=== PATIENT | female | born 1950 | race Caucasian/White ===

== ENCOUNTER 2019-05-11 15:10 | Emergency (ER) | payer MEDICARE, MEDICAID ==
[~2019-05-11] VITALS: Ht 160 cm; Wt 65.9 kg
[~2019-05-11 15:10] MED LIST: ARIP15TA4 PO; DEXL60CA PO; ENAL10TA PO; FLUO20CA42 PO; FURO40TA4 PO; MELO15TA39 PO; METF-397 PO; POTA10TA10 PO; TIOT18CA2 IH
--- NOTE | 2019-05-11 16:14 | ED Upper Extremity ---
General Chief Complaint: Upper Extremity Stated Complaint: FELL ON LEFT WRIST Nursing Triage Note: FELL IN GARAGE HURTING LEFT WRIST TODAY AT NOON. Nursing Sepsis Screen: No Definite Risk Source: patient Exam Limitations: no limitations (PORSHA ALFARO) History of Present Illness Date Seen by Provider: May 11, 2019 Time Seen by Provider: 16:00 Initial Comments Patient presents to the ED today with complaints of left wrist pain after she fell while feeding her cat at 1200 today. There is a potential bony abnormality along the left scaphoid bone. Patient has limited ROM of the left wrist. Patient rates the pain a 3 out of 10 and denies any associated symptoms. Location Injury Occurred: At home Onset: this afternoon Pain/Injury Location: left wrist Method of Injury: fell Modifying Factors: Improves With Rest (PORSHA ALFARO) Allergies and Home Medications Allergies Coded Allergies: No Known Drug Allergies (Unverified , 04/18/16) Home Medications Aripiprazole 15 Mg Tablet, 15 MG PO DAILY, (Reported) Dexlansoprazole 60 Mg Royal., 60 MG PO DAILY, (Reported) Enalapril Maleate 10 Mg Tablet, 10 MG PO DAILY, (Reported) Fluoxetine HCl 20 Mg Capsule, 20 MG PO DAILY, (Reported) Furosemide 40 Mg Tablet, 40 MG PO DAILY, (Reported) Meloxicam 15 Mg Tablet, 15 MG PO DAILY, (Reported) Metformin HCl 500 Mg Tablet, 500 MG PO BID, (Reported) Potassium Chloride 10 Meq Tablet.er, 10 MEQ PO DAILY, (Reported) Tiotropium [place] 1 Inh Aerp, 2 INH IH DAILY, (Reported) Patient Home Medication List Home Medication List Reviewed: Yes (SANTOS FRAZIER APRN) Review of Systems Constitutional: no symptoms reported EENTM: no symptoms reported Respiratory: no symptoms reported Cardiovascular: no symptoms reported Gastrointestinal: no symptoms reported Genitourinary: no symptoms reported : No Musculoskeletal: see HPI Skin: no symptoms reported Psychiatric/Neurological: No Symptoms Reported (PORSHA ALFARO) Past Faiusra-Rfrxyd-Dvkzqc Hx Patient Social History Alcohol Use: Occasionally Uses Recreational Drug Use: No Smoking Status: Never a Smoker Type Used: Cigarettes Former Smoker, Quit: Jul 21, 2005 Recent Foreign Travel: No Contact w/Someone Who Travel: No Recent Infectious Disease Expo: No Recent Hopitalizations: No (ALFARO,PORSHA PA STUDENT) Seasonal Allergies Seasonal Allergies: No (PORSHA ALFARO STUDENT) Past Medical History Surgeries: Yes Respiratory: Yes (USES INHALER, SOB) Currently Using CPAP: No Currently Using BIPAP: No Cardiac: No Neurological: No Reproductive Disorders: No Female Reproductive Disorders: Denies Sexually Transmitted Disease: No HIV/AIDS: No Gastrointestinal: No Musculoskeletal: Yes (ARTHRITIS IN BACK ) Endocrine: No Cancer: No Psychosocial: No Integumentary: No Blood Disorders: No Adverse Reaction/Blood Tranf: No (PORSHA ALFARO STUDENT) Physical Exam Vital Signs Vital Signs - First Documented 05/11/19 15:35 Temp 36.5 Pulse 82 Resp 16 B/P (MAP) 150/111 (124) Pulse Ox 96 O2 Delivery Room Air (SANTOS FRAZIER APRN) Vital Signs Capillary Refill : Less Than 3 Seconds (PORSHA ALFARO STUDENT) Height, Weight, BMI Height: 0'0.00" Weight: 0lbs. 0.0oz. 0.846123bd; 25.00 BMI Method: General Appearance: no apparent distress Cardiovascular: normal peripheral pulses, regular rate, rhythm, no edema, no gallop, no JVD, no murmur Respiratory: chest non-tender, lungs clear, normal breath sounds, no respiratory distress, no accessory muscle use Gastrointestinal: normal bowel sounds, non tender, soft, no organomegaly, no pulsatile mass Wrist: Yes asymmetry, Yes bone tenderness, Yes limited ROM, Yes pain, Yes soft tissue tenderness, Yes swelling Hand: normal inspection, non-tender, no evidence of injury, normal ROM Neurologic/Psychiatric: alert, normal mood/affect, oriented x 3 Skin: normal color, warm/dry Lymphatic: no adenopathy (PORSHA ALFARO STUDENT) Progress/Results/Core Measures Results/Orders Lab Results Laboratory Tests Test 05/11/19 17:05 Range/Units (SANTSO FRAZIER APRN) My Orders Orders - SANTOS FRAZIER APRN Wrist, Left, 3 Views Or More (05/11/19 16:08) Body Fluid Culture (05/11/19 16:56) Crystals,Body Fluid (05/11/19 16:56) Lidocaine 1% Inj 20 Ml (Xylocaine 1% Inj (05/11/19 17:00) (SANTOS FRAZIER APRN) Medications Given in ED Current Medications Medications Dose Ordered Sig/Josue Route Start Time Stop Time Status Last Admin Dose Admin Lidocaine HCl 2.1 ml ONCE ONCE INJ 05/11/19 17:00 05/11/19 17:01 DC 05/11/19 17:08 2.1 ML (SANTOS FRAZIER APRN) Vital Signs/I&O 05/11/19 15:35 Temp 36.5 Pulse 82 Resp 16 B/P (MAP) 150/111 (124) Pulse Ox 96 O2 Delivery Room Air (SANTOS FRAZIER APRN) Blood Pressure Mean: 124 Departure Communication (Admissions) I've seen the patient and agree with plan of care. There is some swelling with fluctuance to the dorsal radial side of the wrist. She has pain with range of motion to the wrist. There is no redness. The swelling was sudden in onset after a fall today. The x-ray is unremarkable. We decided to aspirate this fluid collection, area was anesthetized with 0.5 mL of 1% lidocaine without epinephrine. An 18-gauge 1/2 inch needle was then inserted only about 1 cm into this area of fluctuance/fluid collection. 2.5 cc of bloody material was aspirated. This was sent to lab for culture (SANTOS FRAZIER APRN) Impression Primary Impression: Hemarthrosis, left wrist Disposition: 01 HOME, SELF-CARE Condition: Stable Departure-Patient Inst. Decision time for Depature: 17:14 (SANTOS FRAZIER APRN) Referrals: [facility] (PCP/Family) Primary Care Physician LINUS RODRIGUEZ MD, ROBERT F DO ZAFUTA, MICHAEL P MD Patient Instructions: Hemarthrosis (DC) Add. Discharge Instructions: 1. Wear the splint at all times except when showering until told otherwise. Call your primary care provider tomorrow to make an appointment for an MRI of the wrist if she feels this is necessary. Pain medication as directed in the mean time. Alternatively, you may call the orthopedic surgeons listed and see them directly. All discharge instructions reviewed with patient and/or family. Voiced understanding. Scripts Hydrocodone/Acetaminophen ([place] 5-325 Tablet) 1 Each Tablet 1 TAB PO Q6H for Pain MDD 10 TABS for 7 Days, #10 TAB Prov: SANTOS FRAZIER APRN 05/11/19 PORSHA ALFARO STUDENT May 11, 2019 16:14 SANTOS FRAZIER APRN May 11, 2019 17:16
--- NOTE | 2019-05-11 16:57 | Diagnostic Imaging Report ---
INDICATION: Fall with left wrist pain. TIME OF EXAM: 4:48 p.m. Three views of the left wrist were obtained. FINDINGS: Generalized demineralization of the hand and wrist is noted. The distal radius and ulna appear to be intact. Carpal bones are intact. There are degenerative changes at the first CMC joint. Visualized metacarpals appear to be intact. No fractures are seen. IMPRESSION: Demineralization and degenerative change. No acute bony abnormality is detected. Dictated by: Dictated on workstation # [id number]
[2019-05-11] MEDS ORDERED: LIDOCAINE 1% INJ 20 ML 20 ML VIAL INJ ONE (17:00)
[2019-05-11] MEDS ORDERED: HYDR-4226 PO (17:16)
[2019-05-11 17:35] VITALS: BP 150/111
== END 2019-05-11 17:35 | disposition home or self-care (01) ==
LOC: EDUNIT# 15:10 → EDBD 15:13 → ER 15:13
DX: S63.502A Unspecified sprain of left wrist, initial encounter (principal); Z79.4 Long term (current) use of insulin; Z87.891 Personal history of nicotine dependence; W19.XXXA Unspecified fall, initial encounter; Y92.009 Unspecified place in unspecified non-institutional (private) residence as the place of occurrence of the external cause
CPT/HCPCS: 10060; 73110; 87070; 87205; 89060

== ENCOUNTER 2019-10-29 22:12 | Inpatient (IN) | payer MEDICARE, MEDICAID ==
[~2019-10-29] VITALS: Ht 167 cm; Wt 68.3 kg
[~2019-10-29 22:12] MED LIST changes: +HYDR-4226 PO
--- OUTSIDE RECORDS SUMMARY | 2019-10-29 22:23 | XMS REPORT ---
Author Author Delphine Mays Doctor Organization [facility] Address Unknown Phone Unavailable Care Team Providers Care Gas Flow Regulator Name Role Phone Migration, Doctor Unavailable Unavailable PROBLEMS Type Condition ICD9-CM Code FGD21-LS Code Onset Dates Condition S tatus SNOMED Code Problem Degenerative disc disease, cervical M50.30 Active 84181015 Problem Lumbar degenerative disc disease M51.36 Active 49285142 Problem Gastric reflux K21.9 Active 58063 7003 Problem Migraine without aura and without status migrain osus, not intractable G43.009 Active 661639062 Problem COPD mixed type J44.9 Active 1364 5005 Problem Thyroid nodule E04.1 Active 76772 5005 Problem Mixed incontinence N39.46 Active 4 86394207 Problem Essential (primary) hypertension I10 Active 60051182 Problem Left lower quadrant abdominal pain R10.32 Active 525626198 Problem Chronic kidney disease, stage 3 N18.3 Active 273064750 Problem COPD exacerbation J44.1 Active 19 6804843 Problem Urge incontinence N39.41 Active 87 032445 Problem Complete tear of right rotator cuff M75.121 Active 716417676 Problem Incomplete tear of right rotator cuff, unspecifi ed whether traumatic M75.111 Active 629279908 Problem Other schizoaffective disorders F25.8 Active 69001286 Problem Hypertensive heart disease with heart failure I11. 0 Active 41314178 Problem Rotator cuff tear M75.100 Active 41 48109 Problem Type 2 diabetes mellitus wit h diabetic polyneuropathy, without long-term current use of insulin E11.42 Active 10159 006 Problem Gastro-esophageal reflux disease without esophagitis K21.9 Active 638545962 Problem GERD with esophagitis K21.0 Active 374071712 Problem Major depression F32.9 Active 370 977725 Problem Moderate episode of recurrent major depressive disorder F33.1 Active 656487235 Problem Atherosclerosis of [place] co ronary artery with angina pectoris, unspecified whether [place] or transplanted heart I25.119 Active [id number] ALLERGIES No Information ENCOUNTERS Encounter Location Date Diagnosis [facility] [address] [facility] [id number] [place] [address] Oct, [facility] [place] [address] [facility] [id number] [place] [address] Sep, [facility] [place] [address] [facility] [id number] [place] [address] Sep, [facility] [place] [id number] [address] Sep, [facility] [place] [id number] [address] Sep, Major depression F32.9 [facility] [address] [place] [id number] [address] Sep, Encounter for Medicare annual wellness e xam Z00.00 ; COPD mixed type J44.9 ; Essential (primary) hypertension I10 ; Type 2 diabetes mellitus with diabetic polyneuropathy, without long-term current use of insulin E11.42 ; Atherosclerosis of [place] coronary artery with angina pectoris, unspecified whether [place] or transplanted heart I25.119 ; Hypertensive heart disease with heart failure I11.0 ; Other schizoaffective disorders F25.8 ; Moderate episode of recurrent major depressive disorder F33.1 ; Chronic kidney disease, stage 3 N18.3 ; Degenerative disc disease, cervical M50.30 ; Gastro-esophageal reflux disease without esophagitis K21.9 and Complete tear of right rotator cuff M75.121 [facility] [address] [place] [id number] [address] Sep, [facility] [address] [place] [id number] [address] Sep, [facility] [place] [address] [id number] [address] Sep, [facility] [address] [place] [id number] [address] Sep, [facility] [address] [place] [id number] [address] Sep, [facility] [address] [place] [address] [facility] [id number] [place] [address] 23 Sep, 2019 [facility] [address] [place] [address] [facility] [id number] [place] [address] 20 Sep, 2019 [facility] [address] [facility] [id number] [address] [place] [address] 19 Sep, 2019 [facility] [address] [place] [address] [facility] [id number] [place] [address] 19 Sep, 2019 [facility] [address] [place] [address] [facility] [id number] [place] [address] 18 Sep, 2019 [facility] [address] [facility] [id number] [facility] [place] [address] 17 Sep, 2019 [facility] [address] [place] [id number] [address] 17 Sep, 2019 [facility] [address] [place] [id number] [address] 16 Sep, 2019 [facility] [address] [place] [id number] [address] 16 Sep, 2019 [facility] [address] [place] [id number] [address] 13 Sep, 2019 Varicose veins of both lower extremities , unspecified whether complicated I83.93 [facility] [address] [place] [id number] [address] 10 Sep, 2019 Major depression F32.9 [facility] [address] [place] [id number] [address] 06 Sep, 2019 GERD with esophagitis K21.0 ; Other schi zoaffective disorders F25.8 ; Type 2 diabetes mellitus with diabetic polyneuropathy, without long-term current use of insulin E11.42 ; COPD mixed type J44.9 and Post-menopausal Z78.0 [facility] [address] [place] [id number] [address] 04 Sep, 2019 Other schizoaffective disorders F25.8 an d Type 2 diabetes mellitus with diabetic polyneuropathy, without long-term current use of insulin E11.42 [facility] [place] [address] [facility] [id number] [address] [address] Sep, [facility] [address] [place] [address] [facility] [id number] [place] [address] Sep, [facility] [address] [place] [address] [address] 28 Aug, 2019 Type 2 diabetes mellitus with diabetic p olyneuropathy, without long-term current use of insulin E11.42 ; Moderate episode of recurrent major depressive disorder F33.1 and Other schizoaffective disorders F25.8 [facility] [address] [place] [address] [address] 27 Aug, 2019 [facility] [address] [place] [address]005[address] [address] 26 Aug, 2019 [facility] [address] [place] [address]005[address] [address] 24 Aug, 2019 [facility] [address] [place] [address]005[address] [address] 21 Aug, 2019 Incomplete tear of right rotator cuff, u nspecified whether traumatic M75.111 [facility] [address] [place] [id number] [address] 20 Aug, 2019 [facility] [address] [place] [id number] [address] 19 Aug, 2019 [facility] [address] [place] [id number] [address] 18 Aug, 2019 Other schizoaffective disorders F25.8 [facility] [address] [place] [id number] [address] 13 Aug, 2019 [facility] [address] [place] [id number] [address] 12 Aug, 2019 [facility] [place] [address] [facility] [id number] [place] [address] 11 Aug, 2019 [facility] [place] [address] [facility] [address] [id number] [place] [address] 10 Aug, 2019 [facility] [place] [address] [facility] [address] [id number] [place] [address] 07 Aug, 2019 [facility] [place] [address] [facility] [address] [id number] [place] [address] 05 Aug, 2019 [facility] [place] [address] [facility] [address] [id number] [place] [address] 04 Aug, 2019 [facility] [place] [id number] [address] Aug, [facility] [address] [place] [id number] [address] Aug, [facility] [address] [place] [id number] [address] Jul, Incomplete tear of right rotator cuff, u nspecified whether traumatic M75.111 [facility] [address] [place] [address] [facility] [id number] [place] [address] Jul, [facility] [address] [place] [address] [facility] [id number] [place] [address] 30 Jul, 2019 Rotator cuff tear M75.100 ; Type 2 diabe rhina mellitus with diabetic polyneuropathy, without long-term current use of insulin E11.42 ; High risk medication use Z79.899 and Urge incontinence N39.41 [facility] [address] [place] [address] [facility] [id number] [place] [address] Jul, Dysuria R30.0 [facility] [address] [place] [address] [facility] [id number] [place] [address] Jul, [facility] [address] [place] [id number] [address] Jul, [facility] [address] [place] [address] [facility] [id number] [place] [address] Jul, [facility] [address] [place] [address] [facility] [address] [id number] [place] [address] Jul, [facility] [address] [place] [address] [facility] [address] [id number] [place] [address] Jul, Lumbago M54.5 [facility] [address] [place] [address] [facility] [address] [id number] [place] [address] Jul, [facility] [address] [place] [address] [facility] [address] [id number] [place] [address] Jul, [facility] [address] [place] [address] [facility] [id number] [place] [address] Jul, [facility] [address] [place] [address] [facility] [address] [id number] [place] [address] Jul, [facility] [address] [place] [address] [facility] [id number] [place] [address] Jul, [facility] [address] [place] [address] [facility] [id number] [place] [address] Jul, Incomplete tear of right rotator cuff, u nspecified whether traumatic M75.111 ; Essential (primary) hypertension I10 and Thyroid nodule E04.1 [facility] [address] [facility] [id number] [place] [address] Jul, [facility] [address] [place] [address] [facility] [id number] [place] [address] Jun, [facility] [address] [place] [address] [facility] [id number] [place] [address] Jun, COPD exacerbation J44.1 [facility] [address] [place] [address] [facility] [id number] [place] [address] Jun, [facility] [address] [place] [address] [facility] [id number] [place] [address] Jun, [facility] [address] [place] [address] [facility] [id number] [place] [address] Jun, Nausea R11.0 ; Incomplete tear of right rotator cuff, unspecified whether traumatic M75.111 and Essential (primary) hypertension I10 [facility] [address] [place] [address] [facility] [address] [id number] [place] [address] Jun, [facility] [address] [place] [address] [facility] [address] [id number] [place] [address] 18 Jun, 2019 [facility] [address] [place] [id number] [address] 16 Jun, 2019 [facility] [address] [place] [address] [facility] [address] [id number] [place] [address] 11 Jun, 2019 Rotator cuff tear M75.100 [facility] [address] [place] [id number] [address] 09 Jun, 2019 [facility] [address] [place] [address] [address] 05 Jun, 2019 Essential (primary) hypertension I10 ; T ype 2 diabetes mellitus with diabetic polyneuropathy, without long-term current use of insulin E11.42 ; Rotator cuff tear M75.100 and Chronic kidney disease, stage 3 N18.3 [facility] [address] [place] [id number] [address] 03 Jun, 2019 [facility] [address] [place] [id number] [address] Jun, [facility] [address] [place] [id number] [address] Jun, [facility] [address] [place] [id number] [address] May, [facility] [address] [place] [id number] [address] May, [facility] [address] [place] [id number] [address] May, [facility] [address] [place] [id number] [address] May, Rotator cuff tear M75.100 [facility] [address] [place] [address] [id number] [address] May, [facility] [address] [place] [address] [place], [id number] [address] May, Rotator cuff tear M75.100 ; Major depres sive disorder with current active episode, unspecified depression episode severity, unspecified whether recurrent F32.9 ; Type 2 diabetes mellitus with diabetic polyneuropathy, without long-term current use of insulin E11.42 and Essential (primary) hypertension I10 [facility] [address] [place] [address] [place] [address] [address] May, [facility] [address] [place] [address] [id number] [address] May, [facility] [address] [place] [address] [place] [address] [address] Apr, [facility] [address] [place] [address] [place] [address] [address] Apr, [facility] [address] [place] [address] [place] [address] [address] Apr, Rotator cuff tear M75.100 ; Essential (p rimary) hypertension I10 and COPD mixed type J44.9 [facility] [address] [place] [address] [id number] [address] Apr, Rotator cuff tear M75.100 [facility] [address] [place] [address] [id number] [address] Apr, [facility] [address] [place] [address] [id number] [address] Apr, Preprocedural examination Z01.818 [facility] [address] [place] [address] [id number] [address] 09 Apr, 2019 [facility] [address] [place] [address] [id number] [address] 09 Apr, 2019 [facility] [address] [place] [address] [id number] [address] 08 Apr, 2019 Traumatic complete tear of right rotator cuff, initial encounter S46.011A ; Essential (primary) hypertension I10 ; Encounter for immunization Z23 ; Leg cramps R25.2 ; COPD mixed type J44.9 and Fatigue R53.83 [facility] [address] [place] [address] [place] [address] ST [id number] [place] [address] 24 Mar, 2019 [facility] [address] [place] [address] [place] [address] ST [id number] [place] [address] 18 Mar, 2019 [facility] [address] [place] [address] [place] [id number] [address] 16 Mar, 2019 [facility] [address] [place] [address] [place] [address] [address] 13 Mar, 2019 [facility] [address] [place] [address] [place] [address] [address] 12 Mar, 2019 Traumatic complete tear of right rotator cuff, initial encounter S46.011A ; Left lower quadrant abdominal pain R10.32 ; Essential (primary) hypertension I10 ; COPD mixed type J44.9 and 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 [facility] [address] [place] [address] [place] [address] [address] 10 Mar, 2019 [facility] [address] [place] [address] [place] [id number] [address] 09 Mar, 2019 Gastroenteritis and colitis, viral A08.4 [facility] [address] [place] [address] [place], [id number] [address] 04 Mar, 2019 [facility] [address] [place] [address] [id number] [address] Feb, Traumatic complete tear of right rotator cuff, initial encounter S46.011A ; Chronic obstructive pulmonary disease, unspecified COPD type J44.9 and Mixed incontinence N39.46 [facility] [address] [place] [address] [place] [address] [address] Feb, [facility] [address] [place] [id number] [address] Feb, [facility] [address] [place] [address] [place] [id number] [address] Feb, Injury of right shoulder, initial encoun ter S49.91XA [facility] [address] [place] [id number] [address] Feb, [facility] [address] [place] [address] [id number] [address] Feb, [facility] [address] [place] [address] [id number] [address] Jan, [facility] [address] [place] [address] [address] Jan, [facility] [address] [place] [address] [place] [address] [address] Jan, Essential (primary) hypertension I10 ; T ype 2 diabetes mellitus with diabetic polyneuropathy, without long-term current use of insulin E11.42 ; COPD mixed type J44.9 ; Thyroid nodule E04.1 and Degenerative disc disease, cervical M50.30 [facility] [address] [place] [id number] [address] Jan, [facility] [address] [place] [id number] [address] Jan, [facility] [address] [place] [id number] [address] Dec, [facility] [address] [place] [address] [place] [id number] [address] Dec, Gastroenteritis and colitis, viral A08.4 [facility] [address] [place] [id number] [address] Dec, Chronic obstructive pulmonary disease, u nspecified COPD type J44.9 [facility] [address] [place] [address] [place] [address]100[facility] [place] [address] Dec, Gastric reflux K21.9 [facility] [address] [place] [address] [place] [address]100[facility] [place] [address] 18 Dec, 2018 [facility] [address] [place] [address] [place] [address] [address] 14 Dec, 2018 Essential (primary) hypertension I10 [facility] [address] [place] [address] [place] [address] [address] Dec, [facility] [address] [place] [address] [place] [address]100[facility] [place] [address] Dec, Chronic obstructive pulmonary disease, u nspecified COPD type J44.9 ; Type 2 diabetes mellitus with diabetic polyneuropathy, without long-term current use of insulin E11.42 ; Essential (primary) hypertension I10 ; Gastro-esophageal reflux disease without esophagitis K21.9 and Varicella vaccination Z23 [facility] [address] [place] [address] [place] [address] [address] Dec, Dyspnea on exertion R06.09 and Infiltrat e noted on imaging study R93.89 [facility] [address] [place] [address] [place] [address] [address] November, Thyroid pain E07.89 [facility] [address] [place] [place] [address] [address] November, Thyroid pain E07.89 [facility] [address] [place] [place], [place] [address] [address] November, Other schizoaffective disorders F25.8 [facility] [address] [place] [place], [place] [address] [address] Oct, Type 2 diabetes mellitus with diabetic p olyneuropathy, without long-term current use of insulin E11.42 ; Gastric reflux K21.9 and Diabetic retinopathy of right eye associated with type 2 diabetes mellitus, macular edema presence unspecified, unspecified retinopathy severity E11.319 [facility] [address] [place] [id number] [place] [address] Sep, [facility] [address] [place] [address] [place] [address] [address] Sep, Type 2 diabetes mellitus with diabetic p olyneuropathy, without long-term current use of insulin E11.42 and Gastric reflux K21.9 [facility] [address] [place] [address] [place] [id number] [address] Sep, [facility] [address] [place] [address] [place] [address] [address] Sep, Acute vaginitis N76.0 and Other schizoaf fective disorders F25.8 [facility] [place] [address] [facility] [id number] [address] [place] [address] 08 Sep, 2018 [facility] [address] [place] [address] [place], [place] [id number] [address] Sep, [facility] [address] [place] [address] [place] [address] [address] Aug, [facility] [address] [place] [address] [place] [address] [address] Jul, [facility] [address] [place] [address] [address] Jul, [facility] [address] [place] [address] [place] [address] [address] Jul, Dental examination Z01.20 and Caries K02 .9 [facility] [address] [place] [address] [place] [id number] [address] Jul, Type 2 diabetes mellitus without complic ations E11.9 [facility] [address] [place] [address] [place] [id number] [address] Jul, [facility] [address] [place] [address] [place] [place] [id number] [address] Jul, Migraine without aura and without status migrainosus, not intractable G43.009 [facility] [address] [place] [address] [facility] [id number] [place] [address] Jul, [facility] [address] [place] [address] [place] [place] [id number] [address] Jul, [facility] [address] [place] [address] [place] [address] [id number] [place] [address] Jul, [facility] [address] [place] [address] [place], [place] [id number] [address] Jul, Shortness of breath R06.02 [facility] [address] [place] [address] [place] [address] [id number] [place] [address] 07 Jul, 2018 Dental examination Z01.20 [facility] [address] [place] [address] [place] [id number] [address] 05 Jul, 2018 Acute intractable headache, unspecified headache type R51 and BMI 40.0-44.9, adult Z68.41 [facility] [address] [place] [address] [facility] [id number] [place] [address] Jul, [facility] [address] [place] [address] [place], [place] [id number] [address] Jul, [facility] [address] [place] [address] [place], [place] [id number] [address] Jul, [facility] [address] [place] [address] [place] [address] [id number] [place] [address] 31 Jun, 2018 [facility] [address] [place] [address] [place] [id number] [place] [address] Jun, [facility] [address] [place] [address] [place] [address] [id number] [place] [address] Jun, [facility] [address] [place] [address] [place] [address] [id number] [place] [address] 18 Jun, 2018 Impetigo L01.00 and Sore in nose J34.89 [facility] [address] [place] [address] [facility] [id number] [place] [address] Jun, Degenerative disc disease, cervical M50. 30 [facility] [address] [place] [address] [facility] [address] [id number] [place] [address] Jun, Sore in nose J34.89 [facility] [address] [place] [address] [facility] [address] [id number] [place] [address] Jun, Sore in nose J34.89 ; Excoriation of abd omen, initial encounter S30.811A ; Encounter for immunization Z23 and BMI 40.0-44.9, adult Z68.41 [facility] [address] [place] [address] [place] [address] [place] [id number] [place] [address] May, [facility] [address] [place] [address] [facility] [address] [id number] [place] [address] May, [facility] [address] [place] [address] [place] [address] ST [id number] [place] [address] May, Type 2 diabetes mellitus without complic ations E11.9 [facility] [address] [place] [address] [place] [address] [place] [id number] [place] [address] May, [facility] [address] [place] [address] [place] [address] [place] [id number] [place] [address] May, Degenerative disc disease, cervical M50. 30 [facility] [address] [place] [address] [place] [address] [place] [id number] [place] [address] May, Cervicalgia M54.2 [facility] [address] [place] [address] [place] [address] [place] [id number] [place] [address] May, [facility] [address] [place] [address] [place] [address] [place] [id number] [place] [address] May, [facility] [address] [place] [address] [facility] [address] [id number] [place] [address] May, [facility] [address] [place] [address] [place] [address] [place] [id number] [place] [address] May, Gastroenteritis and colitis, viral A08.4 [facility] [address] [place] [address] [facility] [address] [id number] [place] [address] Apr, Type 2 diabetes mellitus without complic ations E11.9 ; Degenerative disc disease, cervical M50.30 ; Essential (primary) hypertension I10 ; Gastro- esophageal reflux disease without esophagitis K21.9 and BMI 40.0-44.9, adult Z68.41 [facility] [address] [place] [address] [place] [id number] [address] 26 Mar, 2018 Degenerative disc disease, cervical M50. 30 ; Type 2 diabetes mellitus without complications E11.9 ; Encounter for immunization Z23 ; half-way current use of insulin Z79.4 and BMI 40.0-44.9, adult Z68.41 [facility] [address] [place] [address] [place] [id number] [address] 20 Mar, 2018 Degenerative cervical disc M50.30 [facility] [address] [place] [address] [place] [id number] [address] 19 Mar, 2018 [facility] [address] [place] [address] [place] [id number] [address] 18 Mar, 2018 Generalized pruritus L29.9 ; Lumbar dege nerative disc disease M51.36 and BMI 40.0-44.9, adult Z68.41 [facility] [address] [place] [address] [place] [id number] [address] 06 Mar, 2018 [facility] [address] [place] [address] [place], [place] [id number] [address] 04 Mar, 2018 Cervicalgia M54.2 and Essential (primary ) hypertension I10 [facility] [address] [place] [address] [place], [place] [id number] [address] Feb, Type 2 diabetes mellitus without complic ations E11.9 [facility] [address] [place] [address] [place], [place] [id number] [address] 30 Jan, 2018 Gastroenteritis and colitis, viral A08.4 and BMI 40.0-44.9, adult Z68.41 [facility] [address] [place] [address] [place], [place] [id number] [address] 16 Jan, 2018 Type 2 diabetes mellitus without complic ations E11.9 ; Essential (primary) hypertension I10 ; Screening for breast cancer Z12.31 ; Degenerative lumbar disc M51.36 ; BMI 40.0-44.9, adult Z68.41 and Morbid obesity E66.[address] [address] 26 Dec, 18 BMI 40.0-44.9, adult Z68.41 and Other schizoaffective disorders F25.[address] [address] Dec, 18 Other schizoaffective disorders F25.8 ; Lumbar degenerative disc disease M51.36 and BMI 40.0-44.9, adult Z68.[address] [address] November, 18 Shortness of breath R06.[address] [address] November, [address] [address] November, [address] [address] November, [address] [address] November, [address] [address] November, 18 Vaginal bleeding N93.[address] [address] November, 18 BMI 40.0-44.9, adult Z68.41 and Vaginal bleeding N93.[address] [address] Oct, 18 Dysfunction of both eustachian tubes H69.[address] [address] Oct, 18 BMI 40.0-44.9, adult Z68.41 ; Essential (primary) hypertension I10 and Impetigo L01.00 [facility] [address] [place] [address] Sep, [address] [address] Sep, 18 Type 2 diabetes mellitus with diabetic polyneuropathy, without long-term current use of insulin E11.42 ; BMI 40.0-44.9, adult Z68.41 ; Other schizoaffective disorders F25.8 ; Gastro-esophageal reflux disease without esophagitis K21.9 ; Essential (primary) hypertension I10 and Impetigo L01.00 [facility] [address] [place] [address] Sep, 18 Type 2 diabetes mellitus with diabetic polyneuropathy, without long-term current use of insulin E11.[address] [address] Aug, [address] [address] Aug, [address] [address] Jul, 18 Type 2 diabetes mellitus with diabetic polyneuropathy, without long-term current use of insulin E11.42 ; Other schizoaffective disorders F25.8 ; Gastro-esophageal reflux disease without esophagitis K21.9 ; Essential (primary) hypertension I10 and Impetigo L01.[address] [address] Jun, 17 Shortness of breath R06.02 ; Type 2 diabetes mellitus without complications E11.9 ; BMI 40.0- 44.9, adult Z68.41 and Pre-ulcerative corn or callous L84 [address] [address] Jun, [address] [address] May, 17 Medicare welcome exam Z00.00 ; BMI 40.0-44.9, adult Z68.41 ; Medicare annual wellness visit, initial Z00.00 ; Medicare annual wellness visit, subsequent Z00.00 and Encounter for immunization Z23 [facility] [place] [address] [place] [address] May, 17 Foot callus L84 and Type 2 diabetes mellitus without complications E11.9 [facility] [place] [address] [place] [address] 30 Apr, 17 [facility] [place] [address] [place] [address] Apr, 17 Encounter for immunization Z23 [facility] [place] [address] [place] [address] Mar, 17 Type 2 diabetes mellitus without complications E11.9 and Polyneuropathy associated with underlying disease G63 [facility] [place] [address] [place] [address] Feb, 17 Edema R60.9 ; Type 2 diabetes mellitus without complications E11.9 and Anemia, unspecified type D64.9 [facility] [place] [address] [place] [address] Feb, 17 Hip pain, left M25.552 [facility] [place] [address] [place] [address] Feb, 17 [facility] [place] [address] [place] [address] Jan, 17 [facility] [place] [address] [place] [address] Jan, 17 [facility] [place] [address] [place] [address] 15 Dec, 17 [facility] [place] [address] [place] [address] 14 Dec, 17 [facility] [place] [address] [place] [address] 13 Dec, 17 [facility] [place] [address] [place] [address] 12 Dec, 17 [facility] [place] [address] [place] [address] 08 Dec, 17 [facility] [place] [address] [place] [address] Dec, 17 Type 2 diabetes mellitus without complications E11.9 and Essential (primary) hypertension I10 [facility] [address] [place] [address] November, 17 [facility] [address] [address] November, 17 Frequency of micturition R35.0 ; Dysuria R30.0 and Type 2 diabetes mellitus without complications E11.9 [facility] [address] [place] [address] Oct, 17 [facility] [address] [place] [address] Oct, 17 [facility] [address] [address] Oct, 17 [facility] [address] [address] Oct, 17 [facility] [address] [address] Sep, 17 Cellulitis of head except face L03.811 [facility] [address] [address] Aug, 17 [facility] [address] [address] Aug, [address] [address] Aug, 17 Flu-like symptoms R68.89 and Influenza B J10.[address] [address] Jul, 17 Type 2 diabetes mellitus without complications E11.9 [facility] [address] [place] [address] Jul, 17 [facility] [address] [address] Jul, 17 Type 2 diabetes mellitus without complications E11.9 ; Anemia, unspecified type D64.9 ; Essential (primary) hypertension I10 and Fatigue R53.83 [facility] [address] [address] Jul, 17 Type 2 diabetes mellitus without complications E11.9 and Foot callus L84 [address] [address] Jun, [address] [address] Jun, [address] [address] May, [address] [address] May, 16 Shortness of breath R06.[address] [address] May, 16 Shortness of breath R06.[address] [address] Apr, 16 Shortness of breath R06.[address] [address] Feb, 16 Screening for cervical cancer Z12.4 ; Edema R60.9 ; Screening for breast cancer Z12.39 and Screening for colon cancer Z12.[address] [address] Feb, 16 Blood in stool K92.[address] [address] 11 Feb, 16 Anemia, unspecified type D64.[address] [address] Feb, 16 Edema R60.9 ; Shortness of breath R06.02 ; Anemia, unspecified type D64.9 and Gastroesophageal reflux disease without esophagitis K21.[address] [address] Feb, 16 Shortness of breath R06.02 and Edema R60.[address] [address] Feb, [address] [address] Feb, 16 Shortness of breath R06.02 and Edema R60.9 [facility] [address] [place] [address] Feb, 16 [facility] [address] [facility] [id number] [address] [place] [address] Jan, Shortness of breath R06.02 [facility] [address] [place] [address] Jan, 16 Shortness of breath R06.02 ; Edema R60.9 and Gastroesophageal reflux disease without esophagitis K21.9 [facility] [address] [place] [address] Jan, 16 Shortness of breath R06.[address] [address] 27 Dec, [address] [address] 27 Dec, 16 Dental examination Z01.20 [facility] [address] [place] [address] 10 Dec, [address] [address] 10 Dec, [address] [address] 09 Dec, 16 Edema R60.9 ; Type 2 diabetes mellitus without complications E11.9 and Fatigue R53.[address] [address] November, 16 Edema R60.9 and Abdominal muscle strain, initial encounter S39.011A [facility] [address] [place] [address] Oct, 16 [facility] [address] [place] [address] 18 Aug, 16 Hip pain, right M25.551 and Edema R60.9 [facility] [address] [place] [address] Aug, [address] [facility] [place] [address] 04 Aug, 16 Edema R60.9 and Impetigo L01.[address] [address] Jul, 16 Type 2 diabetes mellitus without complications E11.9 and Edema R60.[address] [address] Jul, [address] [address] Jul, 16 Contusion of thigh, right S70.11XA [address] [address] Jul, 16 Hip pain, right M25.[address] [address] Jul, [address] [address] Jun, 15 Left hip pain M25.[address] [address] Jun, 15 Acute maxillary sinusitis, recurrence not specified J01.00 and Vomiting, nausea presence unspecified, unspecified intactability, vomiting of unspecified type R11.[address] [address] Jun, 15 Acute maxillary sinusitis, recurrence not specified J01.[address] [address] Apr, 15 Acquired spondylolisthesis of lumbosacral region M43.17 ; Encounter for immunization Z23 and Cholelithiasis K80.[address] [address] Mar, [address] [address] Mar, 15 Lumbar radiculopathy 724.[address] [address] Mar, 15 [facility] [place] [address] [place] [address] Feb, 15 Esophageal reflux 530.81 [facility] [address] [address] Feb, 15 Esophageal reflux 530.81 ; Essential hypertension, benign 401.1 and Diabetes mellitus without mention of complication, type II or unspecified type, not stated as uncontrolled 250.00 [facility] [address] [address] Feb, 15 [facility] [address] [place] [address] Feb, 15 Myalgia and myositis 729.1 [facility] [address] [place] [address] Jan, 15 Upper respiratory infection 465.9 ; Other symptoms involving skin and integumentary tissues 782.9 and Factitial dermatitis 698.4 [facility] [address] [address] Jan, 15 Factitial dermatitis 698.4 [facility] [address] [place] [address] Jan, 15 zrubénCHEK [address] [address] Jan, 15 Esophageal reflux 530.81 [facility] [address] [address] Dec, 15 [facility] [address] [address] Dec, 15 Esophageal reflux 530.81 [facility] [address] [place] [address] November, 15 [facility] [address] [address] November, 15 Dyspepsia 536.8 and Epigastric pain 789.06 [facility] [address] [place] [address] November, 15 [facility] [address] [address] November, 15 [facility] [place] [address] [place] [address] November, 15 Impetigo 684 [facility] [place] [address] [place] [address] Oct, 15 Other symptoms involving skin and integumentary tissues 782.9 and Seborrheic keratosis 702.19 [facility] [address] [facility] [id number] [address] [place] [address] 14 Oct, 2014 [facility] [address] [place] [id number] [address] [place] [address] Oct, [facility] [place] [address] [place] [address] Sep, 15 [facility] [address] [place] [id number] [address] [place] [address] Sep, [facility] [place] [address] [place] [address] Sep, 15 [facility] [address] [place] [id number] [address] [place] [address] Sep, [facility] [place] [address] [place] [address] Sep, 15 [facility] [address] [place] [id number] [address] [place] [address] Sep, [facility] [place] [address] [place] [address] Sep, 15 [facility] [address] [facility] [id number] [address] [place] [address] Sep, [facility] [place] [address] [place] [address] Aug, 15 [facility] [address] [facility] [id number] [address] [place] [address] Aug, [facility] [place] [address] [place] [address] Jul, 15 [facility] [address] [facility] [id number] [address] [place] [address] Jul, [facility] [place] [address] [place] [address] Jun, 14 [facility] [address] [facility] [id number] [address] [place] [address] Jun, [facility] [place] [address] [place] [address] May, 14 [facility] [address] [facility] [id number] [address] [place] [address] May, [facility] [place] [address] [place] [address] Apr, 14 [facility] [address] [facility] [id number] [address] [place] [address] Apr, [facility] [place] [address] [place] [address] Apr, 14 [facility] [address] [facility] [id number] [address] [place] [address] Apr, [facility] [address] [facility] [id number] [address] [place] [address] Mar, [facility] [place] [address] [place] [address] Mar, 14 [facility] [address] [facility] [id number] [address] [place] [address] Mar, [facility] [address] [facility] [id number] [address] [place] [address] Mar, [facility] [place] [address] [place] [address] Mar, 14 [facility] [place] [address] [place] [address] Dec, 14 [facility] [address] [facility] [id number] [address] [place] [address] Dec, [facility] [place] [address] [place] [address] Sep, 14 [facility] [id number] [place] [address] Sep, [facility] [address] [place] [address] Aug, 14 [facility] [address] [place] [id number] [address] [place] [address] Aug, [facility] [address] [place] [id number] [address] [place] [address] Jul, [facility] [address] [place] [address] Jul, 14 [facility] [address] [address] Jul, [facility] [address] [place] [address] Jul, 14 [place] [address] [place] [id number] [address] [place] [address] Jul, [facility] [place] [address] [place] [address] May, 13 [facility] [address] [place] [id number] [address] [place] [address] May, [facility] [address] [place] [address] May, 13 [facility] [address] [place] [id number] [address] [place] [address] May, [facility] [place] [address] [place] [address] May, 13 [facility] [address] [place] [id number] [address] [place] [address] May, IMMUNIZATIONS No Known Immunizations SOCIAL HISTORY Never Assessed REASON FOR VISIT PLAN OF CARE VITAL SIGNS Weight 211.01 lbs 2013-08-02 Temperature 98.1 degrees Fahrenheit 2013-08-02 Heart Rate 60 bpm 2013-08-02 Respiratory Rate 18 2013-08-02 Blood pressure systolic 118 mmHg 2013-08-02 Blood pressure diastolic 80 mmHg 2013-08-02 MEDICATIONS Unknown Medications RESULTS No Results PROCEDURES No Known procedures INSTRUCTIONS MEDICATIONS ADMINISTERED No Known Medications MEDICAL (GENERAL) HISTORY Type Description Date Medical History Other symptoms involving skin and integu mentary tissues Medical History Impetigo Medical History Schizoaffective disorder, unspecified Medical History Essential hypertension, benign Medical History Diabetes mellitus without me ntion of complication, type II or unspecified type, not stated as uncontrolled Medical History Urinary frequency Medical History Encounter for long-term (current) use of other medications Medical History Esophageal reflux Medical History DIABETES TYPE II Medical History HIGH BLOOD PRESSURE- pt states sometimes it goes low Medical History BACK TROUBLE Surgical History cholecystectomy Surgical History heart cath 12/2018 Hospitalization History Surgery(s) only Hospitalization History possible pneumonia or fluid on around heart-sent to [facility]/thinking COPD 12/2018
--- OUTSIDE RECORDS SUMMARY | 2019-10-29 22:23 | XMS REPORT ---
Author Author [employer]. Organization [employer]. Address [address] [place] [address] Care Team Providers Care Reflow Operator Name Role Phone WANKER, MICHAEL Unavailable Unavailable PARKINSON, SHAYY Unavailable Unavailable NO, LOCAL PHYSICIAN Unavailable Unavailable GREENE, TREVER Unavailable Unavailable CURL, DONAVON Unavailable Unavailable PARKINSON, SHAYY Unavailable PARKINSON, SHAYY Unavailable PARKINSON, SHAYY Unavailable PARKINSON, SHAYY Unavailable PARKINSON, SHAYY Unavailable WANKER, MICHAEL Unavailable PARKINSON, SHAYY Unavailable PARKINSON, SHAYY Unavailable PARKINSON, SHAYY Unavailable PARKINSON, SHAYY Unavailable PARKINSON, SHAYY Unavailable PARKINSON, SHAYY Unavailable PARKINSON, SHAYY Unavailable PARKINSON, SHAYY Unavailable PARKINSON, SHAYY Unavailable PARKINSON, SHAYY Unavailable WANKER, MICHAEL Unavailable WANKER, MICHAEL Unavailable PARKINSON, SHAYY Unavailable WANKER, MICHAEL Unavailable WANKER, MICHAEL Unavailable WANKER, MICHAEL Unavailable WANKER, MICHAEL Unavailable WANKER, MICHAEL Unavailable WANKER, MICHAEL Unavailable WANKER, MICHAEL Unavailable WANKER, MICHAEL Unavailable WANKER, MICHAEL Unavailable WANKER, MICHAEL Unavailable WANKER, MICHAEL Unavailable WANKER, MICHAEL Unavailable GREENE, TREVER Unavailable WANKER, MICHAEL Unavailable WANKER, MICHAEL Unavailable WANKER, MICHAEL Unavailable WANKER, MICHAEL Unavailable WANKER, MICHAEL Unavailable GREENE, TREVER Unavailable WANKER, MICHAEL Unavailable WANKER, MICHAEL Unavailable WANKER, MICHAEL Unavailable WANKER, MICHAEL Unavailable WANKER, MICHAEL Unavailable WANKER, MICHAEL Unavailable WANKER, MICHAEL Unavailable WANKER, MICHAEL Unavailable WANKER, MICHAEL Unavailable WANKER, MICHAEL Unavailable MALLY, CHARLOTTE Unavailable WANKER, MICHAEL Unavailable MALLY, CHARLOTTE Unavailable WANKER, MICHAEL Unavailable MALLY, CHARLOTTE Unavailable Migration, Doctor Unavailable Unavailable Migration, Doctor Unavailable Unavailable Migration, Doctor Unavailable Unavailable ZENISEK, PAULA Unavailable Unavailable ZENISEK, PAULA Unavailable Unavailable WANKER, MICHAEL Unavailable Unavailable ZENISEK, PAULA Unavailable Unavailable DR ROB VELAZQUEZ Unavailable Unavailable MILLIONMARVIN Unavailable Unavailable JEREMIE DIANE Unavailable Unavailable LJ MANDUJANO Unavailable Unavailable ASMKIMBERLY SIMMONS Unavailable Unavailable KAY ZACH Unavailable Migration, Doctor Unavailable Unavailable Migration, Doctor Unavailable Unavailable Migration, Doctor Unavailable Unavailable Migration, Doctor Unavailable Unavailable WANKER, MICHAEL Unavailable WANKER, MICHAEL Unavailable Migration, Doctor Unavailable Unavailable VILLANUEVA, ZACH Unavailable WANKER, MICHAEL J Unavailable Unavailable Migration, Doctor Unavailable Unavailable VILLANUEVA, ZACH Unavailable GREENE, TREVER Unavailable ORIANA MENDOZA DO Unavailable Unavailable Oriana Plascencia Unavailable Unavailable Wanker, Michael J Unavailable Unavailable [facility] Unavailable Ema domi IBRAHIM MD, OLIVIA Dominguez Unavailable Unavailable Michael Jones Unavailable Unavailable Michael Jones Unavailable Unavailable Migration, Doctor Unavailable Unavailable ZACH VILLANUEVA Unavailable ZACH VILLANUEVA Unavailable Unavailable Unavailable VILLANUEVAZACH Almanzar Unavailable Migration, Doctor Unavailable Unavailable Allergies Normalized Allergy Reported Date of Reaction(s) Care Provider Facility Allergy Type classification allergen Allergy Onset DA (1 source.) Unclassified No Known no information PAULA AMIN [facility] ([address]) DA (1 source.) Unclassified No Known Drug 04-18-2016 - no inform darekion BRIE SAEED Via Allergies [facility] (09276) Drug (5 Unclassified No Known no information Michael Jones [place] sources.) Medication [facility] (76381) Medications Current Medications Medication Ingredient Drug Dose Dates Status Sig Sig Care Class(es) (Normalized) (Original) Provid er diazePAM 5 diazePAM Benzodiazep 5 mg 11-27-19 Active no Va lium 5 mg no mg oral Translation ine 18 information Orally Once name tablet (5 s: [ Valium 30 minutes (no sources.) 5 mg, before phone) Valium 5 procedure 1 mg] tablet as needed November, 1 dose Active fluconazole Fluconazole Azole 150 mg 10-06-19 Active no Dif lucan 150 no 150 mg oral Translation Antifungal 19 information MG Oral ly name tablet (1 s: [ once and (no source.) Diflucan repeat in 72 phone) 150 MG] hours 1 tablet Sep, Active medroxyPROG medroxyPROG Progestin 5 mg 11-27-19 Active no Provera 5 mg no ESTERone ESTERone 18 - information Orally Once name acetate 5 Translation 12-04-19 a day 1 (no mg oral s: [ 18 tablet with phone) tablet (1 Provera 5 food 24h 09 source.) mg] Nov, 2017 November, 07 days Active miconazole Miconazole Azole 20 10-06-19 Active no Micon azole 7 no nitrate 20 Translation Antifungal mg/mL 19 information 2 % V aginal name mg/ml s: [ Once a day 1 (no vaginal Miconazole applicatorfu phone) cream (2 7 2 %] l at bedtime sources.) 24h Sep, 7 day(s) Active no Proventil no 2 04-25-20 Active take 2 Proventil no information HFA 108 (90 information puff(s 16 puff(s) by HFA 108 (90 name (1 source.) Base) ) inhalation Base) (no MCG/ACT every four MCG/ACT phone) hours as Inhalation needed every 4 hrs 2 puffs as needed 4h Apr, Active no Spiriva no 2 Active take 2 Spiriva no information Respimat information puff(s puff(s) by Respimat n jules (1 source.) 1.25 ) inhalation 1.25 MCG/ACT (no MCG/ACT once daily Inhalation phone) Once a day 2 puffs 24h Active Completed/Discontinued Medications Medication Ingredient Drug Dose Dates Status Sig Sig Care Class(es) (Normalized) (Original) Provid er no Albuterol / Anticholine 12-25-19 no no no no information Ipratropium rgic, 19 - informat information inform ation name (2 beta2-Adren 12-27-19 ion (no sources.) ergic 19 phone) Agonist 12-24-2018 no no no no name information inform informat (no ation ion phone) no ALUM-MAG no 12-25-19 no no no no information HYDROXIDE-S information 19 informat information information name (4 IMETH ion (no sources.) phone) 12-24-2018 no no no no name - information inform informat (no 12-24-2018 ation ion phone) 12-24-2018 no no no no name - information inform informat (no 12-26-2018 ation ion phone) 12-24-2018 no no no no name information inform informat (no ation ion phone) no B COMPLEX no 12-25-19 no no no no information VITAMINS information 19 - informat information inf ormation name (2 12-27-19 ion (no sources.) 19 phone) 12-24-2018 no no no no name information inform informat (no ation ion phone) no Bisacodyl Stimulant 12-25-19 no no no no information Translation Laxative - informat information inf ormation name (4 s: [ 12-27-19 ion (no sources.) BISACODYL, 19 phone) BISACODYL] 12-24-2018 no no no no name information inform informat (no ation ion phone) no cetirizine Histamine-1 12-25-19 no no no no information Translation Receptor 19 - informat information inf ormation name (12 s: [ Zyrtec Antagonist 12-27-19 ion (no sources.) Allergy 10 19 phone) mg, Zyrtec Allergy 10 mg, CETIRIZINE, cetirizine hydrochlori de 10 MG Oral Tablet [Zyrtec], Zyrtec Allergy 10 mg] 12-24-2018 no no no no name information inform informat (no ation ion phone) 10 mg 11-12-2017 Active no Zyrtec no name - inform Allergy (no 04-11-2018 ation 10 mg phone) Orally Once a day 1 tablet 24h Oct, Mar, 30 day(s) Active 10 mg 11-12-2017 Active no Zyrtec no name - inform Allergy (no 04-11-2018 ation 10 mg phone) Orally Once a day 1 tablet 24h Oct, Mar, 30 day(s) Active 10 mg Active no Zyrtec no name inform Allergy (no ation 10 mg phone) Orally Once a day 1 tablet 24h 90 Active no DEXILANT 60 no 60 mg 02-18-20 Complete no DEXILA NT 60 no information MG ORAL information 15 - d information MG ORA L name (1 source.) CAPSULE 11-25-19 CAPSULE (no DELAYED 18 DELAYED phone) RELEASE RELEASE 1 po Translation q a.m., at s: [ least 30min DEXILANT 60 prior to MG ORAL first meal CAPSULE DELAYED RELEASE] DEXILANT 60 MG ORAL CAPSULE DELAYED RELEASE DEXLANSOPRAZ OLE Inactive no DOCUSATE no 12-25-19 no no no no information SODIUM information - informat information infor mation name (2 12-27-19 ion (no sources.) 19 phone) 12-24-2018 no no no no name information inform informat (no ation ion phone) no EQL ALL DAY no 10 mg 11-25-19 no take 1 EQL ALL DAY Shahla E information ALLERGY 10 information 18 informat tablet by ALL ERGY 10 Manjeet (1 source.) MG ORAL ion mouth once MG ORAL MD (no TABLET daily TABLET 1 phone) tablet daily CETIRIZINE HCL [id number] Active Shahla Burroughs MD Active no Famotidine Histamine-2 12-25-19 no no no no information Receptor 19 - informat information information name (2 Antagonist 12-27-19 ion (no sources.) 19 phone) 12-24-2018 no no no no name information inform informat (no ation ion phone) no HYDROcodone no 12-25-19 no no no no information -ACET information 19 - informat information infor mation name (2 10-325MG 12-27-19 ion (no sources.) 19 phone) 12-24-2018 no no no no name information inform informat (no ation ion phone) no INSULIN no 12-27-19 no no no no information NOVOLOG information - informat information info rmation name (3 12-27-19 ion (no sources.) 19 phone) 12-26-2018 no no no no name information inform informat (no ation ion phone) 12-25-2018 no no no no name - information inform informat (no 12-25-2018 ation ion phone) no Magnesium no 12-25-19 no no no no information Hydroxide information 19 informat information in formation name (4 ion (no sources.) phone) 12-24-2018 no no no no name - information inform informat (no 12-24-2018 ation ion phone) 12-24-2018 no no no no name - information inform informat (no 12-26-2018 ation ion phone) 12-24-2018 no no no no name information inform informat (no ation ion phone) no Morphine Opioid 12-25-19 no no no no information Agonist 19 - informat information information name (2 12-26-19 ion (no sources.) 19 phone) 12-24-2018 no no no no name information inform informat (no ation ion phone) no Nitroglycer Nitrate 12-25-19 no no no no information in Vasodilator 19 - informat information infor mation name (2 12-27-19 ion (no sources.) 19 phone) 12-24-2018 no no no no name information inform informat (no ation ion phone) no ondansetron Serotonin-3 12-25-19 no no no no information Translation Receptor 19 - informat information inf ormation name (12 s: [ Zofran Antagonist 12-27-19 ion (no sources.) 4 MG, 19 phone) Zofran 4 MG, ONDANSETRON HCL, ONDANSETRON HCL] 12-24-2018 no no no no name information inform informat (no ation ion phone) 12-24-2018 no no no no name - information inform informat (no 12-26-2018 ation ion phone) 12-24-2018 no no no no name information inform informat (no ation ion phone) 4 mg 02-16-2018 Active take 1 Zofran 4 no name tablet MG (no by Orally phone) mouth every 8 every hrs prn eight nausea 1 hours tablet as as needed needed for Jan, Active 4 mg 02-16-2018 Active no Zofran 4 no name inform MG (no ation Orally phone) every 8 hrs prn nausea 1 tablet as needed Jan, Active no predniSONE no 12-26-19 no no no no information information 19 - informat information informat ion name (2 12-27-19 ion (no sources.) 19 phone) 12-25-2018 no no no no name - information inform informat (no 12-29-2018 ation ion phone) no pregabalin no 12-25-19 no no no no information Translation information informat informati on information name (7 s: [ Lyrica 12-27-19 ion (no sources.) 75 MG, 19 phone) PREGABALIN, Lyrica 75MG] 12-24-2018 no no no no name information inform informat (no ation ion phone) 75 mg Active take 1 Lyrica no name capsul 75MG (no e by Orally phone) mouth twice a twice day 1 daily capsule 12h 28 Active no Simvastatin HMG-CoA 12-25-19 no no no no information Reductase 19 - informat information informatio n name (2 Inhibitor 12-27-19 ion (no sources.) 19 phone) 12-24-2018 no no no no name information inform informat (no ation ion phone) no tiZANidine Central 12-25-19 no no no no information Translation alpha-2 19 - informat information info rmation name (11 s: [ Adrenergic 06-08-20 ion (no sources.) Tizanidine Agonist 19 phone) HCl 2 MG, Tizanidine HCl 2 MG, tiZANidine] 12-24-2018 no no no no name information inform informat (no ation ion phone) 2 mg 02-02-2018 Active take 1 Tizanidi no name tablet ne HCl 2 (no by MG phone) mouth Orally three Three times times a daily day 1 as tablet needed as needed 8h Jan, Active 2 mg 02-02-2018 Active no Tizanidi no name inform ne HCl 2 (no ation MG phone) Orally Three times a day 1 tablet as needed 8h Jan, Active no zolpidem gamma-Amino 12-25-19 no no no no information butyric 19 - informat information information name (2 Acid-ergic 12-27-19 ion (no sources.) Agonist 19 phone) 12-24-2018 no no no no name information inform informat (no ation ion phone) Problems Active Problems Problem Normalized Date of Normalized Normalized Provider Fac ility Classification Problem(s) Problem Problem Problem Sta tus Onset/Resoluti Duration on Congestive Acute 02-03-2019 - Chronic Active PAULA Pederson [place] [facility] heart failure; diastolic Hospital nonhypertensiv (congestive) (86839) e (1 source.) heart failure Other Body mass 02-03-2019 - Chronic Active PAULA WATT [place] [facility] nutritional; index (BMI) Hospital endocrine; and 36.0-36.9, (72757) metabolic adult disorders (1 source.) Unclassified Body Mass 11-27-2017 - no information Active no n jules [facility] (1 source.) Index [facility] 40.0-44.9 (67915) (Work Adult Phone: ) 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 Oriana Tompkins ho failure; supplemental [facility] insufficiency; oxygen Regional arrest (adult) [facility] Center (1 source.) (78124) Abdominal Diaphragmatic Episodic Active BRIE SAEED Via hernia (1 hernia without DO Tanisha source.) obstruction or Hospital - gangrene [place] ([address]) Residual Edema, Episodic Active MICHAEL JONES Communit y codes; unspecified [id number] [place] [address] Center unclassified Translations: [facility] [place] (20 sources.) [ - Edema [place] (75828) R60.9] Residual Family history 02-03-2019 - Episodic Active PAULA CRUMP [place] [facility] codes; of ischemic Hospital unclassified heart disease (54822) (1 source.) and other diseases of the circulatory system Other Hip pain Episodic Active MICHAEL Ashleyit y non-traumatic Translations: [address] [facility] joint [ Hip pain, of [place] disorders (20 left, Hip [place] (90924) sources.) pain, left] Deficiency and Iron Episodic Active ORIANA MENDOZA [facility] Via other anemia deficiency DO [facility] (1 source.) anemia, Hospital - unspecified [place] ([address]359) Unclassified Long-term no information Active MICHAEL JONES Replaced By [facility] (17 sources.) [place] [address] [facility] r insulin of [facility] Translations: [place] (47531) [ intermediate designer current use of insulin, snf current use of insulin] Other Obesity, 02-03-2019 - Chronic Active PAULA WATT [place] [facility] nutritional; unspecified Hospital endocrine; and (32941) metabolic disorders (1 source.) Nonspecific Other chest 02-03-2019 - Episodic Active PAULA CRUMP [place] [facility] chest pain (1 pain Hospital source.) (59047) Other Other fecal Episodic Active ORIANA MENDOZA VC V ia gastrointestin abnormalities DO [facility] al [facility] Hospital - (1 source.) [place] ([address]142) Other skin Other Episodic Active MICHAEL Ashleyi ty disorders (20 seborrheic [address]367 [facility] Center sources.) keratosis of [facility] Translations: [place] (58449) [ - Seborrheic keratosis 702.19, - Seborrheic keratosis 702.19] Other Pain in right Episodic Active MICHAEL JONES Com munity non-traumatic hip [address] [facility] Center joint Translations: [facility] [place] disorders (20 [ - Hip pain, [place] (57241) sources.) right M25.551, - Hip pain, right M25.551] Screening and Personal 02-03-2019 - Episodic Active PAULA ROBERTS [place] [facility] history of history of Hospital mental health nicotine (74966) and substance dependence abuse codes (1 source.) Other female Polyp of Episodic Active no name [place] genital corpus uteri [facility] disorders (2 Regional sources.) Medical Center (24859) Menopausal Postmenopausal 11-24-2017 - Chronic Active no name [facility]катерина [facility] disorders (3 bleeding [facility] sources.) Translations: (74475) (Work [ Phone: Postmenopausal bleeding, ) Postmenopausal bleeding] Osteoarthritis Primary 08-30-2019 - Chronic Active Orianaraji Shine on [place] (2 sources.) osteoarthritis [facility] (90518) Joint Traumatic Chronic Active Orianaraji Plascencia [place] disorders and arthropathy, [facility] dislocations; [facility] trauma-related Medical Center (1 source.) (80986) Asthma (1 Unspecified 02-03-2019 - Chronic Active PAULA MULLEN [place] [facility] source.) asthma, Hospital uncomplicated (26358) External cause Unspecified Episodic Active Orianaraji Plascencia Kyle ricardo codes: Fall (1 fall, initial [facility] source.) encounter [facility] (02293) Other female Vaginal Episodic Active MICHAEL JONES Commu nity genital bleeding 59896 Health Center disorders (20 Translations: of [facility] sources.) [ Vaginal [place] (78071) bleeding, Vaginal bleeding] Past or Other Problems Problem Normalized Date of Normalized Normalized Provider Fac ility Classification Problem(s) Problem Problem Problem Sta tus Onset/Resoluti Duration on Other Effusion, Episodic Completed Michael Jones [place] non-traumatic right [facility] joint Regional disorders (1 Medical Center source.) (81442) Other intermediate designer 02-03-2019 - no information no information JOHN VIK WATT [place] [facility] aftercare (1 (current) use Hospital source.) of oral (20106) hypoglycemic drugs Procedures Procedure Normalized Procedure Procedure Result Performer Facility Date 06-30-2018 Admin pneumococcal no information no name (no phone ) [facility] (58552) Fluoroscopy of no information no name (no phone) [facility] Multiple Coronary (27918) Arteries using Low Osmolar Contrast 10-06-2018 [facility] visit, estab pt no information no name (no sharif ne) [facility] (12083) 07-07-2018 [facility] visit, estab pt no information no name (no sharif ne) [facility] (10549) 06-30-2018 [facility] visit, estab pt no information no name (no sharif ne) [facility] (20792) 05-11-2018 [facility] visit, estab pt no information no name (no sharif ne) [facility] (73538) 04-07-2018 [facility] visit, estab pt no information no name (no sharif ne) [facility] (53994) 03-24-2018 [facility] visit, estab pt no information no name (no sharif ne) [facility] (30398) 02-16-2018 [facility] visit, estab pt no information no name (no sharif ne) [facility] (40069) 02-02-2018 [facility] visit, estab pt no information no name (no sharif ne) [facility] (38156) 01-13-2018 [facility] visit, estab pt no information no name (no sharif ne) [facility] (47759) 01-06-2018 [facility] visit, estab pt no information no name (no sharif ne) [facility] (72138) 11-12-2017 [facility] visit, estab pt no information no name (no sharif ne) [facility] (46381) 10-06-2018 Hemoglobin no information no name (no phone) Comm [facility] glycosylated a1c [facility] (56471) 05-11-2018 Hemoglobin no information no name (no phone) Comm [facility] glycosylated a1c [facility] (18346) 02-02-2018 Hemoglobin no information no name (no phone) [facility] glycosylated a1c [facility] (48393) Hysteroscopy bx no information no name (no phone) [place] [facility] orial endometrium&/polypc [facility] w/wo d&c Center (24369) 06-30-2018 IMMUNOTHERAPY, SINGLE no information no name (no ph one) [facility] INJECTION [facility] (45547) 10-06-2018 LAB NOT BILLED BY no information no name (no phone) [facility] ([id number]) 07-07-2018 LAB NOT BILLED BY no information no name (no phone) [facility] (28886) 05-11-2018 LAB NOT BILLED BY no information no name (no phone) [facility] (35760) Measurement of Cardiac no information no name (no phone) [facility] Sampling and Pressure, (86700) Left Heart, Percutaneous Approach 06-30-2018 Prof svcs allg immntx no information no name (no ph one) [facility] x w/prv allgic xtrcs 1 [facility] (92336) 02-02-2018 Urine albumin no information no name (no phone) [facility] semiquantitative [facility] ([id number]) Immunizations Normalized Immunization Date Notes Care Provider Facili ty Immunization influenza, 04-15-2018 no information no name [facility] ealth injectable, [facility] quadrivalent, - [facility] preservative free (65572) influenza, 04-28-2017 no information no name Not Availab le injectable, (07748) quadrivalent, preservative free influenza, seasonal, 04-27-2019 no information no name [facility] injectable [facility] (43738) pneumococcal 06-30-2018 - no information no name [facility] conjugate vaccine, 06-30-2018 [facility] 13 valent - [facility] (63243) zoster vaccine 04-14-2019 no information no name [facility] Health recombinant [facility] (12296) zoster vaccine 12-31-2018 no information no name Count includes the [facility] Health recombinant [facility] (71328) no information 06-30-2018 no information [place]TE BAL [address] C [facility] (44021) Results Test Name Value Interpretation Reference Range Date Time Fa cility (Normalized) (Normalized) (Medline Reference) xray : spine, cervical on null NEGATED: no information (no code) [facility] Highlighted row Center of Laboratory [facility] studies (set) (61918) microalbumin, urine (in house) on null Albumin mass 10 g/dL (no code) 3.4 - 5.4 g/dL [facility] conc [facility] (82719) MICROALBUMIN, Normal (no code) [facility] URINE (IN HOUSE) [facility] (07002) MICROALBUMIN, [id number] (no code) [facility] URINE (IN HOUSE) [facility] (26642) MICROALBUMIN, 12/2018 (no code) Replaced By [facility] URINE (IN HOUSE) [facility] (62049) MICROALBUMIN, clear (no code) [facility] h URINE (IN HOUSE) [facility] (33180) MICROALBUMIN, dark yellow (no code) Replaced By [facility] URINE (IN HOUSE) [facility] (45649) MICROALBUMIN, 200 (no code) Replaced By [facility] URINE (IN HOUSE) [facility] (65644) MICROALBUMIN, <30 (no code) Replaced By [facility] URINE (IN HOUSE) [facility] (54962) a1c (in house) on null Hemoglobin 7.6 % (no code) 0 - 5.7 % [facility]ly [facility] A1c/Hemoglobin.t [facility] fraction (Bld) (18885) A1C (IN HOUSE) 10/2019 (no code) [facility] (09478) A1C (IN HOUSE) 0864 (no code) [facility] (22009) No panel information on null Status (75624-4) (no code) [facility] (35914) Status: N Status ~(57346-7) (no code) [facility] (07076) Status: N no information (ENCNTRINFOAV) : (no code) no informatio n No~([facility]_REVIEWED ) : [phone]~( REGENCTRALRT) : Yes~(REGENCTRCOM M) : 12/16 @ 408 pt not available at this time~(ACCRELATED ) : No~(CONVERS) : [facility] [place] Patient~([employer] PLETE) : [phone]~( PREVPATTYPE) : Ambulatory Surgery~(CONVERS ATION) : [facility] PreReg~(FTRELTNC VG) : Freetext~(REALRE LTNCVG) : Real~(RELATINSTR ) : Please search using the first and last name in the person search box. If you select add person the first and last name will populate the name hernandes above.~(NOEMAIL) : No Email~(IQHREGIST RA) : No, Not Interested~(MAMI EBTBAL) : $0.00~(SELFPAYBA DEQUAN) : $0.00~([facility]) : Yes no information (93034-6) Sex (no code) [facility] assigned at [facility] : Hardy () Female~(ENCNTRIN FOAV) : No~(MSP_REVIEWED ) : [phone]~( ACCRELATEDVI) : No~(CONVERS) : [facility] [place] Patient~([employer] PLETE) : [phone]~( PREVPATTYPE) : Preadmit~(CONVER SATION) : [facility] PreReg~(FTRELTNC VG) : Freetext~(REALRE LTNCVG) : Real~(RELATINSTR ) : Please search using the first and last name in the person search box. If you select add person the first and last name will populate the name hernandes above.~(NOEMAIL) : No Email~(OmPromptIST RA) : No, Not Interested~(MAMI EBTBAL) : $0.00~(SELFPAYBA DEQUAN) : $0.00~([facility]) : Yes no information (91578-5) Sex (no code) [facility] assigned at [facility] : Hardy () Female~(CONVERSA TION) : [facility] PreReg~(FTRELTNC VG) : Freetext~(REALRE LTNCVG) : Real~(RELATINSTR ) : Please search using the first and last name in the person search box. If you select add person the first and last name will populate the name hernandes above.~(NOEMAIL) : No Email~(SelectronHRGloPos TechnologyIST RA) : No, Not Interested~(CITY _CHECK) : Yes~(PREFERPHONE ) : Mobile Phone Number~(SELFPAYB JOSE) : $0.00~(BADDEBTBA L) : $0.00 no information (64295-8) Sex (no code) [facility] assigned at [facility]: Hardy (43404) Female~(ENCNTRIN FOAV) : No~(MSP_REVIEWED ) : [phone]~( ACCRELATEDVI) : No~(CONVERS) : [facility] [place] Patient~([employer] PLETE) : [phone]~( PREVPATTYPE) : Preadmit~(CONVER SATION) : [facility] PreReg~(FTRELTNC VG) : Freetext~(REALRE LTNCVG) : Real~(RELATINSTR ) : Please search using the first and last name in the person search box. If you select add person the first and last name will populate the name hernandes above.~(NOEMAIL) : No Email~(IQHREGIST RA) : No, Not Interested~(MAMI EBTBAL) : $0.00~(SELFPAYBA DEQUAN) : $0.00~(CITY_CHE K) : Yes~(PREFERPHONE ) : Mobile Phone Number No panel information on 2019-09-17 Exp date 05/2021 (no code) [facility] (56867) Lot 6.2~6.2~0603 (no code) [facility] (87713) No panel information on 2019-08-17 Bacteria SEE NOTE (no code) [facility] identified Cx [facility] (U) [facility] (90080) BLO no information (no code) [facility] (50669) KET 09/2020~clear~ye (no code) [facility]~no~neg~neg~ [facility] neg [facility] (95136) ISABELA neg~neg (no code) [facility] (17225) Lot # [id number] (no code) [facility] (56493) pH (Bld) 5.0 [pH] (no code) 7.38 - 7.42 [pH] Communit y [facility] (08638) Protein (U) no information (no code) 0 - 20 mg/dL [facility] [Mass/Vol] [facility] (68052) SG 1.015 (no code) [facility] (36515) URO 0.2 (no code) [facility] (51605) No panel information on 2019-05-27 Exp date 03/2021 (no code) [facility] (90013) Lot 6.2~6.7~0251 (no code) [facility] (15696) No panel information on 2019-04-27 Calcium 9.6 mg/dL (N) 8.5 - 10.2 mg/dL [facility] [Mass/Vol] [facility] (32687) Chloride 103 mmol/L (N) 95 - 106 mmol/L [facility] [Moles/Vol] [facility] (70607) CO2 [Moles/Vol] 26 mmol/L (N) 23 - 29 mmol/L [facility] (74254) Creatinine 0.99 mg/dL (N) [facility] [Mass/Vol] [facility] (90441) GFR/1.73 sq M 68 (N) 90 - 120 [facility] predicted among mL/min/{1.73_m2} mL/min/{1.73_m2} [facility] blacks MDRD [facility] (S/P/Bld) [Vol (18527) rate/Area] GFR/1.73 sq 59 (L) 90 - 120 [facility].predicted MDRD mL/min/{1.73_m2} mL/min/{1.73_m2} [facility] (S/P/Bld) [Vol [facility] rate/Area] (59474) Glucose 82 mg/dL (N) 60 - 125 mg/dL [facility] [Mass/Vol] [facility] (86446) Magnesium 1.7 mg/dL (N) 1.7 - 2.2 mg/dL [facility] [Mass/Vol] [facility] (28552) Potassium 4.8 mmol/L (N) 3.7 - 5.2 mmol/L [facility] [Moles/Vol] [facility] (32450) Sodium 139 mmol/L (N) 135 - 145 mmol/L [facility] [Moles/Vol] [facility] (68767) TSH Qn 2.54 m[IU]/L (N) 0.4 - 4 m[IU]/L Commun[facility] [place] (13207) Urea nitrogen 31 mg/dL (H) 7 - 20 mg/dL Replaced By [facility] [Mass/Vol] [facility] (47772) Urea 31 mg/mg (H) 6 - 22 mg/mg [facility] nitrogen/Creatin [facility] [Mass ratio] [facility] (73424) No panel information on 2019 Amphetamines Ql no information (N) [facility] (U) [facility] (61631) Barbiturates Ql no information (N) [facility] (U) [facility] (56765) Benzodiazepines no information (N) [facility] Ql (U) [facility] (76004) Benzoylecgonine no information (N) [facility] Ql (U) [facility] (26157) Codeine (U) no information (N) [facility] [Mass/Vol] [facility] (50260) COMMENT no information (no code) [facility] (52777) Creatinine (U) 127.3 mg/dL (N) [facility] [Mass/Vol] [facility] (52963) Drug screen INCONSISTENT (A) [facility] comment (U) [facility] [Interp] [facility] (62565) Drug screen CONSISTENT (N) [facility] comment (U) [facility] [Inter] [facility] (53607) Drug screen See Note (A) [facility] comment (U) [facility] [Interp] [facility] (22043) Hydrocodone (U) 1395 (H) [facility] [Mass/Vol] [facility] (52197) Hydromorphone no information (N) [facility] (U) [Mass/Vol] [facility] (67730) Methadone Ql (U) no information (N) [facility]59328[facility] Morphine (U) no information (N) [facility] [Mass/Vol] [facility] (51927) Norhydrocodone 807 (H) [facility] Confirm (U) [facility] [Mass/Vol] [facility] (87100) Opiates Ql (U) no information (A) [facility] (59200) Oxidants Ql (U) no information (N) [facility] (76679) Oxycodone Ql (U) no information (N) [facility] (92955) pH (U) 5.2 [pH] (N) 4.6 - 8 [pH] [facility] (93139) Phencyclidine Ql no information (N) [facility] lt (U) [facility] (24494) Tetrahydrocannab no information (N) [facility] inol Ql (U) [facility] (36327) No panel information on 2019-01-01 Calcium 9.7 mg/dL (N) 8.5 - 10.2 mg/dL [facility] [Mass/Vol] [facility] (38497) Chloride 101 mmol/L (N) 95 - 106 mmol/L [facility] [Moles/Vol] [facility] (74311) CO2 [Moles/Vol] 26 mmol/L (N) 23 - 29 mmol/L [facility] (83522) Creatinine 0.93 mg/dL (N) [facility] [Mass/Vol] [facility] (31448) GFR/1.73 sq M 74 (N) 90 - 120 [facility] predicted among mL/min/{1.73_m2} mL/min/{1.73_m2} [place] o f [facility] blacks MDRD [facility] (S/P/Bld) [Vol (94841) rate/Area] GFR/1.73 sq 64 (N) 90 - 120 [facility]predicted MDRD mL/min/{1.73_m2} mL/min/{1.73_m2} [facility] (S/P/Bld) [Vol [facility] rate/Area] (07442) Glucose 163 mg/dL (H) 60 - 125 mg/dL [facility] [Mass/Vol] [facility] (61160) Potassium 5.4 mmol/L (H) 3.7 - 5.2 mmol/L [facility] [Moles/Vol] [facility] (08653) Sodium 134 mmol/L (L) 135 - 145 mmol/L [facility] [Moles/Vol] [facility] (05435) Urea nitrogen 30 mg/dL (H) 7 - 20 mg/dL [facility] [Mass/Vol] [facility] (12130) Urea 32 mg/mg (H) 6 - 22 mg/mg Community alth nitrogen/Creatin [facility] [Mass ratio] [facility] (47666) No panel information on 2018-12-26 Calcium 8.7 mg/dL (no code) 8.5 - 10.2 mg/dL 12-26-2018 [facility] [Mass/Vol] 03: [facility] (36057) Chloride 100 mmol/L (no code) 95 - 106 mmol/L 12-26-2018 [facility] [Moles/Vol] 03: [facility] (18607) CO2 [Moles/Vol] 27 mmol/L (no code) 23 - 29 mmol/L 12-26-2018 [facility] 03: [facility] (37045) Creatinine 1.29 mg/dL (H) 12-26-2018 [facility] [Mass/Vol] 03: [facility] (41241) GFR/1.73 sq M 0 (L) 90 - 120 12-26-2018 [facility] eart predicted among mL/min/{1.73_m2} mL/min/{1.73_m2} 03: [facility] (18701) non-blacks MDRD (S/P/Bld) [Vol rate/Area] Glucose 154 mg/dL (H) 60 - 125 mg/dL 12-26-2018 [facility] [Mass/Vol] 03: [facility] (83881) Hematocrit (Bld) 38.0 % (no code) 36.1 - 50.3 % 12-26-2018 [facility] [Volume 03: [facility] () fraction] Hemoglobin (Bld) 11.5 g/dL (L) 12.1 - 17.2 g/dL 12-26-2018 [facility] [Mass/Vol] 03: Hospital (13374) MCH (RBC) 27 pg (no code) 27 - 31 pg 12-26-2018 [facility] [Entitic mass] 03: [facility] (72387) MCHC (RBC) 30.3 (L) 12-26-2018 [facility] [Mass/Vol] 03: Hospital (96926) MCV (RBC) 89.8 fL (no code) 80 - 100 fL 12-26-2018 [place] [facility] [Entitic vol] 03: Hospital (39298) Platelets (Bld) 374 (no code) 12-26-2018 [place] [facility] [#/Vol] 03: Hospital (71947) Potassium 4.5 mmol/L (no code) 3.7 - 5.2 mmol/L 12-26-2018 [facility] [Moles/Vol] 03: [facility] (82235) RBC (Bld) 4.23 (no code) 12-26-2018 [facility] [#/Vol] 03: Hospital (17056) Sodium 137 mmol/L (no code) 135 - 145 mmol/L 12-26-2018 [facility] [Moles/Vol] 03: [facility] (09878) Urea nitrogen 32 mg/dL (H) 7 - 20 mg/dL 12-26-2018 [facility] [Mass/Vol] 03: Hospital (75305) WBC (Bld) 8.8 (no code) 12-26-2018 [facility] [#/Vol] 03: Hospital (04866) No panel information on 2018-12-25 ACCUCHEK 140 (H) 12-25-2018 [facility] 12:39-399 Hospital (71857) ACCUCHEK 161 (H) 12-25-2018 [facility] 16:30-399 Hospital (78302) ACCUCHEK 226 (H) 12-25-2018 [facility] 21:57 Hospital (45709) Calcium 8.9 mg/dL (no code) 8.5 - 10.2 mg/dL 12-25-2018 [facility] [Mass/Vol] 05:48 Hospital (76291) Chloride 102 mmol/L (no code) 95 - 106 mmol/L 12-25-2018 [facility] [Moles/Vol] 05:48 [facility] (15028) CO2 [Moles/Vol] 34 mmol/L (H) 23 - 29 mmol/L 12-25-2018 [facility] (65407) Creatinine 1.35 mg/dL (H) 12-25-2018 [facility] [Mass/Vol] 05: Hospital (03629) GFR/1.73 sq M 0 (L) 90 - 120 12-25-2018 [facility] eart predicted among mL/min/{1.73_m2} mL/min/{1.73_m2} 05: [facility] (66409) non-blacks MDRD (S/P/Bld) [Vol rate/Area] Glucose 141 mg/dL (H) 60 - 125 mg/dL 12-25-2018 [facility] [Mass/Vol] 05:48 Hospital (72825) Magnesium 1.9 mg/dL (no code) 1.7 - 2.2 mg/dL 12-25-2018 [facility] [Mass/Vol] 05:48 [facility] (88899) Potassium 3.8 mmol/L (no code) 3.7 - 5.2 mmol/L 12-25-[facility] (78285) Sodium 140 mmol/L (no code) 135 - 145 mmol/L 12-25-2018 [facility] [Moles/Vol] 05: [facility] (05752) Urea nitrogen 23 mg/dL (H) 7 - 20 mg/dL 12-25-2018 [facility] [Mass/Vol] 05:48 [facility] (97470) No panel information on 2018-12-24 ACCUCHEK 149 (H) 12-24-2018 [facility] 21: [facility] (40615) Albumin 3.6 g/dL (no code) 3.4 - 5.4 g/dL 12-24-2018 [facility] [Mass/Vol] 15: Hospital (31310) ALK PHOS 119 (H) 12-24-2018 [facility] 15: [facility] (54495) ALT [Catalytic 17 U/L (no code) 4 - 40 U/L 12-24-2018 [facility] activity/Vol] 15: Hospital (29942) Bilirubin Ql (U) 0.6 (no code) 12-24-2018 [place] [facility] 15: [facility] (76041) Calcium 9.7 mg/dL (no code) 8.5 - 10.2 mg/dL 12-24-2018 [facility] Heart [Mass/Vol] 15: Hospital (37722) CARD RISK 2 (no code) 12-24-2018 [facility] 15: [facility] (70565) Chloride 100 mmol/L (no code) 95 - 106 mmol/L 12-24-2018 [facility] Heart [Moles/Vol] 15: Hospital (29751) Cholesterol 107 mg/dL (no code) 180 - 200 mg/dL 12-24-2018 [facility] [Mass/Vol] 15: [facility] (34523) Cholesterol in 49 mg/dL (no code) 12-24-2018 [place] [facility] HDL [Mass/Vol] 15: Hospital (42085) Cholesterol in 44.0 mg/dL (no code) 0 - 100 mg/dL 12-24-2018 [facility] LDL [Mass/Vol] 15: [facility] (65855) Cholesterol in 14.0 mg/dL (no code) 12-24-2018 [place] [facility] VLDL [Mass/Vol] 15: Hospital (96893) Clarity (U) CLEAR (no code) 12-24-2018 [facility] 15: [facility] (33192) CO2 [Moles/Vol] 31 mmol/L (no code) 23 - 29 mmol/L 12-24-2018 [facility] (61238) Color (U) YELLOW (no code) 12-24-2018 [facility] 15: [facility] (38003) Creatinine 0.90 mg/dL (no code) 12-24-2018 [facility] [Mass/Vol] 15: Hospital (88684) GFR/1.73 sq M 0 (no code) 90 - 120 12-24-2018 [place] [facility] predicted among mL/min/{1.73_m2} mL/min/{1.73_m2} 15: Hospital (58373) non-blacks MDRD (S/P/Bld) [Vol rate/Area] Glucose 140 mg/dL (H) 60 - 125 mg/dL 12-24-2018 [facility] [Mass/Vol] 15: Hospital (05159) HbA1c (Bld) 7.4 % (H) 0 - 5.7 % 12-24-2018 [place] [facility] [Mass fraction] 15: Hospital (79058) Hematocrit (Bld) 37.9 % (L) 36.1 - 50.3 % 12-24-2018 [facility] Heart [Volume 15: Hospital (96204) fraction] Hemoglobin (Bld) 11.6 g/dL (L) 12.1 - 17.2 g/dL 12-24-2018 [facility] [Mass/Vol] 15: Hospital (25674) HOLD ARC (no code) 12-24-2018 [facility] 15: [facility] () Magnesium 1.9 mg/dL (no code) 1.7 - 2.2 mg/dL 12-24-2018 [facility] [Mass/Vol] 15: Hospital (02560) MCH (RBC) 27 pg (no code) 27 - 31 pg 12-24-2018 [place] [facility] [Entitic mass] 15: Hospital (23500) MCHC (RBC) 30.6 (L) 12-24-2018 [facility] [Mass/Vol] 15: Hospital (55055) MCV (RBC) 89.6 fL (no code) 80 - 100 fL 12-24-2018 [place] [facility] [Entitic vol] 15: Hospital (88717) Platelets (Bld) 331 (no code) 12-24-2018 [place] [facility] [#/Vol] 15:30 [facility] (60724) Potassium 4.0 mmol/L (no code) 3.7 - 5.2 mmol/L 12-24-2018 [facility] [Moles/Vol] 15: Hospital (59640) Protein (U) no information (no code) 0 - 20 mg/dL 12-24-2018 [facility] Heart [Mass/Vol] 15: Hospital (43684) Protein 7.9 g/dL (no code) 6.4 - 8.3 g/dL 12-24-2018 [facility] [Mass/Vol] 15: Hospital (63383) RBC (Bld) 4.23 (no code) 12-24-2018 [facility] [#/Vol] 15: Hospital (75344) SGOT(AST) 14 (L) 12-24-2018 [facility] 15: [facility] (51466) Sodium 138 mmol/L (no code) 135 - 145 mmol/L 12-24-2018 [facility] as Heart [Moles/Vol] 15: Hospital (13090) Triglyceride 70 mg/dL (no code) 0 - 150 mg/dL 12-24-2018 [facility] Heart [Mass/Vol] 15: Hospital (47511) TROP I <0.02 (no code) 12-24-2018 [facility] 15: [facility] (28568) UR UROBILINOGEN 0.2 E.U./dL (no code) 12-24-2018 [place] [facility] DIP 15: Hospital (03860) Urea nitrogen 15 mg/dL (no code) 7 - 20 mg/dL 12-24-2018 [facility] Heart [Mass/Vol] 15: Hospital (83299) URINE BILIRUBIN no information (no code) 12-24-2018 [facility] DIP 15: Hospital (13464) URINE BLOOD DIP no information (no code) 12-24-2018 [facility] 15: Hospital (43494) URINE GLUC DIP no information (no code) 12-24-2018 [place] [facility] 15:57-0400 Hospital (44690) URINE KETONES no information (no code) 12-24-2018 [facility] art DIP 15:57040 Hospital (83383) URINE LEUKOCYTE no information (no code) 12-24-2018 [facility] DIP 15:57040 Hospital (85806) URINE NITRITE no information (no code) 12-24-2018 [facility] art DIP 15:57040 Hospital (47551) URINE pH DIP 7.0 (no code) 12-24-2018 [facility] 15:57040 Hospital (12140) URINE SP GRAVITY 1.015 (no code) 12-24-2018 [facility] art DIP 15:57040 Hospital (14022) WBC (Bld) 8.1 (no code) 12-24-2018 [facility] [#/Vol] 15: [facility] (72850) No panel information on 2018-12-15 Free T4 0.9 ng/dL (N) 0.9 - 2.2 ng/dL [facility] [Mass/Vol] [facility] (72703) Thyroglobulin Ab [IU]/mL (N) 0 - 20 [IU]/mL [facility] Qn [facility] (28077) TPO Ab Qn [IU]/mL (N) 0 - 35 [IU]/mL [facility] (60031) TSH Qn 3.02 m[IU]/L (N) 0.4 - 4 m[IU]/L [facility] (48810) No panel information on 2018-10-06 Albumin 4.1 g/dL (N) 3.4 - 5.4 g/dL [facility] [Mass/Vol] [facility] (75858) Albumin/Globulin 1.7 (N) [facility] [Mass ratio] [facility] (65869) ALP [Catalytic 93 U/L (N) 44 - 147 U/L Re[facility] activity/Vol] [facility] (96906) ALT [Catalytic 12 U/L (N) 4 - 40 U/L Community ealt activity/Vol] [facility] (57532) AST [Catalytic 10 U/L (N) 10 - 34 U/L [facility] activity/Vol] [facility] (58706) Basophils (Bld) 0.188 10*3/uL (N) 0 - 0.3 10*3/uL [facility] [#/Vol] [facility] (89564) Basophils/100 2.0 % (N) 0.5 - 1 % Community [facility] alth WBC (Bld) [facility] (45969) Bilirubin 0.6 mg/dL (N) 0.1 - 1.2 mg/dL [facility] [Mass/Vol] [facility] (38838) Calcium 9.5 mg/dL (N) 8.5 - 10.2 mg/dL [facility] [Mass/Vol] [facility] (96633) Chloride 102 mmol/L (N) 95 - 106 mmol/L [facility] [Moles/Vol] [facility] (59162) CO2 [Moles/Vol] 30 mmol/L (N) 23 - 29 mmol/L [facility] (03485) Creatinine 0.87 mg/dL (N) [facility] [Mass[facility]Vol] [facility] (76803) Eosinophils 0.282 10*3/uL (N) 0.05 - 0.5 [facility] alth (Bld) [#/Vol] 10*3/uL [facility] (59069) Eosinophils/100 3.0 % (N) 1 - 4 % [facility] WBC (Bld) [facility] (00765) Erythrocyte 12.6 % (N) 11.6 - 14.6 % [facility] distribution [facility] (RBC) [facility] [Ratio] (86568) Exp date 05/2020 (no code) Replaced By [facility] (42397) GFR/1.73 sq M 80 (N) 90 - 120 Replaced By [facility] alth predicted among mL/min/{1.73_m2} mL/min/{1.73_m2} [facility] MDRD [facility] (S/P/Bld) [Vol (02795) rate/Area] GFR/1.73 sq 69 (N) 90 - 120 Former[facility] M.predicted MDRD mL/min/{1.73_m2} mL/min/{1.73_m2} [facility] (S/P/Bld) [Vol [facility] rate/Area] (57160) Globulin (S) 2.4 (N) [facility] [Mass/Vol] [facility] (16143) Glucose 112 mg/dL (N) 60 - 125 mg/dL [facility] [Mass/Vol] [facility] (99307) Hematocrit (Bld) 38.2 % (N) 36.1 - 50.3 % [facility] [[facility]] [facility] (34618) Hemoglobin (Bld) 12.5 g/dL (N) 12.1 - 17.2 g/dL [facility] [Mass/Vol] [facility] (59831) Lot 6.7~6.6~0953 (no code) [facility] (74044) Lymphocytes 1880 (N) [facility] (Bld) [#/Vol] [facility] (19188) Lymphocytes/100 20.0 % (N) 20 - 40 % [facility] WBC (Bld) [facility] (45762) MCH (RBC) 28.5 pg (N) 27 - 31 pg Formerly [facility] [Entitic mass] [facility] (81643) MCHC (RBC) 32.7 g/dL (N) 32 - 36 g/dL [facility] alth [Mass/Vol] [facility] (20585) MCV (RBC) 87.0 fL (N) 80 - 100 fL [facility] lt [Entitic vol] [facility] (02314) Monocytes (Bld) 0.846 10*3/uL (N) 0.3 - 0.9 Count includes the [facility] Health [#/Vol] 10*3/uL [facility] (61878) Monocytes/100 9.0 % (N) 2 - 8 % [facility] WBC (Bld) [facility] (54992) Morphology Nir no information (N) [facility] (Bld) [Interp] [facility] (04819) Neutrophils 6.204 10*3/uL (N) 1.7 - 7 10*3/uL [facility] Health (Bld) [#/Vol] [facility] (78944) Neutrophils/100 66.0 % (N) 40 - 60 % Replaced By [facility] WBC (Bld) [facility] (09482) Platelet mean 10.6 fL (N) 7.2 - 11.7 fL [facility] volume (Bld) [facility] [Entitic vol] [facility] (22367) Platelets (Bld) 332 10*3/uL (N) 150 - 450 Replaced By [facility] [#/Vol] 10*3/uL [facility] (13110) Platelets LM Ql ADEQUATE (N) Replaced By [facility]al th (Bld) [facility] (77471) Potassium 4.8 mmol/L (N) 3.7 - 5.2 mmol/L Count includes the [facility] Health [Moles/Vol] [facility] (15430) Protein 6.5 g/dL (N) 6.4 - 8.3 g/dL [facility] [Mass/Vol] [facility] (96020) RBC (Bld) 4.39 10*6/uL (N) 4.2 - 6.1 Replaced By [facility]th [#/Vol] 10*6/uL [facility] (31642) Sodium 140 mmol/L (N) 135 - 145 mmol/L [facility] [Moles/Vol] [facility] (22503) Urea nitrogen 26 mg/dL (H) 7 - 20 mg/dL [facility] [Mass/Vol] [facility] (55053) Urea 30 mg/mg (H) 6 - 22 mg/mg Replaced [facility] alth nitrogen/Creatin [facility] [Mass ratio] [facility] (98278) WBC (Bld) 9.4 10*3/uL (N) 3.5 - 10.5 Replaced By [facility] [#/Vol] 10*3/uL [facility] (33652) No panel information on 2018-07-07 Bacteria SEE NOTE (A) [facility] cx Nom (Former[facility] spec) (34138) Bacteria SEE NOTE (no code) [facility] ([facility] spec) (54678) No panel information on 2018-02-02 A:C (IN HOUSE) <30 (no code) no information Color Nom (U) 12/2018~clear~da (no code) no informatio n rk yellow CRE 10~200 (no code) no information Exp date 10/2019 (no code) no information Lot 7.6~6.9~0864 (no code) no information Lot # [id number] (no code) no information MICROALBUMIN Normal (no code) no information No panel information on 2017-12-24 Final no information (no code) 12-24-2017 no informat ion 08:11-0400 No panel information on 2017-12-23 Pre no information (no code) [facility]-2017 [facility] ([id number]) No panel information on 2017-12-22 Albumin mass 3.4 g/dL (L) 3.4 - 5.4 g/dL 12-22-2017 [facility] [address] [facility] conc 08:51-0400 [facility] (55447) Albumin/Globulin 0.8 {ratio} (no code) 1 - 2.5 {ratio} 8 [facility] mass ratio 08:51-0400 [facility] (41051) Alk Phos 133 (H) 12-22-2017 [facility]510[facility] (81070) ALT/SGPT 26 (no code) 12-22-2017 [facility] 08:51-0400 [facility] (38831) Anion gap 3 10.9 mmol/L (no code) 3 - 11 mmol/L 12-22-2017 [facility] molar conc 08:51-0400 [facility] (21418) AST/SGOT 18 (no code) 12-22-2017 [facility] 08:51-0400 [facility] (05376) Bili Total 0.5 (no code) 12-22-2017 [facility] ([id number]) Breakpoint Hemo (no code) 12-22-2017 [facility] 08:32040 [facility] ([id number]) Breakpoint UA (no code) 12-22-2017 [facility]45040 [facility] ([id number]) Breakpoint UA (no code) 12-22-2017 [facility]45040 [facility] ([id number]) Calcium mass 8.8 mg/dL (no code) 8.5 - 10.2 mg/dL 12-22-[facility] (72941) Chloride molar 102 mmol/L (no code) 95 - 106 mmol/L 12-22-2017 [facility] conc 08:51040 [facility] (84583) CO2 molar conc 26.1 mmol/L (no code) 23 - 29 mmol/L 12-22-2017 [facility] 08:51040 [facility] (05237) Color Nom (U) Yellow (no code) 12-22-2017 [facility]45 [facility] (35313) Creatinine Level 1.16 (H) 12-22-2017 [facility] morial 08:51040 [facility] (51158) eGFR AA 56.6 (L) 12-22-2017 [facility]51040 [facility] (61239) eGFR Non AA 46.7 (L) 12-22-2017 [facility]51040 [facility] (82466) Erythrocyte 12.8 % (no code) 11.6 - 14.6 % 12-22-2017 [facility] distribution 08:320400 [facility] Auto Ratio Center (80107) (RBC) Glucose mass 155 mg/dL (H) 60 - 125 mg/dL 12-22-2017 [facility] conc 08:510400 [facility] (18275) Glucose mass no information (null) 0 - 15 mg/dL 12-22-2017 N [facility] conc (U) 08:450400 [facility] (05998) Hematocrit Auto 41.1 % (no code) 36.1 - 50.3 % 12-22-2017 [facility] Volume Fraction 08:32-0400 [facility] (Bld) Center (00636) Hemoglobin mass 12.8 g/dL (no code) 12.1 - 17.2 g/dL 12-22-2017 [facility] conc (Bld) 08:32-0400 [facility] (36569) Instr WBC 8.8 (no code) 12-22-2017 [facility] 08:32-0400 [facility] (38038) Ketones Ql (U) no information (null) 12-22-2017 [facility] 08:450400 [facility] (25242) MCH Auto Entitic 28.4 pg (no code) 27 - 31 pg 12-22-2017 [facility] mass (RBC) 08:32-040 [facility] (25664) MCHC Auto mass 31.1 g/dL (L) 32 - 36 g/dL 12-22-2017 [facility] conc (RBC) 08:32-040 [facility] (53545) MCV Auto Entitic 91.1 fL (no code) 80 - 100 fL 12-22-2017 [facility] volume (RBC) 08:320400 [facility] (87621) Osmolality 285.1 (no code) 12-22-2017 [facility] 08:51-0400 [facility] (56083) Platelet mean 9.6 fL (no code) 7.2 - 11.7 fL 12-22-2017 [facility] volume Auto 08:320400 [facility] Entitic volume Center ([id number]) (Bld) Platelets Auto 282 (no code) 12-22-2017 [facility] rial #/vol (Bld) 08:320400 [facility] (24243) Potassium molar 4.6 mmol/L (no code) 3.7 - 5.2 mmol/L 12-22-2017 [facility] conc 08:51-0400 [facility] (62035) Protein mass 7.7 g/dL (no code) 6.4 - 8.3 g/dL 12-22-2017 [facility] conc 08:51-0400 [facility] (86391) RBC Auto #/vol 4.5 (no code) 12-22-2017 [place] [facility] (Bld) 08:32-0400 [facility] (39053) Sodium molar 139 mmol/L (no code) 135 - 145 mmol/L 12-22-2017 [facility] 08:51-0400 [facility] (15116) UA Amorph. Occasional (no code) 12-22-2017 [facility] 08:450400 [facility] (41742) UA Bacteria 1+ (no code) 12-22-2017 [facility] 08:45-0400 [facility] (06998) UA Bilirubin no information (null) 12-22-2017 [facility] 08:450400 [facility] (39658) UA Blood no information (null) 12-22-2017 [place] [facility] 08:45040 [facility] (38705) UA Clarity Hazy (no code) 12-22-2017 [facility] 08:450400 [facility] (83544) UA Leuk Est TRACE (null) 12-22-2017 [facility] 08:45-0400 [facility] (42714) UA Mucous 1+ (no code) 12-22-2017 [facility] 08:45-0400 [facility] (82099) UA Nitrite no information (null) 12-22-2017 [place] [facility] 08:450400 [facility] (64166) UA pH 6.0 (null) 12-22-2017 [facility] 08:45-0400 [facility] (64239) UA Protein no information (null) 12-22-2017 [place] [facility] 08:45-0400 [facility] (22920) UA RBC 0-5 (no code) 12-22-2017 [facility] 08:45-0400 [facility] (13326) UA Spec Grav 1.020 (no code) 12-22-2017 [facility] 08:45-0400 [facility] (20172) UA Squam Epi 2+ (no code) 12-22-2017 [facility] 08:45-0400 [facility] (53537) UA Urobilinogen 0.2 (null) 12-22-2017 [facility] 08:450400 [facility] (63007) UA WBC 5-10 (no code) 12-22-2017 [facility] 08:450400 [facility] (67232) Urea nitrogen 25 mg/dL (H) 7 - 20 mg/dL 12-22-2017 [facility] mass conc 08:510400 [facility] (14412) Urea 22 mg/mg (H) 6 - 22 mg/mg 12-22-2017 [place] [facility] nitrogen/Creatin 08:51-0400 [facility] mass ratio Hardy (36021) WBC Auto #/vol 8.8 (no code) 12-22-2017 [place] [facility] rial (Bld) 08:32 [facility] (66716) No panel information on 2017-10-13 Albumin mass 3.8 g/dL (N) 3.4 - 5.4 g/dL [facility] (79131) Albumin/Globulin 1.3 (N) [facility] mass [facility] (16729) ALP enzyme 118 U/L (N) 44 - 147 U/L [facility] act/vol [facility] (36876) ALT enzyme 13 U/L (N) 4 - 40 U/L [facility] act/vol [facility] (47811) AST enzyme 15 U/L (N) 10 - 34 U/L [facility] act/vol [facility] (85450) Bilirubin mass 0.5 mg/dL (N) 0.1 - 1.2 mg/dL [facility] (77191) Calcium mass 9.1 mg/dL (N) 8.5 - 10.2 mg/dL [facility] (89320) Chloride molar 105 mmol/L (N) 95 - 106 mmol/L [facility] (92674) CO2 molar conc 26 mmol/L (N) 23 - 29 mmol/L [facility] (35718) Creatinine mass 0.85 mg/dL (N) [facility] (64051) GFR/1.73 sq M 83 (N) 90 - 120 [facility] predicted among mL/min/{1.73_m2} mL/min/{1.73_m2} Center o f [facility] blacks MDRD vol [facility] rate/area (35766) (S/P/Bld) GFR/1.73 sq 72 (N) 90 - 120 Replaced By [facility] Heal th M.predicted MDRD mL/min/{1.73_m2} mL/min/{1.73_m2} [facility] rate/area [facility] (01044) Globulin 2.9 (N) [facility] Calculated mass [facility] (S) [facility] (55664) Glucose mass 218 mg/dL (H) 60 - 125 mg/dL [facility] (51403) Hemoglobin 7.2 (H) [facility] A1c/Hemoglobin.t [facility] fraction (Bld) (87556) Potassium molar 4.9 mmol/L (N) 3.7 - 5.2 mmol/L [facility] (48831) Protein mass 6.7 g/dL (N) 6.4 - 8.3 g/dL [facility] (75658) Sodium molar 140 mmol/L (N) 135 - 145 mmol/L [facility] (27269) Urea nitrogen 20 mg/dL (N) 7 - 20 mg/dL [facility] (25977) Urea NOT APPLICABLE (no code) [facility] nitrogen/Creatin [facility] (08115) Vital Signs Vital Sign Value Interpretation Reference Date Time Care Prov ider Facility (Normalized) (Normalized) Range BMI (Body Mass 39.18 kg/m2 (no code) 15 - 25 kg/m2 10-06-2018 Gisel GREENE 73426 Community Index) 15:20-0400 [facility] (75643) BMI (Body Mass 39.98 kg/m2 (no code) 15 - 25 kg/m2 07-07-2018 K TEE MALLY Community Index) 11:00 91194 [facility] (71941) BMI (Body Mass 40.28 kg/m2 (no code) 15 - 25 kg/m2 06-30-2018 K TEE BAL Community Index) 11:00050 33823 [facility] (79360) BMI (Body Mass 40.05 kg/m2 (no code) 15 - 25 kg/m2 05-11-2018 C ADELINE JONES Community Index) 11:00 65551 [facility] (45442) BMI (Body Mass 40.32 kg/m2 (no code) 15 - 25 kg/m2 04-07-2018 A VIDAL GREENE 52325 Community Index) 11:00 [facility] (36833) BMI (Body Mass 40.2 kg/m2 (no code) 15 - 25 kg/m2 03-24-2018 YULI JONES Community Index) 12:749 [facility] (38920) BMI (Body Mass 41.33 kg/m2 (no code) 15 - 25 kg/m2 02-16-2018 [facility] Community Index) 17:00749 [facility] (07665) BMI (Body Mass 41.8 kg/m2 (no code) 15 - 25 kg/m2 02-02-2018 YULI [employer] Community Index) 10:20749 [facility] (70101) BMI (Body Mass 41.43 kg/m2 (no code) 15 - 25 kg/m2 01-13-2018 A VIDAL GREENE 95768 Community Index) 14:200400 [facility] (20540) BMI (Body Mass 40.48 kg/m2 (no code) 15 - 25 kg/m2 01-06-2018 [facility] Community Index) 15:2004066284 [facility] (08045) BMI (Body Mass 41.88 kg/m2 (no code) 15 - 25 kg/m2 11-12-2017 [facility] Community Index) 10:40-0 74846 [facility] (45227) Body height 167.64 (no code) 12-24-2018 PAULA [facility] 15:39-0400 Hospital (29018) Body 97.3 [degF] (no code) 97.8 - 99.0 10-06-2018 TREVER GREENE 6 6749 Community Temperature [degF] 15:20-0400 [facility] (84421) Body 96.6 [degF] (no code) 97.8 - 99.0 07-07-2018 [facility] Temperature [degF] 11:00-0500 94531 [facility] (65964) Body 97.5 [degF] (no code) 97.8 - 99.0 06-30-2018 [facility] Temperature [degF] 11:00-0500 38714 [facility] (82230) Body 97.7 [degF] (no code) 97.8 - 99.0 05-11-2018 MICHAEL [facility] Temperature [degF] 11:00-0400 82456 [facility] Cent[facility] (16709) Body 97.6 [degF] (no code) 97.8 - 99.0 04-07-2018 TREVER GREENE 6 6749 Community Temperature [degF] 11:00-0400 [facility] (11675) Body 97.1 [degF] (no code) 97.8 - 99.0 03-24-2018 MICHAEL [facility] Temperature [degF] 12:20-0400 50344 [facility] (64356) Body 97.1 [degF] (no code) 97.8 - 99.0 02-16-2018 MICHAEL [facility] Community Temperature [degF] 17:00-0400 66626 [facility] (97302) Body 98.3 [degF] (no code) 97.8 - 99.0 02-02-2018 MICHAEL [facility] Community Temperature [degF] 10:20-0400 76035 [facility] Cent[facility] (38545) Body 98.9 [degF] (no code) 97.8 - 99.0 01-13-2018 TREVER GREENE 6 6749 Replaced By [facility] Temperature [degF] 14:200400 [facility] (73540) Body 97.9 [degF] (no code) 97.8 - 99.0 01-06-2018 MICHAEL GUZMÁN Replaced By [facility] Temperature [degF] 15:200400 22296 [facility] (55758) Body 98.7 [degF] (no code) 97.8 - 99.0 11-24-2017 no name [facility] Temperature [degF] 13:00040 [facility] (80044) (Work Phone: ) Body 97.6 [degF] (no code) 97.8 - 99.0 11-12-2017 MICHAEL GUZMÁN Replaced By [facility] Temperature [degF] 10:400400 28885 [facility] (13802) Body weight 102.5 (no code) 12-25-2018 PAULA CORDEROOMARBg [facility] 06: Hospital ([id number]) Body weight 106.82 kg (no code) kg 10-06-2018 TREVER GREENE 667 49 Community 15:0400 [facility] (05718) Blood Pressure 156/ (no code) Systolic: 90 - 11-24-2017 no n jules [facility] 80mm[Hg] 119 mm[Hg] 13:00 [facility] (28621) (Work Diastolic: 60 Phone: - 79 mm[Hg] ) Height 165.1 cm (no code) cm 10-06-2018 TREVER GREENE 45352 Community 15:200400 [facility] (62933) Height 165.1 cm (no code) cm 07-07-2018 CHARLOTTE MALLY Co [facility]munity 11:00749 [facility] (84080) Height 165.1 cm (no code) cm 06-30-2018 CHARLOTTE MALLY Co mmunity 11:0005070695 [facility] (39640) Height 165.1 cm (no code) cm 05-11-2018 MICHAEL JONES Community 11:000400 40401 [facility] (26880) Height 165.1 cm (no code) cm 04-07-2018 TREVER GREENE 95774 Replaced By [facility] 11:00-0400 [facility] (59552) Height 165.1 cm (no code) cm 03-24-2018 MICHAEL Replaced by [facility] 12:20-0400 69803 [facility] (20125) Height 165.1 cm (no code) cm 02-16-2018 [facility] 17:00-0400 34895 [facility] (51838) Height 165.1 cm (no code) cm 02-02-2018 [facility] 10:20-0400 38317 [facility] (30079) Height 165.1 cm (no code) cm 01-13-2018 TREVER GREENE 06900 Replaced By [facility] 14:20-0400 [facility] (81727) Height 165.1 cm (no code) cm 01-06-2018 [facility] 15:20-0400 79684 [facility] (00763) Height 163.19 cm (no code) cm 11-24-2017 no name [facility] 13:00040 [facility] (30270) (Work Phone: ) Height 165.1 cm (no code) cm 11-12-2017 [facility] 10:40-[id number] [place] [address] (42539) Pulse Oximetry 92 % (no code) 95 - 100 % 01-13-2018 TREVER GREENE 68682 Community 14:20-0400 [facility] (90458) Weight 109 kg (no code) kg 07-07-2018 CHARLOTTE BAL Co mmunity 11:749 [facility] (09521) Weight 109.82 kg (no code) kg 06-30-2018 CHARLOTTE PAREDESLES C ommunity 11:00749 [facility] (10304) Weight 109.18 kg (no code) kg 05-11-2018 [facility] 11:000400 [id number] [place] [address] (59811) Weight 109.91 kg (no code) kg 04-07-2018 TREVER GREENE 31601 Community 11:00-0400 [facility] (61589) Weight 109.59 kg (no code) kg 03-24-2018 MICHAEL JONES Replaced By [facility] 12:20-0400 84391 [facility] (65809) Weight 112.67 kg (no code) kg 02-16-2018 MICHAEL JONES Replaced By [facility] 17:00-0400 11932 [facility] (00536) Weight 113.94 kg (no code) kg 02-02-2018 MICHAEL JONES Replaced By [facility] 10:20-0400 88181 [facility] (69028) Weight 112.95 kg (no code) kg 01-13-2018 TREVER GREENE 47284 Community 14:20-0400 [facility] (87267) Weight 110.36 kg (no code) kg 01-06-2018 MICHAEL Replaced by [facility] 15:20-0400 97003 [facility] (58219) Weight 111.13 kg (no code) kg 11-24-2017 no name [facility] 13:00040 [facility] (09323) (Work Phone: ) Weight 114.17 kg (no code) kg 11-12-2017 MICHAEL Replaced by [facility] 10:40-[id number] [place] [address] (24716) Interventions No Information Plan of Treatment Normalized Care Care Detail Care Activity Date Care Provider F acility Activity (CH) Chronic Health [facility] [address] [place] 05-11-2018 - MICHAEL BLACK [address]45 [facility] 05-11-2018 - [facility] 05-11-2018 [place] (94585) ([facility]) [facility] [address] [place] 07-07-2018 CHARLOTTE BAL 20840 [facility] (38307) no information no information no information MICHAEL JONES [phone] [facility] (00089) Goals No Information Social History No Information Functional Status The data below is from unstructured sourcesNo functional status results.No functional status results.No functional status results. Mental Status No Information Encounters Encounter Normalized Encounter Encounter Diagnosis Care Provi kell Organization Date Type 03-24-2018 ([facility]) Chronic Health Cervicalgia MICHAEL JONES (no [facility] [address] [place] (no - Maintenance phone) phone) 03-24-2018 - 03-24-2018 05-11-2019 Emergency department no information no name (no sharif ne) no organization name patient visit (no phone) 12-24-2018 Evaluation and no information no name (no phone) n o organization name - management of (no phone) 12-26-2018 inpatient Evaluation and no information no name (no phone) no organiza tion name management of (no phone) inpatient 11-27-2017 Office/outpatient no information Shahla Burroughs MD [facility] Work visit, [facility] level 3 Phone: Phone: 03-24-2018 Patient encounter no information no name (no phone) no organization name (no phone) 02-16-2018 Patient encounter no information no name (no phone) no organization name (no phone) 02-02-2018 Patient encounter no information no name (no phone) no organization name (no phone) 01-06-2018 Patient encounter no information no name (no phone) no organization name (no phone) NEGATED Patient encounter no information no name (no phone) no organization name 12-22-2017 (no phone) - 12-22-2017 11-18-2017 Patient encounter no information no name (no phone) no organization name (no phone) 11-12-2017 Patient encounter no information no name (no phone) no organization name (no phone) NEGATED Patient encounter no information no name (no phone) no organization name 10-28-2017 (no phone) 10-13-2017 Patient encounter no information no name (no phone) no organization name (no phone) 08-12-2017 Patient encounter no information no name (no phone) no organization name (no phone) Patient encounter no information no name (no phone) no organ ization name (no phone) 10-19-2019 Patient encounter no information MICHAEL JONES ( no [facility] procedure phone) [facility] (no phone) 10-01-2019 Patient encounter no information MICHAEL JONES ( no [facility] procedure phone) [facility] (no phone) 09-24-2019 Patient encounter no information (no phone) [facility] procedure [facility] (no phone) 09-17-2019 Patient encounter no information (no phone) [facility] procedure [facility] (no phone) 08-19-2019 Patient encounter no information no name (no phone) no organization name procedure (no phone) 08-19-2019 Patient encounter no information Oriana Plascencia (no [facility] (no phone) 08-17-2019 Patient encounter no information no name (no phone) no organization name procedure (no phone) 08-10-2019 Patient encounter no information no name (no phone) no organization name procedure (no phone) 07-27-2019 Patient encounter no information no name (no phone) no organization name procedure (no phone) 07-22-2019 Patient encounter no information (no phone) [facility] (no phone) 06-24-2019 Patient encounter no information no name (no phone) no organization name procedure (no phone) 05-27-2019 Patient encounter no information no name (no phone) no organization name procedure (no phone) 05-17-2019 Patient encounter no information no name (no phone) no organization name - procedure (no phone) 05-17-2019 05-10-2019 Patient encounter no information no name (no phone) no organization name procedure (no phone) 05-03-2019 Patient encounter no information no name (no phone) no organization name - procedure (no phone) 05-03-2019 04-27-2019 Patient encounter no information no name (no phone) no organization name procedure (no phone) 04-27-2019 Patient encounter no information no name (no phone) no organization name procedure (no phone) 2019 Patient encounter no information no name (no phone) no organization name procedure (no phone) 2019 Patient encounter no information no name (no phone) no organization name procedure (no phone) 03-19-2019 Patient encounter no information no name (no phone) no organization name procedure (no phone) 03-13-2019 Patient encounter no information no name (no phone) no organization name procedure (no phone) 03-13-2019 Patient encounter no information no name (no phone) no organization name procedure (no phone) 01-28-2019 Patient encounter no information no name (no phone) no organization name procedure (no phone) 01-01-2019 Patient encounter no information no name (no phone) no organization name procedure (no phone) 12-31-2018 Patient encounter no information no name (no phone) no organization name procedure (no phone) 12-31-2018 Patient encounter no information no name (no phone) no organization name procedure (no phone) 12-24-2018 Patient encounter no information no name (no phone) no organization name procedure (no phone) 12-23-2018 Patient encounter no information no name (no phone) no organization name procedure (no phone) 12-23-2018 Patient encounter no information no name (no phone) no organization name procedure (no phone) 12-15-2018 Patient encounter no information no name (no phone) no organization name procedure (no phone) 12-12-2018 Patient encounter no information no name (no phone) no organization name procedure (no phone) 12-12-2018 Patient encounter no information no name (no phone) no organization name procedure (no phone) 11-09-2018 Patient encounter no information no name (no phone) no organization name procedure (no phone) 10-23-2018 Patient encounter no information no name (no phone) no organization name - procedure (no phone) 10-24-2018 10-06-2018 Patient encounter no information no name (no phone) no organization name procedure (no phone) 08-17-2018 Patient encounter no information no name (no phone) no organization name procedure (no phone) 07-27-2018 Patient encounter no information no name (no phone) no organization name procedure (no phone) 07-25-2018 Patient encounter no information no name (no phone) no organization name procedure (no phone) 07-07-2018 Patient encounter no information no name (no phone) no organization name procedure (no phone) 06-30-2018 Patient encounter no information no name (no phone) no organization name procedure (no phone) 11-18-2017 Patient encounter no information no name (no phone) no organization name procedure (no phone) 04-23-2016 Patient encounter no information no name (no phone) no organization name procedure (no phone) 04-23-2016 Patient encounter no information no name (no phone) no organization name - procedure (no phone) 04-23-2016 06-08-2018 Telephone encounter Other cervical disc ZACH VILLANUEVA (no phone) [facility] [address] (no - degeneration, MICHAEL JONES (no phone) 06-08-2018 unspecified cervical phone) ZACH Almanzar (no - region phone) [facility] 06-08-2018 (no phone) 05-21-2018 Telephone encounter Viral intestinal MICHAEL JONES (no [facility] [address] (no - infection, unspecified phone) phone) 05-21-2018 - 05-21-2018 03-26-2018 Telephone encounter no information MICHAEL JOENS ( no [facility] [address] (no - phone) phone) 03-26-2018 - 03-26-2018 03-16-2018 Telephone encounter Type 2 diabetes MICHAEL JONES (no [facility] [address] (no - mellitus without phone) phone) 03-16-2018 complications - 03-16-2018 no information Encounter for general no name (no phone) no o rganization name adult medical (no phone) examination without abnormal findings no information Encounter for dental no name (no phone) no or ganization name examination and (no phone) cleaning without abnormal findings Medical Equipment No Information Payers Normalized Payer Value Medicaid no information Medicaid [id number] Medicare no information Medicare [id number] Medicare [id number] History general Narrative - Reported Note Type Note Facility History general Narrative - Reported Type Medical Other symptoms involving sk in and integumentary tissues History Medical Impetigo History Medical Schizoaffective disorder, u nspecified History Medical Essential hypertension, nighat ign History Medical Diabetes mellitus without m ention of complication, type II or unspecified type, History not stated as uncontrolled Medical Urinary frequency History Medical Encounter for long-term (cu rrent) use of other medications History Medical Esophageal reflux History Medical DIABETES TYPE II History Medical HIGH BLOOD PRESSURE- pt sta rhina sometimes it goes low History Medical BACK TROUBLE History Surgical cholecystectomy History Surgical heart cath 12/2018 History Hospitaliz Surgery(s) only ation History Hospitaliz possible pneumonia or fluid on around heart-sent to [facility] heart/thinking COPD 12/2018 ation History [facility] ([id number]) Summary Purpose eClinicalWorks SubmissioneClinicalWorks SubmissioneClinicalWorks SubmissioneClinicalWorks SubmissioneClinicalWorks SubmissioneClinicalWorks SubmissioneClinicalWorks SubmissioneClinicalWorks SubmissioneClinicalWorks SubmissioneClinicalWorks SubmissioneClinicalWorks SubmissioneClinicalWorks SubmissioneClinicalWorks SubmissioneClinicalWorks SubmissioneClinicalWorks SubmissioneClinicalWorks SubmissioneClinicalWorks SubmissioneClinicalWorks SubmissioneClinicalWorks SubmissioneClinicalWorks SubmissioneClinicalWorks SubmissioneClinicalWorks SubmissioneClinicalWorks Submission Advance Directives Directive Response Recor ded Date/Time Advance Directives No 1:18pm Health Care Power of Guest Room Inspector No 04/18/16 1:18pm Resuscitation Status Full Code 04/18/16 1:18pm Directive Response Recor ded Date/Time Advance Directives No 8:58am Health Care Power of Guest Room Inspector No 04/23/16 8:58am Organ Donor No 04/23/16 8:58am Resuscitation Status Full Code 04/23/16 8:58am Directive Description Start Date PERMISSION TO SHARE Discharge Instructions No hospital discharge instructions. Patient Instructions Physician Instructions Plan of Care/Instructions/FU: repeat colonoscopy 10 years unless family history of colon cancer then 5 years. any problems prior to that be re-evaluated at that time. Activity as Tolerated: Yes Discharge Diet: Regular Diet Care Plan Patient Instructions:: repeat colonoscopy 10 years unless family history of colon cancer then 5years. any problems prior to that be re-evaluated at that time. Additional Source Comments This clinical document has been generated using [employer] software that has been certified by the Office of the National Coordinator for Health Information Technology (ONC 15.99.04.3023.Diam.[id number]) and the National Committee for [employer] (NCQA, as an eMeasure certified technology). FOR RECORDS PERTAINING TO PATIENTS WHO ARE OR HAVE BEEN ENROLLED IN A CHEMICAL D EPENDENCY/SUBSTANCE ABUSE PROGRAM, SOME INFORMATION MAY BE OMITTED. This clinica l summary was aggregated from multiple sources. Caution should be exercised in using it in the provision of clinical care. This summary normalizes information from multiple sources, and as a consequence, information in this document may ma terially change the coding, format and clinical context of patient data. In omar tion, data may be omitted in some cases. CLINICAL DECISIONS SHOULD BE BASED ON T HE PRIMARY CLINICAL RECORDS. [employer] provides no warranty or guara ntee of the accuracy or completeness of information in this document.The followi ng information is based on time limited clinical information UNRECOGNIZED CONTENT PROVIDED BELOW FOR UNRECOGNIZED SECTION MEDICAL (GENERAL) HISTORY Type Description Date Medical History Other symptoms invol ving skin and integumentary tissues Medical History Impetigo Medical History Schizoaffective diso rder, unspecified Medical History Essential hypertensi on, benign Medical History Diabetes mellitus wi thout mention of complication, type II or unspecified type, not stated as uncontrolled Medical History Urinary frequency Medical History Encounter for long-t erm (current) use of other medications Medical History Esophageal reflux Medical History DIABETES TYPE II Medical History HIGH BLOOD PRESSURE- pt states sometimes it goes low Medical History BACK TROUBLE Surgical History cholecystectomy Hospitalization History Surgery(s) only Type Description Date Medical History Other symptoms invol ving skin and integumentary tissues Medical History Impetigo Medical History Schizoaffective diso rder, unspecified Medical History Essential hypertensi on, benign Medical History Diabetes mellitus wi thout mention of complication, type II or unspecified type, not stated as uncontrolled Medical History Urinary frequency Medical History Encounter for long-t erm (current) use of other medications Medical History Esophageal reflux Medical History DIABETES TYPE II Medical History HIGH BLOOD PRESSURE- pt states sometimes it goes low Medical History BACK TROUBLE Surgical History cholecystectomy Surgical History heart cath 12/2018 Hospitalization History Surgery(s) only Hospitalization History possible pne umonia or fluid on around heart-sent to [facility] heart/thinking COPD 12/2018 UNRECOGNIZED CONTENT PROVIDED BELOW FOR UNRECOGNIZED SECTION REASON FOR VISIT Shaking check up. KMillerLPNBiopsy f/u, urinary incont. JBishop3 month f/u, Diab etic f/u Vivian Borrego RNVomiting, started 2 day's ago, she is able to keep some stuff down, ClsmithxrayMedication refill requestspots on chest and face that itch, [facility] it might be her pain pills causing her to itch so she stoped taking them, had the spots since last week JBishopMedication questionPain management (chronic) - back, ClsmithRequests Return CallMedication refill requestneck, arm, chest painDiabetes, A1C = 6.6 , Clsmithrefill metforminControlled/refill requestRefill requestFYI onlyMedication questionrefill medicationSore in nose since last week. has not treated because she didn't know if she should put anything inside her nose. NicholasrLPNrefconstantino lipitorsore on nose f/u said its been healing [id number] effect?diabetic visit Luigi
--- OUTSIDE RECORDS SUMMARY | 2019-10-29 22:24 | XMS REPORT ---
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 Name Role Phone ZACH VILLANUEVA Unavailable PROBLEMS Type Condition ICD9-CM Code KTL10-LB Code Onset Dates Condition S tatus SNOMED Code Problem Essential (primary) hypertension I10 Active 57864685 Problem Gastro-esophageal reflux disease without esophagitis K21.9 Active 731676860 Problem Type 2 diabetes mellitus wit h diabetic polyneuropathy, without long-term current use of insulin E11.42 Active 23952 006 Problem Lumbar degenerative disc disease M51.36 Active 61129480 Problem Other schizoaffective disorders F25.8 Active 64947968 Problem Migraine without aura and without status migrain osus, not intractable G43.009 Active 216039427 Problem Degenerative disc disease, cervical M50.30 Active 86168292 Problem Thyroid nodule E04.1 Active 08926 5005 Problem Left lower quadrant abdominal pain R10.32 Active 285650969 Problem Mixed incontinence N39.46 Active 4 27104182 Problem Urge incontinence N39.41 Active 87 754936 Problem COPD mixed type J44.9 Active 1364 5005 Problem Moderate episode of recurrent major depressive disorder F33.1 Active 981171956 Problem Gastric reflux K21.9 Active 28448 7003 Problem Rotator cuff tear M75.100 Active 41 50414 Problem Incomplete tear of right rotator cuff, unspecifi ed whether traumatic M75.111 Active 593872425 Problem Chronic kidney disease, stage 3 N18.3 Active 155323930 Problem COPD exacerbation J44.1 Active 19 [id number] ALLERGIES No Information ENCOUNTERS Encounter Location Date Diagnosis [facility] [address] [place] [address] [id number] [place] [address] 24 Sep, 2019 [facility] [address] [place] [address] [facility] [place] [address] 13 Sep, 2019 COPD mixed type J44.9 and Type 2 diabetes mellitus with diabetic polyneuropathy, without long-term current use of insulin E11.42 [facility] [address] [place] [address] [facility] [place] [address] Sep, [facility] [address] [place] [address] [facility] [place] [address] Sep, [facility] [address] [place] [address] [facility] [address] 04 Sep, 2019 Other schizoaffective disorders F25.8 and Type 2 diabetes mellitus with diabetic polyneuropathy, without long-term current use of insulin E11.42 [facility] [address] [id number] [place] [address] Sep, [facility] [address] [place] [address] [facility] [address] Sep, [facility] [address] [place] [address] [facility] [address] 28 Aug, 2019 Type 2 diabetes mellitus with diabetic polyneuropathy, without long-term current use of insulin E11.42 ; Moderate episode of recurrent major depressive disorder F33.1 and Other schizoaffective disorders F25.8 [facility] [address] [place] [address] [facility] [address] Aug, [facility] [address] [place] [address] [place] [id number] [address] Aug, [facility] [address] [place] [address] [place] [address] [address] 24 Aug, 2019 [facility] [address] [place] [address] [facility] [address] 21 Aug, 2019 Incomplete tear of right rotator cuff, unspecified whether traumatic M75.111 [facility] [address] [place] [address] [facility] [place] [address] 20 Aug, 2019 [facility] [address] [place] [address] [facility] [address] 19 Aug, 2019 [facility] [address] [place] [address] [facility] [place] [address] 18 Aug, 2019 Other schizoaffective disorders F25.8 [facility] [address] [place] [address] [facility] [place] [address] 13 Aug, 2019 [facility] [address] [place] [address] [facility] [place] [address] 12 Aug, 2019 [facility] [address] [place] [address] [facility] [place] [address] 11 Aug, 2019 [facility] [address] [place] [address] [id number] [place] [address] 10 Aug, 2019 [facility] [address] [place] [address] [id number] [place] [address] 07 Aug, 2019 [facility] [address] [place] [address] [facility] [place] [address] 05 Aug, 2019 [facility] [address] [place] [address] [facility] [place] [address] 04 Aug, 2019 [facility] [address] [place] [address] [facility] [place] [address] 03 Aug, 2019 [facility] [address] [place] [address] [facility] [place] [address] Aug, 2019 [facility] [address] [place] [address] [facility] [place] [address] Jul, Incomplete tear of right rotator cuff, unspecified whether traumatic M75.111 [facility] [address] [place] [address] [facility] [id number] [place] [address] Jul, [facility] [address] [place] [address] [facility] [place] [address] 30 Jul, 2019 Rotator cuff tear M75.100 ; Type 2 diabetes mellitus with diabetic polyneuropathy, without long-term current use of insulin E11.42 ; High risk medication use Z79.899 and Urge incontinence N39.41 [facility] [address] [place] [address] [facility] [place] [address] Jul, Dysuria R30.0 [facility] [address] [place] [address] [facility] [id number] [address] Jul, [facility] [address] [place] [address] [facility] [place] [id number] [place] [address] Jul, [facility] [address] [place] [address] [facility] [place] [id number] [place] [address] Jul, [facility] [address] [place] [address] [facility] [place] [id number] [place] [address] Jul, [facility] [address] [place] [address] [facility] [place] [id number] [place] [address] Jul, Lumbago M54.5 [facility] [address] [place] [address] [facility] [place] [id number] [place] [address] Jul, [facility] [address] [place] [address] [facility] [place] [id number] [place] [address] Jul, [facility] [address] [place] [address] [facility] [place] [id number] [place] [address] 08 Jul, 2019 [facility] [address] [place] [address] [facility] [place] [id number] [place] [address] 07 Jul, 2019 [facility] [address] [place] [address] [facility] [place] [id number] [place] [address] 07 Jul, 2019 [facility] [address] [place] [address] [facility] [place] [address] 02 Jul, 2019 Incomplete tear of right rotator cuff, unspecified whether traumatic M75.111 ; Essential (primary) hypertension I10 and Thyroid nodule E04.1 [facility] [address] [facility] [id number] [place] [address] Jul, [facility] [address] [place] [address] [facility] [id number] [place] [address] Jun, [facility] [address] [place] [address] [id number] [place] [address] Jun, COPD exacerbation J44.1 [facility] [address] [place] [address] [facility] [place] [id number] [place] [address] Jun, [facility] [address] [place] [address] [place] [address] ST [id number] [place] [address] Jun, [facility] [address] [place] [address] [place] [address] [place] [id number] [place] [address] Jun, Nausea R11.0 ; Incomplete tear of right rotator cuff, unspecified whether traumatic M75.111 and Essential (primary) hypertension I10 [facility] [address] [place] [address] [place] [address] ST [id number] [place] [address] Jun, [facility] [address] [place] [address] [place] [address] ST [id number] [place] [address] Jun, [facility] [address] [place] [address] [place] [address] [place] [id number] [place] [address] 16 Jun, 2019 [facility] [address] [place] [address] [place] [address] [place] [id number] [place] [address] 11 Jun, 2019 Rotator cuff tear M75.100 [facility] [address] [place] [address] [place] [address] [id number] [place] [address] 09 Jun, 2019 [facility] [address] [place] [address] [id number] [address] 05 Jun, 2019 Essential (primary) hypertension I10 ; Type 2 diabetes mellitus with diabetic polyneuropathy, without long-term current use of insulin E11.42 ; Rotator cuff tear M75.100 and Chronic kidney disease, stage 3 N18.3 [facility] [address] [place] [address] [place] [address] [place] [id number] [place] [address] 03 Jun, 2019 [facility] [address] [place] [address] [place] [address] [place] [id number] [place] [address] Jun, [facility] [address] [place] [address] [place] [address] [place] [id number] [place] [address] Jun, [facility] [address] [place] [address] [place] [address] [place] [id number] [place] [address] May, [facility] [address] [place] [address] [place] [address] [place] [id number] [place] [address] May, [facility] [address] [place] [address] [place] [id number] [address] May, [facility] [address] [place] [address] [place] [id number] [address] May, Rotator cuff tear M75.100 [facility] [address] [place] [address] [place] [id number] [address] May, [facility] [address] [place] [address] [place] [id number] [address] May, Rotator cuff tear M75.100 ; Major depressive disorder with current active episode, unspecified depression episode severity, unspecified whether recurrent F32.9 ; Type 2 diabetes mellitus with diabetic polyneuropathy, without long-term current use of insulin E11.42 and Essential (primary) hypertension I10 [facility] [address] [place] [address] [place] [id number] [address] May, [facility] [address] [place] [address] [place] [id number] [address] May, [facility] [address] [place] [address] [place] [id number] [address] Apr, [facility] [address] [place] [address] [id number] [address] Apr, [facility] [address] [place] [address] [id number] [address] Apr, Rotator cuff tear M75.100 ; Essential (primary) hypertension I10 and COPD mixed type J44.9 [facility] [address] [place] [address] [place] [address] [place] [id number] [place] [address] Apr, Rotator cuff tear M75.100 [facility] [address] [place] [address] [place] [address] [place] [id number] [place] [address] Apr, [facility] [address] [place] [address] [place] [id number] [address] 11 Apr, 2019 Preprocedural examination Z01.818 [facility] [address] [place] [address] [place] [id number] [address] 09 Apr, 2019 [facility] [address] [place] [address] [place] [id number] [address] 09 Apr, 2019 [facility] [address] [place] [address] [place] [id number] [address] 08 Apr, 2019 Traumatic complete tear of right rotator cuff, initial encounter S46.011A ; Essential (primary) hypertension I10 ; Encounter for immunization Z23 ; Leg cramps R25.2 ; COPD mixed type J44.9 and Fatigue R53.83 [facility] [address] [place] [address] [place] [id number] [address] 24 Mar, 2019 [facility] [address] [place] [address] [id number] [address] 18 Mar, 2019 [facility] [address] [place] [address] [id number] [address] 16 Mar, 2019 [facility] [address] [place] [address] [place] [id number] [address] 13 Mar, 2019 [facility] [address] [place] [address] [id number] [address] 12 Mar, 2019 Traumatic complete tear of right rotator cuff, initial encounter S46.011A ; Left lower quadrant abdominal pain R10.32 ; Essential (primary) hypertension I10 ; COPD mixed type J44.9 and correction use of drug Z79.899 [facility] [address] [place] [address] [place] [id number] [address] 10 Mar, 2019 [facility] [address] [place] [address] [place] [address] [id number] [place] [address] 09 Mar, 2019 Gastroenteritis and colitis, viral A08.4 [facility] [address] [place] [address] [place] [address] [place] [id number] [place] [address] 04 Mar, 2019 [facility] [address] [place] [address] [place] [id number] [address] Feb, Traumatic complete tear of right rotator cuff, initial encounter S46.011A ; Chronic obstructive pulmonary disease, unspecified COPD type J44.9 and Mixed incontinence N39.46 [facility] [address] [place] [address] [place] [address] [place] [id number] [address] Feb, [facility] [address] [place] [address] [id number] [address] Feb, [facility] [address] [place] [address] [id number] [address] Feb, Injury of right shoulder, initial encounter S49.91XA [facility] [address] [place] [address] [place] [id number] [address] Feb, [facility] [address] [place] [address] [id number] [address] Feb, [facility] [address] [place] [address] [id number] [address] Jan, [facility] [address] [place] [address] [id number] [address] Jan, [facility] [address] [place] [address] [id number] [address] Jan, Essential (primary) hypertension I10 ; Type 2 diabetes mellitus with diabetic polyneuropathy, without long-term current use of insulin E11.42 ; COPD mixed type J44.9 ; Thyroid nodule E04.1 and Degenerative disc disease, cervical M50.30 [facility] [address] [place] [address] [id number] [address] Jan, [facility] [address] [place] [address] [id number] [address] Jan, [facility] [address] [place] [address] [id number] [address] Dec, [facility] [address] [place] [address] [id number] [address] Dec, Gastroenteritis and colitis, viral A08.4 [facility] [address] [place] [address] [id number] [address] Dec, Chronic obstructive pulmonary disease, unspecified COPD type J44.9 [facility] [address] [place] [address] [place] [address] 18 Dec, 2018 Gastric reflux K21.9 [facility] [address] [place] [address] [place] [address] [address] 18 Dec, 2018 [facility] [address] [place] [address] 14 Dec, 2018 Essential (primary) hypertension I10 [facility] [address] [place] [address] [place] [id number] [place] [address] 13 Dec, 2018 [facility] [address] [place] [address] [place] [address] [place] [address] 13 Dec, 2018 Chronic obstructive pulmonary disease, unspecified COPD type J44.9 ; Type 2 diabetes mellitus with diabetic polyneuropathy, without long-term current use of insulin E11.42 ; Essential (primary) hypertension I10 ; Gastro-esophageal reflux disease without esophagitis K21.9 and Varicella vaccination Z23 [facility] [address] [place] [address] [place] [address] [address] 05 Dec, 2018 Dyspnea on exertion R06.09 and Infiltrate noted on imaging study R93.89 [facility] [address] [place] [address] November, Thyroid pain E07.89 [facility] [address] [place] [address] [address] November, Thyroid pain E07.89 [facility] [address] [place] [address] [address] November, Other schizoaffective disorders F25.8 [facility] [address] [place] [address] [place] [address] [address] Oct, Type 2 diabetes mellitus with diabetic polyneuropathy, without long-term current use of insulin E11.42 ; Gastric reflux K21.9 and Diabetic retinopathy of right eye associated with type 2 diabetes mellitus, macular edema presence unspecified, unspecified retinopathy severity E11.319 [facility] [address] [place] [address] [place] [address] [place] [address] Sep, [facility] [address] [place] [address] [place] [address] Sep, Type 2 diabetes mellitus with diabetic polyneuropathy, without long-term current use of insulin E11.42 and Gastric reflux K21.9 [facility] [address] [place] [address] [place] [id number] [address] Sep, [facility] [address] [place] [address] [place] [address] [place] [address] Sep, Acute vaginitis N76.0 and Other schizoaffective disorders F25.8 [facility] [address] [facility] [place] [address] 08 Sep, 2018 [facility] [address] [place] [address] [place] [address] Sep, [facility] [address] [place] [address] [place] [address] Aug, [facility] [address] [place] [address] [place] [address] [place] [address] Jul, [facility] [address] [place] [address] [place] [address] [place] [address] Jul, [facility] [address]757[facility] [place] [address] Jul, Dental examination Z01.20 and Caries K02.9 [facility] [address] [place] [address] [place] [id number] [address] Jul, Type 2 diabetes mellitus without complications E11.9 [facility] [address] [place] [address] [place] [id number] [address] Jul, [facility] [place] [address] [id number] [address] Jul, Migraine without aura and without status migrainosus, not intractable G43.009 [facility] [address] [place] [address] [id number] [address] Jul, [facility] [address] [place] [address] [facility] [place] [id number] [place] [address] Jul, [facility] [address] [place] [address] [facility] [place] [id number] [place] [address] Jul, [facility] [address] [place] [address] [id number] [address] 09 Jul, 2018 Shortness of breath R06.02 [facility] [address] [place] [address] [place] [address] 07 Jul, 2018 Dental examination Z01.20 [facility] [address] [place] [address] [place] [address] [id number] [address] 05 Jul, 2018 Acute intractable headache, unspecified headache type R51 and BMI 40.0-44.9, adult Z68.41 [facility] [address] [place] [address] [id number] [address] Jul, [facility] [address] [place] [address] [id number] [address] Jul, [facility] [address] [place] [address] [id number] [address] Jul, [facility] [address] [place] [address] [place] [address] Jun, [facility] [address] [place] [address] [place] [address] [place] [id number] [place] [address] Jun, [facility] [address] [place] [address] [place] [address] [place] [id number] [place] [address] Jun, [facility] [address] [place] [address] [place] [address] [place] [id number] [address] 18 Jun, 2018 Impetigo L01.00 and Sore in nose J34.89 [facility] [address] [place] [address] [facility] [place] [id number] [place] [address] 17 Jun, 2018 Degenerative disc disease, cervical M50.30 [facility] [address] [place] [address] [facility] [place] [id number] [place] [address] 11 Jun, 2018 Sore in nose J34.89 [facility] [address] [place] [address] [id number] [address] 11 Jun, 2018 Sore in nose J34.89 ; Excoriation of abdomen, initial encounter S30.811A ; Encounter for immunization Z23 and BMI 40.0-44.9, adult Z68.41 [facility] [place] [place] [address] May, [facility] [address] [place] [address] [id number] [address] May, [facility] [address] [place] [address] [place] [address] [address] May, Type 2 diabetes mellitus without complications E11.9 [facility] [place] [place] [address] May, [facility] [place] [address] [place] [address] [address] May, Degenerative disc disease, cervical M50.30 [facility] [address] [place] [address] [place] [address] [address] May, Cervicalgia M54.2 [facility] [place] [place] [address] May, [facility] [place] [address] [place] [address] [address] May, [facility] [place] [address] [place] [address] [address] May, [facility] [place] [address] [place] [address] [address] May, Gastroenteritis and colitis, viral A08.4 [facility] [place] [address] [id number] [address] Apr, Type 2 diabetes mellitus without complications E11.9 ; Degenerative disc disease, cervical M50.30 ; Essential (primary) hypertension I10 ; Gastro-esophageal reflux disease without esophagitis K21.9 and BMI 40.0-44.9, adult Z68.41 [facility] [address] [place] [id number] [address] 26 Mar, 2018 Degenerative disc disease, cervical M50.30 ; Type 2 diabetes mellitus without complications E11.9 ; Encounter for immunization Z23 ; 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 and BMI 40.0-44.9, adult Z68.41 [facility] [address] [place] [phone] 20 Mar, 2018 Degenerative cervical disc M50.30 [facility] [address] [place] [phone] 19 Mar, 2018 [facility] [address] [place] [phone] 18 Mar, 2018 Generalized pruritus L29.9 ; Lumbar degenerative disc disease M51.36 and BMI 40.0-44.9, adult Z68.41 [facility] [address] [place] [id number] [address] 06 Mar, 2018 [facility] [address] [place] [phone] 04 Mar, 2018 Cervicalgia M54.2 and Essential (primary) hypertension I10 [facility] [address] [place] [id number] [address] 27 Feb, 2018 Type 2 diabetes mellitus without complications E11.9 [facility] [address] [place] [id number] [address] 30 Jan, 2018 Gastroenteritis and colitis, viral A08.4 and BMI 40.0-44.9, adult Z68.41 [facility] [address] [place] [id number] [address] 16 Jan, 2018 Type 2 diabetes mellitus without complications E11.9 ; Essential (primary) hypertension I10 ; Screening for breast cancer Z12.31 ; Degenerative lumbar disc M51.36 ; BMI 40.0-44.9, adult Z68.41 and Morbid obesity E66.[address] [facility] [address] [address] Dec, 18 BMI 40.0-44.9, adult Z68.41 and Other schizoaffective disorders F25.[address] [address] Dec, 18 Other schizoaffective disorders F25.8 ; Lumbar degenerative disc disease M51.36 and BMI 40.0-44.9, adult Z68.[address] [address] November, 18 Shortness of breath R06.[address] [address] November, [address] [address] November, [address] [address] November, [address] [address] November, [address] [address] November, 18 Vaginal bleeding N93.[address] [address] November, 18 BMI 40.0-44.9, adult Z68.41 and Vaginal bleeding N93.[address] [address] Oct, 18 Dysfunction of both eustachian tubes H69.[address] [address] Oct, 18 BMI 40.0-44.9, adult Z68.41 ; Essential (primary) hypertension I10 and Impetigo L01.[address] [address] Sep, [address] [address] Sep, 18 Type 2 diabetes mellitus with diabetic polyneuropathy, without long-term current use of insulin E11.42 ; BMI 40.0-44.9, adult Z68.41 ; Other schizoaffective disorders F25.8 ; Gastro-esophageal reflux disease without esophagitis K21.9 ; Essential (primary) hypertension I10 and Impetigo L01.00 [facility] [address] [place] [address] 16 Sep, 18 Type 2 diabetes mellitus with diabetic polyneuropathy, without long-term current use of insulin E11.[address] [address] Aug, [address] [address] Aug, [address] [address] Jul, 18 Type 2 diabetes mellitus with diabetic polyneuropathy, without long-term current use of insulin E11.42 ; Other schizoaffective disorders F25.8 ; Gastro-esophageal reflux disease without esophagitis K21.9 ; Essential (primary) hypertension I10 and Impetigo L01.[address] [address] Jun, 17 Shortness of breath R06.02 ; Type 2 diabetes mellitus without complications E11.9 ; BMI 40.0- 44.9, adult Z68.41 and Pre-ulcerative corn or callous L84 [address] [address] Jun, [address] [address] May, 17 Medicare welcome exam Z00.00 ; BMI 40.0-44.9, adult Z68.41 ; Medicare annual wellness visit, initial Z00.00 ; Medicare annual wellness visit, subsequent Z00.00 and Encounter for immunization Z23 [address] [address] May, 17 Foot callus L84 and Type 2 diabetes mellitus without complications E11.[address] [address] Apr, [address] [place] [address] 09 Apr, 17 Encounter for immunization Z23 [facility] [address] [place] [address] 06 Mar, 17 Type 2 diabetes mellitus without complications E11.9 and Polyneuropathy associated with underlying disease G63 [facility] [address] [place] [address] 31 Feb, 17 Edema R60.9 ; Type 2 diabetes mellitus without complications E11.9 and Anemia, unspecified type D64.9 [facility] [address] [place] [address] Feb, 17 Hip pain, left M25.552 [facility] [address] [address] Feb, 17 [facility] [place] [address] [place] [address] 31 Jan, 17 [facility] [place] [address] [place] [address] 07 Jan, 17 [facility] [place] [address] [place] [address] 15 Dec, 17 [facility] [place] [address] [place] [address] 14 Dec, 17 [facility] [place] [address] [place] [address] 13 Dec, 17 [facility] [place] [address] [place] [address] 12 Dec, 17 [facility] [place] [address] [place] [address] 08 Dec, 17 [facility] [place] [address] [place] [address] 06 Dec, 17 Type 2 diabetes mellitus without complications E11.9 and Essential (primary) hypertension I10 [facility] [place] [address] [place] [address] November, 17 [facility] [place] [address] [place] [address] 03 December, 17 Frequency of micturition R35.0 ; Dysuria R30.0 and Type 2 diabetes mellitus without complications E11.9 [facility] [address] [place] [address] 11 Oct, 17 [facility] [address] [place] [address] Oct, 17 [facility] [address] [address] Oct, [address] [address] Oct, 17 [facility] [address] [address] Sep, 17 Cellulitis of head except face L03.[address] [address] Aug, [address] [address] Aug, [address] [address] Aug, 17 Flu-like symptoms R68.89 and Influenza B J10.[address] [address] Jul, 17 Type 2 diabetes mellitus without complications E11.[address] [address] Jul, [address] [address] Jul, 17 Type 2 diabetes mellitus without complications E11.9 ; Anemia, unspecified type D64.9 ; Essential (primary) hypertension I10 and Fatigue R53.[address] [address] Jul, 17 Type 2 diabetes mellitus without complications E11.9 and Foot callus L84 [address] [address] Jun, [address] [address] Jun, [address] [address] May, [address] [address] May, 16 Shortness of breath R06.[address] [address] May, 16 Shortness of breath R06.[address] [address] Apr, 16 Shortness of breath R06.[address] [address] Feb, 16 Screening for cervical cancer Z12.4 ; Edema R60.9 ; Screening for breast cancer Z12.39 and Screening for colon cancer Z12.[address] [address] Feb, 16 Blood in stool K92.[address] [address] Feb, 16 Anemia, unspecified type D64.[address] [address] Feb, 16 Edema R60.9 ; Shortness of breath R06.02 ; Anemia, unspecified type D64.9 and Gastroesophageal reflux disease without esophagitis K21.[address] [address] Feb, 16 Shortness of breath R06.02 and Edema R60.[address] [address] 04 Feb, [address] [address] Feb, 16 Shortness of breath R06.02 and Edema R60.[address] [address] Feb, 16 [facility] [address] [facility] [place] [address] Jan, Shortness of breath R06.[address] [address] 11 Jan, 16 Shortness of breath R06.02 ; Edema R60.9 and Gastroesophageal reflux disease without esophagitis K21.[address] [address] 06 Jan, 16 Shortness of breath R06.[address] [address] 27 Dec, [address] [address] 27 Dec, 16 Dental examination Z01.[address] [address] 10 Dec, [address] [address] 10 Dec, [address] [address] 09 Dec, 16 Edema R60.9 ; Type 2 diabetes mellitus without complications E11.9 and Fatigue R53.[address] [address] 18 November, 16 Edema R60.9 and Abdominal muscle strain, initial encounter S39.011A [address] [address] Oct, [address] [address] 18 Aug, 16 Hip pain, right M25.551 and Edema R60.[address] [address] 08 Aug, [address] [address] 04 Aug, 16 Edema R60.9 and Impetigo L01.[address] [address] Jul, 16 Type 2 diabetes mellitus without complications E11.9 and Edema R60.[address] [address] Jul, 16 [facility] [address] [place] [address] Jul, 16 Contusion of thigh, right S70.11XA [address] [address] Jul, 16 Hip pain, right M25.[address] [address] Jul, [address] [address] Jun, 15 Left hip pain M25.[address] [address] Jun, 15 Acute maxillary sinusitis, recurrence not specified J01.00 and Vomiting, nausea presence unspecified, unspecified intactability, vomiting of unspecified type R11.[address] [address] Jun, 15 Acute maxillary sinusitis, recurrence not specified J01.[address] [address] Apr, 15 Acquired spondylolisthesis of lumbosacral region M43.17 ; Encounter for immunization Z23 and Cholelithiasis K80.[address] [address] Mar, [address] [address] Mar, 15 Lumbar radiculopathy 724.[address] [address] Mar, [address] [address] Feb, 15 Esophageal reflux 530.[address] [address] Feb, 15 Esophageal reflux 530.81 ; Essential hypertension, benign 401.1 and Diabetes mellitus without mention of complication, type II or unspecified type, not stated as uncontrolled 250.00 [facility] [address] [place] [address] 07 Feb, 15 [facility] [place] [facility] [address] [place] [address] Feb, 15 Myalgia and myositis 729.1 [facility] [place] [address] [place] [address] Jan, 15 Upper respiratory infection 465.9 ; Other symptoms involving skin and integumentary tissues 782.9 and Factitial dermatitis 698.4 [facility] [place] [address] [place] [address] Jan, 15 Factitial dermatitis 698.[address] [address] Jan, [address] [address] [address] Jan, 15 Esophageal reflux 530.[address] [address] Dec, [address] [address] Dec, 15 Esophageal reflux 530.81 zrubénTONY [address] [address] November, 15 [facility] [address] [address] November, 15 Dyspepsia 536.8 and Epigastric pain 789.[address] [address] November, 15 [facility] [address] [place] [address] November, 15 [facility] [place] [facility] [address] [place] [address] November, 15 Impetigo 684 zrubénTONY [address] [address] Oct, 15 Other symptoms involving skin and integumentary tissues 782.9 and Seborrheic keratosis 702.19 [facility] [id number] [place] [address] 14 Oct, 2014 [facility] [address] [address] 13 Oct, 2014 [facility] [place] [address] [place] [address] Sep, 15 [facility] [address] [address] 20 Sep, 2014 [facility] [place] [address] [place] [address] Sep, 15 [facility] [address] [address] 18 Sep, 2014 [facility] [place] [address] [place] [address] Sep, 15 [facility] [id number] [address] 16 Sep, 2014 [facility] [place] [address] [place] [address] Sep, 15 [facility] [id number] [address] Sep, [facility] [place] [address] [place] [address] Aug, 15 [facility] [id number] [address] Aug, [facility] [place] [address] [place] [address] Jul, 15 [facility] [address] [id number] [address] Jul, [facility] [place] [address] [place] [address] Jun, 14 [facility] [id number] [address] Jun, [facility] [place] [address] [place] [address] May, 14 [facility] [address] [id number] [place] [address] May, [facility] [place] [address] [place] [address] Apr, 14 [facility] [id number] [place] [address] Apr, 2013 [facility] [place] [address] [place] [address] Apr, 14 [facility] [id number] [address] Apr, [facility] [address] [address] Mar, [facility] [place] [address] [place] [address] Mar, 14 [facility] [id number] [address] Mar, [facility] [id number] [address] Mar, [facility] [place] [address] [place] [address] Mar, 14 [facility] [place] [address] [place] [address] Dec, 14 [facility] [address] [id number] [place] [address] Dec, [facility] [place] [address] [place] [address] Sep, 14 [facility] [address] [id number] [place] [address] Sep, [facility] [place] [address] [place] [address] Aug, 14 [facility] [id number] [address] Aug, [facility] [id number] [address] Jul, [facility] [place] [address] [place] [address] Jul, 14 [facility] [id number] [address] Jul, [facility] [address] [place] [address] Jul, 14 [facility] [id number] [place] [address] Jul, [facility] [address] [place] [address] May, [id number] [address] May, [facility] [place] [address] May, [address] [address] [id number] [address] May, [facility] [place] [address] May, [address] [id number] [address] May, IMMUNIZATIONS No Known Immunizations SOCIAL HISTORY Never Assessed REASON FOR VISIT PLAN OF CARE VITAL SIGNS MEDICATIONS Unknown Medications RESULTS No Results PROCEDURES [...] pneumonia or fluid on around heart-sent to [facility]/thinking COPD 12/2018
--- OUTSIDE RECORDS SUMMARY | 2019-10-29 22:24 | XMS REPORT ---
Author Author Delphine VILLANUEVA Organization [facility] [address] [place] [address] Care Team Providers Care Emts Name Role Phone ZACH VILLANUEVA Unavailable PROBLEMS Type Condition ICD9-CM Code VIH36-TI Code Onset Dates Condition S tatus SNOMED Code Problem Lumbar degenerative disc disease M51.36 Active 53520142 Problem Gastro-esophageal reflux disease without esophagitis K21.9 Active 763203321 Problem Migraine without aura and without status migrain osus, not intractable G43.009 Active 882483571 Problem Degenerative disc disease, cervical M50.30 Active 05089083 Problem Thyroid nodule E04.1 Active 24422 5005 Problem Gastric reflux K21.9 Active 60581 7003 Problem Left lower quadrant abdominal pain R10.32 Active 091954321 Problem COPD mixed type J44.9 Active 1364 5005 Problem Incomplete tear of right rotator cuff, unspecifi ed whether traumatic M75.111 Active 259246979 Problem Chronic kidney disease, stage 3 N18.3 Active 730012457 Problem COPD exacerbation J44.1 Active 19 2483645 Problem Atherosclerosis 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 0 Active 61584073 Problem Mixed incontinence N39.46 Active 4 88388121 Problem Essential (primary) hypertension I10 Active 80792245 Problem Other schizoaffective disorders F25.8 Active 75105866 Problem Urge incontinence N39.41 Active 87 274437 Problem GERD with esophagitis K21.0 Active 176454964 Problem Major depression F32.9 Active 370 111811 Problem Moderate episode of recurrent major depressive disorder F33.1 Active 545765917 ALLERGIES No Information ENCOUNTERS Encounter Location Date Diagnosis [facility] [address] [id number] [address] 25 Sep, 2019 Encounter for Medicare annual wellness exam Z00.00 ; COPD mixed type J44.9 ; Essential (primary) hypertension I10 ; Type 2 diabetes mellitus with diabetic polyneuropathy, without long-term current use of insulin E11.42 ; Atherosclerosis of [place] coronary artery with angina pectoris, unspecified whether [place] or transplanted heart I25.119 ; Hypertensive heart disease with heart failure I11.0 ; Other schizoaffective disorders F25.8 ; Moderate episode of recurrent major depressive disorder F33.1 ; Chronic kidney disease, stage 3 N18.3 ; Degenerative disc disease, cervical M50.30 and Gastro-esophageal reflux disease without esophagitis K21.9 [facility] [address] [id number] [address] 24 Sep, 2019 [facility] [address] [place] [id number] [place] [address] 20 Sep, 2019 [id number] [place] [address] 19 Sep, 2019 [facility] [address] [place] [address] 19 Sep, 2019 [facility] [address] [place] [address] 18 Sep, 2019 [facility] [address] [place] [id number] [place] [address] 17 Sep, 2019 [facility] [address] [place] [address] 17 Sep, 2019 [facility] [address] [id number] [address] 16 Sep, 2019 [facility] [address] [place] [address] 16 Sep, 2019 [facility] [address] [place] [id number] [address] 13 Sep, 2019 Varicose veins of both lower extremities, unspecified whether complicated I83.93 [facility] [address] [facility] [address] 10 Sep, 2019 Major depression F32.9 [facility] [address] [id number] [address] 06 Sep, 2019 GERD with esophagitis K21.0 ; Other schizoaffective disorders F25.8 ; Type 2 diabetes mellitus with diabetic polyneuropathy, without long-term current use of insulin E11.42 ; COPD mixed type J44.9 and Post-menopausal Z78.0 [facility] [address] [facility] [address] 04 Sep, 2019 Other schizoaffective disorders F25.8 and Type 2 diabetes mellitus with diabetic polyneuropathy, without long-term current use of insulin E11.42 [facility] [address] [facility] [place] [address] 03 Sep, 2019 [facility] [address] [facility] [address] Sep, [facility] [address] [place] [address] [address] 28 Aug, 2019 Type 2 diabetes mellitus with diabetic polyneuropathy, without long-term current use of insulin E11.42 ; Moderate episode of recurrent major depressive disorder F33.1 and Other schizoaffective disorders F25.8 [facility] [address] [facility] [address] Aug, [facility] [address] [address] Aug, [facility] [address] [address] [facility] [address] Aug, [facility] [address] [id number] [address] 21 Aug, 2019 Incomplete tear of right rotator cuff, unspecified whether traumatic M75.111 [facility] [address] [address] [facility] [place] [address] Aug, [facility] [address] [place] [address] [facility] [place] [id number] [place] [address] 19 Aug, 2019 [facility] [address] [place] [address] [facility] [place] [place] [id number] [address] 18 Aug, 2019 Other schizoaffective disorders F25.8 [facility] [address] [place] [address] [facility] [place] [place] [id number] [place] [address] 13 Aug, 2019 [facility] [address] [place] [address] [facility] [place] [place] [id number] [place] [address] 12 Aug, 2019 [facility] [address] [place] [address] [facility] [place] [place] [id number] [place] [address] 11 Aug, 2019 [facility] [address] [place] [address] [facility] [place] [place] [id number] [place] [address] 10 Aug, 2019 [facility] [address] [place] [address] [facility] [place] [id number] [place] [address] 07 Aug, 2019 [facility] [address] [place] [address] [facility] [place] [place] [id number] [place] [address] 05 Aug, 2019 [facility] [address] [place] [address] [facility] [place] [place] [id number] [place] [address] 04 Aug, 2019 [facility] [address] [place] [address] [facility] [place] [place] [id number] [place] [address] 03 Aug, 2019 [facility] [address] [place] [address] [facility] [place] [id number] [place] [address] Aug, [facility] [address] [place] [address] [facility] [place] [address] Jul, Incomplete tear of right rotator cuff, unspecified whether traumatic M75.111 [facility] [address] [place] [address] [facility] [place] [id number] [place] [address] Jul, [facility] [address] [place] [address] [facility] [place] [address] Jul, Rotator cuff tear M75.100 ; Type 2 diabetes mellitus with diabetic polyneuropathy, without long-term current use of insulin E11.42 ; High risk medication use Z79.899 and Urge incontinence N39.41 [facility] [address] [place] [address] [facility] [place] [address] Jul, Dysuria R30.0 [facility] [address] [place] [address] [facility] [place] [address] Jul, [facility] [address] [place] [address] [facility] [place] [address] Jul, [facility] [address] [place] [address] [facility] [place] [address] Jul, [facility] [address] [place] [address] [facility] [place] [address] Jul, [facility] [address] [place] [address] [facility] [place] [address] Jul, Lumbago M54.5 [facility] [address] [place] [address] [facility] [place] [address] Jul, [facility] [address] [place] [address] [facility] [place] [address] Jul, [facility] [address] [place] [address] [facility] [place] [address] Jul, [facility] [address] [place] [address] [facility] [place] [address] 07 Jul, 2019 [facility] [address] [place] [address] [facility] [place] [address] Jul, [facility] [address] [place] [address] [facility] [place] [address] Jul, Incomplete tear of right rotator cuff, unspecified whether traumatic M75.111 ; Essential (primary) hypertension I10 and Thyroid nodule E04.1 [facility] [address] [facility] [place] [address] Jul, [facility] [address] [place] [address] [id number] [address] Jun, [facility] [address] [place] [address] [facility] [place] [address] 30 Jun, 2019 COPD exacerbation J44.1 [facility] [address] [place] [address] [facility] [place] [place] [id number] [place] [address] Jun, [facility] [address] [place] [address] [id number] [place] [address] 26 Jun, 2019 [facility] [address] [place] [address] [place] [address] [place] [id number] [place] [address] Jun, Nausea R11.0 ; Incomplete tear of right rotator cuff, unspecified whether traumatic M75.111 and Essential (primary) hypertension I10 [facility] [address] [place] [address] [place] [address] [place] [id number] [place] [address] Jun, [facility] [address] [place] [address] [id number] [address] 18 Jun, 2019 [facility] [address] [place] [address] [id number] [address] 16 Jun, 2019 [facility] [address] [place] [address] [id number] [address] 11 Jun, 2019 Rotator cuff tear M75.100 [facility] [address] [place] [address] [place] [address] [place] [id number] [place] [address] 09 Jun, 2019 [facility] [address] [place] [address] [id number] [address] 05 Jun, 2019 Essential (primary) hypertension I10 ; Type 2 diabetes mellitus with diabetic polyneuropathy, without long-term current use of insulin E11.42 ; Rotator cuff tear M75.100 and Chronic kidney disease, stage 3 N18.3 [facility] [address] [place] [address] [facility] [place] [id number] [place] [address] Jun, [facility] [address] [place] [address] [id number] [address] Jun, [facility] [address] [place] [address] [id number] [address] Jun, [facility] [address] [place] [address] [id number] [address] May, [facility] [address] [place] [address] [id number] [address] May, [facility] [address] [place] [address] [id number] [address] May, [facility] [address] [place] [address] [id number] [address] May, Rotator cuff tear M75.100 [facility] [address] [place] [address] [id number] [address] May, [facility] [address] [place] [address] [id number] [address] May, Rotator cuff tear M75.100 ; Major depressive disorder with current active episode, unspecified depression episode severity, unspecified whether recurrent F32.9 ; Type 2 diabetes mellitus with diabetic polyneuropathy, without long-term current use of insulin E11.42 and Essential (primary) hypertension I10 [facility] [address] [place] [address] [id number] [address] May, [facility] [address] [place] [address] [id number] [address] May, [facility] [address] [place] [address] [id number] [address] Apr, [facility] [address] [place] [address] [id number] [address] Apr, [facility] [address] [place] [address] [id number] [address] Apr, Rotator cuff tear M75.100 ; Essential (primary) hypertension I10 and COPD mixed type J44.9 [facility] [address] [place] [address] [id number] [address] Apr, Rotator cuff tear M75.100 [facility] [address] [place] [address] [id number] [address] Apr, [facility] [address] [place] [address] [id number] [address] 11 Apr, 2019 Preprocedural examination Z01.818 [facility] [address] [place] [address] [place] [address] [place] [id number] [place] [address] 09 Apr, 2019 [facility] [address] [place] [address] [id number] [address] 09 Apr, 2019 [facility] [address] [place] [address] [id number] [address] 08 Apr, 2019 Traumatic complete tear of right rotator cuff, initial encounter S46.011A ; Essential (primary) hypertension I10 ; Encounter for immunization Z23 ; Leg cramps R25.2 ; COPD mixed type J44.9 and Fatigue R53.83 [facility] [address] [place] [address] [place] [address] [place] [id number] [place] [address] 24 Mar, 2019 [facility] [address] [place] [address] [place] [address] [place] [id number] [address] 18 Mar, 2019 [facility] [address] [place] [address] [id number] [address] 16 Mar, 2019 [facility] [address] [place] [address] [place] [address] [place] [id number] [place] [address] 13 Mar, 2019 [facility] [address] [place] [address] [id number] [address] 12 Mar, 2019 Traumatic complete tear of right rotator cuff, initial encounter S46.011A ; Left lower quadrant abdominal pain R10.32 ; Essential (primary) hypertension I10 ; COPD mixed type J44.9 and ocean transportation intermediary use of drug Z79.899 [facility] [address] [place] [address] [place] [address] [id number] [address] 10 Mar, 2019 [facility] [address] [place] [address] [place] [address] [id number] [address] 09 Mar, 2019 Gastroenteritis and colitis, viral A08.4 [facility] [address] [place] [address] [place] [address] [place] [id number] [place] [address] 04 Mar, 2019 [facility] [address] [place] [address] [id number] [address] Feb, Traumatic complete tear of right rotator cuff, initial encounter S46.011A ; Chronic obstructive pulmonary disease, unspecified COPD type J44.9 and Mixed incontinence N39.46 [facility] [address] [place] [address] [id number] [address] Feb, [facility] [address] [place] [address] [id number] [address] Feb, [facility] [address] [place] [address] [id number] [address] Feb, Injury of right shoulder, initial encounter S49.91XA [facility] [address] [place] [address] [id number] [address] Feb, [facility] [address] [place] [place] [address] Feb, [facility] [address] [place] [place] [address] Jan, [facility] [address] [place] [place] [address] Jan, [facility] [address] [place] [place] [address] Jan, Essential (primary) hypertension I10 ; Type 2 diabetes mellitus with diabetic polyneuropathy, without long-term current use of insulin E11.42 ; COPD mixed type J44.9 ; Thyroid nodule E04.1 and Degenerative disc disease, cervical M50.30 [facility] [address] [place] [address] [id number] [address] Jan, [facility] [address] [place] [address] [id number] [address] Jan, [facility] [address] [place] [address] [id number] [address] Dec, [facility] [address] [place] [address] [id number] [address] Dec, Gastroenteritis and colitis, viral A08.4 [facility] [address] [address] [id number] [address] 22 Dec, 2018 Chronic obstructive pulmonary disease, unspecified COPD type J44.9 [facility] [address] [place] [id number] [place] [address] 18 Dec, 2018 Gastric reflux K21.9 [facility] [address] [place] [address] 18 Dec, 2018 [facility] [address] [place] [id number] [place] [address] 14 Dec, 2018 Essential (primary) hypertension I10 [facility] [address] [place] [id number] [place] [address] 13 Dec, 2018 [facility] [address] [place] [id number] [place] [address] 13 Dec, 2018 Chronic obstructive pulmonary disease, unspecified COPD type J44.9 ; Type 2 diabetes mellitus with diabetic polyneuropathy, without long-term current use of insulin E11.42 ; Essential (primary) hypertension I10 ; Gastro-esophageal reflux disease without esophagitis K21.9 and Varicella vaccination Z23 [facility] [address] [place] [address] 05 Dec, 2018 Dyspnea on exertion R06.09 and Infiltrate noted on imaging study R93.89 [facility] [address] [place] [address] November, Thyroid pain E07.89 [facility] [address] [place] [address] November, Thyroid pain E07.89 [facility] [address] [place] [address] November, Other schizoaffective disorders F25.8 [facility] [address] [place] [address] Oct, Type 2 diabetes mellitus with diabetic polyneuropathy, without long-term current use of insulin E11.42 ; Gastric reflux K21.9 and Diabetic retinopathy of right eye associated with type 2 diabetes mellitus, macular edema presence unspecified, unspecified retinopathy severity E11.319 [facility] [address] [place] [address] [id number] [address] Sep, [facility] [address] [place] [address] [id number] [address] Sep, Type 2 diabetes mellitus with diabetic polyneuropathy, without long-term current use of insulin E11.42 and Gastric reflux K21.9 [facility] [address] [id number] [address] Sep, [facility] [address] [place] [address] [id number] [place] [address] Sep, Acute vaginitis N76.0 and Other schizoaffective disorders F25.8 [facility] [address] [facility] [place] [address] 08 Sep, 2018 [facility] [address] [place] [id number] [address] Sep, [facility] [address] [place] [address] [id number] [place] [address] Aug, [facility] [address] [id number] [place] [address] Jul, [facility] [address] [place] [address] [id number] [address] Jul, [facility] [address] [id number] [address] Jul, Dental examination Z01.20 and Caries K02.9 [facility] [address] [place] [address] [id number] [address] Jul, Type 2 diabetes mellitus without complications E11.9 [facility] [address] [place] [address] [id number] [address] Jul, [facility] [address] [place] [address] [id number] [address] Jul, Migraine without aura and without status migrainosus, not intractable G43.009 [facility] [address] [place] [address] [facility] [place] [place] [id number] [place] [address] Jul, [facility] [address] [place] [address] [facility] [place] [id number] [place] [address] Jul, [facility] [address] [place] [address] [facility] [place] [id number] [place] [address] 17 Jul, 2018 [facility] [address] [place] [address] [facility] [place] [id number] [place] [address] 09 Jul, 2018 Shortness of breath R06.02 [facility] [address] [place] [address] [facility] [place] [id number] [place] [address] 07 Jul, 2018 Dental examination Z01.20 [facility] [address] [place] [address] [facility] [place] [id number] [place] [address] 05 Jul, 2018 Acute intractable headache, unspecified headache type R51 and BMI 40.0-44.9, adult Z68.41 [facility] [address] [place] [address] [facility] [place] [place] [id number] [place] [address] Jul, [facility] [address] [place] [address] [facility] [place] [id number] [place] [address] Jul, [facility] [address] [place] [address] [id number] [address] Jul, [facility] [address] [place] [address] [facility] [place] [place] [id number] [place] [address] 31 Jun, 2018 [facility] [address] [place] [address] [facility] [place] [id number] [place] [address] Jun, [facility] [address] [place] [address] [facility] [place] [id number] [place] [address] Jun, [facility] [address] [place] [address] [facility] [place] [id number] [place] [address] 18 Jun, 2018 Impetigo L01.00 and Sore in nose J34.89 [facility] [address] [place] [address] [facility] [address] [id number] [place] [address] 17 Jun, 2018 Degenerative disc disease, cervical M50.30 [facility] [address] [place] [address] [place] [id number] [place] [address] Jun, Sore in nose J34.89 [facility] [address] [place] [address] [place] [id number] [place] [address] Jun, Sore in nose J34.89 ; Excoriation of abdomen, initial encounter S30.811A ; Encounter for immunization Z23 and BMI 40.0-44.9, adult Z68.41 [facility] [place] [address] [place] [id number] [place] [address] May, [facility] [id number] [place] [address] May, [facility] [id number] [place] [address] May, Type 2 diabetes mellitus without complications E11.9 [facility] [id number] [place] [address] May, [facility] [place] [address] [place] [id number] [address] May, Degenerative disc disease, cervical M50.30 [facility] [id number] [place] [address] May, Cervicalgia M54.2 [facility] [id number] [place] [address] May, [facility] [place] [address] [place] [id number] [address] May, [facility] [place] [address] [place] [id number] [address] May, [facility] [place] [address] [place] [id number] [address] May, Gastroenteritis and colitis, viral A08.4 [facility] [place] [address] [place] [id number] [address] Apr, Type 2 diabetes mellitus without complications E11.9 ; Degenerative disc disease, cervical M50.30 ; Essential (primary) hypertension I10 ; Gastro-esophageal reflux disease without esophagitis K21.9 and BMI 40.0-44.9, adult Z68.41 [facility] [address] [place] [id number] [place] [address] 26 Mar, 2018 Degenerative disc disease, cervical M50.30 ; Type 2 diabetes mellitus without complications E11.9 ; Encounter for immunization Z23 ; snf current use of insulin Z79.4 and BMI 40.0-44.9, adult Z68.41 [facility] [address] [id number] [place] [address] 20 Mar, 2018 Degenerative cervical disc M50.30 [facility] [address] [place], [place] [address], [place] [address] 19 Mar, 2018 [facility] [address] [place] [id number] [place] [address] 18 Mar, 2018 Generalized pruritus L29.9 ; Lumbar degenerative disc disease M51.36 and BMI 40.0-44.9, adult Z68.41 [facility] [address] [place], [place] [id number] [place] [address] 06 Mar, 2018 [facility] [address] [place] [address], [place] [address] 04 Mar, 2018 Cervicalgia M54.2 and Essential (primary) hypertension I10 [facility] [address] [place], [place] [id number] [place] [address] 27 Feb, 2018 Type 2 diabetes mellitus without complications E11.9 [facility] [address] [place], [place] [id number] [place] [address] 30 Jan, 2018 Gastroenteritis and colitis, viral A08.4 and BMI 40.0-44.9, adult Z68.[address] [place] [address] 16 Jan, 2018 Type 2 diabetes mellitus without complications E11.9 ; Essential (primary) hypertension I10 ; Screening for breast cancer Z12.31 ; Degenerative lumbar disc M51.36 ; BMI 40.0-44.9, adult Z68.41 and Morbid obesity E66.[address] [address] 26 Dec, 18 BMI 40.0-44.9, adult Z68.41 and Other schizoaffective disorders F25.[address] [address] Dec, 18 Other schizoaffective disorders F25.8 ; Lumbar degenerative disc disease M51.36 and BMI 40.0-44.9, adult Z68.[address] [address] 08 December, 18 Shortness of breath R06.[address] [address] 08 December, [address] [address] 02 December, [address] [address] November, [address] [address] November, [address] [address] November, 18 Vaginal bleeding N93.[address] [address] November, 18 BMI 40.0-44.9, adult Z68.41 and Vaginal bleeding N93.[address] [address] Oct, 18 Dysfunction of both eustachian tubes H69.[address] [address] Oct, 18 BMI 40.0-44.9, adult Z68.41 ; Essential (primary) hypertension I10 and Impetigo L01.[address] [address] Sep, [address] [address] Sep, 18 Type 2 diabetes mellitus with diabetic polyneuropathy, without long-term current use of insulin E11.42 ; BMI 40.0-44.9, adult Z68.41 ; Other schizoaffective disorders F25.8 ; Gastro-esophageal reflux disease without esophagitis K21.9 ; Essential (primary) hypertension I10 and Impetigo L01.[address] [address] Sep, 18 Type 2 diabetes mellitus with diabetic polyneuropathy, without long-term current use of insulin E11.[address] [address] Aug, [address] [address] Aug, [address] [address] Jul, 18 Type 2 diabetes mellitus with diabetic polyneuropathy, without long-term current use of insulin E11.42 ; Other schizoaffective disorders F25.8 ; Gastro-esophageal reflux disease without esophagitis K21.9 ; Essential (primary) hypertension I10 and Impetigo L01.[address] [address] Jun, 17 Shortness of breath R06.02 ; Type 2 diabetes mellitus without complications E11.9 ; BMI 40.0- 44.9, adult Z68.41 and Pre-ulcerative corn or callous L84 [address] [address] Jun, [address] [address] May, 17 Medicare welcome exam Z00.00 ; BMI 40.0-44.9, adult Z68.41 ; Medicare annual wellness visit, initial Z00.00 ; Medicare annual wellness visit, subsequent Z00.00 and Encounter for immunization Z23 [address] [address] May, 17 Foot callus L84 and Type 2 diabetes mellitus without complications E11.9 [facility] [place] [address] [place] [address] 30 Apr, 17 [facility] [place] [address] [place] [address] 09 Apr, 17 Encounter for immunization Z23 [facility] [place] [address] [place] [address] Mar, 17 Type 2 diabetes mellitus without complications E11.9 and Polyneuropathy associated with underlying disease G63 [facility] [place] [address] [place] [address] Feb, 17 Edema R60.9 ; Type 2 diabetes mellitus without complications E11.9 and Anemia, unspecified type D64.9 [facility] [place] [address] [place] [address] Feb, 17 Hip pain, left M25.552 [facility] [place] [address] [place] [address] Feb, 17 [facility] [place] [address] [place] [address] Jan, 17 [facility] [place] [address] [place] [address] Jan, 17 [facility] [place] [address] [place] [address] 15 Dec, 17 [facility] [place] [address] [place] [address] 14 Dec, 17 [facility] [place] [address] [place] [address] 13 Dec, 17 [facility] [place] [address] [place] [address] 12 Dec, 17 [facility] [place] [address] [place] [address] 08 Dec, 17 [facility] [place] [address] [place] [address] 06 Dec, 17 Type 2 diabetes mellitus without complications E11.9 and Essential (primary) hypertension I10 [facility] [place] [address] [place] [address] 09 December, 17 [facility] [place] [address] [place] [address] November, 17 Frequency of micturition R35.0 ; Dysuria R30.0 and Type 2 diabetes mellitus without complications E11.9 [facility] [address] [place] [address] 11 Oct, 17 [facility] [address] [address] Oct, 17 [facility] [address] [address] Oct, 17 [facility] [address] [address] Oct, 17 [facility] [address] [address] Sep, 17 Cellulitis of head except face L03.811 [facility] [address] [address] Aug, 17 [facility] [address] [address] Aug, 17 [facility] [address] [address] Aug, 17 Flu-like symptoms R68.89 and Influenza B J10.1 [facility] [address] [address] Jul, 17 Type 2 diabetes mellitus without complications E11.9 [facility] [address] [address] Jul, [address] [address] Jul, 17 Type 2 diabetes mellitus without complications E11.9 ; Anemia, unspecified type D64.9 ; Essential (primary) hypertension I10 and Fatigue R53.83 [facility] [address] [address] Jul, 17 Type 2 diabetes mellitus without complications E11.9 and Foot callus L84 [address] [address] Jun, 16 [facility] [address] [place] [address] Jun, 16 [facility] [address] [place] [address] May, [address] [address] May, 16 Shortness of breath R06.[address] [address] 02 May, 16 Shortness of breath R06.02 [facility] [address] [place] [address] Apr, 16 Shortness of breath R06.[address] [address] Feb, 16 Screening for cervical cancer Z12.4 ; Edema R60.9 ; Screening for breast cancer Z12.39 and Screening for colon cancer Z12.[address] [address] Feb, 16 Blood in stool K92.[address] [address] Feb, 16 Anemia, unspecified type D64.[address] [address] Feb, 16 Edema R60.9 ; Shortness of breath R06.02 ; Anemia, unspecified type D64.9 and Gastroesophageal reflux disease without esophagitis K21.9 [facility] [address] [place] [address] Feb, 16 Shortness of breath R06.02 and Edema R60.9 [facility] [address] [place] [address] Feb, [address] [address] Feb, 16 Shortness of breath R06.02 and Edema R60.[address] [address] Feb, 16 [facility] [address] [facility] [id number] [place] [address] Jan, Shortness of breath R06.[address] [address] 11 Jan, 16 Shortness of breath R06.02 ; Edema R60.9 and Gastroesophageal reflux disease without esophagitis K21.[address] [address] Jan, 16 Shortness of breath R06.[address] [address] Dec, [address] [address] Dec, 16 Dental examination Z01.[address] [address] 10 Dec, [address] [address] 10 Dec, [address] [address] 09 Dec, 16 Edema R60.9 ; Type 2 diabetes mellitus without complications E11.9 and Fatigue R53.[address] [address] November, 16 Edema R60.9 and Abdominal muscle strain, initial encounter S39.011A [address] [address] Oct, [address] [address] 18 Aug, 16 Hip pain, right M25.551 and Edema R60.[address] [address] 08 Aug, [address] [address] 04 Aug, 16 Edema R60.9 and Impetigo L01.[address] [address] Jul, 16 Type 2 diabetes mellitus without complications E11.9 and Edema R60.9 [facility] [address] [address] Jul, 16 [facility] [address] [address] Jul, 16 Contusion of thigh, right S70.11XA [facility] [address] [address] Jul, 16 Hip pain, right M25.551 [facility] [address] [address] Jul, 16 [facility] [address] [address] Jun, 15 Left hip pain M25.552 [facility] [address] [address] Jun, 15 Acute maxillary sinusitis, recurrence not specified J01.00 and Vomiting, nausea presence unspecified, unspecified intactability, vomiting of unspecified type R11.10 [facility] [address] [address] Jun, 15 Acute maxillary sinusitis, recurrence not specified J01.00 [facility] [address] [address] Apr, 15 Acquired spondylolisthesis of lumbosacral region M43.17 ; Encounter for immunization Z23 and Cholelithiasis K80.[address] [address] Mar, 15 [facility] [address] [address] Mar, 15 Lumbar radiculopathy 724.[address] [address] Mar, [address] [address] Feb, 15 Esophageal reflux 530.[address] [address] Feb, 15 Esophageal reflux 530.81 ; Essential hypertension, benign 401.1 and Diabetes mellitus without mention of complication, type II or unspecified type, not stated as uncontrolled 250.00 [facility] [address] [address] Feb, 15 [facility] [address] [address] Feb, 15 Myalgia and myositis 729.1 [facility] [address] [address] Jan, 15 Upper respiratory infection 465.9 ; Other symptoms involving skin and integumentary tissues 782.9 and Factitial dermatitis 698.[address] [address] Jan, 15 Factitial dermatitis 698.[address] [address] Jan, [address] [address] Jan, 15 Esophageal reflux 530.[address] [address] Dec, [address] [address] Dec, 15 Esophageal reflux 530.[address] [address] November, [address] [address] November, 15 Dyspepsia 536.8 and Epigastric pain 789.[address] [address] November, 15 [facility] [address] [address] November, 15 [facility] [address] [address] November, 15 Impetigo [address] [address] 30 Oct, 15 Other symptoms involving skin and integumentary tissues 782.9 and Seborrheic keratosis 702.19 [facility] [address] [address] 14 Oct, 2014 [facility] [address] [address] Oct, [facility] [place] [address] [place] [address] Sep, 15 [facility] [address] [address] Sep, [facility] [place] [address] [place] [address] Sep, 15 [facility] [address] [address] Sep, [facility] [place] [address] [place] [address] Sep, 15 [facility] [address] [address] Sep, [facility] [place] [address] [place] [address] Sep, 15 [facility] [address] [place] [id number] [place] [address] Sep, [facility] [place] [address] [place] [address] Aug, 15 [facility] [address] [address] Aug, [facility] [place] [address] [place] [address] Jul, 15 [facility] [address] [address] Jul, [facility] [place] [address] [place] [address] Jun, 14 [facility] [address] [address] Jun, [facility] [place] [address] [place] [address] May, 14 [facility] [address] [place] [id number] [place] [address] May, [facility] [place] [address] [place] [address] Apr, 14 [facility] [address] [place] [id number] [place] [address] Apr, [facility] [place] [address] [place] [address] Apr, 14 [facility] [address] [address] Apr, [facility] [address] [address] Mar, [facility] [place] [address] [place] [address] Mar, 14 [facility] [address] [address] Mar, [facility] [address] [place] [id number] [place] [address] Mar, [facility] [place] [address] [place] [address] Mar, 14 [facility] [place] [address] [place] [address] Dec, 14 [facility] [address] [place] [id number] [place] [address] Dec, [facility] [place] [address] [place] [address] Sep, 14 [facility] [address] [place] [id number] [place] [address] Sep, [facility] [place] [address] [place] [address] Aug, 14 [facility] [address] [address] Aug, [facility] [address] [place] [id number] [place] [address] Jul, [facility] [address] [place] [address] Jul, 14 [facility] [address] [address] Jul, [facility] [place] [address] Jul, 14 [place] [address] [address] Jul, [facility] [place] [address] May, 13 [place] [address] [address] May, [facility] [address] [place] [address] May, 13 [place] [address] [address] May, [facility] [place] [address] May, 13 [place] [address] [address] May, IMMUNIZATIONS No Known Immunizations SOCIAL HISTORY [...] pneumonia or fluid on around heart-sent to pa heart/thinking COPD 12/2018
--- OUTSIDE RECORDS SUMMARY | 2019-10-29 22:24 | XMS REPORT ---
Author Author Delphine VILLANUEVA Organization [facility] [address] [place] [address] Care Team Providers Care Inside Finisher Name Role Phone ZACH VILLANUEVA Unavailable PROBLEMS Type Condition ICD9-CM Code ZAE24-WI Code Onset Dates Condition S tatus SNOMED Code Problem Type 2 diabetes mellitus wit h diabetic polyneuropathy, without long-term current use of insulin E11.42 Active 70030 006 Problem Essential (primary) hypertension I10 Active 12615074 Problem Other schizoaffective disorders F25.8 Active 08396383 Problem Gastro-esophageal reflux disease without esophagitis K21.9 Active 340584489 Problem Degenerative disc disease, cervical M50.30 Active 46528443 Problem Lumbar degenerative disc disease M51.36 Active 91934745 Problem Gastric reflux K21.9 Active 26993 7003 Problem Migraine without aura and without status migrain osus, not intractable G43.009 Active 734732050 Problem Left lower quadrant abdominal pain R10.32 Active 466231864 Problem Mixed incontinence N39.46 Active 4 60879973 Problem Rotator cuff tear M75.100 Active 41 36742 Problem GERD with esophagitis K21.0 Active 894593763 Problem Thyroid nodule E04.1 Active 43156 5005 Problem Moderate episode of recurrent major depressive disorder F33.1 Active 563400715 Problem COPD mixed type J44.9 Active 1364 5005 Problem Incomplete tear of right rotator cuff, unspecifi ed whether traumatic M75.111 Active 078573411 Problem Chronic kidney disease, stage 3 N18.3 Active 188255592 Problem COPD exacerbation J44.1 Active 19 1267007 Problem Urge incontinence N39.41 Active 87 237653 ALLERGIES No Information ENCOUNTERS Encounter Location Date Diagnosis [facility] [address] [id number] [place] [address] Sep, [facility] [address] [place] [address] [id number] [place] [address] 13 Sep, 2019 COPD mixed type J44.9 and Type 2 diabetes mellitus with diabetic polyneuropathy, without long-term current use of insulin E11.42 [facility] [address] [place] [address] [address] 10 Sep, 2019 [facility] [address] [place] [address] [facility] [address] 06 Sep, 2019 GERD with esophagitis K21.0 ; Other schizoaffective disorders F25.8 ; Type 2 diabetes mellitus with diabetic polyneuropathy, without long-term current use of insulin E11.42 ; COPD mixed type J44.9 and Post-menopausal Z78.0 [facility] [id number] [address] 04 Sep, 2019 Other schizoaffective disorders F25.8 and Type 2 diabetes mellitus with diabetic polyneuropathy, without long-term current use of insulin E11.42 [facility] [address] [id number] [place] [address] 03 Sep, 2019 [facility] [address] [id number] [address] Sep, [facility] [address] [place] [id number] [place] [address] 28 Aug, 2019 Type 2 diabetes mellitus with diabetic polyneuropathy, without long-term current use of insulin E11.42 ; Moderate episode of recurrent major depressive disorder F33.1 and Other schizoaffective disorders F25.8 [facility] [address] [place] [address] [facility] [address] Aug, [facility] [address] [place] [address] [facility] [address] Aug, [facility] [address] [place] [id number] [address] Aug, [facility] [address] [place] [address] [facility] [address] Aug, Incomplete tear of right rotator cuff, unspecified whether traumatic M75.111 [facility] [address] [place] [address] [facility] [place] [id number] [place] [address] 20 Aug, 2019 [facility] [address] [place] [address] [facility] [place] [id number] [place] [address] 19 Aug, 2019 [facility] [address] [place] [address] [facility] [place] [id number] [place] [address] 18 Aug, 2019 Other schizoaffective disorders F25.8 [facility] [address] [place] [address] [facility] [place] [id number] [place] [address] 13 Aug, 2019 [facility] [address] [place] [address] [facility] [place] [id number] [place] [address] 12 Aug, 2019 [facility] [address] [place] [address] [facility] [place] [place] [id number] [place] [address] 11 Aug, 2019 [facility] [address] [place] [address] [facility] [place] [id number] [place] [address] 10 Aug, 2019 [facility] [address] [place] [address] [facility] [place] [id number] [place] [address] 07 Aug, 2019 [facility] [address] [place] [address] [facility] [place] [id number] [place] [address] 05 Aug, 2019 [facility] [address] [place] [address] [facility] [place] [id number] [place] [address] 04 Aug, 2019 [facility] [address] [place] [address] [facility] [place] [id number] [place] [address] 03 Aug, 2019 [facility] [address] [place] [address] [facility] [place] [id number] [place] [address] 01 Aug, 2019 [facility] [address] [place] [address] [facility] [place] [id number] [place] [address] Jul, Incomplete tear of right rotator cuff, unspecified whether traumatic M75.111 [facility] [address] [place] [address] [facility] [place] [id number] [place] [address] Jul, [facility] [address] [place] [address] [facility] [place] [id number] [place] [address] Jul, Rotator cuff tear M75.100 ; Type 2 diabetes mellitus with diabetic polyneuropathy, without long-term current use of insulin E11.42 ; High risk medication use Z79.899 and Urge incontinence N39.41 [facility] [address] [place] [address] [id number] [place] [address] Jul, Dysuria R30.0 [facility] [address] [place] [address] [id number] [place] [address] Jul, [facility] [address] [place] [id number] [place] [address] Jul, [facility] [address] [place] [id number] [place] [address] Jul, [facility] [address] [place] [id number] [place] [address] Jul, [facility] [address] [place] [address] [id number] [place] [address] Jul, Lumbago M54.5 [facility] [address] [place] [address] [id number] [place] [address] Jul, [facility] [address] [place] [id number] [place] [address] Jul, [facility] [address] [place] [address] [id number] [place] [address] 08 Jul, 2019 [facility] [address] [place] [id number] [place] [address] Jul, [facility] [address] [place] [address] [id number] [place] [address] Jul, [facility] [address] [place] [address] [id number] [place] [address] Jul, Incomplete tear of right rotator cuff, unspecified whether traumatic M75.111 ; Essential (primary) hypertension I10 and Thyroid nodule E04.1 [facility] [address] [facility] [place] [address] Jul, [facility] [address] [place] [address] [id number] [place] [address] 31 Jun, 2019 [facility] [address] [place] [address] [id number] [place] [address] 30 Jun, 2019 COPD exacerbation J44.1 [facility] [address] [place] [address] [id number] [address] 27 Jun, 2019 [facility] [address] [place] [address] [id number] [address] 26 Jun, 2019 [facility] [address] [place] [address] [id number] [address] 20 Jun, 2019 Nausea R11.0 ; Incomplete tear of right rotator cuff, unspecified whether traumatic M75.111 and Essential (primary) hypertension I10 [facility] [address] [place] [address] [id number] [address] 20 Jun, 2019 [facility] [address] [place] [address] [id number] [address] 18 Jun, 2019 [facility] [address] [place] [address] [id number] [address] 16 Jun, 2019 [facility] [address] [place] [address] [id number] [address] 11 Jun, 2019 Rotator cuff tear M75.100 [facility] [address] [place] [address] [id number] [place] [address] 09 Jun, 2019 [facility] [address] [place] [address] [id number] [address] 05 Jun, 2019 Essential (primary) hypertension I10 ; Type 2 diabetes mellitus with diabetic polyneuropathy, without long-term current use of insulin E11.42 ; Rotator cuff tear M75.100 and Chronic kidney disease, stage 3 N18.3 [facility] [address] [place] [address] [id number] [address] 03 Jun, 2019 [facility] [address] [place] [address] [id number] [address] 02 Jun, 2019 [facility] [address] [place] [address] [id number] [address] Jun, [facility] [address] [place] [address] [place] [address] [id number] [address] May, [facility] [address] [place] [address] [id number] [address] May, [facility] [address] [place] [address] [place] [address] [place] [id number] [place] [address] May, [facility] [address] [place] [address] [id number] [address] May, Rotator cuff tear M75.100 [facility] [address] [place] [address] [place] [address] ST [id number] [place] [address] May, [facility] [address] [place] [address] [id number] [address] May, Rotator cuff tear M75.100 ; Major depressive disorder with current active episode, unspecified depression episode severity, unspecified whether recurrent F32.9 ; Type 2 diabetes mellitus with diabetic polyneuropathy, without long-term current use of insulin E11.42 and Essential (primary) hypertension I10 [facility] [address] [place] [address] [id number] [address] May, [facility] [address] [place] [address] [id number] [address] May, [facility] [address] [place] [address] [id number] [address] Apr, [facility] [address] [place] [address] [id number] [address] Apr, [facility] [address] [place] [address] [id number] [address] Apr, Rotator cuff tear M75.100 ; Essential (primary) hypertension I10 and COPD mixed type J44.9 [facility] [address] [place] [address] [place] [address] [place] [id number] [place] [address] Apr, Rotator cuff tear M75.100 [facility] [address] [place] [address] [place] [address] [id number] [address] 15 Apr, 2019 [facility] [address] [place] [address] [place] [address] [place] [id number] [place] [address] 11 Apr, 2019 Preprocedural examination Z01.818 [facility] [address] [place] [address] [place] [address] [place] [id number] [place] [address] 09 Apr, 2019 [facility] [address] [place] [address] [id number] [address] 09 Apr, 2019 [facility] [address] [place] [address] [id number] [address] 08 Apr, 2019 Traumatic complete tear of right rotator cuff, initial encounter S46.011A ; Essential (primary) hypertension I10 ; Encounter for immunization Z23 ; Leg cramps R25.2 ; COPD mixed type J44.9 and Fatigue R53.83 [facility] [address] [place] [address] [id number] [address] 24 Mar, 2019 [facility] [address] [place] [address] [id number] [address] 18 Mar, 2019 [facility] [address] [place] [address] [id number] [address] 16 Mar, 2019 [facility] [address] [place] [address] [id number] [address] 13 Mar, 2019 [facility] [address] [place] [address] [id number] [address] 12 Mar, 2019 Traumatic complete tear of right rotator cuff, initial encounter S46.011A ; Left lower quadrant abdominal pain R10.32 ; Essential (primary) hypertension I10 ; COPD mixed type J44.9 and shelter use of drug Z79.899 [facility] [address] [place] [address] [place] [address] [place] [id number] [place] [address] 10 Mar, 2019 [facility] [address] [place] [address] [id number] [address] 09 Mar, 2019 Gastroenteritis and colitis, viral A08.4 [facility] [address] [place] [address] [id number] [address] Mar, [facility] [address] [place] [address] [place] [address] [place] [id number] [place] [address] Feb, Traumatic complete tear of right rotator cuff, initial encounter S46.011A ; Chronic obstructive pulmonary disease, unspecified COPD type J44.9 and Mixed incontinence N39.46 [facility] [address] [place] [address] [place] [address] [place] [id number] [place] [address] Feb, [facility] [address] [place] [address] [place] [address] [id number] [place] [address] Feb, [facility] [address] [place] [address] [place] [address] [place] [id number] [place] [address] Feb, Injury of right shoulder, initial encounter S49.91XA [facility] [address] [place] [address] [place] [address] [id number] [place] [address] Feb, [facility] [address] [place] [address] [place] [address] [place] [id number] [place] [address] Feb, [facility] [address] [place] [address] [place] [address] [place] [id number] [place] [address] Jan, [facility] [address] [place] [address] [place] [address] [place] [id number] [place] [address] Jan, [facility] [address] [place] [address] [id number] [address] Jan, Essential (primary) hypertension I10 ; Type 2 diabetes mellitus with diabetic polyneuropathy, without long-term current use of insulin E11.42 ; COPD mixed type J44.9 ; Thyroid nodule E04.1 and Degenerative disc disease, cervical M50.30 [facility] [address] [place] [address] [place] [address] [id number] [place] [address] Jan, [facility] [address] [place] [address] [place] [address] [place] [id number] [place] [address] Jan, [facility] [address] [place] [address] [place] [address] [place] [id number] [place] [address] Dec, [facility] [address] [place] [address] [address] 24 Dec, 2018 Gastroenteritis and colitis, viral A08.4 [facility] [address] [place] [address] 22 Dec, 2018 Chronic obstructive pulmonary disease, unspecified COPD type J44.9 [facility] [address] [place] [address], [place] [address] 18 Dec, 2018 Gastric reflux K21.9 [facility] [address] [address] 18 Dec, 2018 [facility] [address] [place] [address] 14 Dec, 2018 Essential (primary) hypertension I10 [facility] [address] [place] [address] 13 Dec, [address] [address] 13 Dec, 2018 Chronic obstructive pulmonary disease, unspecified COPD type J44.9 ; Type 2 diabetes mellitus with diabetic polyneuropathy, without long-term current use of insulin E11.42 ; Essential (primary) hypertension I10 ; Gastro-esophageal reflux disease without esophagitis K21.9 and Varicella vaccination Z23 [facility] [address] [place] [address] 05 Dec, 2018 Dyspnea on exertion R06.09 and Infiltrate noted on imaging study R93.89 [facility] [address] [place] [address] November, Thyroid pain E07.89 [facility] [address] [place] [address] November, Thyroid pain E07.89 [facility] [address] [place] [address] November, Other schizoaffective disorders F25.8 [facility] [address] [place] [address] Oct, Type 2 diabetes mellitus with diabetic polyneuropathy, without long-term current use of insulin E11.42 ; Gastric reflux K21.9 and Diabetic retinopathy of right eye associated with type 2 diabetes mellitus, macular edema presence unspecified, unspecified retinopathy severity E11.319 [facility] [address] [place] [address] [id number] [address] Sep, [facility] [address] [place] [address] [id number] [address] Sep, Type 2 diabetes mellitus with diabetic polyneuropathy, without long-term current use of insulin E11.42 and Gastric reflux K21.9 [facility] [address] [place] [id number] [place] [address] Sep, [facility] [address] [place] [address] [id number] [address] Sep, Acute vaginitis N76.0 and Other schizoaffective disorders F25.8 [facility] [address] [id number] [place] [address] Sep, [facility] [address] [place] [id number] [place] [address] Sep, [facility] [address] [place] [id number] [place] [address] Aug, [facility] [address] [place] [address] [place] [address] Jul, [facility] [address] [id number] [address] Jul, [facility] [id number] [place] [address] Jul, Dental examination Z01.20 and Caries K02.9 [facility] [address] [place] [address] [id number] [address] Jul, Type 2 diabetes mellitus without complications E11.9 [facility] [address] [place] [address] [id number] [address] Jul, [facility] [address] [place] [address] [id number] [address] Jul, Migraine without aura and without status migrainosus, not intractable G43.009 [facility] [address] [place] [address] [id number] [address] Jul, [facility] [address] [place] [address] [id number] [address] Jul, [facility] [address] [place] [address] [id number] [address] Jul, [facility] [address] [place] [address] [id number] [address] 09 Jul, 2018 Shortness of breath R06.02 [facility] [address] [place] [address] [id number] [address] 07 Jul, 2018 Dental examination Z01.20 [facility] [address] [id number] [address] 05 Jul, 2018 Acute intractable headache, unspecified headache type R51 and BMI 40.0-44.9, adult Z68.41 [facility] [address] [place] [address] [id number] [address] Jul, [facility] [address] [place] [address] [id number] [address] Jul, [facility] [address] [place] [address] [id number] [address] Jul, [facility] [address] [place] [address] [id number] [address] Jun, [facility] [address] [place] [address] [id number] [address] Jun, [facility] [address] [place] [address] [id number] [address] Jun, [facility] [address] [place] [address] [id number] [address] 18 Jun, 2018 Impetigo L01.00 and Sore in nose J34.89 [facility] [address] [place] [address] [place] [address] [id number] [place] [address] 17 Jun, 2018 Degenerative disc disease, cervical M50.30 [facility] [address] [place] [address] [place] [address] [place] [id number] [address] Jun, Sore in nose J34.89 [facility] [place] [address] [id number] [address] Jun, Sore in nose J34.89 ; Excoriation of abdomen, initial encounter S30.811A ; Encounter for immunization Z23 and BMI 40.0-44.9, adult Z68.41 [facility] [place] [address] [place] [address] [place] [id number] [place] [address] May, [facility] [id number] [place] [address] May, [facility] [id number] [place] [address] May, Type 2 diabetes mellitus without complications E11.9 [facility] [address] [place] [address] [place] [address] [place] [id number] [place] [address] May, [facility] [place] [address] [id number] [address] May, Degenerative disc disease, cervical M50.30 [facility] [address] [place] [id number] [address] May, Cervicalgia M54.2 [facility] [address] [place] [address] [place] [id number] [place] [address] May, [facility] [place] [address] [place] [address] ST [id number] [place] [address] May, [facility] [place] [address] [place] [id number] [address] May, [facility] [place] [address] [place] [id number] [address] May, Gastroenteritis and colitis, viral A08.4 [facility] [place] [id number] [place] [address] Apr, Type 2 diabetes mellitus without complications E11.9 ; Degenerative disc disease, cervical M50.30 ; Essential (primary) hypertension I10 ; Gastro-esophageal reflux disease without esophagitis K21.9 and BMI 40.0-44.9, adult Z68.41 [facility] [address] [place] [id number] [place] [address] 26 Mar, 2018 Degenerative disc disease, cervical M50.30 ; Type 2 diabetes mellitus without complications E11.9 ; Encounter for immunization Z23 ; 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 and BMI 40.0-44.9, adult Z68.41 [facility] [address] [place] [address], [place] [address] 20 Mar, 2018 Degenerative cervical disc M50.30 [facility] [address] [place] [address] 19 Mar, 2018 [facility] [address] [place] [address], [place] [address] 18 Mar, 2018 Generalized pruritus L29.9 ; Lumbar degenerative disc disease M51.36 and BMI 40.0-44.9, adult Z68.41 [facility] [address] [place] [address], [place] [address] 06 Mar, 2018 [facility] [address] [place] [address] 04 Mar, 2018 Cervicalgia M54.2 and Essential (primary) hypertension I10 [facility] [address] [place] [address], [place] [address] Feb, Type 2 diabetes mellitus without complications E11.9 [facility] [address] [place] [address], [place] [address] 30 Jan, 2018 Gastroenteritis and colitis, viral A08.4 and BMI 40.0-44.9, adult Z68.41 [facility] [address] [place] [id number] [address] 16 Jan, 2018 Type 2 diabetes mellitus without complications E11.9 ; Essential (primary) hypertension I10 ; Screening for breast cancer Z12.31 ; Degenerative lumbar disc M51.36 ; BMI 40.0-44.9, adult Z68.41 and Morbid obesity E66.[address] [address] 26 Dec, 18 BMI 40.0-44.9, adult Z68.41 and Other schizoaffective disorders F25.[address] [address] Dec, 18 Other schizoaffective disorders F25.8 ; Lumbar degenerative disc disease M51.36 and BMI 40.0-44.9, adult Z68.[address] [address] 08 December, 18 Shortness of breath R06.[address] [address] November, [address] [address] November, [address] [address] November, [address] [address] November, [address] [address] November, 18 Vaginal bleeding N93.[address] [address] November, 18 BMI 40.0-44.9, adult Z68.41 and Vaginal bleeding N93.[address] [address] Oct, 18 Dysfunction of both eustachian tubes H69.[address] [address] Oct, 18 BMI 40.0-44.9, adult Z68.41 ; Essential (primary) hypertension I10 and Impetigo L01.[address] [place] [address] Sep, [address] [address] Sep, 18 Type 2 diabetes mellitus with diabetic polyneuropathy, without long-term current use of insulin E11.42 ; BMI 40.0-44.9, adult Z68.41 ; Other schizoaffective disorders F25.8 ; Gastro-esophageal reflux disease without esophagitis K21.9 ; Essential (primary) hypertension I10 and Impetigo L01.[address] [address] Sep, 18 Type 2 diabetes mellitus with diabetic polyneuropathy, without long-term current use of insulin E11.[address] [address] Aug, [address] [address] Aug, [address] [address] Jul, 18 Type 2 diabetes mellitus with diabetic polyneuropathy, without long-term current use of insulin E11.42 ; Other schizoaffective disorders F25.8 ; Gastro-esophageal reflux disease without esophagitis K21.9 ; Essential (primary) hypertension I10 and Impetigo L01.[address] [address] Jun, 17 Shortness of breath R06.02 ; Type 2 diabetes mellitus without complications E11.9 ; BMI 40.0- 44.9, adult Z68.41 and Pre-ulcerative corn or callous L84 [address] [address] Jun, [address] [address] May, 17 Medicare welcome exam Z00.00 ; BMI 40.0-44.9, adult Z68.41 ; Medicare annual wellness visit, initial Z00.00 ; Medicare annual wellness visit, subsequent Z00.00 and Encounter for immunization Z23 [facility] [address] [place] [address] May, 17 Foot callus L84 and Type 2 diabetes mellitus without complications E11.9 [facility] [place] [address] [place] [address] 30 Apr, 17 [facility] [place] [address] [place] [address] 09 Apr, 17 Encounter for immunization Z23 [facility] [address] [place] [address] 06 Mar, 17 Type 2 diabetes mellitus without complications E11.9 and Polyneuropathy associated with underlying disease G63 [facility] [place] [address] [place] [address] Feb, 17 Edema R60.9 ; Type 2 diabetes mellitus without complications E11.9 and Anemia, unspecified type D64.9 [facility] [address] [place] [address] Feb, 17 Hip pain, left M25.552 [facility] [place] [address] [place] [address] Feb, 17 [facility] [place] [address] [place] [address] Jan, 17 [facility] [address] [place] [address] Jan, 17 [facility] [address] [place] [address] 15 Dec, 17 [facility] [place] [address] [place] [address] 14 Dec, 17 [facility] [place] [address] [place] [address] 13 Dec, 17 [facility] [address] [place] [address] 12 Dec, 17 [facility] [address] [place] [address] 08 Dec, 17 [facility] [address] [place] [address] 06 Dec, 17 Type 2 diabetes mellitus without complications E11.9 and Essential (primary) hypertension I10 [facility] [address] [place] [address] November, [address] [address] November, 17 Frequency of micturition R35.0 ; Dysuria R30.0 and Type 2 diabetes mellitus without complications E11.9 [facility] [address] [place] [address] 11 Oct, 17 [facility] [address] [address] 11 Oct, 17 [facility] [address] [address] Oct, 17 [facility] [address] [address] Oct, [address] [address] Sep, 17 Cellulitis of head except face L03.[address] [address] Aug, [address] [address] Aug, [address] [address] Aug, 17 Flu-like symptoms R68.89 and Influenza B J10.[address] [address] Jul, 17 Type 2 diabetes mellitus without complications E11.9 [facility] [address] [address] Jul, [address] [address] Jul, 17 Type 2 diabetes mellitus without complications E11.9 ; Anemia, unspecified type D64.9 ; Essential (primary) hypertension I10 and Fatigue R53.[address] [address] Jul, 17 Type 2 diabetes mellitus without complications E11.9 and Foot callus L84 [address] [address] Jun, [address] [address] Jun, [address] [address] May, [address] [address] May, 16 Shortness of breath R06.[address] [address] May, 16 Shortness of breath R06.[address] [address] Apr, 16 Shortness of breath R06.[address] [address] Feb, 16 Screening for cervical cancer Z12.4 ; Edema R60.9 ; Screening for breast cancer Z12.39 and Screening for colon cancer Z12.[address] [address] 12 Feb, 16 Blood in stool K92.[address] [address] 11 Feb, 16 Anemia, unspecified type D64.[address] [address] Feb, 16 Edema R60.9 ; Shortness of breath R06.02 ; Anemia, unspecified type D64.9 and Gastroesophageal reflux disease without esophagitis K21.[address] [address] 05 Feb, 16 Shortness of breath R06.02 and Edema R60.[address] [address] 04 Feb, [address] [address] Feb, 16 Shortness of breath R06.02 and Edema R60.9 [facility] [address] [place] [address] Feb, 16 [facility] [address] [facility] [place] [address] Jan, Shortness of breath R06.02 [facility] [address] [place] [address] 11 Jan, 16 Shortness of breath R06.02 ; Edema R60.9 and Gastroesophageal reflux disease without esophagitis K21.9 [facility] [address] [place] [address] Jan, 16 Shortness of breath R06.02 [facility] [address] [place] [address] Dec, 16 [facility] [address] [address] Dec, 16 Dental examination Z01.20 [facility] [address] [place] [address] 10 Dec, 16 [facility] [address] [address] 10 Dec, [address] [address] 09 Dec, 16 Edema R60.9 ; Type 2 diabetes mellitus without complications E11.9 and Fatigue R53.[address] [address] November, 16 Edema R60.9 and Abdominal muscle strain, initial encounter S39.011A [facility] [address] [place] [address] Oct, 16 [facility] [address] [address] Aug, 16 Hip pain, right M25.551 and Edema R60.9 [facility] [address] [place] [address] 08 Aug, 16 [facility] [address] [address] Aug, 16 Edema R60.9 and Impetigo L01.00 [facility] [address] [place] [address] Jul, 16 Type 2 diabetes mellitus without complications E11.9 and Edema R60.9 [facility] [address] [place] [address] Jul, 16 [facility] [address] [address] Jul, 16 Contusion of thigh, right S70.11XA [facility] [address] [place] [address] Jul, 16 Hip pain, right M25.[address] [address] Jul, 16 [facility] [address] [address] Jun, 15 Left hip pain M25.[address] [address] Jun, 15 Acute maxillary sinusitis, recurrence not specified J01.00 and Vomiting, nausea presence unspecified, unspecified intactability, vomiting of unspecified type R11.[address] [address] Jun, 15 Acute maxillary sinusitis, recurrence not specified J01.[address] [address] Apr, 15 Acquired spondylolisthesis of lumbosacral region M43.17 ; Encounter for immunization Z23 and Cholelithiasis K80.[address] [address] Mar, 15 [facility] [address] [address] Mar, 15 Lumbar radiculopathy 724.4 [facility] [address] [address] Mar, 15 [facility] [address] [address] Feb, 15 Esophageal reflux 530.[address] [address] Feb, 15 Esophageal reflux 530.81 ; Essential hypertension, benign 401.1 and Diabetes mellitus without mention of complication, type II or unspecified type, not stated as uncontrolled 250.[address] [address] Feb, [address] [address] Feb, 15 Myalgia and myositis 729.[address] [address] Jan, 15 Upper respiratory infection 465.9 ; Other symptoms involving skin and integumentary tissues 782.9 and Factitial dermatitis 698.[address] [address] Jan, 15 Factitial dermatitis 698.[address] [address] Jan, [address] [address] Jan, 15 Esophageal reflux 530.[address] [address] Dec, [address] [address] Dec, 15 Esophageal reflux 530.[address] [address] November, [address] [address] November, 15 Dyspepsia 536.8 and Epigastric pain 789.[address] [address] November, [address] [address] November, [address] [address] November, 15 Impetigo 684 [facility] [address] [place] [address] Oct, 15 Other symptoms involving skin and integumentary tissues 782.9 and Seborrheic keratosis 702.19 [facility] [address] [address] 14 Oct, 2014 [facility] [address] [address] Oct, [facility] [place] [address] [place] [address] Sep, 15 [facility] [address] [address] Sep, [facility] [place] [address] [place] [address] Sep, 15 [facility] [address] [address] Sep, [facility] [place] [address] [place] [address] Sep, 15 [facility] [address] [address] Sep, [facility] [place] [address] [place] [address] Sep, 15 [facility] [address] [address] Sep, [facility] [place] [address] [place] [address] Aug, 15 [facility] [address] [place] [address] Aug, [facility] [place] [address] [place] [address] Jul, 15 [facility] [address] [address] Jul, [facility] [place] [address] [place] [address] 08 Jun, 14 [facility] [address] [id number] [place] [address] Jun, [facility] [place] [address] [place] [place] [address] May, 14 [facility] [address] [id number] [place] [address] May, [facility] [place] [address] [place] [place] [address] Apr, 14 [facility] [address] [facility] [place] [address] Apr, [facility] [address] [place] [address] Apr, 14 [facility] [address] [id number] [place] [address] Apr, [facility] [address] [place] [id number] [place] [address] Mar, [facility] [place] [address] [place] [address] Mar, 14 [facility] [address] [place] [place] [id number] [place] [address] Mar, [facility] [address] [facility] [place] [address] Mar, [facility] [address] [place] [address] Mar, 14 [facility] [address] [place] [address] Dec, 14 [facility] [address] [id number] [place] [address] Dec, [facility] [address] [place] [address] Sep, 14 [facility] [address] [id number] [place] [address] Sep, [facility] [address] [place] [address] Aug, 14 [place] [address] [address] Aug, [place] [address] [address] Jul, [facility] [address] [place] [address] Jul, 14 [place] [address] [address] Jul, [facility] [address] Jul, 14 [place] [address] [address] Jul, [facility] [place] [address] May, 13 [place] [address] [address] May, [facility] [address] [place] [address] May, 13 [place] [address] [address] May, [address] [address] May, [address] [address] May, IMMUNIZATIONS No Known Immunizations SOCIAL HISTORY [...]
--- OUTSIDE RECORDS SUMMARY | 2019-10-29 22:25 | XMS REPORT ---
Author Author Delphine Mays Doctor Organization [facility] Address Unknown Phone Unavailable Care Team Providers Care Process Maintenance Technician Name Role Phone Migration, Doctor Unavailable Unavailable PROBLEMS Type Condition ICD9-CM Code PIX61-OU Code Onset Dates Condition S tatus SNOMED Code Problem Essential (primary) hypertension I10 Active 53337380 Problem Gastro-esophageal reflux disease without esophagitis K21.9 Active 599723221 Problem Type 2 diabetes mellitus wit h diabetic polyneuropathy, without long-term current use of insulin E11.42 Active 90103 006 Problem Lumbar degenerative disc disease M51.36 Active 88525498 Problem Other schizoaffective disorders F25.8 Active 26341443 Problem Gastric reflux K21.9 Active 22592 7003 Problem Thyroid nodule E04.1 Active 99808 5005 Problem COPD mixed type J44.9 Active 1364 5005 Problem Chronic kidney disease, stage 3 N18.3 Active 728241460 Problem Migraine without aura and without status migrain osus, not intractable G43.009 Active 766084722 Problem COPD exacerbation J44.1 Active 19 8564055 Problem Degenerative disc disease, cervical M50.30 Active 34522672 Problem Left lower quadrant abdominal pain R10.32 Active 909513314 Problem Mixed incontinence N39.46 Active 4 18504012 Problem Rotator cuff tear M75.100 Active 41 65416 Problem Incomplete tear of right rotator cuff, unspecifi ed whether traumatic M75.111 Active [id number] ALLERGIES No Information ENCOUNTERS Encounter Location Date Diagnosis [facility] [address] [facility] [id number] [place] [address] 13 Sep, 2019 COPD mixed type J44.9 and Type 2 diabetes mellitus with diabetic polyneuropathy, without long-term current use of insulin E11.[address] [facility] [address] [place] [address] [id number] [place] [address] Jul, [facility] [address] [place] [address] [id number] [place] [address] Jul, [facility] [address] [place] [address] [facility] [place] [id number] [place] [address] Jul, [facility] [address] [place] [address] [id number] [place] [address] Jul, Lumbago M54.5 [facility] [address] [place] [address] [id number] [place] [address] Jul, [facility] [address] [place] [address] [id number] [place] [address] Jul, [facility] [address] [place] [address] [id number] [place] [address] 08 Jul, 2019 [facility] [address] [place] [address] [id number] [place] [address] Jul, [facility] [address] [place] [address] [id number] [place] [address] Jul, [facility] [address] [place] [address] [id number] [address] Jul, Incomplete tear of right rotator cuff, unspecified whether traumatic M75.111 ; Essential (primary) hypertension I10 and Thyroid nodule E04.1 [facility] [address] [id number] [place] [address] Jul, [facility] [address] [place] [address] [id number] [address] Jun, [facility] [address] [place] [address] [id number] [address] Jun, COPD exacerbation J44.[address] [facility] [address] [place] [address] [facility] [place] [id number] [place] [address] Jun, [facility] [address] [place] [address] [id number] [address] Jun, [facility] [address] [place] [address] [id number] [address] Jun, Nausea R11.0 ; Incomplete tear of right rotator cuff, unspecified whether traumatic M75.111 and Essential (primary) hypertension I10 [facility] [address] [place] [address] [facility] [place] [id number] [place] [address] Jun, [facility] [address] [place] [address] [facility] [place] [id number] [place] [address] Jun, [facility] [address] [place] [address] [facility] [place] [id number] [place] [address] 16 Jun, 2019 [facility] [address] [place] [address] [facility] [place] [id number] [place] [address] Jun, Rotator cuff tear M75.100 [facility] [address] [place] [address] [facility] [place] [id number] [place] [address] Jun, [facility] [address] [place] [address] [facility] [place] [id number] [place] [address] 05 Jun, 2019 Essential (primary) hypertension I10 ; Type 2 diabetes mellitus with diabetic polyneuropathy, without long-term current use of insulin E11.42 ; Rotator cuff tear M75.100 and Chronic kidney disease, stage 3 N18.3 [facility] [address] [place] [address] [facility] [place] [id number] [place] [address] Jun, [facility] [address] [place] [address] [place] [address] ST [id number] [place] [address] Jun, [facility] [address] [place] [address] [place] [address] [place] [id number] [place] [address] Jun, [facility] [address] [place] [address] [facility] [place] [id number] [place] [address] May, [facility] [address] [place] [address] [facility] [place] [id number] [place] [address] May, [facility] [address] [place] [address] [facility] [place] [id number] [place] [address] May, [facility] [address] [place] [address] [facility] [place] [id number] [place] [address] May, Rotator cuff tear M75.100 [facility] [address] [place] [address] [facility] [place] [id number] [place] [address] May, [facility] [address] [place] [address] [place] [address] [place] [id number] [place] [address] May, Rotator cuff tear M75.100 ; Major depressive disorder with current active episode, unspecified depression episode severity, unspecified whether recurrent F32.9 ; Type 2 diabetes mellitus with diabetic polyneuropathy, without long-term current use of insulin E11.42 and Essential (primary) hypertension I10 [facility] [address] [place] [address] [place] [address] [place] [id number] [place] [address] May, [facility] [address] [place] [address] [place] [address] [place] [id number] [place] [address] May, [facility] [address] [place] [address] [place] [address] [place] [id number] [place] [address] Apr, [facility] [address] [place] [address] [place] [address] [place] [id number] [place] [address] Apr, [facility] [address] [place] [address] [place] [address] [place] [id number] [place] [address] Apr, Rotator cuff tear M75.100 ; Essential (primary) hypertension I10 and COPD mixed type J44.9 [facility] [address] [place] [address] [place] [address] [place] [id number] [place] [address] 18 Apr, 2019 Rotator cuff tear M75.100 [facility] [address] [place] [address] [place] [address] [place] [id number] [place] [address] 15 Apr, 2019 [facility] [address] [place] [address] [place] [address] [place] [id number] [place] [address] 11 Apr, 2019 Preprocedural examination Z01.818 [facility] [address] [place] [address] [place] [address] [place] [id number] [place] [address] Apr, [facility] [address] [place] [address] [place] [address] [place] [id number] [place] [address] Apr, [facility] [address] [place] [address] [place] [address] [place] [id number] [place] [address] 08 Apr, 2019 Traumatic complete tear of right rotator cuff, initial encounter S46.011A ; Essential (primary) hypertension I10 ; Encounter for immunization Z23 ; Leg cramps R25.2 ; COPD mixed type J44.9 and Fatigue R53.83 [facility] [address] [place] [address] [id number] [address] 24 Mar, 2019 [facility] [address] [place] [address] [id number] [address] 18 Mar, 2019 [facility] [address] [place] [address] [id number] [address] 16 Mar, 2019 [facility] [address] [place] [address] [id number] [address] 13 Mar, 2019 [facility] [address] [place] [address] [id number] [address] 12 Mar, 2019 Traumatic complete tear of right rotator cuff, initial encounter S46.011A ; Left lower quadrant abdominal pain R10.32 ; Essential (primary) hypertension I10 ; COPD mixed type J44.9 and detention use of drug Z79.899 [facility] [address] [place] [address] [id number] [address] 10 Mar, 2019 [facility] [address] [place] [address] [id number] [address] 09 Mar, 2019 Gastroenteritis and colitis, viral A08.4 [facility] [address] [place] [address] [id number] [address] 04 Mar, 2019 [facility] [address] [place] [address] [id number] [address] Feb, Traumatic complete tear of right rotator cuff, initial encounter S46.011A ; Chronic obstructive pulmonary disease, unspecified COPD type J44.9 and Mixed incontinence N39.46 [facility] [address] [place] [address] [id number] [address] Feb, [facility] [address] [place] [address] [id number] [address] Feb, [facility] [address] [place] [address] [id number] [address] Feb, Injury of right shoulder, initial encounter S49.91XA [facility] [address] [place] [address] [place] [id number] [place] [address] Feb, [facility] [address] [place] [address] [place] [id number] [place] [address] Feb, [facility] [address] [place] [address] [place] [id number] [place] [address] Jan, [facility] [address] [place] [address] [place] [id number] [place] [address] Jan, [facility] [address] [place] [address] [place] [id number] [place] [address] Jan, Essential (primary) hypertension I10 ; Type 2 diabetes mellitus with diabetic polyneuropathy, without long-term current use of insulin E11.42 ; COPD mixed type J44.9 ; Thyroid nodule E04.1 and Degenerative disc disease, cervical M50.30 [facility] [address] [place] [address] [place] [id number] [place] [address] Jan, [facility] [address] [place] [address] [place] [id number] [place] [address] Jan, [facility] [address] [place] [address] [place] [id number] [place] [address] Dec, [facility] [address] [place] [address] [place] [id number] [place] [address] 24 Dec, 2018 Gastroenteritis and colitis, viral A08.4 [facility] [address] [place] [address] [place] [id number] [place] [address] Dec, Chronic obstructive pulmonary disease, unspecified COPD type J44.9 [facility] [address] [place] [address] [id number] [address] Dec, Gastric reflux K21.9 [facility] [address] [place] [address] [id number] [address] Dec, [facility] [address] [place] [address] [id number] [address] 14 Dec, 2018 Essential (primary) hypertension I10 [facility] [address] [place] [address] [place] [id number] [place] [address] Dec, [facility] [address] [place] [id number] [place] [address] Dec, Chronic obstructive pulmonary disease, unspecified COPD type J44.9 ; Type 2 diabetes mellitus with diabetic polyneuropathy, without long-term current use of insulin E11.42 ; Essential (primary) hypertension I10 ; Gastro-esophageal reflux disease without esophagitis K21.9 and Varicella vaccination Z23 [facility] [address] [place] [address] [place] [id number] [place] [address] Dec, Dyspnea on exertion R06.09 and Infiltrate noted on imaging study R93.[address] [facility] [address] [place] [id number] [address] November, Thyroid pain E07.[address] [facility] [address] [place] [address] [address] November, Thyroid pain E07.[address] [facility] [address] [place] [id number] [address] November, Other schizoaffective disorders F25.[address] [facility] [address] [id number] [address] Oct, Type 2 diabetes mellitus with diabetic polyneuropathy, without long-term current use of insulin E11.42 ; Gastric reflux K21.9 and Diabetic retinopathy of right eye associated with type 2 diabetes mellitus, macular edema presence unspecified, unspecified retinopathy severity E11.[address] [facility] [address] [place] [address] [place] [id number] [place] [address] Sep, [facility] [address] [place] [address] [address] Sep, Type 2 diabetes mellitus with diabetic polyneuropathy, without long-term current use of insulin E11.42 and Gastric reflux K21.[address] [facility] [address] [id number] [address] Sep, [facility] [address] [place] [id number] [address] 12 Sep, 2018 Acute vaginitis N76.0 and Other schizoaffective disorders F25.8 [facility] [address] [facility] [place] [address] 08 Sep, 2018 [facility] [address] [place] [address] [id number] [address] Sep, [facility] [address] [place] [address] [id number] [address] Aug, [facility] [address] [place] [address] [id number] [address] Jul, [facility] [address] [place] [address] [id number] [address] Jul, [facility] [address] [place] [address] [id number] [address] Jul, Dental examination Z01.20 and Caries K02.9 [facility] [address] [place] [address] [id number] [address] Jul, Type 2 diabetes mellitus without complications E11.9 [facility] [address] [place] [address] [id number] [address] Jul, [facility] [address] [place] [address] [id number] [address] Jul, Migraine without aura and without status migrainosus, not intractable G43.009 [facility] [address] [place] [address] [id number] [place] [address] Jul, [facility] [address] [place] [address] [id number] [address] Jul, [facility] [address] [place] [address] [id number] [address] Jul, [facility] [address] [place] [address] [id number] [address] 09 Jul, 2018 Shortness of breath R06.02 [facility] [address] [place] [address] [id number] [address] 07 Jul, 2018 Dental examination Z01.20 [facility] [address] [place] [address] [id number] [address] 05 Jul, 2018 Acute intractable headache, unspecified headache type R51 and BMI 40.0-44.9, adult Z68.41 [facility] [address] [place] [address] [id number] [address] Jul, [facility] [address] [place] [address] [id number] [address] Jul, [facility] [address] [place] [address] [id number] [address] Jul, [facility] [address] [place] [address] [id number] [address] 31 Jun, 2018 [facility] [address] [place] [address] [id number] [address] Jun, [facility] [address] [place] [address] [id number] [address] Jun, [facility] [address] [place] [address] [place] [address] 18 Jun, 2018 Impetigo L01.00 and Sore in nose J34.89 [facility] [address] [place] [address] [id number] [place] [address] 17 Jun, 2018 Degenerative disc disease, cervical M50.30 [facility] [address] [place] [address] [id number] [address] 11 Jun, 2018 Sore in nose J34.89 [facility] [address] [place] [address] [id number] [address] 11 Jun, 2018 Sore in nose J34.89 ; Excoriation of abdomen, initial encounter S30.811A ; Encounter for immunization Z23 and BMI 40.0-44.9, adult Z68.41 [facility] [address] [place] [address] [id number] [address] May, [facility] [address] [place] [address] [id number] [address] May, [facility] [address] [place] [address] [id number] [address] May, Type 2 diabetes mellitus without complications E11.9 [facility] [address] [place] [address] [id number] [address] May, [facility] [address] [place] [address] [id number] [address] May, Degenerative disc disease, cervical M50.30 [facility] [address] [place] [address] [id number] [address] May, Cervicalgia M54.2 [facility] [address] [place] [address] [id number] [address] May, [facility] [address] [place] [address] [id number] [address] May, [facility] [address] [place] [address] [id number] [address] May, [facility] [place] [address] [id number] [address] May, Gastroenteritis and colitis, viral A08.4 [facility] [address] [place] [address] [id number] [address] Apr, Type 2 diabetes mellitus without complications E11.9 ; Degenerative disc disease, cervical M50.30 ; Essential (primary) hypertension I10 ; Gastro-esophageal reflux disease without esophagitis K21.9 and BMI 40.0-44.9, adult Z68.41 [facility] [address] [place] [address] [place] [address] Mar, Degenerative disc disease, cervical M50.30 ; Type 2 diabetes mellitus without complications E11.9 ; Encounter for immunization Z23 ; detention current use of insulin Z79.4 and BMI 40.0-44.9, adult Z68.41 [facility] [address] [place] [address] [place] [address] 20 Mar, 2018 Degenerative cervical disc M50.30 [address] [address] 19 Mar, 2018 [place] [id number] [place] [address] 18 Mar, 2018 Generalized pruritus L29.9 ; Lumbar degenerative disc disease M51.36 and BMI 40.0-44.9, adult Z68.41 [place] [id number] [place] [address] 06 Mar, [address] [address] 04 Mar, 2018 Cervicalgia M54.2 and Essential (primary) hypertension I10 [place] [id number] [place] [address] 27 Feb, 2018 Type 2 diabetes mellitus without complications E11.9 [place] [id number] [place] [address] 30 Jan, 2018 Gastroenteritis and colitis, viral A08.4 and BMI 40.0-44.9, adult Z68.41 [place] [id number] [place] [address] 16 Jan, 2018 Type 2 diabetes mellitus without complications E11.9 ; Essential (primary) hypertension I10 ; Screening for breast cancer Z12.31 ; Degenerative lumbar disc M51.36 ; BMI 40.0-44.9, adult Z68.41 and Morbid obesity E66.[address] [address] Dec, 18 BMI 40.0-44.9, adult Z68.41 and Other schizoaffective disorders F25.[address] [address] Dec, 18 Other schizoaffective disorders F25.8 ; Lumbar degenerative disc disease M51.36 and BMI 40.0-44.9, adult Z68.[address] [address] November, 18 Shortness of breath R06.[address] [address] November, [address] [address] November, [address] [address] November, [address] [address] November, [address] [address] November, 18 Vaginal bleeding N93.[address] [address] November, 18 BMI 40.0-44.9, adult Z68.41 and Vaginal bleeding N93.[address] [address] Oct, 18 Dysfunction of both eustachian tubes H69.[address] [address] Oct, 18 BMI 40.0-44.9, adult Z68.41 ; Essential (primary) hypertension I10 and Impetigo L01.[address] [address] Sep, [address] [address] Sep, 18 Type 2 diabetes mellitus with diabetic polyneuropathy, without long-term current use of insulin E11.42 ; BMI 40.0-44.9, adult Z68.41 ; Other schizoaffective disorders F25.8 ; Gastro-esophageal reflux disease without esophagitis K21.9 ; Essential (primary) hypertension I10 and Impetigo L01.[address] [address] 16 Sep, 18 Type 2 diabetes mellitus with diabetic polyneuropathy, without long-term current use of insulin E11.[address] [place] [address] Aug, 18 [facility] [address] [address] Aug, [address] [address] Jul, 18 Type 2 diabetes mellitus with diabetic polyneuropathy, without long-term current use of insulin E11.42 ; Other schizoaffective disorders F25.8 ; Gastro-esophageal reflux disease without esophagitis K21.9 ; Essential (primary) hypertension I10 and Impetigo L01.[address] [address] Jun, 17 Shortness of breath R06.02 ; Type 2 diabetes mellitus without complications E11.9 ; BMI 40.0- 44.9, adult Z68.41 and Pre-ulcerative corn or callous L84 [address] [address] Jun, 17 [facility] [address] [address] May, 17 Medicare welcome exam Z00.00 ; BMI 40.0-44.9, adult Z68.41 ; Medicare annual wellness visit, initial Z00.00 ; Medicare annual wellness visit, subsequent Z00.00 and Encounter for immunization Z23 [facility] [address] [address] May, 17 Foot callus L84 and Type 2 diabetes mellitus without complications E11.9 [facility] [address] [address] Apr, 17 [facility] [address] [address] Apr, 17 Encounter for immunization Z23 [facility] [address] [address] Mar, 17 Type 2 diabetes mellitus without complications E11.9 and Polyneuropathy associated with underlying disease G63 [address] [address] Feb, 17 Edema R60.9 ; Type 2 diabetes mellitus without complications E11.9 and Anemia, unspecified type D64.9 [facility] [address] [place] [address] 23 Feb, 17 Hip pain, left M25.552 [facility] [address] [place] [address] Feb, 17 [facility] [address] [place] [address] Jan, 17 [facility] [address] [place] [address] Jan, 17 [facility] [address] [place] [address] 15 Dec, 17 [facility] [address] [place] [address] 14 Dec, 17 [facility] [address] [place] [address] 13 Dec, 17 [facility] [address] [place] [phone] 12 Dec, 17 [facility] [address] [place] [address] 08 Dec, 17 [facility] [address] [place] [address] 06 Dec, 17 Type 2 diabetes mellitus without complications E11.9 and Essential (primary) hypertension I10 [facility] [address] [place] [address] November, 17 [facility] [address] [place] [phone] 03 December, 17 Frequency of micturition R35.0 ; Dysuria R30.0 and Type 2 diabetes mellitus without complications E11.9 [facility] [address] [place] [address] Oct, 17 [facility] [address] [place] [phone] Oct, 17 [facility] [address] [place] [address] Oct, [address] [facility] [address] [address] 06 Oct, [address] [address] Sep, 17 Cellulitis of head except face L03.811 [facility] [address] [address] 09 Aug, 17 [facility] [address] [address] Aug, [address] [address] Aug, 17 Flu-like symptoms R68.89 and Influenza B J10.[address] [address] Jul, 17 Type 2 diabetes mellitus without complications E11.[address] [address] Jul, [address] [address] Jul, 17 Type 2 diabetes mellitus without complications E11.9 ; Anemia, unspecified type D64.9 ; Essential (primary) hypertension I10 and Fatigue R53.[address] [address] Jul, 17 Type 2 diabetes mellitus without complications E11.9 and Foot callus L84 [address] [address] Jun, [address] [address] Jun, [address] [address] May, [address] [address] May, 16 Shortness of breath R06.[address] [address] May, 16 Shortness of breath R06.[address] [address] Apr, 16 Shortness of breath R06.[address] [address] Feb, 16 Screening for cervical cancer Z12.4 ; Edema R60.9 ; Screening for breast cancer Z12.39 and Screening for colon cancer Z12.[address] [address] Feb, 16 Blood in stool K92.1 [facility] [address] [place] [address] Feb, 16 Anemia, unspecified type D64.[address] [address] Feb, 16 Edema R60.9 ; Shortness of breath R06.02 ; Anemia, unspecified type D64.9 and Gastroesophageal reflux disease without esophagitis K21.[address] [address] Feb, 16 Shortness of breath R06.02 and Edema R60.9 [facility] [address] [place] [address] Feb, [address] [address] Feb, 16 Shortness of breath R06.02 and Edema R60.[address] [address] Feb, 16 [facility] [address] [id number] [place] [address] Jan, Shortness of breath R06.02 [facility] [address] [place] [address] Jan, 16 Shortness of breath R06.02 ; Edema R60.9 and Gastroesophageal reflux disease without esophagitis K21.[address] [address] Jan, 16 Shortness of breath R06.[address] [address] Dec, 16 [facility] [address] [place] [address] 27 Dec, 16 Dental examination Z01.[address] [address] 10 Dec, 16 [facility] [address] [address] 10 Dec, [address] [address] 09 Dec, 16 Edema R60.9 ; Type 2 diabetes mellitus without complications E11.9 and Fatigue R53.[address] [address] November, 16 Edema R60.9 and Abdominal muscle strain, initial encounter S39.011A [address] [address] Oct, [address] [address] 18 Aug, 16 Hip pain, right M25.551 and Edema R60.[address] [address] Aug, [address] [address] 04 Aug, 16 Edema R60.9 and Impetigo L01.[address] [address] Jul, 16 Type 2 diabetes mellitus without complications E11.9 and Edema R60.[address] [address] Jul, [address] [address] Jul, 16 Contusion of thigh, right S70.11XA [address] [address] Jul, 16 Hip pain, right M25.[address] [address] Jul, 16 [facility] [address] [address] Jun, 15 Left hip pain M25.[address] [address] Jun, 15 Acute maxillary sinusitis, recurrence not specified J01.00 and Vomiting, nausea presence unspecified, unspecified intactability, vomiting of unspecified type R11.[address] [address] Jun, 15 Acute maxillary sinusitis, recurrence not specified J01.[address] [address] Apr, 15 Acquired spondylolisthesis of lumbosacral region M43.17 ; Encounter for immunization Z23 and Cholelithiasis K80.[address] [address] Mar, [address] [address] Mar, 15 Lumbar radiculopathy 724.[address] [address] Mar, [address] [address] Feb, 15 Esophageal reflux 530.[address] [address] Feb, 15 Esophageal reflux 530.81 ; Essential hypertension, benign 401.1 and Diabetes mellitus without mention of complication, type II or unspecified type, not stated as uncontrolled 250.[address] [address] Feb, [address] [address] Feb, 15 Myalgia and myositis 729.[address] [address] Jan, 15 Upper respiratory infection 465.9 ; Other symptoms involving skin and integumentary tissues 782.9 and Factitial dermatitis 698.4 [facility] [address] [place] [address] Jan, 15 Factitial dermatitis 698.4 [facility] [address] [place] [address] Jan, 15 [facility] [place] [address] [place] [address] Jan, 15 Esophageal reflux 530.81 [facility] [address] [place] [address] Dec, 15 [facility] [address] [place] [address] Dec, 15 Esophageal reflux 530.81 [facility] [place] [address] [place] [address] November, 15 [facility] [place] [address] [place] [address] November, 15 Dyspepsia 536.8 and Epigastric pain 789.06 [facility] [address] [place] [address] November, 15 [facility] [address] [place] [address] November, 15 [facility] [place] [address] [place] [address] November, 15 Impetigo 684 [facility] [address] [address] Oct, 15 Other symptoms involving skin and integumentary tissues 782.9 and Seborrheic keratosis 702.[id number] [place] [address] Oct, [id number] [place] [address] Oct, [facility] [address] [place] [address] Sep, [id number] [place] [address] Sep, [facility] [place] [address] [place] [address] Sep, 15 [facility] [address] [id number] [place] [address] Sep, [facility] [place] [address] [place] [address] Sep, 15 [facility] [id number] [place] [address] Sep, [facility] [address] [place] [address] Sep, 15 [facility] [id number] [place] [address] Sep, [facility] [address] [place] [address] Aug, 15 [facility] [id number] [place] [address] Aug, [facility] [address] [place] [address] Jul, 15 [facility] [id number] [place] [address] Jul, [facility] [address] [place] [address] Jun, 14 [facility] [id number] [place] [address] Jun, [facility] [address] [place] [address] May, 14 [facility] [id number] [place] [address] May, [facility] [address] [place] [address] Apr, 14 [facility] [id number] [place] [address] Apr, [facility] [address] [place] [address] Apr, 14 [facility] [id number] [place] [address] Apr, [facility] [address] [address] Mar, [facility] [address] [place] [address] Mar, 14 [facility] [address] [address] Mar, [facility] [address] [address] Mar, [facility] [address] [place] [address] Mar, 14 [facility] [address] [place] [address] Dec, 14 [facility] [address] [address] Dec, [facility] [place] [address] [place] [address] Sep, 14 [facility] [address] [address] Sep, [facility] [place] [address] [place] [address] Aug, 14 [facility] [address] [address] Aug, [facility] [address] [address] Jul, [facility] [address] [place] [address] Jul, 14 [facility] [address] [address] Jul, [facility] [address] [place] [address] Jul, 14 [facility] [address] [address] Jul, [facility] [address] [place] [address] May, 13 [facility] [address] [id number] [place] [address] May, [facility] [address] [place] [address] May, 13 [facility] [address] [id number] [place] [address] May, [facility] [address] [place] [address] May, 13 [facility] [address] [id number] [place] [address] May, IMMUNIZATIONS No Known Immunizations SOCIAL HISTORY Never Assessed REASON FOR VISIT PLAN OF CARE VITAL SIGNS Weight 205.39 lbs 2013-12-29 Temperature 97.7 degrees Fahrenheit 2013-12-29 Heart Rate 72 bpm 2013-12-29 Respiratory Rate 16 2013-12-29 Blood pressure systolic 106 mmHg 2013-12-29 Blood pressure diastolic 58 mmHg 2013-12-29 MEDICATIONS Unknown Medications RESULTS No Results PROCEDURES [...] pneumonia or fluid on around heart-sent to [facility]/thinking COPD 12/2018
[2019-10-29] MEDS ORDERED: NS IV 1000 ML 1,000 ML IV ONE ×2 (22:29→23:11)
[2019-10-29] MEDS ORDERED: NS IV 1000 ML 1,000 ML ONE (22:31)
--- OUTSIDE RECORDS SUMMARY | 2019-10-29 22:33 | XMS REPORT | Continuity of Care Document ---
Author Organization Unknown Address Unknown Phone Unavailable Allergies Active Description Code Type Severity Reaction Onset Reported/Identified Relationship to Patient Clinical Status Yes No Known Allergies [id number] Dr bradshaw Allergy N/A N/A Yes No Known Medication Allergies Drug N/A N/A Medications Medication Packaging Start Date St op Date Route Dosage Sig DOCUSATE SODIUM 12/24/2018 12/26/2018 BIDPRN ACETAMINOPHEN 12/24/2018 Q4HPRN ACETAMINOPHEN 12/26/2018 Q4HPRN ALUM-MAG HYDROXIDE-SIMETH 12/24/2018 12/26/2018 Q4HPRN MAGNESIUM HYDROXIDE 12/24/2018 12/26/2018 HSPRN IPRATROPIUM-ALBUTEROL 12/24/2018 12/26/2018 QIDRT MORPHINE 019 12/25/2018 PRNACS NITROGLYCERIN 12/26/2018 PRNCP ZOLPIDEM 019 12/26/2018 HSPRN ACETAMINOPHEN 12/26/2018 Q4HPRN ONDANSETRON HCL 12/24/2018 12/26/2018 Q6HPRN BISACODYL 201812/26/2018 Q6HPRN BISACODYL 201812/26/2018 Q6HPRN ALUM-MAG HYDROXIDE-SIMETH 12/24/2018 12/24/2018 PRN MAGNESIUM HYDROXIDE 12/24/2018 12/24/2018 PRN HYDROcodone-ACET 10-325MG 12/24/2018 12/26/2018 Q6HPRN tiZANidine 12/2412/26/2018 Q8HPRN ONDANSETRON HCL 12/24/2018 12/26/2018 Q6-8HPRN ENALAPRIL MALEATE 12/24/2018 12/25/2018 QD FAMOTIDINE 12/2412/26/2018 QD DEXLANSOPRAZOLE 12/24/2018 12/26/2018 ACB MELOXICAM 201812/25/2018 QD ASPIRIN 12/25/19 19 12/26/2018 0700 FLUoxetine 12/2412/26/2018 QD CETIRIZINE 12/2412/26/2018 QD B COMPLEX VITAMINS 12/24/2018 12/26/2018 QD FUROSEMIDE 12/2412/25/2018 BID4PM POTASSIUM CHLORIDE 12/24/2018 12/25/2018 BIDWM PREGABALIN 12/2412/26/2018 BID SIMVASTATIN 06/0 12/201812/26/2018 HS predniSONE 12/2512/26/2018 0700 INSULIN NOVOLOG 12/25/2018 12/25/2018 ONCE INSULIN NOVOLOG 12/26/2018 12/26/2018 TIDWM Problems Date Dx Coded Attending Type Code Diagnosis Diagnosed By 05/31/2013 ZACH VILLANUEVA MD V04.8 1 FLU SHOT 05/31/2013 SHAYY PARKINSON MD V04.8 1 FLU SHOT 05/31/2013 LISA DOWELL DO V04.81 FLU SHOT 05/31/2013 ZACH VILLANUEVA MD V04.8 1 FLU SHOT 05/31/2013 ZACH VILLANUEVA MD V04.8 1 FLU SHOT 05/31/2013 ZACH VILLANUEVA MD V04.8 1 FLU SHOT 05/31/2013 ZACH VILLANUEVA MD V04.8 1 FLU SHOT 05/31/2013 ZACH VILLANUEVA MD V04.8 1 FLU SHOT 05/31/2013 SHAYY PARKINSON MD V04.8 1 FLU SHOT 05/31/2013 ZACH VILLANUEVA MD V04.8 1 FLU SHOT 05/31/2013 SHAYY PARKINSON MD V04.8 1 FLU SHOT 05/31/2013 SHAYY PARKINSON MD V04.8 1 FLU SHOT 05/31/2013 SHAYY PARKINSON MD V04.8 1 FLU SHOT 08/02/2013 SHAYY PARKINSON MD 466.0 BRONCHITIS, ACUTE 08/02/2013 LISA DOWELL DO 466.0 BRONCHITIS, ACUTE 08/02/2013 ZACH VILLANUEVA MD 466.0 BRONCHITIS, ACUTE 08/02/2013 ZACH VILLANUEVA MD 466.0 BRONCHITIS, ACUTE 08/02/2013 ZACH VILLANUEVA MD 466.0 BRONCHITIS, ACUTE 08/02/2013 KAY HERZOG, ZACH Miranda 466.0 BRONCHITIS, ACUTE 08/02/2013 KAY HERZOG, ZACH Miranda 466.0 BRONCHITIS, ACUTE 08/02/2013 SINGER HERZOG, SHAYY Miranda 466.0 BRONCHITIS, ACUTE 08/02/2013 KAY HERZOG, ZACH Miranda 466.0 BRONCHITIS, ACUTE 08/02/2013 SINGER HERZOG, SHAYY Miranda 466.0 BRONCHITIS, ACUTE 08/02/2013 SINGER HERZOG, SHAYY Miranda 466.0 BRONCHITIS, ACUTE 08/02/2013 SINGER HERZOG, SHAYY Miranda 466.0 BRONCHITIS, ACUTE 12/29/2013 DOWELL DO, LISA K 690.11 SEBORRHEA CAPITIS 12/29/2013 ZACH VILLANUEVA MD 690.1 1 SEBORRHEA CAPITIS 12/29/2013 ZACH VILLANUEVA MD 690.1 1 SEBORRHEA CAPITIS 12/29/2013 ZACH VILLANUEVA MD 690.1 1 SEBORRHEA CAPITIS 12/29/2013 ZACH VILLANUEVA MD 690.1 1 SEBORRHEA CAPITIS 12/29/2013 ZACH VILLANUEVA MD 690.1 1 SEBORRHEA CAPITIS 12/29/2013 SHAYY PARKINSON MD 690.1 1 SEBORRHEA CAPITIS 12/29/2013 ZACH VILLANUEVA MD 690.1 1 SEBORRHEA CAPITIS 12/29/2013 SHAYY PARKINSON MD 690.1 1 SEBORRHEA CAPITIS 12/29/2013 SHAYY PARKINSON MD 690.1 1 SEBORRHEA CAPITIS 12/29/2013 SHAYY PARKINSON MD 690.1 1 SEBORRHEA CAPITIS 03/23/2014 ZACH VILLANUEVA MD 295.7 0 P SCHIZO AFFECTIVE 03/23/2014 ZACH VILLANUEVA MD V58.6 9 HIGH RISK MEDICATION 03/23/2014 ZACH VILLANUEVA MD 295.7 0 P SCHIZO AFFECTIVE 03/23/2014 ZACH VILLANUEVA MD V58.6 9 HIGH RISK MEDICATION 03/23/2014 ZACH VILLANUEVA MD 295.7 0 P SCHIZO AFFECTIVE 03/23/2014 ZACH VILLANUEVA MD V58.6 9 HIGH RISK MEDICATION 03/23/2014 ZACH VILLANUEVA MD 295.7 0 P SCHIZO AFFECTIVE 03/23/2014 ZACH VILLANUEVA MD V58.6 9 HIGH RISK MEDICATION 03/23/2014 KAY HERZOG, ZACH D 295.7 0 P SCHIZO AFFECTIVE 03/23/2014 ZACH VILLANUEVA MD V58.6 9 HIGH RISK MEDICATION 03/23/2014 SHAYY PARKINSON MD D 295.7 0 P SCHIZO AFFECTIVE 03/23/2014 SHAYY PARKINSON MD D V58.6 9 HIGH RISK MEDICATION 03/23/2014 ZACH VILLANUEVA MD D 295.7 0 P SCHIZO AFFECTIVE 03/23/2014 ZACH VILLANUEVA MD V58.6 9 HIGH RISK MEDICATION 03/23/2014 MARY PARKINSON MDN D 295.7 0 P SCHIZO AFFECTIVE 03/23/2014 SHAYY PARKINSON MD D V58.6 9 HIGH RISK MEDICATION 03/23/2014 SHAYY PARKINSON MD D 295.7 0 P SCHIZO AFFECTIVE 03/23/2014 SHAYY PARKINSON MD D V58.6 9 HIGH RISK MEDICATION 03/23/2014 SHAYY PARKINSON MD D 295.7 0 P SCHIZO AFFECTIVE 03/23/2014 SHAYY PARKINSON MD D V58.6 9 HIGH RISK MEDICATION 03/29/2014 ZACH VILLANUEVA MD 250.0 0 DIABETES MELLITUS TYPE 2 - UNCOMPLICATED, CONTROLLED 03/29/2014 ZACH VILLANUEVA MD 788.4 1 URINARY FREQUENCY 03/29/2014 ZACH VILLANUEVA MD 250.0 0 DIABETES MELLITUS TYPE 2 - UNCOMPLICATED, CONTROLLED 03/29/2014 ZACH VILLANUEVA MD 788.4 1 URINARY FREQUENCY 03/29/2014 ZACH VILLANUEVA MD 250.0 0 DIABETES MELLITUS TYPE 2 - UNCOMPLICATED, CONTROLLED 03/29/2014 ZACH VILLANUEVA MD 788.4 1 URINARY FREQUENCY 03/29/2014 ZACH VILLANUEVA MD 250.0 0 DIABETES MELLITUS TYPE 2 - UNCOMPLICATED, CONTROLLED 03/29/2014 ZACH VILLANUEVA MD 788.4 1 URINARY FREQUENCY 03/29/2014 ZACH VILLANUEVA MD 250.0 0 DIABETES MELLITUS TYPE 2 - UNCOMPLICATED, CONTROLLED 03/29/2014 ZACH VILLANUEVA MD 788.4 1 URINARY FREQUENCY 03/29/2014 SHAYY PARKINSON MD 250.0 0 DIABETES MELLITUS TYPE 2 - UNCOMPLICATED, CONTROLLED 03/29/2014 SHAYY PARKINSON MD 788.4 1 URINARY FREQUENCY 03/29/2014 KAY HERZOG, ZACH Miranda 250.0 0 DIABETES MELLITUS TYPE 2 - UNCOMPLICATED, CONTROLLED 03/29/2014 KAY HERZOG, ZACH Miranda 788.4 1 URINARY FREQUENCY 03/29/2014 SHAYY PARKINSON MD 250.0 0 DIABETES MELLITUS TYPE 2 - UNCOMPLICATED, CONTROLLED 03/29/2014 SHAYY PARKINSON MD 788.4 1 URINARY FREQUENCY 03/29/2014 SHAYY PARKINSON MD 250.0 0 DIABETES MELLITUS TYPE 2 - UNCOMPLICATED, CONTROLLED 03/29/2014 SHAYY PARKINSON MD 788.4 1 URINARY FREQUENCY 03/29/2014 SHAYY PARKINSON MD 250.0 0 DIABETES MELLITUS TYPE 2 - UNCOMPLICATED, CONTROLLED 03/29/2014 SHAYY PARKINSON MD 788.4 1 URINARY FREQUENCY 04/21/2014 ZACH VILLANUEVA MD 530.8 1 GERD 04/21/2014 ZACH VILLANUEVA MD 530.8 1 GERD 04/21/2014 ZACH VILLANUEVA MD 530.8 1 GERD 04/21/2014 ZACH VILLANUEVA MD 530.8 1 GERD 04/21/2014 SHAYY PARKINSON MD 530.8 1 GERD 04/21/2014 ZACH VILLANUEVA MD 530.8 1 GERD 04/21/2014 SHAYY PARKINSON MD 530.8 1 GERD 04/21/2014 SHAYY PARKINSON MD 530.8 1 GERD 04/21/2014 SHAYY PARKINSON MD 530.8 1 GERD 06/27/2014 ZACH VILLANUEVA MD 401.1 HYPERTENSION, BENIGN ESSENTIAL 06/27/2014 SHAYY PARKINSON MD 401.1 HYPERTENSION, BENIGN ESSENTIAL 06/27/2014 ZACH VILLANUEVA MD 401.1 HYPERTENSION, BENIGN ESSENTIAL 06/27/2014 SHAYY PARKINSON MD 401.1 HYPERTENSION, BENIGN ESSENTIAL 06/27/2014 SHAYY PARKINOSN MD 401.1 HYPERTENSION, BENIGN ESSENTIAL 06/27/2014 SHAYY PARKINSON MD 401.1 HYPERTENSION, BENIGN ESSENTIAL 08/15/2014 SHAYY PARKINSON MD 684 IMPETIGO 08/15/2014 SHAYY PARKINSON MD 698.9 PRURITUS NOS 08/15/2014 ZACH VILLANUEVA MD 684 IMPETIGO 08/15/2014 ZACH VILLANUEVA MD 698.9 PRURITUS NOS 08/15/2014 SHAYY PARKINSON MD 684 IMPETIGO 08/15/2014 SHAYY PARKINSON MD 698.9 PRURITUS NOS 08/15/2014 SHAYY PARKINSON MD 684 IMPETIGO 08/15/2014 SHAYY PARKINSON MD 698.9 PRURITUS NOS 08/15/2014 SHAYY PARKINSON MD 684 IMPETIGO 08/15/2014 SHAYY PARKINSON MD 698.9 PRURITUS NOS 09/22/2014 ZACH VILLANUEVA MD 782.9 OTHER SYMPTOMS INVOLVING SKIN AND INTEGUMENTARY TISSUES 09/22/2014 SHAYY PARKINSON MD 782.9 OTHER SYMPTOMS INVOLVING SKIN AND INTEGUMENTARY TISSUES 09/22/2014 SHAYY PARKINSON MD 782.9 OTHER SYMPTOMS INVOLVING SKIN AND INTEGUMENTARY TISSUES 09/22/2014 SHAYY PARKINSON MD 782.9 OTHER SYMPTOMS INVOLVING SKIN AND INTEGUMENTARY TISSUES 10/03/2014 ZACH VILLANUEVA MD 724.2 BACK PAIN, LOWER 10/03/2014 SHAYY PARIKNSON MD 724.2 BACK PAIN, LOWER 10/03/2014 SHAYY PARKINSON MD 724.2 BACK PAIN, LOWER 10/03/2014 SHAYY PARKINSON MD 724.2 BACK PAIN, LOWER 10/05/2014 ZACH VILLANUEVA MD 564.0 0 CONSTIPATION 10/05/2014 ZACH VILLANUEVA MD 787.0 1 NAUSEA WITH VOMITING 10/05/2014 ZACH VILLANUEVA MD 787.3 FLATULENCE ERUCTATION AND GAS PAIN 10/05/2014 SHAYY PARKINSON MD 564.0 0 CONSTIPATION 10/05/2014 SHAYY PARKINSON MD 787.0 1 NAUSEA WITH VOMITING 10/05/2014 SHAYY PARKINSON MD 787.3 FLATULENCE ERUCTATION AND GAS PAIN 10/05/2014 SHAYY PARKINSON MD 564.0 0 CONSTIPATION 10/05/2014 SHAYY PARKINSON MD 787.0 1 NAUSEA WITH VOMITING 10/05/2014 SHAYY PARKINSON MD 787.3 FLATULENCE ERUCTATION AND GAS PAIN 10/05/2014 SHAYY PARKINSON MD 564.0 0 CONSTIPATION 10/05/2014 SHAYY PARKINSON MD 787.0 1 NAUSEA WITH VOMITING 10/05/2014 SHAYY PARKINSON MD 787.3 FLATULENCE ERUCTATION AND GAS PAIN 10/07/2014 ZACH VILLANUEVA MD 789.0 7 ABDOMINAL PAIN GENERALIZED 10/07/2014 SHAYY PARKINSON MD 789.0 7 ABDOMINAL PAIN GENERALIZED 10/07/2014 SHAYY PARKINSON MD 789.0 7 ABDOMINAL PAIN GENERALIZED 10/07/2014 SHAYY PARKINSON MD 789.0 7 ABDOMINAL PAIN GENERALIZED 10/31/2014 SHAYY PARKINSON MD 216.9 BENIGN NEOPLASM OF SKIN SITE UNSPECIFIED 10/31/2014 SHAYY PARKINSON MD 216.9 BENIGN NEOPLASM OF SKIN SITE UNSPECIFIED 10/31/2014 SHAYY PARKINSON MD 216.9 BENIGN NEOPLASM OF SKIN SITE UNSPECIFIED 11/02/2014 SHAYY PARKINSON MD 238.2 NEOPLASM OF UNCERTAIN BEHAVIOR OF SKIN 11/02/2014 SHAYY PARKINSON MD 238.2 NEOPLASM OF UNCERTAIN BEHAVIOR OF SKIN 11/10/2014 SHAYY PARKINSON MD V58.3 2 ENCOUNTER FOR REMOVAL OF SUTURES 11/27/2017 Manjeet HERZOG, Joel Z68.41 Body Mass Index 40.0-44.9 Adult 05/03/2019 UMAIR JONES Final M25.411 Effusion, right shoulder 05/03/2019 UMAIR JONES Reason For Visi t S46.011A Strain of muscle(s) and tendon(s) of the rotator cuff of right shoulder, initial encounter 05/17/2019 ORIANA AUSTIN Final 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, right shoulder 05/17/2019 ORIANA AUSTIN Reason For Visit S46.011A Strain of muscle(s) and tendon(s) of the rotator cuff of right shoulder, initial encounter 05/17/2019 ORIANA AUSTIN Final W1 9.XXXA Unspecified fall, initial encounter 05/17/2019 ORIANA AUSTIN Final Z99.8 1 Dependence on supplemental oxygen 08/19/2019 ORIANA AUSTIN Reason For Visit M19.011 Primary osteoarthritis, right shoulder Procedures Code Description Performed By Per formed On G0008 FLU ADMINISTRATION (MEDICARE ONLY) 05/31/2013 45238 ROUT INE VENIPUNCTURE 03/23/2014 8066763 GF R CALC (RESULT ONLY) 03/23/2014 07832 CMP 03/23/2014 01000 LIPI D PANEL 03/23/2014 77324 CBC 03/23/2014 53746 A1C (RML) 03/23/2014 69738 UA L JUAN DIP 03/29/2014 38974 CULT URE URINE 2014 22583 A1C (IN-HOUSE) 06/27/2014 23544 ROUT INE VENIPUNCTURE 06/27/2014 44182 CBC 06/27/2014 3266365 GF R CALC (RESULT ONLY) 06/27/2014 47073 CMP 06/27/2014 84719 LIPI D PANEL 06/27/2014 81210 XRAY ABDOMEN, 1 VIEW (KUB) 10/05/2014 90777 EXCI SANIA BENIGN LESION 1.1-2 CM (SPECIFY LOCATION IN [facility]) 11/03/2014 Results Test Result Range LIPID PANEL - 03/20/17 09:49 Cholesterol, Total 171 mg/dL 100-199 Triglycerides 151 mg/dL 0-149 HDL Cholesterol 46 mg/dL >39 VLDL Cholesterol Donte 30 mg/dL 5-40 LDL Cholesterol Calc 95 mg/dL 0-99 Comment: NRG [facility] - 03/20/17 09:49 Glucose, Serum 120 mg/dL 65-99 BUN 21 mg/dL 8-27 Creatinine, Serum 0.90 mg/dL 0.57-1.00 eGFR If NonAfricn Am 67 mL/min/1.73 >59 eGFR If Africn Am 78 mL/min/1.73 >59 BUN/Creatinine Ratio 23 12-28 Sodium, Serum 139 mmol/L 134-144 Potassium, Serum 5.3 mmol/L 3.5-5.2 Chloride, Serum 99 mmol/L 96-106 Carbon Dioxide, Total 24 mmol/L 18-29 Calcium, Serum 9.3 mg/dL 8.7-10.3 Protein, Total, Serum 7.1 g/dL 6.0-8.5 Albumin, Serum 4.1 g/dL 3.6-4.8 Globulin, Total 3.0 g/dL 1.5-4.5 A/G Ratio 1.4 1.2-2.2 Bilirubin, Total 0.5 mg/dL 0.0-1.2 Alkaline Phosphatase, S 112 IU/L 39-117 AST (SGOT) 25 IU/L 0-40 ALT (SGPT) 26 IU/L 0-32 [facility] - 10/13/17 15:32 GLUCOSE 218 mg/dL 65-99 UREA NITROGEN (BUN) 20 mg/dL 7-25 CREATININE 0.85 mg/dL 0.50-0.99 eGFR NON-AFR. BURUNDIAN 72 mL/min/1.73m2 > OR = 60 eGFR 83 mL/min/1.73m2 > OR = 60 BUN/CREATININE RATIO NOT APPLICABLE (calc) 6-22 SODIUM 140 mmol/L 135-146 POTASSIUM 4.9 mmol/L 3.5-5.3 CHLORIDE 105 mmol/L 98-110 CARBON DIOXIDE 26 mmol/L 20-31 CALCIUM 9.1 mg/dL 8.6-10.4 PROTEIN, TOTAL 6.7 g/dL 6.1-8.1 ALBUMIN 3.8 g/dL 3.6-5.1 GLOBULIN 2.9 g/dL (calc) 1.9-3.7 ALBUMIN/GLOBULIN RATIO 1.3 (calc) 1.0-2. 5 BILIRUBIN, TOTAL 0.5 mg/dL 0.2-1.2 ALKALINE PHOSPHATASE 118 U/L 33-130 AST 15 U/L 10-35 ALT 13 U/L 6-29 A1C - 10/13/17 15:32 HEMOGLOBIN A1c 7.2 % of total Hgb <5.7 [facility] - 05/11/18 09:24 GLUCOSE 154 mg/dL 65-99 UREA NITROGEN (BUN) 28 mg/dL 7-25 CREATININE 0.83 mg/dL 0.50-0.99 eGFR NON-AFR. BURUNDIAN 73 mL/min/1.73m2 > OR = 60 eGFR 85 mL/min/1.73m2 > OR = 60 BUN/CREATININE RATIO 34 (calc) 6-22 SODIUM 140 mmol/L 135-146 POTASSIUM 4.3 mmol/L 3.5-5.3 CHLORIDE 106 mmol/L 98-110 CARBON DIOXIDE 26 mmol/L 20-32 CALCIUM 9.2 mg/dL 8.6-10.4 PROTEIN, TOTAL 6.8 g/dL 6.1-8.1 ALBUMIN 4.0 g/dL 3.6-5.1 GLOBULIN 2.8 g/dL (calc) 1.9-3.7 ALBUMIN/GLOBULIN RATIO 1.4 (calc) 1.0-2. 5 BILIRUBIN, TOTAL 0.5 mg/dL 0.2-1.2 ALKALINE PHOSPHATASE 92 U/L 33-130 AST 17 U/L 10-35 ALT 12 U/L 6-29 CULTURE, ANAEROBIC AND AEROBIC - 8 13:38 CULTURE, ANAEROBIC BACTERIA W/GRAM STAIN SEE NOTE NRG CULTURE, AEROBIC BACTERIA SEE NOTE NRG CMP - 10/06/18 15:10 GLUCOSE 112 mg/dL 65-139 UREA NITROGEN (BUN) 26 mg/dL 7-25 CREATININE 0.87 mg/dL 0.50-0.99 eGFR NON-AFR. BURUNDIAN 69 mL/min/1.73m2 > OR = 60 eGFR 80 mL/min/1.73m2 > OR = 60 BUN/CREATININE RATIO 30 (calc) 6-22 SODIUM 140 mmol/L 135-146 POTASSIUM 4.8 mmol/L 3.5-5.3 CHLORIDE 102 mmol/L 98-110 CARBON DIOXIDE 30 mmol/L 20-32 CALCIUM 9.5 mg/dL 8.6-10.4 PROTEIN, TOTAL 6.5 g/dL 6.1-8.1 ALBUMIN 4.1 g/dL 3.6-5.1 GLOBULIN 2.4 g/dL (calc) 1.9-3.7 ALBUMIN/GLOBULIN RATIO 1.7 (calc) 1.0-2. 5 BILIRUBIN, TOTAL 0.6 mg/dL 0.2-1.2 ALKALINE PHOSPHATASE 93 U/L 33-130 AST 10 U/L 10-35 ALT 12 U/L 6-29 CBC w/MANUAL DIFF - 10/06/18 15:10 WHITE BLOOD CELL COUNT 9.4 Thousand/uL 3 .8-10.8 RED BLOOD CELL COUNT 4.39 Million/uL 3.8 0-5.10 HEMOGLOBIN 12.5 g/dL 11.7-15.5 HEMATOCRIT 38.2 % 35.0-45.0 MCV 87.0 fL 80.0-100.0 MCH 28.5 pg 27.0-33.0 MCHC 32.7 g/dL 32.0-36.0 RDW 12.6 % 11.0-15.0 PLATELET COUNT 332 Thousand/uL 140-400 MPV 10.6 fL 7.5-12.5 ABSOLUTE NEUTROPHILS 6204 cells/uL 1500- 7800 ABSOLUTE MONOCYTES 846 cells/uL 200-950 ABSOLUTE EOSINOPHILS 282 cells/uL 15-500 ABSOLUTE BASOPHILS 188 cells/uL 0-200 NEUTROPHILS 66.0 % NRG LYMPHOCYTES 20.0 % NRG MONOCYTES 9.0 % NRG EOSINOPHILS 3.0 % NRG BASOPHILS 2.0 % NRG ABSOLUTE LYMPHOCYTES 1880 cells/uL 850-3 900 PLATELET ESTIMATION ADEQUATE ADEQUATE CBC MORPHOLOGY NORMAL THYROID ANTIBODIES - 12/15/18 09:36 THYROID PEROXIDASE ANTIBODIES <1 IU/mL <9 THYROGLOBULIN ANTIBODIES <1 IU/mL < or = 1 HOLD SPECIMEN FOR BLOOD BANK - 12/24/18 14:30 HOLD SPECIMEN FOR BLOOD BANK ARC CBC NO DIFF (HEMOGRAM) - 12/24/18 14:30 WBC - WHITE CELL COUNT 8.1 X10(3 ) uL 4.5- 11.0 RBC - RED CELL COUNT 4.23 X10( 6) uL 4.20-5.40 PLATELET COUNT 331 X10(3 ) uL 150- 450 HEMOGLOBIN 11.6 g/dl 12.0-16.0 HEMATOCRIT 37.9 % 38.0-47.0 MCV 89.6 fL 80.0-96.0 MCH 27 pg 27-31 MCHC 30.6 % 32.0-36.0 CMP - COMPREHENSIVE METABOLIC PANEL - 14:30 GLUCOSE 140 mg/dl 74-106 BUN 15 mg/dl 7-18 CREATININE 0.90 mg/d l 0.55- 1.02 SODIUM (NA) 138 mEq/L 136-146 POTASSIUM, BLOOD 4.0 mEq/L 3.5-5.1 CHLORIDE 100 mEq/L 98-107 CO2 (BICARBONATE) 31 mEq/L 21-32 CALCIUM 9.7 mg/dl 8.5-10.1 ALBUMIN, SERUM 3.6 g/dl 3.4-5.0 PROTEIN, TOTAL 7.9 g/dl 6.4-8.2 AST (SGOT) 14 U/L 15-37 ALT (SGPT) 17 U/L 14-59 ALK PHOS 119 U/L 46-116 BILIRUBIN, TOTAL 0.6 mg/dl 0.2-1.0 eGFR mL/min >=59 LIPID PANEL - 12/24/18 14:30 CHOLESTEROL 107 mg/dl <=199 HDL CHOLESTEROL 49 mg/dl 40-60 TRIGLYCERIDES 70 mg/dl <=200 LDL, CALCULATED 44.0 mg/d l 0.0-99.0 VLDL, CALCULATED 14.0 mg/d l 0.0- 130.0 CARDIAC RISK 2 MAGNESIUM - 12/24/18 14:30 MAGNESIUM 1.9 mg/dl 1.8-2.4 TROPONIN-I - 12/24/18 14:30 TROPONIN-I <0.02 ng/ ml <=0.05 A1C - 12/24/18 14:30 HEMOGLOBIN A1C 7.4 % 4.5-6.2 URINALYSIS, DIPSTICK ONLY - 12/24/18 14: 57 COLOR YELLOW STRAW CLARITY/APPEARANCE CLEAR CLEAR UROBILINOGEN (URINALYSIS) 0.2 E.U./dL E.U./dL NORMAL SP GRAV 1.015 1.005-1.025 PH 7.0 5.0-8.0 LEUKO NEG qualitative NEG NITRITE NEG NEG PROTEIN NEG mg/dL NEG. GLUCOSE NEG mg/dL NEG KETONES NEG mg/dL NEG BILIRUBIN NEG qualitative NEG BLOOD NEGATIVE qualitative NEGATIVE GLUCOSE, ACCUCHEK - 12/24/18 20:19 GLUCOSE (ACCUCHEK) 149 mg/dl 74-105 MAGNESIUM - 12/25/18 04:48 MAGNESIUM 1.9 mg/dl 1.8-2.4 BMP - BASIC METABOLIC PANEL - 12/25/18 0 4:48 GLUCOSE 141 mg/dl 74-106 BUN 23 mg/dl 7-18 CREATININE 1.35 mg/d l 0.55- 1.02 SODIUM (NA) 140 mEq/L 136-146 POTASSIUM, BLOOD 3.8 mEq/L 3.5-5.1 CHLORIDE 102 mEq/L 98-107 CO2 (BICARBONATE) 34 mEq/L 21-32 CALCIUM 8.9 mg/dl 8.5-10.1 eGFR mL/min >=59 GLUCOSE, ACCUCHEK - 12/25/18 11:39 GLUCOSE (ACCUCHEK) 140 mg/dl 74-105 GLUCOSE, ACCUCHEK - 12/25/18 15:30 GLUCOSE (ACCUCHEK) 161 mg/dl 74-105 GLUCOSE, ACCUCHEK - 12/25/18 20:57 GLUCOSE (ACCUCHEK) 226 mg/dl 74-105 BMP - BASIC METABOLIC PANEL - 12/26/18 0 2:55 GLUCOSE 154 mg/dl 74-106 BUN 32 mg/dl 7-18 CREATININE 1.29 mg/d l 0.55- 1.02 SODIUM (NA) 137 mEq/L 136-146 POTASSIUM, BLOOD 4.5 mEq/L 3.5-5.1 CHLORIDE 100 mEq/L 98-107 CO2 (BICARBONATE) 27 mEq/L 21-32 CALCIUM 8.7 mg/dl 8.5-10.1 eGFR mL/min >=59 CBC NO DIFF (HEMOGRAM) - 12/26/18 02:55 WBC - WHITE CELL COUNT 8.8 X10(3 ) uL 4.5- 11.0 RBC - RED CELL COUNT 4.23 X10( 6) uL 4.20-5.40 PLATELET COUNT 374 X10(3 ) uL 150- 450 HEMOGLOBIN 11.5 g/dl 12.0-16.0 HEMATOCRIT 38.0 % 38.0-47.0 MCV 89.8 fL 80.0-96.0 MCH 27 pg 27-31 MCHC 30.3 % 32.0-36.0 [facility] - 01/01/19 10:50 GLUCOSE 163 mg/dL 65-139 UREA NITROGEN (BUN) 30 mg/dL 7-25 CREATININE 0.93 mg/dL 0.50-0.99 eGFR NON-AFR. BURUNDIAN 64 mL/min/1.73m2 > OR = 60 eGFR 74 mL/min/1.73m2 > OR = 60 BUN/CREATININE RATIO 32 (calc) 6-22 SODIUM 134 mmol/L 135-146 POTASSIUM 5.4 mmol/L 3.5-5.3 CHLORIDE 101 mmol/L 98-110 CARBON DIOXIDE 26 mmol/L 20-32 CALCIUM 9.7 mg/dL 8.6-10.4 - PANEL (PROFILE 1) - 04/01/19 15 :46 Creatinine 127.3 mg/dL > or = 20.0 pH 5.2 4.5-9.0 Oxidant NEGATIVE mcg/mL <200 Amphetamines NEGATIVE ng/mL <500 medMATCH Amphetamines CONSISTENT NRG Benzodiazepines NEGATIVE ng/mL <100 medMATCH Benzodiazepines CONSISTENT NRG Marijuana Metabolite NEGATIVE ng/mL <20 medMATCH Marijuana Metab CONSISTENT NRG Cocaine Metabolite NEGATIVE ng/mL <150 medMATCH Cocaine Metab CONSISTENT NRG Opiates POSITIVE ng/mL <100 Oxycodone NEGATIVE ng/mL <100 medMATCH Oxycodone CONSISTENT NRG COMMENT NRG Codeine NEGATIVE ng/mL <50 medMATCH Codeine CONSISTENT NRG Hydrocodone 1395 ng/mL <50 medMATCH Hydrocodone INCONSISTENT NRG Hydromorphone NEGATIVE ng/mL <50 medMATCH Hydromorphone CONSISTENT NRG Morphine NEGATIVE ng/mL <50 medMATCH Morphine CONSISTENT NRG Norhydrocodone 807 ng/mL <50 medMATCH Norhydrocodone See Note NRG Barbiturates NEGATIVE ng/mL <300 medMATCH Barbiturates CONSISTENT NRG Methadone Metabolite NEGATIVE ng/mL <100 medMATCH Methadone Metab CONSISTENT NRG Phencyclidine NEGATIVE ng/mL <25 medMATCH Phencyclidine CONSISTENT NRG BMP - 04/27/19 14:04 GLUCOSE 82 mg/dL 65-139 UREA NITROGEN (BUN) 31 mg/dL 7-25 CREATININE 0.99 mg/dL 0.50-0.99 eGFR NON-AFR. [place]DI[place] 59 mL/min/1.73m2 > OR = 60 eGFR 68 mL/min/1.73m2 > OR = 60 BUN/CREATININE RATIO 31 (calc) 6-22 SODIUM 139 mmol/L 135-146 POTASSIUM 4.8 mmol/L 3.5-5.3 CHLORIDE 103 mmol/L 98-110 CARBON DIOXIDE 26 mmol/L 20-32 CALCIUM 9.6 mg/dL 8.6-10.4 MAGNESIUM SERUM - 04/27/19 14:04 MAGNESIUM 1.7 mg/dL 1.5-2.5 TSH - 04/27/19 14:04 TSH 2.54 mIU/L 0.40-4.50 CULTURE, URINE - 08/17/19 13:56 CULTURE, URINE, ROUTINE SEE NOTE NRG Encounters ACCT No. Visit Date/Time Discharge Status Pt. Type Provider Facility Loc./Unit Complaint [id number] 12/24/2018 14:09:00 12/26/2018 11:24: 00 DIS Inpatient PAULA WATT [facility] [address], CRESCENDO ANGINA [id number] 08/19/2019 09:27:14 0 23:59:59 DIS Outpatient ORIANA AUSTIN [facility] [id number] 05/17/2019 08:40:51 9 23:59:59 DIS Outpatient ORIANA AUSTIN [facility] [id number] 05/03/2019 09:34:46 9 23:59:59 DIS Outpatient UMAIR JONES [facility] [id number] 10/23/2018 09:58:58 9 23:59:59 DIS Outpatient UMAIR JONES [facility] [id number] 12/02/2017 13:58:21 8 23:59:59 CLS Preadmit JOEL BURROUGHS [facility] OPS [id number] 02/19/2018 08:55:27 Document Registration [id number] 10/19/2019 14:00:00 10/19/2019 23:59: 59 CLS Outpatient UMAIR JONES [facility] [id number] 08/17/2019 13:40:00 Document Registration [id number] 04/27/2019 13:20:00 Document Registration [id number] 2019 13:40:00 Document Registration [id number] 01/01/2019 11:00:00 Document Registration [id number] 12/15/2018 10:40:00 Document Registration [id number] 10/06/2018 14:20:00 Document Registration [id number] 07/07/2018 10:00:00 Document Registration [id number] 05/11/2018 09:00:00 Document Registration [id number] 10/13/2017 15:00:00 Document Registration [id number] 03/20/2017 08:20:00 Document Registration [id number] 02/19/2019 14:50:02 ACT Unknown Joel Burroughs MD [id number] 11/10/2014 08:37:00 11/10/2014 23:59: 59 CLS Outpatient SHAYY PARKINSON MD [id number] 11/02/2014 10:21:00 11/02/2014 23:59: 59 CLS Outpatient SHAYY PARKINSON MD [id number] 10/31/2014 09:59:00 10/31/2014 23:59: 59 CLS Outpatient SHAYY PARKINSON MD [id number] 10/07/2014 13:56:00 10/07/2014 23:59: 59 CLS Outpatient ZACH VILLANUEVA MD [id number] 08/31/2014 10:33:00 08/31/2014 23:59: 59 CLS Outpatient SHAYY PARKINSON MD [id number] 06/27/2014 10:14:00 06/27/2014 23:59: 59 CLS Outpatient ZACH VILLANUEVA MD [id number] 05/19/2014 16:34:00 05/19/2014 23:59: 59 CLS Outpatient ZACH VILLANUEVA MD [id number] 04/27/2014 15:33:00 04/27/2014 23:59: 59 CLS Outpatient ZACH VILLANUEVA MD [id number] 04/21/2014 15:16:00 04/21/2014 23:59: 59 CLS Outpatient ZACH VILLANUEVA MD [id number] 03/29/2014 16:01:00 03/29/2014 23:59: 59 CLS Outpatient ZACH VILLANUEVA MD [id number] 12/29/2013 14:36:00 12/29/2013 23:59: 59 CLS Outpatient LISA DOWELL DO [id number] 08/02/2013 09:22:00 08/02/2013 23:59: 59 CLS Outpatient SHAYY PARKINSON MD [id number] 05/31/2013 10:17:00 05/31/2013 23:59: 59 CLS Outpatient ZACH VILLANUEVA MD [id number] 02/22/2019 22:26:48 ACT Document Registration
[2019-10-29 22:47] LABS: BASOPHILS # (AUTO) 0.1 10^3/uL (0.0-0.1); BASOPHILS % (AUTO) 1 % (0-10); EOSINOPHILS # (AUTO) 0.5 10^3/uL (0.0-0.3); EOSINOPHILS % (AUTO) 5 % (0-10); HEMATOCRIT 44 % (35-52); HEMOGLOBIN 15.2 G/DL (11.5-16.0); LYMPHOCYTES # (AUTO) 3.3 X 10^3 (1.0-4.0); LYMPHOCYTES % (AUTO) 38 % (12-44); MEAN CORPUSCULAR HEMOGLOBIN 33 PG (25-34); MEAN CORPUSCULAR HGB CONC 35 G/DL (32-36); MEAN CORPUSCULAR VOLUME 95 FL (80-99); MEAN PLATELET VOLUME 9.8 FL (7.4-10.4); MONOCYTES # (AUTO) 0.5 X 10^3 (0.0-1.0); MONOCYTES % (AUTO) 6 % (0-12); NEUTROPHILS # (AUTO) 4.4 X 10^3 (1.8-7.8); NEUTROPHILS % (AUTO) 50 % (42-75); PLATELET COUNT 209 10^3/uL (130-400); RED CELL DISTRIBUTION WIDTH 13.5 % (10.0-14.5); WHITE BLOOD COUNT 8.7 10^3/uL (4.3-11.0)
[2019-10-29 22:49] LABS: ALBUMIN 4.4 GM/DL (3.2-4.5); CHLORIDE 89 MMOL/L (98-107); POTASSIUM 3.7 MMOL/L (3.6-5.0)
[2019-10-29 22:50] LABS: CALCIUM 8.8 MG/DL (8.5-10.1)
[2019-10-29 22:51] LABS: GLUCOSE 149 MG/DL (70-105)
[2019-10-29 22:52] LABS: CARBON DIOXIDE 18 MMOL/L (21-32); TOTAL PROTEIN 8.4 GM/DL (6.4-8.2)
[2019-10-29 22:53] LABS: BILIRUBIN,TOTAL 0.9 MG/DL (0.1-1.0)
[2019-10-29 22:55] LABS: ALKALINE PHOSPHATASE 113 U/L (40-136); CREATININE SERUM 0.83 MG/DL (0.60-1.30); GFR ESTIMATED > 60
[2019-10-29 22:56] LABS: ACETAMINOPHEN < 10 UG/ML (10-30); BUN/CREATININE RATIO 7
[2019-10-29 22:57] LABS: INR 1.5 (0.8-1.4); PROTHROMBIN TIME PATIENT 18.7 SEC (12.2-14.7)
[2019-10-29 22:58] LABS: ALANINE AMINOTRANSFERASE 17 U/L (0-55)
[2019-10-29 23:04] LABS: SODIUM 123 MMOL/L (135-145)
--- NOTE | 2019-10-29 23:29 | ED Fall/Injury ---
General Chief Complaint: Trauma-Non Activation Stated Complaint: PT FELL AND HIT HID, LEFT ARM IN PAIN Nursing Triage Note: PATIENT TRIPPED AND FELL FACE FIRST, DENIES LOC DENIES HEAD PAIN. 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 DROVE HER HERE STATES SHE "THINKS SHE TRIPPED" AND FELL FACE FIRST ONTO [place] DENIES LOSS OF CONSCIOUSNESS DENIES NECK PAIN C/O PAIN TO LEFT BROW AREA AND PAIN TO LEFT SHOULDER PT DENIES PAIN ANYWHERE ELSE STATES SHE HAS "BEEN PARTYING TONIGHT" FOR DAUGHTER'S BIRTHDAY--WITH MULTIPLE FAMILY MEMBERS PRESENT --DESPITE STATE-MANDATED STAY AT HOME ORDERS STATES SHE HAS HAD "6 BEERS" TONIGHT, AND ALSO TOOK HYDROCODONE TONIGHT--STATES SHE TAKES IT FOR ARTHRITIS PT DOES NOT KNOW ANY OF HER MEDICATIONS OR WHAT SHE TAKES THEM FOR, AND DOES NOT KNOW IF SHE IS ON A BLOOD THINNER OR NOT. PT ABLE TO STAND/BEAR WEIGHT AND TRANSFER WITHOUT PAIN IN LEGS/HIPS Location Injury Occurred: LEFT SHOULDER PCP: [facility]. BRUNNER ADVICE LINE RN: DR. DESOUZA Allergies and Home Medications Allergies Coded Allergies: No Known Drug Allergies (Unverified , 04/18/16) Home Medications Aripiprazole 15 Mg Tablet, 15 MG PO DAILY, (Reported) Dexlansoprazole 60 Mg Royal., 60 MG PO DAILY, (Reported) Enalapril Maleate 10 Mg Tablet, 10 MG PO DAILY, (Reported) Fluoxetine HCl 20 Mg Capsule, 20 MG PO DAILY, (Reported) Furosemide 40 Mg Tablet, 40 MG PO DAILY, (Reported) Hydrocodone/Acetaminophen 1 Each Tablet, 1 TAB PO Q6H Prescribed by: SANTOS FRAZIER on 05/11/191715 Meloxicam 15 Mg Tablet, 15 MG PO DAILY, (Reported) Metformin HCl 500 Mg Tablet, 500 MG PO BID, (Reported) Potassium Chloride 10 Meq Tablet.er, 10 MEQ PO DAILY, (Reported) Tiotropium [place] 1 Inh Aerp, 2 INH IH DAILY, (Reported) Patient Home Medication List Home Medication List Reviewed: Yes Review of Systems Review of Systems Constitutional: No dizziness Eyes: Denies Vision Changes; Other (LEFT PERIORBITAL HEMATOMA) Ears, Nose, Mouth, Throat: no symptoms reported Respiratory: no symptoms reported; No short of breath Cardiovascular: no symptoms reported; No chest pain Gastrointestinal: no symptoms reported; No abdominal pain, No nausea, No vomiting Genitourinary: no symptoms reported Musculoskeletal: see HPI; No back pain, No neck pain; other (LEFT SHOULDER PAIN ) Skin: other (HAS "SORES" ON ARMS, FACE AND UPPER BACK) Psychiatric/Neurological: See HPI (INTOXICATED. ); Denies Headache, Denies Numbness, Denies Paresthesia, Denies Tingling, Denies Weakness Past Onfqnso-Lvdyvc-Taabob Hx Past Med/Social Hx: Reviewed and Corrections made Patient Social History Alcohol Use: Regular Use (DRINKS DAILY) Alcohol Beverage of Choice: Beer Recreational Drug Use: No Smoking Status: Never a Smoker (CHEWS TOBACCO DAILY) Type Used: Smokeless Tobacco Former Smoker, Quit: Jul 21, 2005 2nd Hand Smoke Exposure: Yes Recent Foreign Travel: No Contact w/Someone Who Travel: No Recent Infectious Disease Expo: No Recent Hopitalizations: No Physical Abuse: No Sexual Abuse: No Mistreated: No Fear: No Immunizations Up To Date Date of Influenza Vaccine: May 21, 2019 Seasonal Allergies Seasonal Allergies: No Past Medical History Surgeries: Yes Respiratory: Yes (USES INHALER, SOB) Currently Using CPAP: No Currently Using BIPAP: No Cardiac: Yes Chronic Edema/Swelling, Heart Murmur, Hypertension Neurological: No Reproductive Disorders: No Female Reproductive Disorders: 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 0.0oz. [id number]; 23.00 BMI Method: General Appearance: WD/WN, no apparent distress, other (SPEECH SLURRED, SLOW MENTATION--APPEARS INTOXICATED. STRONG ODOR OF ETOH. CHEWING TOBACCO IN MOUTH) HEENT: PERRL/EOMI, TMs normal, pharynx normal, other (LARGE HEMATOMA TO LEFT BROW AREA; RESIDUE FROM CHEWING TOBACCO IN MOUTH) Neck: non-tender, full range of motion, supple, normal inspection Cardiovascular: normal peripheral pulses, regular rate, rhythm, no murmur Respiratory: chest non-tender, normal breath sounds, no respiratory distress, no accessory muscle use Peripheral Pulses: 1+ Dorsalis Pedis (R), 1+ Left Dors-Pedis (L), 1+ Radial Pulses (R), 1+ Radial Pulses (L) Gastrointestinal: normal bowel sounds, non tender, soft Back: no CVA tenderness, no vertebral tenderness Extremities: normal capillary refill, pedal edema (2+ BILATERALLY), other (MARKED TENDERNESS AND MODERATE SWELLING AND VERY LIMITED ROM TO LEFT SHOULDER AREA. DISTAL MOTOR/SENSORY/VASCULAR INTACT. NO HIP OR LOWER EXTREMITY TENDERNESS. 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 ), other (SORES/SCARS/SCABS TO FOREARMS, FACE AND UPPER BACK) [place] Coma Score Best Eye Response: (4) Open Spontaneously Best Verbal Response: (5) Oriented Best Motor Response: (6) Obeys Commands [place] Total: 15 Procedures/Interventions Splinting and Joint Reduction : Immobilizers: Medium Shoulder Progress/Results/Core Measures Results/Orders Lab Results Laboratory Tests Test 10/29/19 22:31 Range/Units White Blood Count 8.7 4.3-11.0 10^3/uL Red Blood Count 4.58 4.35-5.85 10^6/uL Hemoglobin 15.2 11.5-16.0 G/DL Hematocrit 44 35-52 % Mean Corpuscular Volume 95 80-99 FL Mean Corpuscular Hemoglobin 33 25-34 PG Mean Corpuscular Hemoglobin Concent 35 32-36 G/DL Red Cell Distribution Width 13.5 10.0-14.5 % Platelet Count 209 130-400 10^3/uL Mean Platelet Volume 9.8 7.4-10.4 FL Neutrophils (%) (Auto) 50 42-75 % Lymphocytes (%) (Auto) 38 12-44 % Monocytes (%) (Auto) 6 0-12 % Eosinophils (%) (Auto) 5 0-10 % Basophils (%) (Auto) 1 0-10 % Neutrophils # (Auto) 4.4 1.8-7.8 X 10^3 Lymphocytes # (Auto) 3.3 1.0-4.0 X 10^3 Monocytes # (Auto) 0.5 0.0-1.0 X 10^3 Eosinophils # (Auto) 0.5 H 0.0-0.3 10^3/uL Basophils # (Auto) 0.1 0.0-0.1 10^3/uL Prothrombin Time 18.7 H 12.2-14.7 SEC INR Comment 1.5 H 0.8-1.4 Activated Partial Thromboplast Time 39 H 24-35 SEC Sodium Level 123 *L 135-145 MMOL/L Potassium Level 3.7 3.6-5.0 MMOL/L Chloride Level 89 L 98-107 MMOL/L Carbon Dioxide Level 18 L 21-32 MMOL/L Anion Gap 16 H 5-14 MMOL/L Blood Urea Nitrogen 6 L 7-18 MG/DL Creatinine 0.83 0.60-1.30 MG/DL Estimat Glomerular Filtration Rate > 60 BUN/Creatinine Ratio 7 Glucose Level 149 H 70-105 MG/DL Calcium Level 8.8 8.5-10.1 MG/DL Corrected Calcium 8.5 8.5-10.1 MG/DL Total Bilirubin 0.9 0.1-1.0 MG/DL Aspartate Amino Transf (AST/SGOT) 32 5-34 U/L Alanine Aminotransferase (ALT/SGPT) 17 0-55 U/L Alkaline Phosphatase 113 40-136 U/L Total Protein 8.4 H 6.4-8.2 GM/DL Albumin 4.4 3.2-4.5 GM/DL Acetaminophen Level < 10 L 10-30 UG/ML Serum Alcohol 268 H <10 MG/DL My Orders Orders - JOSÉ TRIMBLE DO Ns Iv 1000 Ml (Sodium Chloride 0.9%) (10/29/19 22:31) Ed Iv/Invasive Line Start (10/29/19 22:29) Monitor-Rhythm Ecg Trace Only (10/29/19 22:29) Chest 1 View, Ap/Pa Only (10/29/19 22:29) Shoulder, Left, 3 Views (10/29/19:) Humerus, Left, 2 Views (10/29/19:) Pelvis (10/29/19:29) Acetaminophen (10/29/19 22:) Alcohol (10/29/19 22:29) Cbc With Automated Diff (10/29/19:) Comprehensive Metabolic Panel (10/29/19) Drug Screen Stat (Urine) (10/29/19:) Protime With Inr (10/29/19:) Partial Thromboplastin Time (10/29/19:) Ua Culture If Indicated (10/29/19:) Ed Iv/Invasive Line Start (10/29/19:29) Ns Iv 1000 Ml (Sodium Chloride 0.9%) (10/29/19 22:29) Ct Head/Face/Cervical Wo (10/29/19 22:41) Ed Iv/Invasive Line Start (10/29/19 23:11) Ns Iv 1000 Ml (Sodium Chloride 0.9%) (10/29/19 23:11) Cervical Collar (10/29/19 23:13) Shoulder Immoblizer (10/30/19 00:00) Medications Given in ED Current Medications Medications Dose Ordered Sig/Josue Route Start Time Stop Time Status Last Admin Dose Admin Sodium Chloride 1,000 ml @ 0 mls/hr Q0M ONCE IV 10/29/19 22:29 10/29/19 22:39 DC 10/29/19 22:30 1,000 MLS/HR Sodium Chloride 1,000 ml @ 0 mls/hr Q0M ONCE IV 10/29/19 23:11 10/29/19 23:13 DC 10/30/19 00:02 1,000 MLS/HR Vital Signs/I&O 10/29/19 22:27 Temp 36.8 Pulse 53 Resp 20 B/P (MAP) 128/88 (101) Pulse Ox 97 O2 Delivery Room Air Blood Pressure Mean: 101 Progress Progress Note : Progress Note CERVICAL COLLAR IMMEDIATELY PLACED ON PT'S ARRIVAL, AND LEFT IN PLACE THROUGHOUT ER STAY, PT IS INTOXICATED NO DETERIORATION IN PT'S CONDITION DURING ER STAY Diagnostic Imaging Comments CT HEAD/MAXILLOFACIALS/CERVICAL SPINE--LEFT FRONTAL SCALP HEMATOMA, CHRONIC MICROVASCULAR CHANGES IN BRAIN, CHRONIC DEGENERATIVE CHANGES OF CERVICAL SPINE, LOW DENSITY LESIONS IN LEFT THYROID GLAND, OTHERWISE NO ACUTE PROCESS--PER [facility] VIA FAX AT 2346 CXR--LEFT PROXIMAL HUMERUS FX. CARDIOMEGALY, PENDING RADIOLOGIST REVIEW PELVIS XRAY--NO ACUTE PROCESS, PENDING RADIOLOGIST REVIEW XRAYS LEFT SHOULDER AND HUMERUS--MILDLY DISPLACED FRACTURE OF PROXIMAL HUMERUS, PENDING RADIOLOGIST REVIEW Reviewed: Reviewed by Me Departure Communication (Admissions) 0001--SPOKE WITH DR. ULRICH, TRAUMA SURGEON DIGITAL MEDIA MANAGER. IS AGREEABLE TO ADMITTING PT FOR OBSERVATION, NO ORTHOPEDIC SERVICES AVAILABLE HERE THIS WEEKEND, AND INJURY DOES NOT REQUIRE IMMEDIATE SURGERY. 0004--SPOKE WITH DR. GEIGER, HOSPITALIST DIGITAL MEDIA MANAGER FOR [facility]. ACCEPTS PT FOR ADMIT Impression Primary Impression: S/P FALL FROM STANDING Additional Impressions: Closed fracture of left proximal humerus Minor head injury without loss of consciousness Hyponatremia Alcohol intoxication NIDDM Periorbital hematoma of left eye Disposition: ADMITTED INPATIENT Condition: Stable Admissions Decision to Admit Reason: Admit from ER (General) Decision to Admit/Date: Oct 30, 2019 Time/Decision to Admit Time: 00:01 Departure-Patient Inst. Referrals: [facility] (PCP/Family) Primary Care Physician JOSÉ TRIMBLE DO Oct 29, 2019 23:29
[2019-10-30] MEDS ORDERED: fentaNYL INJECTION 100 MCG/2 ML AMP IVP ONE (00:15)
[2019-10-30] MEDS ORDERED: NS IV 1000 ML 1,000 ML IV ONE (00:17)
[2019-10-30 01:00] VITALS: BP 108/71
--- NOTE | 2019-10-30 01:00 | NUR ---
LILIAM EARL admitted to room 411-1, with an admitting diagnosis of ALCOHOL INTOXICATION, HYPONATREMIA, S/P FALL, FX TO L HUMERUS, AND FALL, on 10/30/19 from ED via STRETCHER, accompanied by ED STAFF. LILIAM EARL introduced to surroundings, call light, bed controls, phone, TV, temperature control, lights, meal times, smoking policy, visitor policy, side rail policy, bathrooms and showers. Patient Rights given to patient in the handbook. LILIAM EARL verbalizes understanding that [facility] is not responsible for the loss or damage to any personal effects or valuables that are kept in the patients posession during their hospitalization. LILIAM EARL verbalizes understanding of Interdisciplinary Patient Education. Patient and/or family were informed about the Rapid Response Team and its purpose.
[2019-10-30] MEDS ORDERED: D5 1/2 NS W/KCL 20 MEQ/L 1,000 ML IV ONE (01:05)
[2019-10-30] MEDS ORDERED: THIAMINE INJECTION 100 MG, FOLIC ACID INJECTION 1 MG, MAGNESIUM SULFATE 2 GM, VITAMIN M... IV SCH ×5 (01:27)
[2019-10-30] MEDS ORDERED: D5 NS W/KCL 20 MEQ/L 1,000 ML IV SCH (01:30)
[2019-10-30] MEDS ORDERED: ONDANSETRON 4 MG (ZOFRAN) ORAL DISSOLVE TAB SL PRN (01:30)
[2019-10-30] MEDS ORDERED: LORazepam INJ 2 MG/ML (ATIVAN) VIAL IV PRN (01:30)
[2019-10-30] MEDS ORDERED: LORazepam 1 MG (ATIVAN) TAB PO PRN (01:30)
[2019-10-30] MEDS ORDERED: ANTACID SUSP 30 ML UDC (MYLANTA) PO PRN (01:30)
[2019-10-30] MEDS ORDERED: SENNA W/DOCUSATE (SENOKOT S) TABLET PO PRN (01:30)
[2019-10-30] MEDS ORDERED: LORazepam INJ 2 MG/ML (ATIVAN) VIAL IM/IV PRN (01:30)
[2019-10-30 01:41] LABS: BILIRUBIN,URINE NEGATIVE (NEGATIVE); CLARITY,URINE CLEAR; COLOR,URINE YELLOW; GLUCOSE, URINE (UA) NEGATIVE (NEGATIVE); KETONES,URINE NEGATIVE (NEGATIVE); LEUKOCYTE ESTERASE ,URINE NEGATIVE (NEGATIVE); NITRITE,URINE NEGATIVE (NEGATIVE); PH,URINE 5.5 (5-9); PROTEIN,URINE NEGATIVE (NEGATIVE)
[2019-10-30 01:51] LABS: BACTERIA,URINE NEGATIVE /HPF; RBC,URINE RARE /HPF; SQUAMOUS EPITHELIAL CELL,UR RARE /HPF
[2019-10-30 01:56] LABS: AMPHETAMINE SCREEN, URINE NEGATIVE (NEGATIVE); BARBITURATE SCREEN URINE NEGATIVE (NEGATIVE); BENZODIAZEPINES SCREEN URINE NEGATIVE (NEGATIVE); CANNABINOID SCREEN, URINE NEGATIVE (NEGATIVE); COCAINE SCREEN URINE NEGATIVE (NEGATIVE); METHADONE STAT NEGATIVE (NEGATIVE); METHAMPHETAMINE SCREEN URINE S NEGATIVE (NEGATIVE); OPIATE SCREEN URINE POSITIVE (NEGATIVE); OXYCODONE STAT NEGATIVE (NEGATIVE); PROPOXYPHENE STAT NEGATIVE (NEGATIVE); TRICYCLIC ANTIDEPRESSANTS SCRE NEGATIVE (NEGATIVE)
--- NOTE | 2019-10-30 02:00 | NUR ---
PT REMAINS A/O X4 WITH SLIGHT VERBAL SLURRING. PT IS VERY COOPERATIVE AND PLEASANT.
[2019-10-30] MEDS: fentaNYL INJECTION 100 MCG/2 ML AMP IV PRN (03:43)
[2019-10-30 05:21] LABS: BASOPHILS % (AUTO) 0 % (0-10); EOSINOPHILS % (AUTO) 0 % (0-10); HEMATOCRIT 37 % (35-52); HEMOGLOBIN 12.8 G/DL (11.5-16.0); LYMPHOCYTES % (AUTO) 11 % (12-44); MEAN CORPUSCULAR HEMOGLOBIN 33 PG (25-34); MEAN CORPUSCULAR HGB CONC 35 G/DL (32-36); MEAN CORPUSCULAR VOLUME 96 FL (80-99); MEAN PLATELET VOLUME 10.4 FL (7.4-10.4); MONOCYTES # (AUTO) 0.4 X 10^3 (0.0-1.0); MONOCYTES % (AUTO) 4 % (0-12); NEUTROPHILS % (AUTO) 85 % (42-75); PLATELET COUNT 172 10^3/uL (130-400); RED CELL DISTRIBUTION WIDTH 13.3 % (10.0-14.5); WHITE BLOOD COUNT 9.5 10^3/uL (4.3-11.0)
[2019-10-30 05:33] LABS: ALBUMIN 3.4 GM/DL (3.2-4.5); CHLORIDE 98 MMOL/L (98-107); POTASSIUM 4.3 MMOL/L (3.6-5.0)
[2019-10-30 05:34] LABS: CALCIUM 7.2 MG/DL (8.5-10.1)
[2019-10-30 05:35] LABS: GLUCOSE 154 MG/DL (70-105); TOTAL PROTEIN 6.3 GM/DL (6.4-8.2)
[2019-10-30 05:36] LABS: CARBON DIOXIDE 15 MMOL/L (21-32)
[2019-10-30 05:37] LABS: BILIRUBIN,TOTAL 0.8 MG/DL (0.1-1.0)
[2019-10-30 05:39] LABS: ALKALINE PHOSPHATASE 87 U/L (40-136); CREATININE SERUM 0.63 MG/DL (0.60-1.30); GFR ESTIMATED > 60
[2019-10-30 05:40] LABS: BUN/CREATININE RATIO 8
[2019-10-30 05:42] LABS: ALANINE AMINOTRANSFERASE 13 U/L (0-55)
[2019-10-30 05:45] LABS: SODIUM 124 MMOL/L (135-145)
[2019-10-30 06:14] VITALS: BP 103/57
[2019-10-30] MEDS: inSUlin ASPART (NovoLOG) 1 UNIT/0.01 ML (CHARGE PER UNIT) SC SCH ×4 (06:17→21:00)
--- NOTE | 2019-10-30 07:02 | Diagnostic Imaging Report ---
PROCEDURE: CT head, face, and cervical spine without contrast. TECHNIQUE: Multiple contiguous axial images were obtained through the head, neck, and facial bones without the use of intravenous contrast. Sagittal and coronal reformations through the cervical spine and facial bones were also performed. Auto Exposure Controls were utilized during the CT exam to meet ALARA standards for radiation dose reduction. INDICATION: Fall with head, face, neck pain. Left periorbital soft tissue swelling. COMPARISON: 10/25/2015. DISCUSSION: Head/face: Mild diffuse brain volume loss is stable, likely age related. White matter hypoattenuation is nonspecific, greater than expected for age related chronic small vessel ischemic disease. No acute intracranial hemorrhage, mass, midline shift, or hydrocephalus. Left supraorbital soft tissue hematoma. Moderate mucosal thickening within the right maxillary sinus. Mild mucosal thickening within the ethmoid air cells and left maxillary sinus. No air-fluid level identified. Mastoid air cells are well-aerated. No acute fracture identified. The orbits appear symmetrical. Cervical spine: No acute fracture or subluxation. Degenerative disease at the C1-C2 and C5-C6 levels are stable. Soft tissues are unremarkable. Alignment is anatomic. IMPRESSION: 1. Left supraorbital hematoma. No fracture. 2. No acute intracranial abnormality identified. 3. No acute osseous abnormality identified within cervical spine. 4. Agree with preliminary report. Dictated by: Dictated on workstation # [id number]
--- NOTE | 2019-10-30 07:15 | Diagnostic Imaging Report ---
INDICATION: Fall with pelvic pain. COMPARISON: None. DISCUSSION: Single view of the pelvis was obtained. No acute fracture, dislocation, or other osseous abnormality identified. No significant degenerative disease. Alignment is anatomic. Soft tissues are unremarkable. IMPRESSION: 1. Negative pelvis. Dictated by: Dictated on workstation # [id number]
[2019-10-30] MEDS: NS IV 1000 ML 1,000 ML IV SCH ×3 (07:23→20:11)
--- NOTE | 2019-10-30 07:24 | Diagnostic Imaging Report ---
INDICATION: Fall with left shoulder pain. COMPARISON: None. DISCUSSION: Three views left shoulder were obtained. There is a comminuted displaced proximal left humeral neck fracture. The distal shaft is displaced one full shaft width anteriorly. No dislocation. Soft tissue swelling is noted. IMPRESSION: 1. Comminuted displaced proximal left humeral neck fracture. Dictated by: Dictated on workstation # [id number]
--- NOTE | 2019-10-30 07:25 | Diagnostic Imaging Report ---
INDICATION: Fall with chest pain. COMPARISON: 08/07/2016. DISCUSSION: Single portable supine view of the chest was obtained. Cardiomegaly is stable. No consolidation, pleural fluid, or pneumothorax. Comminuted mildly displaced left humeral neck fracture is noted. IMPRESSION: 1. Cardiomegaly without failure. 2. Left humeral neck fracture. Dictated by: Dictated on workstation # [id number]
--- NOTE | 2019-10-30 07:26 | Diagnostic Imaging Report ---
INDICATION: Fall with left shoulder pain. COMPARISON: None. DISCUSSION: Two views of left humerus were obtained. There is a mildly displaced comminuted left proximal humeral neck fracture. No dislocation. Soft tissue swelling is noted. No foreign body. IMPRESSION: 1. Comminuted displaced proximal humeral neck fracture on the left. Dictated by: Dictated on workstation # [id number]
[2019-10-30 07:42] VITALS: BP 121/74
[2019-10-30] MEDS: MAGNESIUM 1 GM/100 ML IVPB 100 ML IV SCH ×2 (08:41→09:34)
[2019-10-30] MEDS: THIAMINE INJECTION 100 MG, FOLIC ACID INJECTION 1 MG, MAGNESIUM SULFATE 2 GM, VITAMIN M... IV SCH ×10 (09:34→16:06)
--- NOTE | 2019-10-30 10:29 | History & Physical-Hospitalist ---
History of Present Illness HPI/Chief Complaint This is a 69-year-old white female who was partying because of her daughter's birthday and tripped over her son's boot falling striking the left side of her head and her left shoulder. She sustained a comminuted displaced left humerus head fracture. She complains this morning of having pain in her shoulder but otherwise is requesting to go home. I discussed with her that she has a low sodium but she says she has had that before. She has been on some psychiatric medications but she doesn't know what this morning for some time for depression. She does note that she drinks almost daily but it's usually 3-4 beers. Source: patient Exam Limitations: no limitations Date Seen 10/30/19 Time Seen by a Provider: 10:00 Attending Physician Mica Lara MD PCP Center/[facility] [place] Referring Physician Date of Admission Oct 30, 2019 at 00:01 Home Medications & Allergies Home Medications Reviewed patient Home Medication Reconciliation performed by pharmacy medication reconciliations target aircraft technician and/or nursing. Patients Allergies have been reviewed. 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) Alcohol Use: Regular Use (DRINKS DAILY) Alcohol Beverage of Choice: Beer Recreational Drug Use: No Smoking Status: Never a Smoker (CHEWS TOBACCO DAILY) Former Smoker, Quit: Jul 21, 2005 Type Used: Smokeless Tobacco 2nd Hand Smoke Exposure: Yes Recent Foreign Travel: No Contact w/other who traveled: No Recent Hopitalizations: No Recent Infectious Disease Expo: No Immunizations Up To Date Date of Pneumonia Vaccine: Oct 19, 2017 Date of Influenza Vaccine: May 21, 2019 Seasonal Allergies Seasonal Allergies: No Past Medical History Currently Using CPAP: No Currently Using BIPAP: No Cardiac: Chronic Edema/Swelling, Heart Murmur, Hypertension : No Reproductive: No Sexually Transmitted Disease: No HIV/AIDS: No Female Reproductive Disorders: Denies Menopausal Musculoskeletal: Arthritis, Chronic Back Pain Endocrine: Diabetes, Non-Insulin dep Psychosocial: Anxiety, Depression History of Blood Disorders: No Adverse Reaction to Blood Mabry: No Review of Systems Constitutional: see HPI EENTM: other (Headache) Respiratory: no symptoms reported Cardiovascular: no symptoms reported Gastrointestinal: no symptoms reported Genitourinary: no symptoms reported Musculoskeletal: joint pain Skin: no symptoms reported Psychiatric/Neurological: Anxiety Physical Exam Physical Exam Vital Signs Vital Signs - First Documented 10/29/19 22:27 Temp 36.8 Pulse 53 Resp 20 B/P (MAP) 128/88 (101) Pulse Ox 97 O2 Delivery Room Air Capillary Refill : Less Than 3 SecondsLess Than 3 Seconds Height, Weight, BMI Height: 0'0.00" Weight: 0lbs. 0.0oz. 0.644716nq; 24.48 BMI Method: General Appearance: WD/WN HEENT: Other (Large hematoma and ecchymosis left eye) Neck: Limited Range of Motion (In a hard cervical collar) Respiratory: Lungs Clear, Normal Breath Sounds, No Accessory Muscle Use, No Respiratory Distress Cardiovascular: Systolic Murmur (2-3/6) Gastrointestinal: Normal Bowel Sounds, Non Tender, Soft Back: Normal Inspection Extremity: Normal Capillary Refill, No Calf Tenderness, No Pedal Edema, Other (Left arm in a sling) Neurologic/Psychiatric: Alert, Oriented x3, No Motor/Sensory Deficits, Normal Mood/Affect Skin: Normal Color, Warm/Dry Lymphatic: No Adenopathy Results Results/Procedures Labs Laboratory Tests 10/29/19 22:31 10/30/19 04:38 Patient resulted labs reviewed. Imaging: Reviewed Imaging Report Assessment/Plan Admission Diagnosis Comminuted displaced left humeral head fracture Hyponatremia Acute alcohol intoxication Chronic alcohol use History of depression Plan for surgical consultation removed cervical collar check urine lites and probable discharge tomorrow morning Admission Status: Observation Clinical Quality Measures DVT/VTE Risk/Contraindication: Risk Factor Score Per Nursin RFS Level Per Nursing on Admit: 2=Moderate Copy Copies To 1: [facility]/MICA DENSON MD Oct 30, 2019 10:29
[2019-10-30] MEDS: HYDROcodone/APAP 5 MG/325 MG (LORTAB) TAB PO SCH ×3 (10:45→20:02)
[2019-10-30 11:12] VITALS: BP 118/69
--- NOTE | 2019-10-30 13:33 | Consultation - Surgery ---
History of Present Illness History of Present Illness Patient Consulted On(brandy/time) 10/30/19 13:28 Time Seen by Provider: 12:23 History of Present Illness Surgery asked to consult regarding Humerus Fracture. HPI per ED: PT ARRIVES VIA POV--STATES HER SON AND HIS S.O. DROVE HER HERE, STATES SHE "THINKS SHE TRIPPED" AND FELL FACE FIRST ONTO PORCH, DENIES LOSS OF CONSCIOUSNESS DENIES NECK PAIN, C/O PAIN TO LEFT BROW AREA AND PAIN TO LEFT SHOULDER,PT DENIES PAIN ANYWHERE ELSE, STATES SHE HAS "BEEN PARTYING TONIGHT" FOR DAUGHTER'S BIRTHD AY-- WITH MULTIPLE FAMILY MEMBERS PRESENT --DESPITE STATE-MANDATED STAY AT HOME ORDERS, STATES SHE HAS HAD "6 BEERS" TONIGHT, AND ALSO TOOK HYDROCODONE TONIGHT-- STATES SHE TAKES IT FOR ARTHRITIS, PT DOES NOT KNOW ANY OF HER MEDICATIONS OR WHAT SHE TAKES THEM FOR, AND DOES NOT KNOW IF SHE IS ON A BLOOD THINNER OR NOT. PT ABLE TO STAND/BEAR WEIGHT AND TRANSFER WITHOUT PAIN IN LEGS/HIPS Location Injury Occurred: LEFT SHOULDER When I spoke to pt this afternoon stated she felt ok, mild BREAUX and arm pain. Had episode of emesis, but prior to that no real nausea. Denied neck pain. Rates arm pain as 5 out of 10, left arm in sling. Allergies and Home Medications Allergies Coded Allergies: Penicillins (Verified Allergy, Unknown, 10/30/19) Home Medications Aripiprazole 15 Mg Tablet, 15 MG PO DAILY, (Reported) Dexlansoprazole 60 Mg Royal., 60 MG PO DAILY, (Reported) Enalapril Maleate 10 Mg Tablet, 10 MG PO DAILY, (Reported) Fluoxetine HCl 20 Mg Capsule, 20 MG PO DAILY, (Reported) Furosemide 40 Mg Tablet, 40 MG PO DAILY, (Reported) Hydrocodone/Acetaminophen 1 Each Tablet, 1 TAB PO Q6H Prescribed by: SANTOS FRAZIER on 05/11/19 1716 Meloxicam 15 Mg Tablet, 15 MG PO DAILY, (Reported) Metformin HCl 500 Mg Tablet, 500 MG PO BID, (Reported) Potassium Chloride 10 Meq Tablet.er, 10 MEQ PO DAILY, (Reported) Tiotropium [place] 1 Inh Aerp, 2 INH IH DAILY, (Reported) Patient Home Medication List Home Medication List Reviewed: Yes Past Clgnlkf-Penhdo-Thmtwa Hx Patient Social History Alcohol Use: Regular Use (DRINKS DAILY) Recreational Drug Use: No Smoking Status: Never a Smoker (CHEWS TOBACCO DAILY) Former Smoker, Quit: Jul 21, 2005 Type Used: Smokeless Tobacco 2nd Hand Smoke Exposure: Yes Recent Foreign Travel: No Contact w/Someone Who Travel: No Recent Infectious Disease Expo: No Recent Hopitalizations: No Immunizations Up To Date Date of Pneumonia Vaccine: Oct 19, 2017 Date of Influenza Vaccine: May 21, 2019 Seasonal Allergies Seasonal Allergies: No Surgeries History of Surgeries: Yes Respiratory History of Respiratory Disorde: Yes (USES INHALER, SOB) Cardiovascular History of Cardiac Disorders: Yes Cardiac Disorders: Chronic Edema/Swelling, Heart Murmur, Hypertension Neurological History of Neurological Disord: No Reproductive System : No Hx Reproductive Disorders: No Sexually Transmitted Disease: No HIV/AIDS: No Female Reproductive Disorders: Denies 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 Genitourinary History of Genitourinary Disor: No Gastrointestinal History of Gastrointestinal Di: No Musculoskeletal History of Musculoskeletal Dis: Yes (ARTHRITIS IN BACK ) Musculoskeletal Disorders: Arthritis, Chronic Back Pain Endocrine History of Endocrine Disorders: Yes Endocrine Disorders: Diabetes, Non-Insulin dep HEENT History of HEENT Disorders: Yes (POOR DENTITION) Cancer History of Cancer: No Psychosocial History of Psychiatric Problem: Yes Behavioral Health Disorders: Anxiety, Depression Integumentary History of Skin or Integumenta: No Blood Transfusions History of Blood Disorders: No Adverse Reaction to a Blood Tr: No Family Medical History Significant Family History: Heart Disease (parents and siblings), Diabetes (brother of DM) Review of Systems-General Constitutional: No chills; malaise, weakness EENTM: No blurred vision, No double vision, No mouth pain, No mouth swelling, No epistaxis Respiratory: No cough, No dyspnea on exertion, No hemoptysis Cardiovascular: No chest pain, No edema Gastrointestinal: No abdominal pain, No jaundice; nausea, vomiting Genitourinary: No dysuria, No frequency, No hematuria Musculoskeletal: joint pain, joint swelling, muscle stiffness, muscle cramps, muscle weakness Psychiatric/Neurological: Anxiety, Depressed; Denies Seizure, Denies Tremors Other pt denies any hx of abnormal bleeding or bruising Physical Exam-General Problems Physical Exam Vital Signs Vital Signs - First Documented 10/29/19 22:27 Temp 36.8 Pulse 53 Resp 20 B/P (MAP) 128/88 (101) Pulse Ox 97 O2 Delivery Room Air Capillary Refill : Less Than 3 SecondsLess Than 3 Seconds General Appearance: WD/WN, mild distress Eyes: Bilateral Eye PERRL, Bilateral Eye EOMI HEENT: pharynx normal; No scleral icterus (R), No scleral icterus (L); other (pt has large bruise surrounding left orbit, along brow and under eye) Neck: supple; No thyromegaly Respiratory: lungs clear, normal breath sounds, no respiratory distress, no accessory muscle use Cardiovascular: regular rate, rhythm, no murmur Gastrointestinal: normal bowel sounds, soft, no organomegaly, no pulsatile mass Back: no CVA tenderness, no vertebral tenderness Extremities: no pedal edema, no calf tenderness, other (left arm in sling, right arm good ROM) Neurologic/Psychiatric: normal mood/affect, oriented x 3 Lymphatic: no adenopathy (neck, axilla or groin) Data Review Labs Laboratory Tests 10/29/19 22:31: White Blood Count 8.7, Red Blood Count 4.58, Hemoglobin 15.2, Hematocrit 44, Mean Corpuscular Volume 95, Mean Corpuscular Hemoglobin 33, Mean Corpuscular Hemoglobin Concent 35, Red Cell Distribution Width 13.5, Platelet Count 209, Mean Platelet Volume 9.8, Neutrophils (%) (Auto) 50, Lymphocytes (%) (Auto) 38, Monocytes (%) (Auto) 6, Eosinophils (%) (Auto) 5, Basophils (%) (Auto) 1, Neutr ophils # (Auto) 4.4, Lymphocytes # (Auto) 3.3, Monocytes # (Auto) 0.5, Eosinophils # (Auto) 0.5H, Basophils # (Auto) 0.1, Prothrombin Time 18.7H, INR Comment 1.5H, Activated Partial Thromboplast Time 39H, Sodium Level 123*L, Potassium Level 3.7, Chloride Level 89L, Carbon Dioxide Level 18L, Anion Gap 16H , Blood Urea Nitrogen 6L, Creatinine 0.83, Estimat Glomerular Filtration Rate > 60, BUN/Creatinine Ratio 7, Glucose Level 149H, Calcium Level 8.8, Corrected Calcium 8.5, Total Bilirubin 0.9, Aspartate Amino Transf (AST/SGOT) 32, Alanine Aminotransferase (ALT/SGPT) 17, Alkaline Phosphatase 113, Total Protein 8.4H, Albumin 4.4, Acetaminophen Level < 10L, Serum Alcohol 268H 10/30/19 00:15: Urine Color YELLOW, Urine Clarity CLEAR, Urine pH 5.5, Urine Specific [place] 1.025H, Urine Protein NEGATIVE, Urine Glucose (UA) NEGATIVE, Urine Ketones NEGATIVE, Urine Nitrite NEGATIVE, Urine Bilirubin NEGATIVE, Urine Urobilinogen 0.2, Urine Leukocyte Esterase NEGATIVE, Urine RBC (Auto) TRACE-I, Urine RBC RARE, Urine WBC NONE, Urine Squamous Epithelial Cells RARE, Urine Crystals NONE, Urine Bacteria NEGATIVE, Urine Casts PRESENT, Urine Hyaline Casts 2-5H, Urine Mucus NEGATIVE, Urine Culture Indicated NO, Urine Opiates Screen POSITIVEH, Urine Oxycodone Screen NEGATIVE, Urine Methadone Screen NEGATIVE, Urine Propoxyphene Screen NEGATIVE, Urine Barbiturates Screen NEGATIVE, Ur Tricyclic Antidepressants Screen NEGATIVE, Urine Phencyclidine Screen NEGATIVE, Urine Amphetamines Screen NEGATIVE, Urine Methamphetamines Screen NEGATIVE, Urine Benzodiazepines Screen NEGATIVE, Urine Cocaine Screen NEGATIVE, Urine Cannabinoids Screen NEGATIVE 10/30/19 04:38: White Blood Count 9.5, Red Blood Count 3.86L, Hemoglobin 12.8, Hematocrit 37, Mean Corpuscular Volume 96, Mean Corpuscular Hemoglobin 33, Mean Corpuscular Hemoglobin Concent 35, Red Cell Distribution Width 13.3, Platelet Count 172, Mean Platelet Volume 10.4, Neutrophils (%) (Auto) 85H, Lymphocytes (%) (Auto) 11L, Monocytes (%) (Auto) 4, Eosinophils (%) (Auto) 0, Basophils (%) (Auto) 0, Neutrophils # (Auto) 8.0H, Lymphocytes # (Auto) 1.0, Monocytes # (Auto) 0.4, Eosinophils # (Auto) 0.0, Basophils # (Auto) 0.0, Sodium Level 124*L, Potassium Level 4.3, Chloride Level 98, Carbon Dioxide Level 15L, Anion Gap 11, Blood Urea Nitrogen 5L, Creatinine 0.63, Estimat Glomerular Filtration Rate > 60, BUN/Creatinine Ratio 8, Glucose Level 154H, Calcium Level 7.2L, Corrected Calcium 7.7L, Total Bilirubin 0.8, Aspartate Amino Transf (AST/SGOT) 27, Alanine Aminotransferase (ALT/SGPT) 13, Alkaline Phosphatase 87, Total Protein 6.3L, Albumin 3.4, Magnesium Level 1.4L 10/30/19 05:15: Glucometer 148H 10/30/19 10:59: Glucometer 131H Assessment/Plan Assessment/Plan Assessment/Plan Left Proximal Humerus Fracture - comminuted Hyponatremia EtOH intoxication Abnormal Coagulation profile Vomiting Pt needs to be on free water restriction, I took water out of her room. I spoke with Ortho; Humerus does not need to be fixed immediately, but should be fixed in the next couple of weeks. Will recheck labs to make sure they are normalizing. Will try liquids (but stick to broths and Gatorade) and give anti-emetics as needed. Pain control, use IS and ambulate. Clinical Quality Measures DVT/VTE Risk/Contraindication: Risk Factor Score Per Nursin RFS Level Per Nursing on Admit: 2=Moderate CIPRIANO ULRICH DO Oct 30, 2019 13:33
[2019-10-30 15:31] VITALS: BP 116/79
[2019-10-30 19:26] VITALS: BP 112/67
[2019-10-30] MEDS: ONDANSETRON 4 MG/2 ML (SDV) Z0FRAN IV PRN (20:01)
[2019-10-31] VITALS (7 sets, daily range): BP systolic 101–146; BP diastolic 56–78
[2019-10-31] MEDS: fentaNYL INJECTION 100 MCG/2 ML AMP IV PRN (00:10)
[2019-10-31] MEDS: ONDANSETRON 4 MG/2 ML (SDV) Z0FRAN IV PRN (00:10)
[2019-10-31] MEDS: HYDROcodone/APAP 5 MG/325 MG (LORTAB) TAB PO SCH ×4 (03:30→21:01)
[2019-10-31 05:09] LABS: BASOPHILS % (AUTO) 0 % (0-10); EOSINOPHILS % (AUTO) 0 % (0-10); HEMATOCRIT 31 % (35-52); HEMOGLOBIN 10.7 G/DL (11.5-16.0); LYMPHOCYTES % (AUTO) 16 % (12-44); MEAN CORPUSCULAR HEMOGLOBIN 33 PG (25-34); MEAN CORPUSCULAR HGB CONC 35 G/DL (32-36); MEAN CORPUSCULAR VOLUME 97 FL (80-99); MEAN PLATELET VOLUME 10.6 FL (7.4-10.4); MONOCYTES # (AUTO) 0.5 X 10^3 (0.0-1.0); MONOCYTES % (AUTO) 8 % (0-12); NEUTROPHILS # (AUTO) 4.7 X 10^3 (1.8-7.8); NEUTROPHILS % (AUTO) 76 % (42-75); PLATELET COUNT 148 10^3/uL (130-400); RED CELL DISTRIBUTION WIDTH 12.9 % (10.0-14.5); WHITE BLOOD COUNT 6.1 10^3/uL (4.3-11.0)
[2019-10-31 05:22] LABS: ALBUMIN 3.2 GM/DL (3.2-4.5); CHLORIDE 99 MMOL/L (98-107); POTASSIUM 4.2 MMOL/L (3.6-5.0); SODIUM 127 MMOL/L (135-145)
[2019-10-31 05:23] LABS: CALCIUM 7.4 MG/DL (8.5-10.1)
[2019-10-31 05:24] LABS: GLUCOSE 121 MG/DL (70-105); TOTAL PROTEIN 5.8 GM/DL (6.4-8.2)
[2019-10-31 05:25] LABS: CARBON DIOXIDE 18 MMOL/L (21-32)
[2019-10-31 05:26] LABS: BILIRUBIN,TOTAL 2.1 MG/DL (0.1-1.0)
[2019-10-31 05:28] LABS: ALKALINE PHOSPHATASE 80 U/L (40-136); CREATININE SERUM 0.59 MG/DL (0.60-1.30); GFR ESTIMATED > 60
[2019-10-31 05:29] LABS: BUN/CREATININE RATIO 7
[2019-10-31] MEDS: inSUlin ASPART (NovoLOG) 1 UNIT/0.01 ML (CHARGE PER UNIT) SC SCH ×4 (05:30→20:57)
[2019-10-31 05:31] LABS: ALANINE AMINOTRANSFERASE 11 U/L (0-55)
--- NOTE | 2019-10-31 06:03 | Progress Note - Surgery ---
Subjective Time Seen by a Provider: 05:14 Subjective/Events-last exam Pt seen and examined, states she is doing good and had no complaints. Nurse stated the pt has been having some nausea, but no more episodes of emesis. Pain is controlled. Review of Systems General: Fatigue, Malaise HEENT: No Visual Changes Pulmonary: No Dyspnea, No Cough Cardiovascular: No: Chest Pain, Palpitations Gastrointestinal: No: Nausea, Vomiting, Abdominal Pain Objective Exam Vital Signs Date Time Temp Pulse Resp B/P (MAP) Pulse Ox O2 Delivery O2 Flow Rate FiO2 10/31/19 04:00 37.0 62 19 129/78 (95) 92 Room Air 10/31/19 00:49 37.1 67 17 109/64 (79) 92 Room Air 10/31/19 00:40 37.1 10/31/19 00:10 37.3 10/30/19 20:32 37.3 10/30/19 20:02 37.3 10/30/19 20:00 94 Room Air 10/30/19 19:26 37.2 80 20 112/67 (82) 94 Room Air 10/30/19 15:31 37.3 76 17 116/79 (91) 96 Room Air 10/30/19 11:12 37.0 58 16 118/69 (85) 95 Room Air 10/30/19 09:19 96 Room Air 10/30/19 07:42 36.6 75 24 121/74 (90) 96 Room Air 10/30/19 06:14 36.7 64 20 103/57 (72) 95 Room Air I & O 10/31/19 07:00 Intake Total 1100 ml Output Total 1400 ml Balance -300 ml Capillary Refill : Less Than 3 SecondsLess Than 3 Seconds General Appearance: WD/WN HEENT: Other (Large hematoma and ecchymosis left eye) Neck: Limited Range of Motion (In a hard cervical collar) Respiratory: Lungs Clear, Normal Breath Sounds, No Accessory Muscle Use, No Respiratory Distress Cardiovascular: Regular Rate, Rhythm, Systolic Murmur (2-3/6) Peripheral Pulses: 1+ Dorsalis Pedis (R), 1+ Left Dors-Pedis (L), 1+ Radial Pulses (R), 1+ Radial Pulses (L) Gastrointestinal: normal bowel sounds, soft, no organomegaly, no pulsatile mass Extremity: Normal Capillary Refill, No Calf Tenderness, No Pedal Edema, Other (Left arm in a sling) Neurologic/Psychiatric: Alert, Oriented x3, Normal Mood/Affect Skin: Normal Color, Warm/Dry Results Lab Laboratory Tests 10/30/19 10:59: Glucometer 131H 10/30/19 15:27: Glucometer 147H 10/30/19 19:31: Glucometer 181H 10/31/19 04:36: White Blood Count 6.1, Red Blood Count 3.20L, Hemoglobin 10.7L, Hematocrit 31L, Mean Corpuscular Volume 97, Mean Corpuscular Hemoglobin 33, Mean Corpuscular He moglobin Concent 35, Red Cell Distribution Width 12.9, Platelet Count 148, Mean Platelet Volume 10.6H, Neutrophils (%) (Auto) 76H, Lymphocytes (%) (Auto) 16, Monocytes (%) (Auto) 8, Eosinophils (%) (Auto) 0, Basophils (%) (Auto) 0, Neutrophils # (Auto) 4.7, Lymphocytes # (Auto) 1.0, Monocytes # (Auto) 0.5, Eosinophils # (Auto) 0.0, Basophils # (Auto) 0.0, Sodium Level 127L, Potassium Level 4.2, Chloride Level 99, Carbon Dioxide Level 18L, Anion Gap 10, Blood Urea Nitrogen 4L, Creatinine 0.59L, Estimat Glomerular Filtration Rate > 60, BUN/Creatinine Ratio 7, Glucose Level 121H, Calcium Level 7.4L, Corrected Calcium 8.0L, Total Bilirubin 2.1H, Aspartate Amino Transf (AST/SGOT) 19, Alanine Aminotransferase (ALT/SGPT) 11, Alkaline Phosphatase 80, Total Protein 5.8L, Albumin 3.2 Assessment/Plan Assessment/Plan Assessment/Plan Left Proximal Humerus Fracture - comminuted Hyponatremia EtOH intoxication Abnormal Coagulation profile Vomiting Pt needs to continue with free water restriction and can start a soft diet. I spoke with Ortho; Humerus does not need to be fixed immediately, but should be fixed in the next couple of weeks. Will recheck labs to make sure they are normalizing. Anti-emetics as needed, pain control, use IS and ambulate. Clinical Quality Measures DVT/VTE Risk/Contraindication: Risk Factor Score Per Nursin RFS Level Per Nursing on Admit: 2=Moderate CIPRIANO ULRICH DO Oct 31, 2019 06:03
[2019-10-31] MEDS: FLUoxetine HCL 20 MG (PROzac) CAP PO SCH (08:28)
[2019-10-31] MEDS: ENALAPRIL 10 MG (VASOTEC) TAB PO SCH (08:29)
[2019-10-31] MEDS: PANTOPRAZOLE 40 MG (PROTONIX) TAB PO SCH (08:29)
[2019-10-31] MEDS: KCL 10 MEQ TAB (MICRO K) PO SCH (08:29)
[2019-10-31] MEDS: THIAMINE INJECTION 100 MG, FOLIC ACID INJECTION 1 MG, MAGNESIUM SULFATE 2 GM, VITAMIN M... IV SCH ×5 (09:06)
[2019-10-31] MEDS: UMECLIDINIUM BROMIDE (INCRUSE ELLIPTA) 7'S IH SCH (10:58)
--- NOTE | 2019-10-31 12:30 | History & Physical-Hospitalist ---
History of Present Illness HPI/Chief Complaint This is a 69-year-old white female who was partying because of her daughter's birthday and tripped over her son's boot falling striking the left side of her head and her left shoulder. She sustained a comminuted displaced left humerus head fracture. She complains this morning of having pain in her shoulder but otherwise is requesting to go home. I discussed with her that she has a low sodium but she says she has had that before. She has been on some psychiatric medications but she doesn't know what this morning for some time for depression. She does note that she drinks almost daily but it's usually 3-4 beers. Date Seen 10/31/19 Time Seen by a Provider: 12:00 Attending Physician Mica Lara MD [facility] Referring Physician Date of Admission Oct 30, 2019 at 12:03 Home Medications & Allergies Home Medications Reviewed patient Home Medication Reconciliation performed by pharmacy medication reconciliations hydro plant technician and/or nursing. Patients Allergies have been reviewed. 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) Alcohol Use: Regular Use (DRINKS DAILY) Alcohol Beverage of Choice: Beer Recreational Drug Use: No Smoking Status: Never a Smoker (CHEWS TOBACCO DAILY) Former Smoker, Quit: Jul 21, 2005 Type Used: Smokeless Tobacco 2nd Hand Smoke Exposure: Yes Recent Foreign Travel: No Contact w/other who traveled: No Recent Hopitalizations: No Recent Infectious Disease Expo: No Immunizations Up To Date Date of Pneumonia Vaccine: Oct 19, 2017 Date of Influenza Vaccine: May 21, 2019 Seasonal Allergies Seasonal Allergies: No Past Medical History Currently Using CPAP: No Currently Using BIPAP: No Cardiac: Chronic Edema/Swelling, Heart Murmur, Hypertension : No Reproductive: No Sexually Transmitted Disease: No HIV/AIDS: No Female Reproductive Disorders: Denies Menopausal Musculoskeletal: Arthritis, Chronic Back Pain Endocrine: Diabetes, Non-Insulin dep Psychosocial: Anxiety, Depression History of Blood Disorders: No Adverse Reaction to Blood Mabry: No Family History Heart Disease (parents and siblings), Diabetes (brother of DM) Review of Systems Constitutional: other (Keeps falling asleep) EENTM: no symptoms reported Respiratory: no symptoms reported Cardiovascular: no symptoms reported Gastrointestinal: nausea (Improved) Musculoskeletal: joint swelling, muscle pain Skin: no symptoms reported Psychiatric/Neurological: No Symptoms Reported Physical Exam Physical Exam Vital Signs Vital Signs - First Documented 10/29/19 22:27 Temp 36.8 Pulse 53 Resp 20 B/P (MAP) 128/88 (101) Pulse Ox 97 O2 Delivery Room Air Capillary Refill : Less Than 3 SecondsLess Than 3 Seconds Height, Weight, BMI Height: 0'0.00" Weight: 0lbs. 0.0oz. [id number]; 24.48 BMI Method: General Appearance: Chronically ill, Other HEENT: Other (Large ecchymosis over the left eye and hematoma) Neck: Limited Range of Motion Respiratory: Chest Non Tender, Lungs Clear, Normal Breath Sounds, No Accessory Muscle Use, No Respiratory Distress Cardiovascular: Regular Rate, Rhythm, No Edema, No Gallop, No JVD, No Murmur, Normal Peripheral Pulses Gastrointestinal: Normal Bowel Sounds, No Organomegaly, Non Tender, Soft Extremity: Normal Inspection, Normal Range of Motion, No Pedal Edema, Other (Left arm in a sling) Neurologic/Psychiatric: Alert, Oriented x3, No Motor/Sensory Deficits, Normal Mood/Affect Results Results/Procedures Labs Laboratory Tests 10/29/19 22:31 10/30/19 04:38 10/31/19 04:36 Patient resulted labs reviewed. Imaging: Reviewed Imaging Report Assessment/Plan Admission Diagnosis Comminuted displaced left humeral head fracture-appreciate Dr. Smith's consultation, he had discussed this with Dr. Shay, and the patient would benefit from an outpatient follow-up appointment with Dr. Shay Hyponatremia-improving Acute alcohol intoxication-resolved Chronic alcohol use History of depression Rather than an H&P this should be a follow-up progress note, plan to discharge i n the morning if sodium is back up over 130 Admission Status: Inpatient Order (span 2 midnights) Reason for Inpatient Admission: Patient with a history of chronic alcohol use and hyponatremia Clinical Quality Measures DVT/VTE Risk/Contraindication: Risk Factor Score Per Nursin RFS Level Per Nursing on Admit: 2=Moderate MICA LARA MD Oct 31, 2019 12:30
[2019-10-31] MEDS: NS IV 1000 ML 1,000 ML IV SCH ×2 (13:39→15:48)
[2019-11-01] MEDS: NS IV 1000 ML 1,000 ML IV SCH (02:57)
[2019-11-01] MEDS: HYDROcodone/APAP 5 MG/325 MG (LORTAB) TAB PO SCH ×2 (03:54→09:43)
[2019-11-01 05:13] LABS: BASOPHILS % (AUTO) 0 % (0-10); EOSINOPHILS # (AUTO) 0.2 10^3/uL (0.0-0.3); EOSINOPHILS % (AUTO) 3 % (0-10); HEMATOCRIT 30 % (35-52); HEMOGLOBIN 9.9 G/DL (11.5-16.0); LYMPHOCYTES # (AUTO) 1.9 X 10^3 (1.0-4.0); LYMPHOCYTES % (AUTO) 27 % (12-44); MEAN CORPUSCULAR HEMOGLOBIN 33 PG (25-34); MEAN CORPUSCULAR HGB CONC 33 G/DL (32-36); MEAN CORPUSCULAR VOLUME 100 FL (80-99); MEAN PLATELET VOLUME 9.8 FL (7.4-10.4); MONOCYTES # (AUTO) 0.5 X 10^3 (0.0-1.0); MONOCYTES % (AUTO) 7 % (0-12); NEUTROPHILS # (AUTO) 4.5 X 10^3 (1.8-7.8); NEUTROPHILS % (AUTO) 62 % (42-75); PLATELET COUNT 138 10^3/uL (130-400); RED CELL DISTRIBUTION WIDTH 13.5 % (10.0-14.5); WHITE BLOOD COUNT 7.2 10^3/uL (4.3-11.0)
[2019-11-01 05:27] LABS: ALBUMIN 2.9 GM/DL (3.2-4.5); CHLORIDE 101 MMOL/L (98-107); POTASSIUM 4.1 MMOL/L (3.6-5.0); SODIUM 130 MMOL/L (135-145)
[2019-11-01 05:28] LABS: CALCIUM 7.4 MG/DL (8.5-10.1)
[2019-11-01 05:29] LABS: GLUCOSE 97 MG/DL (70-105); TOTAL PROTEIN 5.4 GM/DL (6.4-8.2)
[2019-11-01 05:30] LABS: CARBON DIOXIDE 22 MMOL/L (21-32)
[2019-11-01 05:31] LABS: BILIRUBIN,TOTAL 1.3 MG/DL (0.1-1.0)
[2019-11-01 05:33] LABS: ALKALINE PHOSPHATASE 70 U/L (40-136); CREATININE SERUM 0.59 MG/DL (0.60-1.30); GFR ESTIMATED > 60
[2019-11-01 05:34] LABS: BUN/CREATININE RATIO 7
[2019-11-01 05:36] LABS: ALANINE AMINOTRANSFERASE 6 U/L (0-55)
[2019-11-01] MEDS: inSUlin ASPART (NovoLOG) 1 UNIT/0.01 ML (CHARGE PER UNIT) SC SCH (05:53)
[2019-11-01] MEDS: UMECLIDINIUM BROMIDE (INCRUSE ELLIPTA) 7'S IH SCH (07:30)
[2019-11-01] MEDS: THIAMINE INJECTION 100 MG, FOLIC ACID INJECTION 1 MG, MAGNESIUM SULFATE 2 GM, VITAMIN M... IV SCH ×5 (07:38)
[2019-11-01] MEDS: PANTOPRAZOLE 40 MG (PROTONIX) TAB PO SCH (07:39)
[2019-11-01] MEDS: ENALAPRIL 10 MG (VASOTEC) TAB PO SCH (07:39)
[2019-11-01] MEDS: FLUoxetine HCL 20 MG (PROzac) CAP PO SCH (07:39)
[2019-11-01] MEDS: KCL 10 MEQ TAB (MICRO K) PO SCH (07:39)
[2019-11-01 08:00] VITALS: BP 120/77
[2019-11-01] MEDS ORDERED: APIX5TAB PO ×2 (10:31→11:05)
[2019-11-01] MEDS ORDERED: MTP25TSR PO (10:31)
[2019-11-01] MEDS ORDERED: MELO7.5T46 PO (10:31)
[2019-11-01] MEDS ORDERED: AMLO5TAB9 PO (10:31)
--- NOTE | 2019-11-01 10:31 | NUR ---
SPOKE WITH THE PT, WENT THRU THE EXT MED HISTORY AND CALLED [facility] TO COMPLETE THE MED REC ALL MEDS WERE ON THE EXT MED HISTORY AND THE PT WAS ABLE TO TELL ME HOW/WHEN SHE TAKES EACH OTC MEDS: TYLENOL PRN
--- NOTE | 2019-11-01 10:50 | Discharge Summary ---
Diagnosis/Chief Complaint Date of Admission Oct 30, 2019 at 12:03 Date of Discharge 11/01/2019 Admission Diagnosis Admission Diagnosis Acute EtOH Intoxication L Humeral head fracture Chronic EtOH use Left Eye Hematoma Hyponatremia Discharge Diagnosis See Above Discharge Summary-Simple/Stand Consultations Dr Smith: General Surgery Discharge Physical Examination Allergies: Coded Allergies: Penicillins (Verified Allergy, Unknown, 10/30/19) Vitals & I&Os Vital Sign - Last 12Hours Date Time Temp Pulse Resp B/P (MAP) Pulse Ox O2 Delivery O2 Flow Rate FiO2 11/01/19 08:00 36.0 55 20 120/77 (91) 97 Room Air Intake and Output 11/01/19 00:00 Intake Total 390 ml Output Total 250 ml Balance 140 ml General Appearance: Alert, Oriented X3, Cooperative, No Acute Distress HEENT: EOMI, Mucous Memb Moist/Cyr, Other (Large contusion present around left eye, minimal swelling and mild ttp) Respiratory: Clear to Auscultation, Normal Air Movement Cardiovascular: Regular Rate, No Murmurs Abdominal: Normal Bowel Sounds, Soft, No Tenderness, No Masses Extremities: Other (Left arm in sling) Neuro: Normal Speech, Sensation Intact, Cranial Nerves 3-12 NL Hospital Course Was the Problem List Reviewed?: Yes See final discharge diagnosis. Discussion & Recommendations 69 yo F that was admitted with acute EtOH intoxication following a fall that resulted in left eye contusion and L humeral head fracture. Patient is controlled on PO meds and able to transfer with assist x1. She is able to use raised walker for ambulation. Patient has left arm in sling. She was seen by Dr Smith and will followup as outpatient. Patient desires to go home today. Will have close f.u with surgery, ortho surgery and myself in clinic. Discharge Condition at discharge Stable Instructions to patient/family Please see electronic discharge instructions given to patient. Discharge Medications Reviewed and agree with Discharge Medication list on patient's Discharge Instruction sheet Clinical Quality Measures DVT/VTE Risk/Contraindication: Risk Factor Score Per Nursin RFS Level Per Nursing on Admit: 2=Moderate Copy Copies To 1: TATY BRUNNER MD, HOLLY R MD Nov 01, 2019 10:50
--- NOTE | 2019-11-01 10:51 | Progress Note - Surgery ---
Subjective Time Seen by a Provider: 10:16 Subjective/Events-last exam Pt seen and examined, states she is doing fine with minimal pain. No other complaints. Review of Systems General: Fatigue, Malaise HEENT: Head Aches (very minimal) Pulmonary: No Dyspnea, No Cough Cardiovascular: No: Chest Pain, Palpitations Gastrointestinal: No: Nausea, Vomiting, Abdominal Pain Objective Exam Vital Signs Date Time Temp Pulse Resp B/P (MAP) Pulse Ox O2 Delivery O2 Flow Rate FiO2 11/01/19 08:00 36.0 55 20 120/77 (91) 97 Room Air 11/01/19 07:30 94 Room Air 10/31/19 23:15 37.0 70 18 115/68 (84) 96 Room Air 10/31/19 21:00 Room Air 10/31/19 20:12 37.0 74 17 104/70 (81) 96 Room Air 10/31/19 16:37 37.5 51 18 110/67 (81) 95 Room Air 10/31/19 12:00 36.7 53 18 101/56 (71) 92 Room Air I & O 11/01/19 07:00 Intake Total 640 ml Output Total 350 ml Balance 290 ml Capillary Refill : Less Than 3 SecondsLess Than 3 Seconds General Appearance: No Apparent Distress, Chronically ill HEENT: Moist Mucous Membranes, Other (Large ecchymosis over the left eye and hematoma) Neck: Limited Range of Motion Respiratory: Chest Non Tender, Lungs Clear, Normal Breath Sounds, No Accessory Muscle Use, No Respiratory Distress Cardiovascular: Regular Rate, Rhythm, No Edema, No Murmur Peripheral Pulses: 1+ Dorsalis Pedis (R), 1+ Left Dors-Pedis (L), 1+ Radial Pulses (R), 1+ Radial Pulses (L) Gastrointestinal: normal bowel sounds, soft, no organomegaly, no pulsatile mass Extremity: Normal Inspection, Normal Range of Motion, No Pedal Edema, Other (Left arm in a sling) Neurologic/Psychiatric: Alert, Oriented x3, Normal Mood/Affect Results Lab Laboratory Tests 10/31/19 11:03: Glucometer 175H 10/31/19 16:42: Glucometer 159H 10/31/19 20:17: Glucometer 128H 11/01/19 05:04: White Blood Count 7.2, Red Blood Count 2.99L, Hemoglobin 9.9L, Hematocrit 30L, Mean Corpuscular Volume 100H, Mean Corpuscular Hemoglobin 33, Mean Corpuscular Hemoglobin Concent 33, Red Cell Distribution Width 13.5, Platelet Count 138, Mean Platelet Volume 9.8, Neutrophils (%) (Auto) 62, Lymphocytes (%) (Auto) 27, Monocytes (%) (Auto) 7, Eosinophils (%) (Auto) 3, Basophils (%) (Auto) 0, Neutrophils # (Auto) 4.5, Lymphocytes # (Auto) 1.9, Monocytes # (Auto) 0.5, Eosinophils # (Auto) 0.2, Basophils # (Auto) 0.0, Sodium Level 130L, Potassium Level 4.1, Chloride Level 101, Carbon Dioxide Level 22, Anion Gap 7, Blood Urea Nitrogen 4L, Creatinine 0.59L, Estimat Glomerular Filtration Rate > 60, BUN/Creatinine Ratio 7, Glucose Level 97, Calcium Level 7.4L, Corrected Calcium 8.3L, Total Bilirubin 1.3H, Aspartate Amino Transf (AST/SGOT) 15, Alanine Aminotransferase (ALT/SGPT) 6, Alkaline Phosphatase 70, Total Protein 5.4L, Albumin 2.9L Assessment/Plan Assessment/Plan Assessment/Plan Left Proximal Humerus Fracture - comminuted Hyponatremia-improving EtOH intoxication Abnormal Coagulation profile Vomiting Pt should continue with free water restriction at home. I will see her in my office this week so we can set up appt. with Ortho. Clinical Quality Measures DVT/VTE Risk/Contraindication: Risk Factor Score Per Nursin RFS Level Per Nursing on Admit: 2=Moderate CIPRIANO ULRICH DO Nov 01, 2019 10:51
[2019-11-01] MEDS ORDERED: ARIP15TA4 PO (10:53)
[2019-11-01] MEDS ORDERED: ENAL10TA PO (10:53)
[2019-11-01] MEDS ORDERED: HYDR-83 PO (10:53)
[2019-11-01] MEDS ORDERED: FLUO20CA46 PO (10:53)
--- NOTE | 2019-11-01 11:07 | Discharge Summary ---
Discharge [facility] Reconcile Patient Problems Problems Reviewed?: Yes Discharge Medications New, Converted or Re-Newed RX: RX on Chart New Medications: Aripiprazole (Abilify) 15 Mg Tablet 15 MG PO DAILY, #30 TAB Enalapril Maleate (Enalapril Maleate) 10 Mg Tablet 10 MG PO DAILY, #30 TAB Fluoxetine HCl (Fluoxetine HCl) 20 Mg Capsule 20 MG PO DAILY, #30 CAP Hydrocodone/Acetaminophen (Hydrocodone-Acetamin 5-325 mg) 1 Each Tablet 1 TAB PO Q6H, #30 TAB Continued Medications: Amlodipine Besylate (Amlodipine Besylate) 5 Mg Tablet 5 MG PO DAILY, TAB Apixaban (Eliquis) 5 Mg Tablet 5 MG PO BID, #60 TAB (This prescription has been renewed) Metoprolol Succinate (Metoprolol Succinate) 25 Mg Tab.er.24h 25 MG PO DAILY, TAB Discontinued Medications: Meloxicam (Meloxicam) 7.5 Mg Tablet 7.5 MG PO HS, TAB Patient Instructions Goal/Follow Up Appt: You have a curbside appt with Dr Roberson on November 08 @ 120 PM You will have a f.u appt with Dr Smith and he will then refer you to Dr Shay Patient Instructions: - Hold your blood thinner (Eliquis) until seen by Dr Smith this week Activity & Diet Discharge Diet: Cardiac Diet Copy Copies To 1: TATY ROBERSON MD, HOLLY R MD Nov 01, 2019 11:07
[2019-11-01 11:21] VITALS: BP 120/77
--- NOTE | 2019-11-01 11:46 | NUR ---
PT REFUSED ACCUCHECK
--- NOTE | 2019-11-01 12:20 | NUR ---
PT ADVISED NOT TO TAKE ELEQUIS TILL AFTER SURGERY CONSULT
[2019-11-01] MEDS ORDERED: [UNRECOGNIZED DRUG - SUPPLY] ×2 (13:52→13:54)
--- NOTE | 2019-11-01 14:53 | NUR ---
RD ASSESSMENT PMHx: DM; HTN; ETOH use; current admit: humerus fracture PT INTERACTION: Pt was awake and pleasant during nutrition assessment. Pt states current appetite is "eating better here than at home." Note avg PO intake 58% x2d, per chart review. Pt states following a regular diet at home, and has no issues with chewing/swallowing food. Pt states some recent issues with nausea/vomiting. Note 1 episode of emesis on 10/29, per chart review. Pt states no recent issues with constipation/diarrhea, and that her last BM was 10/30. Note pt not currently on bowel regimen per chart review. Pt states no recent wt changes. Note recent 5# wt gain x4mon, per chart review. Pt states current DM management as pretty good, and that her average blood glucose level is between 100-130. Note unable to determine recent HbA1c, per chart review. ABNORMAL NUTRITION-RELATED LAB VALUES LOW: Na 130; BUN 4; cr 0.59; Ca 7.4; Pro 5.4; alb 2.9 HIGH: Est. kcal needs: [id number] kcal | 25-30 kcal/kg Est. Pro needs: 56-68 g Pro | 0.8-1.0 g Pro/kg PES STATEMENT: Inadequate oral intake (NI-2.1) related to loss of appetite | nausea | vomiting as evidenced by pt interview | avg PO intake 58% x2d INTERVENTION: Continue with current diet order of Regular diet. Pt may benefit from consistent CHO diet, if blood glucose levels become elevated. Pt may benefit from nutrition supplementation if PO intake declines. Will continue to follow and reassess as pt needs, intake, and status change. MONITOR/EVALUATE: PO Intake; Plan of Care; Hydration Status; Weight Status; Lab Values Andrew Aguirre, MS, RD, LD
== END 2019-11-01 14:20 | disposition home or self-care (01) | DRG 563 ==
LOC: EDUNIT# 22:12 → ER 22:15 → 4TH 10-30 00:01 → OBSVTOIN 10-30 12:03
PROVIDERS: ADMIT Internal Medicine; ATTEND Internal Medicine
DX: S42.292A Other displaced fracture of upper end of left humerus, initial encounter for closed fracture (principal); S00.12XA Contusion of left eyelid and periocular area, initial encounter; S00.83XA Contusion of other part of head, initial encounter; E87.1 Hypo-osmolality and hyponatremia; F10.929 Alcohol use, unspecified with intoxication, unspecified; F17.220 Nicotine dependence, chewing tobacco, uncomplicated; I10 Essential (primary) hypertension; M47.9 Spondylosis, unspecified; E11.9 Type 2 diabetes mellitus without complications; F41.9 Anxiety disorder, unspecified; F32.9 Major depressive disorder, single episode, unspecified; R79.1 Abnormal coagulation profile; W18.09XA Striking against other object with subsequent fall, initial encounter
CPT/HCPCS: 36415; 70450; 70486; 71045; 72125; 72170; 73030; 73060; 80053; 80306; 80320; 80329; 81000; 82436; 82962; 83735; 84133; 84300; 85025; 85610; 85730; 93041; 94640; 96361; 96374; G0378

== ENCOUNTER 2020-10-12 15:00 | Outpatient (RCR) | payer MEDICARE ==
[~2020-10-12 15:00] MED LIST changes: +ACHD5005 PO; +AMLO-250 PO; +APIX5TAB PO; -ENAL10TA PO; +ENAL10TA16 PO; +FLUO20CA46 PO; +MELO7.5T46 PO; +MTP25TSR PO; +[UNRECOGNIZED DRUG - SUPPLY]
== END 2020-11-20 10:15 | disposition home or self-care (01) ==
PROVIDERS: ATTEND Orthopaedic Surgery
DX: S49.92XA Unspecified injury of left shoulder and upper arm, initial encounter (principal); W01.0XXA Fall on same level from slipping, tripping and stumbling without subsequent striking against object, initial encounter; Z96.612 Presence of left artificial shoulder joint

== ENCOUNTER 2021-05-14 06:00 | Inpatient (IN) | payer MEDICARE ==
[2021-05-14] VITALS (13 sets, daily range): BP systolic 85–134; BP diastolic 58–115
[~2021-05-14] VITALS: Ht 160 cm; Wt 74.7 kg
[2021-05-14] MEDS ORDERED: AZITHROMYCIN INJECTION 500 MG in NS (IVPB) 250 ML IV ONE (06:15)
[2021-05-14] MEDS ORDERED: ACETAMINOPHEN 500 MG TAB (TYLENOL) PO PRN (06:15)
[2021-05-14] MEDS ORDERED: LACTATED RINGERS 1,000 ML IV ONE ×2 (06:15→10:21)
[2021-05-14] MEDS ORDERED: ONDANSETRON 4 MG/2 ML (SDV) Z0FRAN IV PRN ×2 (06:15→12:15)
[2021-05-14] MEDS ORDERED: cefTRIAXone 1,000 MG in WATER (STERILE) FOR INJECTION 10 ML IV ONE (06:15)
[2021-05-14] MEDS ORDERED: NS IV 1000 ML 1,000 ML IV SCH ×3 (06:15→06:30)
--- NOTE | 2021-05-14 06:20 | ED General ---
General Chief Complaint: Fever-Adult/Adol Stated Complaint: FEVER/WEAKNESS Source of Information: Patient, EMS Exam Limitations: No Limitations History of Present Illness Date Seen by Provider: May 14, 2021 Time Seen by Provider: 05:58 Initial Comments Patient to the ER by [facility] with chief complaint of being woken this morning when the need to vomit. She is very weak unable to stand on her own. She lives at home with her adult children who summonsed EMS because she was unable to get out of bed. She had a fever per EMS at 100. She is known to Dr. Brunner for primary care and Dr. Preston for cardiology. She denies any pain anywhere. She still having some nausea after one episode of emesis without blood in it earlier. She says the symptoms are started today and she has had no sick contacts. She has not had Covid or influenza vaccination. Patient states she has not taken any medicine for her symptoms. She denies a history of lung disease nor dependence on supplemental oxygen. She denies dysuria or abdominal pain. She denies constipation or diarrhea. Allergies and Home Medications Allergies Coded Allergies: Penicillins (Verified Allergy, Unknown, 10/30/19) Patient Home Medication List Home Medication List Reviewed: Yes Acetaminophen (Tylenol) 325 Mg Capsule, 325-650 MG PO Q8H PRN for PAIN-MILD (1- 4), (Reported) Entered as Reported by: RUMA KEENE on 05/14/211334 Last Action: Held Amlodipine Besylate (Amlodipine Besylate) 5 Mg Tablet, 5 MG PO DAILY, (Reported) Entered as Reported by: RUMA KEENE on 11/01/19 1031 Last Action: Held Apixaban (Eliquis) 5 Mg Tablet, 5 MG PO Q12H, (Reported) Entered as Reported by: RUMA KEENE on 05/14/211334 Last Action: Continued Diphenhydramine HCl (Benadryl Allergy) 25 Mg Tablet, 25-50 MG PO Q8H PRN for ALLERGY SYMPTOMS, (Reported) Entered as Reported by: RUMA KEENE on 05/14/211334 Last Action: Held Fluoxetine HCl (Fluoxetine HCl) 20 Mg Capsule, 20 MG PO DAILY, (Reported) Entered as Reported by: RUMA KEENE on 05/14/211334 Last Action: Held Meloxicam (Meloxicam) 7.5 Mg Tablet, 7.5 MG PO DAILY, (Reported) Entered as Reported by: RUMA KEENE on 05/14/211334 Last Action: Held Spironolactone (Spironolactone) 25 Mg Tablet, 25 MG PO DAILY, (Reported) Entered as Reported by: RUMA KEENE on 05/14/21 1335 Last Action: Held Discontinued Medications Apixaban (Eliquis) 5 Mg Tablet, 5 MG PO BID Discontinued Reason: No Longer Taking Prescribed by: TATY BRUNNER on 11/01/19 1105 Last Action: Discontinued Aripiprazole (Abilify) 15 Mg Tablet, 15 MG PO DAILY Discontinued Reason: No Longer Taking Prescribed by: TATY BRUNNER on 11/01/19 105 Last Action: Discontinued Enalapril Maleate (Enalapril Maleate) 10 Mg Tablet, 10 MG PO DAILY Discontinued Reason: No Longer Taking Prescribed by: TATY BRUNNER on 11/01/19 105 Last Action: Discontinued Fluoxetine HCl (Fluoxetine HCl) 20 Mg Capsule, 20 MG PO DAILY Discontinued Reason: Duplicate Order Prescribed by: TATY BRUNNER on 11/01/19 105 Last Action: Discontinued Hydrocodone/Acetaminophen (Hydrocodone-Acetamin 5-325 mg) 1 Each Tablet, 1 TAB PO Q6H Discontinued Reason: No Longer Taking Prescribed by: TATY BRUNNER on 11/01/19 105 Last Action: Discontinued Metoprolol Succinate (Metoprolol Succinate) 25 Mg Tab.er.24h, 25 MG PO DAILY, (Reported) Discontinued Reason: No Longer Taking Entered as Reported by: RUMA KEENE on 11/01/19 1031 Last Action: Discontinued [Platform Walker] , (DME) Discontinued Reason: No Longer Taking Prescribed by: DAVID AYERS on 11/01/19 1352 Last Action: Discontinued [Platform Walker] , (DME) Discontinued Reason: No Longer Taking Prescribed by: DAVID AYERS on 11/01/19 1354 Last Action: Discontinued Review of Systems Review of Systems Constitutional: No chills, No diaphoresis, No fever, No malaise EENTM: No ear discharge, No ear pain Respiratory: No cough, No short of breath Cardiovascular: No chest pain, No edema, No palpitations Gastrointestinal: No abdominal pain, No constipation, No diarrhea; nausea, vomiting Genitourinary: No discharge, No dysuria Musculoskeletal: No back pain, No joint pain All Other Systems Reviewed Negative Unless Noted: Yes Past Zosevml-Vctouw-Spmgux Hx Patient Social History Tobacco Use?: No Use of E-Cig and/or Vaping dev: No Substance use?: No Seasonal Allergies Seasonal Allergies: No Past Medical History Surgeries: Yes Respiratory: Yes (USES INHALER, SOB) Currently Using CPAP: No Currently Using BIPAP: No Cardiac: Yes Chronic Edema/Swelling, Heart Murmur, Hypertension Neurological: No Reproductive Disorders: No 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 Sexually Transmitted Disease: No HIV/AIDS: No Genitourinary: No Gastrointestinal: No Musculoskeletal: Yes (ARTHRITIS IN BACK ) Arthritis, Chronic Back Pain Endocrine: Yes Diabetes, Non-Insulin dep HEENT: Yes (POOR DENTITION) Cancer: No Psychosocial: Yes Anxiety, Depression Integumentary: No Blood Disorders: No Adverse Reaction/Blood Tranf: No Family Medical History Heart Disease, Diabetes Physical Exam-Suspected Sepsis Physical Exam Vital Signs Vital Signs - First Documented 05/14/21 05/14/21 06:15 08:12 Temp 38.4 Pulse 116 Resp 18 B/P (MAP) 93/61 (72) Pulse Ox 95 O2 Delivery Nasal Cannula O2 Flow Rate 2.00 Capillary Refill : Height, Weight, BMI Height: 0'0.00" Weight: 0lbs. 0.0oz. 0.404287ev; 24.48 BMI Method: General Appearance: Moderate Distress, Other (Dried emesis on her right shoulder) Eyes: Bilateral Eye Normal Inspection, Bilateral Eye PERRL, Bilateral Eye EOMI HEENT: PERRL/EOMI, TMs Normal, Normal ENT Inspection; No Moist Mucous Membranes Neck: Full Range of Motion, Normal Inspection, Non Tender, Supple Respiratory: Lungs Clear, Normal Breath Sounds, No Accessory Muscle Use, Respiratory Distress (Mild to moderate with oxygen saturations 92% on room air.) Cardiovascular: Regular Rate, Rhythm, Normal Peripheral Pulses, Tachycardia Gastrointestinal: Normal Bowel Sounds, Non Tender, Soft Extremity: Normal Capillary Refill, Normal Inspection, Normal Range of Motion, Non Tender, No Calf Tenderness, No Pedal Edema Neurologic/Psychiatric: Alert, Oriented x3, Normal Mood/Affect Skin: normal color, warm/dry Focused Exam Sepsis Stage: Septic Shock Lactate Level 05/14/21 06:15: Lactic Acid Level 5.09*H 05/14/21 08:41: Lactic Acid Level 1.45 Time of Focused Exam: 07:26 Lactic Acid Level Progress/Results/Core Measures Suspected Sepsis SIRS Temperature: Pulse: Respiratory Rate: Laboratory Tests 05/14/21 06:05: White Blood Count 13.3H Blood Pressure / Mean: 05/14/21 06:15: Lactic Acid Level 5.09*H 05/14/21 08:41: Lactic Acid Level 1.45 Laboratory Tests 05/14/21 06:05: Creatinine 0.79, INR Comment 1.3, Platelet Count 241, Total Bilirubin 1.3H Results/Orders Lab Results Laboratory Tests Test 05/14/21 06:05 05/14/21 06:15 05/14/21 06:18 05/14/21 06:36 Range/Units White Blood Count 13.3 H 4.3-11.0 10^3/uL Red Blood Count 4.38 3.80-5.11 10^6/uL Hemoglobin 12.8 11.5-16.0 g/dL Hematocrit 38 35-52 % Mean Corpuscular Volume 86 80-99 fL Mean Corpuscular Hemoglobin 29 25-34 pg Mean Corpuscular Hemoglobin Concent 34 32-36 g/dL Red Cell Distribution Width 13.9 10.0-14.5 % Platelet Count 241 130-400 10^3/uL Mean Platelet Volume 9.3 9.0-12.2 fL Immature Granulocyte % (Auto) 1 % Neutrophils (%) (Auto) 95 H 42-75 % Lymphocytes (%) (Auto) 2 L 12-44 % Monocytes (%) (Auto) 2 0-12 % Eosinophils (%) (Auto) 0 0-10 % Basophils (%) (Auto) 0 0-10 % Neutrophils # (Auto) 12.6 H 1.8-7.8 10^3/uL Lymphocytes # (Auto) 0.3 L 1.0-4.0 10^3/uL Monocytes # (Auto) 0.3 0.0-1.0 10^3/uL Eosinophils # (Auto) 0.0 0.0-0.3 10^3/uL Basophils # (Auto) 0.0 0.0-0.1 10^3/uL Immature Granulocyte # (Auto) 0.1 0.0-0.1 10^3/uL Neutrophils % (Manual) 76 % Lymphocytes % (Manual) 3 % Monocytes % (Manual) 3 % Band Neutrophils 18 % Toxic Granulation 1+ Prothrombin Time 16.2 H 12.2-14.7 SEC INR Comment 1.3 0.8-1.4 Activated Partial Thromboplast Time 33 24-35 SEC Sodium Level 126 L 135-145 MMOL/L Potassium Level 3.6 3.6-5.0 MMOL/L Chloride Level 93 L 98-107 MMOL/L Carbon Dioxide Level 15 L 21-32 MMOL/L Anion Gap 18 H 5-14 MMOL/L Blood Urea Nitrogen 7 7-18 MG/DL Creatinine 0.79 0.60-1.30 MG/DL Estimat Glomerular Filtration Rate 71 BUN/Creatinine Ratio 9 Glucose Level 119 H 70-105 MG/DL Calcium Level 8.5 8.5-10.1 MG/DL Corrected Calcium 9.1 8.5-10.1 MG/DL Total Bilirubin 1.3 H 0.1-1.0 MG/DL Aspartate Amino Transf (AST/SGOT) 22 5-34 U/L Alanine Aminotransferase (ALT/SGPT) 10 0-55 U/L Alkaline Phosphatase 76 40-136 U/L C-Reactive Protein High Sensitivity 3.23 H 0.00-0.50 MG/DL Total Protein 6.4 6.4-8.2 GM/DL Albumin 3.3 3.2-4.5 GM/DL Lipase 91 H 8-78 U/L Procalcitonin 1.26 H <0.10 NG/ML Lactic Acid Level 5.09 *H 0.50-2.00 MMOL/L Urine Color YELLOW Urine Clarity CLEAR Urine pH 6.0 5-9 Urine Specific [place] 1.015 L 1.016-1.022 Urine Protein NEGATIVE NEGATIVE Urine Glucose (UA) NEGATIVE NEGATIVE Urine Ketones TRACE H NEGATIVE Urine Nitrite NEGATIVE NEGATIVE Urine Bilirubin NEGATIVE NEGATIVE Urine Urobilinogen 0.2 < = 1.0 MG/DL Urine Leukocyte Esterase TRACE H NEGATIVE Urine RBC (Auto) 1+ H NEGATIVE Urine RBC 2-5 H /HPF Urine WBC 0-2 /HPF Urine Squamous Epithelial Cells 0-2 /HPF Urine Crystals NONE /LPF Urine Bacteria TRACE /HPF Urine Casts PRESENT /LPF Urine Hyaline Casts RARE /LPF Urine Mucus NEGATIVE /LPF Urine Culture Indicated NO Influenza Type A (RT-PCR) Not Detected Not Detecte Influenza Type B (RT-PCR) Not Detected Not Detecte SARS-CoV-2 RNA (RT-PCR) Not Detected Not Detecte Blood Gas Puncture Site LEFT RADIAL Blood Gas Patient Temperature 38.4 Arterial Blood pH 7.41 7.37-7.43 Arterial Blood Partial Pressure CO2 31 L 35-45 MMHG Arterial Blood Partial Pressure O2 94 H 79-93 MMHG Arterial Blood HCO3 19 L 23-27 MMOL/L Arterial Blood Total CO2 19.7 L 21.0-31.0 MMOL/L Arterial Blood Oxygen Saturation 98 94-100 % Arterial Blood Base Excess -4.7 L -2.5-2.5 MMOL/L Jeffrey Test YES-POS Blood Gas Ventilator Setting NO Blood Gas Inspired Oxygen 2 Test 05/14/21 08:41 Range/Units Lactic Acid Level 1.45 0.50-2.00 MMOL/L My Orders Orders - SLIM RICHARDSON Cbc With Automated Diff (05/14/21 06:12) Comprehensive Metabolic Panel (05/14/21 06:12) Blood Culture (05/14/21 06:12) Sputum Culture (05/14/21 06:12) Urinalysis (05/14/21 06:12) Urine Culture (05/14/21 06:12) Protime With Inr (05/14/21 06:12) Partial Thromboplastin Time (05/14/21 06:12) Chest 1 View, Ap/Pa Only (05/14/21 06:12) Acetaminophen Tablet (Tylenol Tablet) (05/14/21 06:15) Ed Iv/Invasive Line Start (05/14/21 06:12) Ed Iv/Invasive Line Start (05/14/21 06:12) Vital Signs Adult Sepsis Patie Q15M (05/14/21 06:12) Ondansetron Injection (Zofran Injectio (05/14/21 06:15) O2 (05/14/21 06:12) Remove Rings In Anticipation O (05/14/21 06:12) Lactic Acid Analyzer (05/14/21 06:12) Influenza A And B By Pcr (05/14/21 06:12) Ns Iv 1000 Ml (Sodium Chloride 0.9%) (05/14/21 06:15) Ceftriaxone (Rocephin) (05/14/21 06:15) Azithromycin Injection (Zithromax Inject (05/14/21 06:15) Ed Iv/Invasive Line Start (05/14/21 06:12) Lactated Ringers (Lr 1000 Ml Iv Solution (05/14/21 06:15) Covid 19 Inhouse Test (05/14/21 06:12) Hs C Reactive Protein (05/14/21 06:16) Procalcitonin (Pct) (05/14/21 06:16) Ed Iv/Invasive Line Start (05/14/21 06:20) Ns Iv 1000 Ml (Sodium Chloride 0.9%) (05/14/21 06:30) Manual Differential (05/14/21 06:05) Ed Iv/Invasive Line Start (05/14/21 06:27) Ns Iv 1000 Ml (Sodium Chloride 0.9%) (05/14/21 06:30) Arterial Blood Gas (05/14/21 06:24) Arterial Blood Draw (05/14/21 06:36) Ct Abdomen/Pelvis W (05/14/21 07:27) Iohexol Injection (Omnipaque 350 Mg/Ml 1 (05/14/21 07:45) Received Contrast (Hold Metformin- Contr (05/14/21 07:45) Ns (Ivpb) (Sodium Chloride 0.9% Ivpb Bag (05/14/21 07:45) Lipase (05/14/21 08:51) Lactated Ringers (Lr 1000 Ml Iv Solution (05/14/21 10:30) Lactated Ringers (Lr 1000 Ml Iv Solution (05/14/21 10:21) Medications Given in ED Current Medications Medications Dose Ordered Sig/Josue Route Start Time Stop Time Status Last Admin Dose Admin Acetaminophen 1,000 mg ONCE PRN PO 05/14/21 06:15 05/14/21 06:47 DC 05/14/21 06:42 1,000 MG Azithromycin 500 mg/Sodium Chloride 255 ml @ 250 mls/hr ONCE ONCE IV 05/14/21 06:15 05/14/21 07:16 DC 05/14/21 06:46 250 MLS/HR Ceftriaxone Sodium 1000 mg/ Sterile Water 10 ml @ 200 mls/hr ONCE ONCE IV 05/14/21 06:15 05/14/21 06:17 DC 05/14/21 06:43 200 MLS/HR Iohexol 100 ml ONCE ONCE IV 05/14/21 07:45 05/14/21 07:46 DC 05/14/21 08:10 100 ML Ondansetron HCl 4 mg PRN PRN IV 05/14/21 06:15 05/14/21 06:47 DC 05/14/21 06:42 4 MG Sodium Chloride 100 ml ONCE ONCE IV 05/14/21 07:45 05/14/21 07:46 DC 05/14/21 08:10 100 ML Vital Signs/I&O 05/14/21 05/14/21 05/14/21 05/14/21 06:15 06:42 08:12 08:25 Temp 38.4 38.4 36.7 Pulse 116 101 89 Resp 18 18 B/P (MAP) 93/61 (72) 103/70 103/64 Pulse Ox 95 95 97 O2 Delivery Nasal Cannula Nasal Cannula Nasal Cannula O2 Flow Rate 2.00 2.00 2.00 05/14/21 05/14/21 05/14/21 05/14/21 09:29 11:00 11:35 11:50 Temp 37.1 Pulse 84 76 Resp 18 18 B/P (MAP) 108/85 103/69 (80) 99/58 Pulse Ox 96 97 O2 Delivery Nasal Cannula Nasal Cannula O2 Flow Rate 2.00 2.00 05/14/21 05/14/21 05/14/21 05/14/21 11:50 12:00 13:00 13:00 Pulse 73 73 Resp 21 B/P (MAP) 117/73 (88) 92/62 (72) Pulse Ox 96 99 O2 Delivery Nasal Cannula Nasal Cannula Nasal Cannula O2 Flow Rate 2.00 2.00 2.00 05/14/21 05/14/21 05/14/21 05/14/21 14:00 15:00 16:00 16:00 Temp 36.3 Pulse 67 64 70 Resp 14 21 21 B/P (MAP) 102/75 (84) 85/58 (67) 123/115 (118) Pulse Ox 99 99 99 O2 Delivery Nasal Cannula Nasal Cannula Nasal Cannula O2 Flow Rate 2.00 2.00 2.00 05/14/21 17:00 Pulse 88 Resp 25 B/P (MAP) 107/66 (80) Pulse Ox 99 O2 Delivery Nasal Cannula O2 Flow Rate 2.00 Capillary Refill : Progress Note #1: Time: 06:23 Progress Note Patient appears to be septic. We will give her 3 L of normal saline which will be approximately 30 mL/kg. She has a soft blood pressure 93/61. We put her on 2 L by nasal cannula which brought her oxygenation up in the mid nineties. An ABG has been ordered. Appropriate labs, chest x-ray and coverage with Rocephin and azithromycin which would cover her for both UTI or pneumonia. Covid influenza swab. Progress Note #2: Time: 07:28 Progress Note Patient's oxygenation is stable on 2 L with oxygen saturation 96%. Blood pressure is significant improved and she is still getting her fluid bolus. 112/63 was her last blood pressure. Suspect she has a pneumonia however chest x-ray does not reveal 1. With her vomiting and diarrhea were going to go ahead and scan her abdomen. She has a mild increase in her bilirubin. Diagnostic Imaging Diagonstic Imaging: Xray Plain Films/CT/US/NM/MRI: chest Comments NAME: LILIAM EARL [facility] REC#: [id number] PT STATUS: REG ER : 1950 PHYSICIAN: SLIM RICHARDSON MD ADMIT DATE: 05/14/21/ER Draft Date of Exam:05/14/21 CHEST 1 VIEW, AP/PA ONLY EXAMINATION: Chest 1 view HISTORY: sepsis COMPARISON: 10/29/2019 FINDINGS: There is moderate enlargement of the heart, unchanged. No pleural effusion or pneumothorax. No edema or pneumonia. IMPRESSION: 1. Moderate enlargement of the heart without edema or pneumonia. Dictated on workstation # [id number] Dict: 05/14/2118 Trans: 05/14/21719 [facility] [id number] Interpreted by: LINUS RENAE MD Electronically signed by: Reviewed: Reviewed by Me Diagonstic Imaging: CT Plain Films/CT/US/NM/MRI: abdomen, pelvis Comments No acute findings in the abdomen pelvis. [facility]. [place], [place] NAME: LILIAM EARL [facility] REC#: [id number] PT STATUS: ADM IN : 1950 PHYSICIAN: SLIM RICHARDSON MD ADMIT DATE: 05/14/21/ICU Signed Date of Exam:05/14/21 CT ABDOMEN/PELVIS W PROCEDURE: CT abdomen and pelvis with contrast. TECHNIQUE: Multiple contiguous axial images were obtained through the abdomen and pelvis after administration of intravenous contrast. Auto Exposure Controls were utilized during the CT exam to meet ALARA standards for radiation dose reduction. All CT scans use one or more of the following dose optimizing techniques: automated exposure control, MA and/or KvP adjustment based on patient size and exam type or iterative reconstruction. INDICATION: Nausea, vomiting, diarrhea and septic shock. Comparison is made with prior CT from 10/25/2015. The heart is enlarged. No discrete liver mass is identified. Gallbladder appears to be unremarkable. No biliary duct dilatation. The pancreas and spleen are unremarkable. No adrenal mass is detected. Kidneys are unremarkable. There are extrarenal pelves bilaterally. No obstructing lesion is identified. Aorta is tortuous and calcified but nonaneurysmal. No central retroperitoneal or mesenteric lymphadenopathy is identified. Bowel loops are normal caliber. Bladder and uterus are unremarkable. No free fluid or fluid collection is identified. Mildly prominent lymph nodes in the inguinal regions bilaterally are noted. No iliac lymphadenopathy is identified. IMPRESSION: 1. Cardiomegaly. 2. No acute feature in the abdomen or pelvis is identified. Dictated by: Dictated on workstation # [id number] Dict: 05/14/21 08 Trans: 05/14/21 1556 CV [id number] Interpreted by: FRANCISCA NORMAN MD Electronically signed by: FRANCISCA NORMAN MD 05/14/21 1556 Reviewed: Reviewed by Me, Discussed w/Radiologist Departure Communication (Admissions) Time/Spoke to Admitting Phy: 10:[address] Brunner and she is in agreement with consultation to general surgery and ultrasound of the gallbladder now. Time/Spoke to Consulting Phy: 10:45 Discussed the case with Dr. Smith, general surgery and he agrees to consult on the case. Impression Primary Impression: Septic shock Additional Impressions: Pneumonia Qualified Codes: J18.9 - Pneumonia, unspecified organism Acute respiratory failure with hypoxemia Hyponatremia Disposition: ADMITTED INPATIENT Condition: Stable Admissions Decision to Admit Reason: Admit from ER (General) Decision to Admit/Date: May 14, 2021 Time/Decision to Admit Time: 07:26 Departure-Patient Inst. Referrals: BENEDICTO GAINES MD (PCP) Primary Care Physician SLIM RICHARDSON May 14, 2021 06:20
[2021-05-14 06:21] LABS: BASOPHILS % (AUTO) 0 % (0-10); EOSINOPHILS % (AUTO) 0 % (0-10); HEMATOCRIT 38 % (35-52); HEMOGLOBIN 12.8 g/dL (11.5-16.0); LYMPHOCYTES # (AUTO) 0.3 10^3/uL (1.0-4.0); LYMPHOCYTES % (AUTO) 2 % (12-44); MEAN CORPUSCULAR HEMOGLOBIN 29 pg (25-34); MEAN CORPUSCULAR HGB CONC 34 g/dL (32-36); MEAN CORPUSCULAR VOLUME 86 fL (80-99); MEAN PLATELET VOLUME 9.3 fL (9.0-12.2); MONOCYTES # (AUTO) 0.3 10^3/uL (0.0-1.0); MONOCYTES % (AUTO) 2 % (0-12); NEUTROPHILS # (AUTO) 12.6 10^3/uL (1.8-7.8); NEUTROPHILS % (AUTO) 95 % (42-75); PLATELET COUNT 241 10^3/uL (130-400); WHITE BLOOD COUNT 13.3 10^3/uL (4.3-11.0)
[2021-05-14 06:27] LABS: BILIRUBIN,URINE NEGATIVE (NEGATIVE); CLARITY,URINE CLEAR; COLOR,URINE YELLOW; GLUCOSE, URINE (UA) NEGATIVE (NEGATIVE); KETONES,URINE TRACE (NEGATIVE); LEUKOCYTE ESTERASE ,URINE TRACE (NEGATIVE); NITRITE,URINE NEGATIVE (NEGATIVE); PROTEIN,URINE NEGATIVE (NEGATIVE)
[2021-05-14 06:32] LABS: ALBUMIN 3.3 GM/DL (3.2-4.5); POTASSIUM 3.6 MMOL/L (3.6-5.0)
[2021-05-14 06:33] LABS: CALCIUM 8.5 MG/DL (8.5-10.1)
[2021-05-14 06:35] LABS: TOTAL PROTEIN 6.4 GM/DL (6.4-8.2)
[2021-05-14 06:36] LABS: BILIRUBIN,TOTAL 1.3 MG/DL (0.1-1.0)
[2021-05-14 06:37] LABS: BACTERIA,URINE TRACE /HPF; SQUAMOUS EPITHELIAL CELL,UR 0-2 /HPF; WBC,URINE 0-2 /HPF
[2021-05-14 06:38] LABS: HYALINE CASTS, URINE RARE /LPF
[2021-05-14 06:38] LABS: CREATININE SERUM 0.79 MG/DL (0.60-1.30)
[2021-05-14 06:42] LABS: INR 1.3 (0.8-1.4); PROTHROMBIN TIME PATIENT 16.2 SEC (12.2-14.7)
[2021-05-14 06:43] LABS: ABG BASE EXCESS -4.7 MMOL/L (-2.5-2.5); ABG OXYGEN SATURATION 98 % (94-100); ABG PCO2 31 MMHG (35-45); ABG PH 7.41 (7.37-7.43); ABG PO2 94 MMHG (79-93); ABG TCO2 19.7 MMOL/L (21.0-31.0)
[2021-05-14 06:46] LABS: ALLENS TEST YES-POS; INSPIRED O2 2; PATIENT TEMP 38.4; VENTILATOR NO
[2021-05-14 06:54] LABS: BAND NEUTROPHILS 18 %; LYMPHOCYTES % (MANUAL) 3 %; MONOCYTES % (MANUAL) 3 %; NEUTROPHILS % (MANUAL) 76 %; TOXIC GRANULATION/VACUOLAZATIO 1+
--- NOTE | 2021-05-14 07:20 | Diagnostic Imaging Report ---
EXAMINATION: Chest 1 view HISTORY: sepsis COMPARISON: 10/29/2019 FINDINGS: There is moderate enlargement of the heart, unchanged. No pleural effusion or pneumothorax. No edema or pneumonia. IMPRESSION: 1. Moderate enlargement of the heart without edema or pneumonia. Dictated by: Dictated on workstation # [id number]
[2021-05-14] MEDS ORDERED: NS 100 ML (IVPB) BAG IV ONE (07:45)
[2021-05-14] MEDS ORDERED: HOLD METFORMIN - RECEIVED CONTRAST 20 ML VIAL IV SCH (07:45)
[2021-05-14] MEDS ORDERED: IOHEXOL 350 MG/ML 100 ML (OMNIPAQUE 350) VIAL IV ONE (07:45)
[2021-05-14] MEDS: LACTATED RINGERS 1,000 ML IV SCH ×4 (10:30→19:38)
[2021-05-14] MEDS ORDERED: PROMETHAZINE INJ 25 MG/ML (PHENERGAN) AMP IV PRN (12:15)
[2021-05-14] MEDS ORDERED: ANTACID SUSP 30 ML UDC (MYLANTA) PO PRN (12:15)
[2021-05-14] MEDS ORDERED: EPINEPHrine 1 MG INJECTION 4 MG in NS (IVPB) 248 ML IV SCH (12:15)
--- NOTE | 2021-05-14 12:16 | Consultation - Surgery ---
AARONANABELLAQUITALAVONNE 05/14/21 1216: History of Present Illness History of Present Illness Patient Consulted On(brandy/time) 05/14/21 12:14 Date Seen by Provider: May 14, 2021 Time Seen by Provider: 12:30 History of Present Illness PT is an 71 YO female in the hospital for suspected sepsis. PT reports that last night she could not move her legs and could not feel her legs. She also had an episode of vomiting. She did not see the color of her vomit. Her daughter reports she also had a fever. PT denies abdominal pain. She presented to the ER where sepsis was suspected. Allergies and Home Medications Allergies Coded Allergies: Penicillins (Verified Allergy, Unknown, 10/30/19) Patient Home Medication List Acetaminophen (Tylenol) 325 Mg Capsule, 325-650 MG PO Q8H PRN for PAIN-MILD (1- 4), (Reported) Entered as Reported by: RUMA KEENE on 05/14/211334 Last Action: Reviewed Amlodipine Besylate (Amlodipine Besylate) 5 Mg Tablet, 5 MG PO DAILY, (Reported) Entered as Reported by: RUMA KEENE on 11/01/19 1031 Last Action: Reviewed Apixaban (Eliquis) 5 Mg Tablet, 5 MG PO Q12H, (Reported) Entered as Reported by: RUMA KEENE on 05/14/211334 Last Action: Reviewed Diphenhydramine HCl (Benadryl Allergy) 25 Mg Tablet, 25-50 MG PO Q8H PRN for ALLERGY SYMPTOMS, (Reported) Entered as Reported by: RUMA KEENE on 05/14/211334 Last Action: Reviewed Fluoxetine HCl (Fluoxetine HCl) 20 Mg Capsule, 20 MG PO DAILY, (Reported) Entered as Reported by: RUMA KEENE on 05/14/211334 Last Action: Reviewed Meloxicam (Meloxicam) 7.5 Mg Tablet, 7.5 MG PO DAILY, (Reported) Entered as Reported by: RUMA KEENE on 05/14/211334 Last Action: Reviewed Spironolactone (Spironolactone) 25 Mg Tablet, 25 MG PO DAILY, (Reported) Entered as Reported by: RUMA KEENE on 05/14/211334 Last Action: Reviewed Discontinued Medications Apixaban (Eliquis) 5 Mg Tablet, 5 MG PO BID Discontinued Reason: No Longer Taking Prescribed by: TATY BRUNNER on 11/01/19 1105 Last Action: Discontinued Aripiprazole (Abilify) 15 Mg Tablet, 15 MG PO DAILY Discontinued Reason: No Longer Taking Prescribed by: TATY BRUNNER on 11/01/19 105 Last Action: Discontinued Enalapril Maleate (Enalapril Maleate) 10 Mg Tablet, 10 MG PO DAILY Discontinued Reason: No Longer Taking Prescribed by: TATY BRUNNER on 11/01/19 105 Last Action: Discontinued Fluoxetine HCl (Fluoxetine HCl) 20 Mg Capsule, 20 MG PO DAILY Discontinued Reason: Duplicate Order Prescribed by: TATY BRUNNER on 11/01/191052 Last Action: Discontinued Hydrocodone/Acetaminophen (Hydrocodone-Acetamin 5-325 mg) 1 Each Tablet, 1 TAB PO Q6H Discontinued Reason: No Longer Taking Prescribed by: TATY BRUNNER on 11/01/19 105 Last Action: Discontinued Metoprolol Succinate (Metoprolol Succinate) 25 Mg Tab.er.24h, 25 MG PO DAILY, (Reported) Discontinued Reason: No Longer Taking Entered as Reported by: RUMA KEENE on 11/01/19 1031 Last Action: Discontinued [Platform Walker] , (DME) Discontinued Reason: No Longer Taking Prescribed by: DAVID AYERS on 11/01/19 1352 Last Action: Discontinued [Platform Walker] , (DME) Discontinued Reason: No Longer Taking Prescribed by: DAVID AYERS on 11/01/19 1354 Last Action: Discontinued Past [place]-Iiarit Hx Patient Social History Smoking Status: Current Everyday Smoker Former Smoker, Quit: Jul 21, 2005 Type Used: Smokeless Tobacco 2nd Hand Smoke Exposure: Yes Recent Hopitalizations: No Alcohol Use?: Yes Immunizations Up To Date Date of Pneumonia Vaccine: Oct 19, 2017 Date of Influenza Vaccine: May 21, 2019 Seasonal Allergies Seasonal Allergies: No Surgeries History of Surgeries: Yes Respiratory History of Respiratory Disorde: Yes (USES INHALER, SOB) Cardiovascular History of Cardiac Disorders: Yes Cardiac Disorders: Chronic Edema/Swelling, Heart Murmur, Hypertension Neurological History of Neurological Disord: No Reproductive System Hx Reproductive Disorders: No Sexually Transmitted Disease: No HIV/AIDS: No Female Reproductive Disorders: Denies 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 Genitourinary History of Genitourinary Disor: No Gastrointestinal History of Gastrointestinal Di: No Musculoskeletal History of Musculoskeletal Dis: Yes (ARTHRITIS IN BACK ) Musculoskeletal Disorders: Arthritis, Chronic Back Pain Endocrine History of Endocrine Disorders: Yes Endocrine Disorders: Diabetes, Non-Insulin dep HEENT History of HEENT Disorders: Yes (POOR DENTITION) Cancer History of Cancer: No Psychosocial History of Psychiatric Problem: Yes Behavioral Health Disorders: Anxiety, Depression Integumentary History of Skin or Integumenta: No Blood Transfusions History of Blood Disorders: No Adverse Reaction to a Blood Tr: No Family Medical History Significant Family History: Heart Disease, Diabetes (brother and sister ), Stroke (mother), Other Conditions/Hx (liver failure in 2 of her brothers/. ) Other Father: no HTN no DM Review of Systems-General Constitutional: No chills; other (no night sweats ) EENTM: No blurred vision, No double vision Respiratory: No cough, No short of breath Cardiovascular: No chest pain, No palpitations Gastrointestinal: No nausea; vomiting (one episode last night, none currently ) Genitourinary: No dysuria, No hematuria Musculoskeletal: No neck pain; other (no arm pain ) Skin: change in color, dryness, lesions (blister on right foot ) Psychiatric/Neurological: Denies Anxiety, Denies Depressed, Denies Emotional Problems; Headache (been having headache for 1 week) Physical Exam-General Problems Physical Exam Vital Signs Vital Signs - First Documented 05/14/21 05/14/21 06:15 08:12 Temp 38.4 Pulse 116 Resp 18 B/P (MAP) 93/61 (72) Pulse Ox 95 O2 Delivery Nasal Cannula O2 Flow Rate 2.00 Capillary Refill : Less Than 3 Seconds General Appearance: no apparent distress Eyes: Bilateral Eye PERRL, Bilateral Eye EOMI HEENT: pharynx normal; No scleral icterus (R), No scleral icterus (L); other (poor dentition ) Neck: non-tender, full range of motion, supple Respiratory: chest non-tender, lungs clear, normal breath sounds, no respiratory distress, no accessory muscle use Cardiovascular: normal peripheral pulses, regular rate, rhythm, no edema Peripheral Pulses: 2+ Radial Pulses (R), 2+ Radial Pulses (L) Gastrointestinal: non tender, soft, no organomegaly, no pulsatile mass, tendern ess (mild epigastric tenderness) Rectal: deferred Extremities: normal range of motion, non-tender, no calf tenderness Neurologic/Psychiatric: no motor/sensory deficits, alert, normal mood/affect, oriented x 3 Skin: warm/dry, other (blister on right foot), rash (venous stasis dermatitis of lower extremity ) Lymphatic: no adenopathy (cervical) Data Review Labs Laboratory Tests 05/14/21 06:05: White Blood Count 13.3H, Red Blood Count 4.38, Hemoglobin 12.8, Hematocrit 38, Mean Corpuscular Volume 86, Mean Corpuscular Hemoglobin 29, Mean Corpuscular Hemoglobin Concent 34, Red Cell Distribution Width 13.9, Platelet Count 241, Mean Platelet Volume 9.3, Immature Granulocyte % (Auto) 1, Neutrophils (%) (Auto) 95H, Lymphocytes (%) (Auto) 2L, Monocytes (%) (Auto) 2, Eosinophils (%) (Auto) 0, Basophils (%) (Auto) 0, Neutrophils # (Auto) 12.6H, Lymphocytes # (Auto) 0.3L, Monocytes # (Auto) 0.3, Eosinophils # (Auto) 0.0, Basophils # (Auto) 0.0, Immature Granulocyte # (Auto) 0.1, Neutrophils % (Manual) 76, Lymphocytes % (Manual) 3, Monocytes % (Manual) 3, Band Neutrophils 18, Toxic Granulation 1+, Prothrombin Time 16.2H, INR Comment 1.3, Activated Partial Thromboplast Time 33, Sodium Level 126L, Potassium Level 3.6, Chloride Level 93L , Carbon Dioxide Level 15L, Anion Gap 18H, Blood Urea Nitrogen 7, Creatinine 0.79, Estimat Glomerular Filtration Rate 71, BUN/Creatinine Ratio 9, Glucose Level 119H, Calcium Level 8.5, Corrected Calcium 9.1, Total Bilirubin 1.3H, Aspartate Amino Transf (AST/SGOT) 22, Alanine Aminotransferase (ALT/SGPT) 10, Alkaline Phosphatase 76, C-Reactive Protein High Sensitivity 3.23H, Total Protein 6.4, Albumin 3.3, Lipase 91H, Procalcitonin 1.26H 05/14/21 06:15: Lactic Acid Level 5.09*H 05/14/21 06:18: Urine Color YELLOW, Urine Clarity CLEAR, Urine pH 6.0, Urine Specific [place] 1.015L, Urine Protein NEGATIVE, Urine Glucose (UA) NEGATIVE, Urine Ketones TRACEH, Urine Nitrite NEGATIVE, Urine Bilirubin NEGATIVE, Urine Urobilinogen 0.2, Urine Leukocyte Esterase TRACEH, Urine RBC (Auto) 1+H, Urine RBC 2-5H, Urine WBC 0-2, Urine Squamous Epithelial Cells 0-2, Urine Crystals NONE, Urine Bacteria TRACE, Urine Casts PRESENT, Urine Hyaline Casts RARE, Urine Mucus NEGATIVE, Urine Culture Indicated NO, Influenza Type A (RT-PCR) Not Detected, Influenza Type B (RT-PCR) Not Detected, SARS-CoV-2 RNA (RT-PCR) Not Detected 05/14/21 06:36: Blood Gas Puncture Site LEFT RADIAL, Blood Gas Patient Temperature 38.4, Arterial Blood pH 7.41, Arterial Blood Partial Pressure CO2 31L, Arterial Blood Partial Pressure O2 94H, Arterial Blood HCO3 19L, Arterial Blood Total CO2 19.7L , Arterial Blood Oxygen Saturation 98, Arterial Blood Base Excess -4.7L, Jeffrey Test YES-POS, Blood Gas Ventilator Setting NO, Blood Gas Inspired Oxygen 2 05/14/21 08:41: Lactic Acid Level 1.45 Assessment/Plan Assessment/Plan Assessment/Plan Suspected sepsis Continue to follow patients vital signs under the direction of medicine for her sepsis. All questions answered at this time. CIPRIANO ULRICH DO 05/14/21 2668: History of Present Illness History of Present Illness Time Seen by Provider: 13:59 History of Present Illness Surgery asked to consult regarding Sepsis; r/o abdominal cause. HPI per ED: Patient to the ER by [facility] with chief complaint of being woken this morning when the need to vomit. She is very weak unable to stand on her own. She lives at home with her adult children who summonsed EMS because she was unable to get out of bed. She had a fever per EMS at 100. She is known to Dr. Brunner for primary care and Dr. Preston for cardiology. She denies any pain anywhere. She still having some nausea after one episode of emesis without blood in it earlier. She says the symptoms are started today and she has had no sick contacts. She has not had Covid or influenza vaccination. Patient states she has not taken any medicine for her symptoms. She denies a history of lung disease nor dependence on supplemental oxygen. She denies dysuria or abdominal pain. She denies constipation or diarrhea. When I spoke to pt this afternoon, she denied any pain or problems; "just feel tired". Her family member is at bedside; stated she woke up at around 3am felt weak and "sick" with temp of 102. Temp came down to 100.8 after tylenol. She denied any abdominal pain, did have some nausea and emesis. Allergies and Home Medications Allergies Coded Allergies: Penicillins (Verified Allergy, Unknown, 10/30/19) Patient Home Medication List Home Medication List Reviewed: Yes Acetaminophen (Tylenol) 325 Mg Capsule, 325-650 MG PO Q8H PRN for PAIN-MILD (1- 4), (Reported) Entered as Reported by: RUMA KEENE on 05/14/211334 Last Action: Reviewed Amlodipine Besylate (Amlodipine Besylate) 5 Mg Tablet, 5 MG PO DAILY, (Reported) Entered as Reported by: RUMA KEENE on 11/01/19 1031 Last Action: Reviewed Apixaban (Eliquis) 5 Mg Tablet, 5 MG PO Q12H, (Reported) Entered as Reported by: RUMA KEENE on 05/14/211334 Last Action: Reviewed Diphenhydramine HCl (Benadryl Allergy) 25 Mg Tablet, 25-50 MG PO Q8H PRN for ALLERGY SYMPTOMS, (Reported) Entered as Reported by: RUMA KEENE on 05/14/211334 Last Action: Reviewed Fluoxetine HCl (Fluoxetine HCl) 20 Mg Capsule, 20 MG PO DAILY, (Reported) Entered as Reported by: RUMA KEENE on 05/14/211334 Last Action: Reviewed Meloxicam (Meloxicam) 7.5 Mg Tablet, 7.5 MG PO DAILY, (Reported) Entered as Reported by: RUMA KEENE on 05/14/211334 Last Action: Reviewed Spironolactone (Spironolactone) 25 Mg Tablet, 25 MG PO DAILY, (Reported) Entered as Reported by: RUMA KEENE on 05/14/211334 Last Action: Reviewed Discontinued Medications Apixaban (Eliquis) 5 Mg Tablet, 5 MG PO BID Discontinued Reason: No Longer Taking Prescribed by: TATY BRUNNER on 11/01/19 1105 Last Action: Discontinued Aripiprazole (Abilify) 15 Mg Tablet, 15 MG PO DAILY Discontinued Reason: No Longer Taking Prescribed by: TATY BRUNNER on 11/01/191052 Last Action: Discontinued Enalapril Maleate (Enalapril Maleate) 10 Mg Tablet, 10 MG PO DAILY Discontinued Reason: No Longer Taking Prescribed by: TATY BRUNNER on 11/01/191052 Last Action: Discontinued Fluoxetine HCl (Fluoxetine HCl) 20 Mg Capsule, 20 MG PO DAILY Discontinued Reason: Duplicate Order Prescribed by: TATY BRUNNER on 11/01/191052 Last Action: Discontinued Hydrocodone/Acetaminophen (Hydrocodone-Acetamin 5-325 mg) 1 Each Tablet, 1 TAB PO Q6H Discontinued Reason: No Longer Taking Prescribed by: TATY BRUNNER on 11/01/191052 Last Action: Discontinued Metoprolol Succinate (Metoprolol Succinate) 25 Mg Tab.er.24h, 25 MG PO DAILY, (Reported) Discontinued Reason: No Longer Taking Entered as Reported by: RUMA KEENE on 11/01/19 1031 Last Action: Discontinued [Platform Walker] , (DME) Discontinued Reason: No Longer Taking Prescribed by: DAVID AYERS on 11/01/19 1352 Last Action: Discontinued [Platform Walker] , (DME) Discontinued Reason: No Longer Taking Prescribed by: DAVID AYERS on 11/01/19 1354 Last Action: Discontinued Past Peryzmt-Cpfaxx-Mjbkbi Hx Patient Social History Smoking Status: Never a Smoker (chews tobacco) Type Used: Smokeless Tobacco Alcohol Use?: Yes Surgeries History of Surgeries: Yes (EGD and Colonoscopy) Respiratory History of Respiratory Disorde: Yes Respiratory Disorders: Chronic Bronchitis Cardiovascular History of Cardiac Disorders: Yes Cardiac Disorders: Chronic Edema/Swelling, Hypertension Neurological History of Neurological Disord: No Genitourinary History of Genitourinary Disor: No Gastrointestinal History of Gastrointestinal Di: No Musculoskeletal History of Musculoskeletal Dis: Yes Musculoskeletal Disorders: Arthritis, Chronic Back Pain Endocrine History of Endocrine Disorders: Yes Endocrine Disorders: Diabetes, Non-Insulin dep HEENT History of HEENT Disorders: No Loss of Vision: Denies Hearing Impairment: Denies Cancer History of Cancer: No Psychosocial History of Psychiatric Problem: Yes Behavioral Health Disorders: Anxiety, Depression Integumentary History of Skin or Integumenta: Yes Skin/Integumentary Disorders: Recent Skin Changes Family Medical History Significant Family History: Heart Disease, Diabetes (brother and sister ), Stroke (mother), Other Conditions/Hx (liver failure in 2 of her brothers/. ) Review of Systems-General Constitutional: No chills; malaise, weakness, other (no night sweats ) EENTM: No blurred vision, No double vision Respiratory: No cough, No short of breath Cardiovascular: No chest pain, No palpitations Gastrointestinal: nausea, vomiting (one episode last night, none currently ) Genitourinary: No dysuria, No hematuria Musculoskeletal: No neck pain; other (no arm pain ) Skin: change in color, dryness, lesions (blister on right foot ) Psychiatric/Neurological: Denies Anxiety, Denies Depressed, Denies Emotional Problems Physical Exam-General Problems Physical Exam General Appearance: no apparent distress, obese Eyes: Bilateral Eye PERRL, Bilateral Eye EOMI HEENT: No scleral icterus (R), No scleral icterus (L); other (poor dentition ) Neck: non-tender, full range of motion, supple Respiratory: lungs clear, normal breath sounds, no respiratory distress, no accessory muscle use Cardiovascular: normal peripheral pulses, regular rate, rhythm, systolic murmur Gastrointestinal: soft, no organomegaly, no pulsatile mass, tenderness (mild epigastric tenderness) Rectal: deferred Extremities: non-tender, no pedal edema, no calf tenderness, other (chronic venous stasis changes bilaterally, blister on right foot) Neurologic/Psychiatric: alert, oriented x 3 Skin: warm/dry, other (skin breakdown groin area), rash (venous stasis dermatitis of lower extremity ) Lymphatic: no adenopathy (neck, axilla or supraclavicular) Data Review Radiology Date of Exam:05/14/21 CT ABDOMEN/PELVIS W PROCEDURE: CT abdomen and pelvis with contrast. TECHNIQUE: Multiple contiguous axial images were obtained through the abdomen and pelvis after administration of intravenous contrast. Auto Exposure Controls were utilized during the CT exam to meet ALARA standards for radiation dose reduction. All CT scans use one or more of the following dose optimizing techniques: automated exposure control, MA and/or KvP adjustment based on patient size and exam type or iterative reconstruction. INDICATION: Nausea, vomiting, diarrhea and septic shock. Comparison is made with prior CT from 10/25/2015. The heart is enlarged. No discrete liver mass is identified. Gallbladder appears to be unremarkable. No biliary duct dilatation. The pancreas and spleen are unremarkable. No adrenal mass is detected. Kidneys are unremarkable. There are extrarenal pelves bilaterally. No obstructing lesion is identified. Aorta is tortuous and calcified but nonaneurysmal. No central retroperitoneal or mesenteric lymphadenopathy is identified. Bowel loops are normal caliber. Bladder and uterus are unremarkable. No free fluid or fluid collection is identified. Mildly prominent lymph nodes in the inguinal regions bilaterally are noted. No iliac lymphadenopathy is identified. IMPRESSION: 1. Cardiomegaly. 2. No acute feature in the abdomen or pelvis is identified. Dictated by: Dictated on workstation # [id number] Dict: 05/14/21 0817 Trans: 05/14/21 1556 CV [id number] Interpreted by: FRANCISCA NORMAN MD Electronically signed by: FRANCISCA NORMAN MD 05/14/21 1556 Assessment/Plan Assessment/Plan Assessment/Plan Suspected sepsis r/o Abdominal source I looked at the CT of the abd/pelvis myself and don't see anything acute; although there appears to be some changes in the ascending colon (these could just be non-distended colon). Appendix looks normal and no other inflammation seen in the abdomen. Pt may have just been dehydrated and have some viral infection. Will follow along and monitor her labs and physical exam. No surgical indication at this time. I spoke with her physican, regarding her care. Supervisory-Addendum Brief Verification & Attestation Participated in pt care: history, MDM, physical Personally performed: exam, history, MDM, supervision of care Care discussed with: Medical Student Procedures: n/a Verification and Attestation of Medical Student E/M Service A medical student performed and documented this service. I then reviewed and verified all information documented by the medical student and made modifications to such information, when appropriate. I personally performed a physical exam, medical decision making and then discussed any differences between the notes and made revisions as necessary to create one note. Cipriano Ulrich , 05/14/21 , 17:13 LAVONNE COELLO May 14, 2021 12:16 CIPRIANO ULRICH DO May 14, 2021 16:58
--- NOTE | 2021-05-14 12:33 | Diagnostic Imaging Report ---
PROCEDURE: CT abdomen and pelvis with contrast. TECHNIQUE: Multiple contiguous axial images were obtained through the abdomen and pelvis after administration of intravenous contrast. Auto Exposure Controls were utilized during the CT exam to meet ALARA standards for radiation dose reduction. All CT scans use one or more of the following dose optimizing techniques: automated exposure control, MA and/or KvP adjustment based on patient size and exam type or iterative reconstruction. INDICATION: Nausea, vomiting, diarrhea and septic shock. Comparison is made with prior CT from 10/25/2015. The heart is enlarged. No discrete liver mass is identified. Gallbladder appears to be unremarkable. No biliary duct dilatation. The pancreas and spleen are unremarkable. No adrenal mass is detected. Kidneys are unremarkable. There are extrarenal pelves bilaterally. No obstructing lesion is identified. Aorta is tortuous and calcified but nonaneurysmal. No central retroperitoneal or mesenteric lymphadenopathy is identified. Bowel loops are normal caliber. Bladder and uterus are unremarkable. No free fluid or fluid collection is identified. Mildly prominent lymph nodes in the inguinal regions bilaterally are noted. No iliac lymphadenopathy is identified. IMPRESSION: 1. Cardiomegaly. 2. No acute feature in the abdomen or pelvis is identified. Dictated by: Dictated on workstation # [id number]
[2021-05-14] MEDS ORDERED: VANCOMYCIN INJECTION 1,250 MG in NS (IVPB) 250 ML IV NR (13:00)
[2021-05-14] MEDS ORDERED: APIX5TAB PO (13:35)
[2021-05-14] MEDS ORDERED: MELO7.5T46 PO (13:35)
[2021-05-14] MEDS ORDERED: DIPH25TA65 PO (13:35)
[2021-05-14] MEDS ORDERED: SPIR25TA5 PO (13:35)
[2021-05-14] MEDS ORDERED: FLUO20CA46 PO (13:35)
[2021-05-14] MEDS ORDERED: ACET325C7 PO (13:35)
--- NOTE | 2021-05-14 14:10 | Pulmonary Consultation ---
KATLYN MCKEON 05/14/21 1410: History of Present Illness History of Present Illness Date Seen by Provider: May 14, 2021 Time Seen by Provider: 13:00 Date of Admission History of Present Illness Pt was experiencing extreme weakness and had a vomiting episode this morning. She denies anything noteworthy that might have precipitated these events. She still feels weak. She denies pain. Her last bowel movement was this morning prior to EMS arriving. Allergies and Home Medications Allergies Coded Allergies: Penicillins (Verified Allergy, Unknown, 10/30/19) Home Medications Acetaminophen 325 Mg Capsule, 325-650 MG PO Q8H PRN for PAIN-MILD (1-4), (Reported) Amlodipine Besylate 5 Mg Tablet, 5 MG PO DAILY, (Reported) Apixaban 5 Mg Tablet, 5 MG PO Q12H, (Reported) Diphenhydramine HCl 25 Mg Tablet, 25-50 MG PO Q8H PRN for ALLERGY SYMPTOMS, (Reported) Fluoxetine HCl 20 Mg Capsule, 20 MG PO DAILY, (Reported) Meloxicam 7.5 Mg Tablet, 7.5 MG PO DAILY, (Reported) Spironolactone 25 Mg Tablet, 25 MG PO DAILY, (Reported) Past Medical/Social/Family Hx Patient Social History Tobacco Use?: No Tobacco type used: Cigarettes Smoking Status: Current Everyday Smoker Use of E-Cig and/or Vaping dev: No Substance use?: No Alcohol Use?: Yes Alcohol type: Beer Alcohol Frequency: Daily Pt stated abuse/neglect: No Immunizations Up To Date Influenza Vaccine Up-to-Date: No; Not Current Tetanus Booster (TDap): Unknown Hepatitis A: No Hepatitis B: No TB Skin Test: None Date of Pneumonia Vaccine: Oct 19, 2017 Current Status status: No status: No Advance Directives: No Communicates: Verbally Primary Language: Cuban Preferred Spoken Language: Cuban Is interpretation needed?: No Review of Systems Constitutional: Weakness; No: Fever, Chills, Sweats, Malaise, Other Eyes: No: Pain, Vision change, Conjunctivae inflammation, Eyelid inflammation, Other, Redness ENT: No: Ear pain, Ear discharge, Nose pain, Nose discharge, Nose congestion, Mouth pain, Mouth swelling, Throat pain, Throat swelling, Other Respiratory: No: Cough, Dry, Shortness of breath, SOB with excertion, Wheezing, Hemoptysis, Pleuritic Pain, Sputum, Wheezing, Other Cardiovascular: No: Chest Pain, Palpitations, Orthopnea, Paroxysmal Noc. Dyspnea, Edema, Lt Headedness, Other Gastrointestinal: No: Nausea, Vomiting, Abdominal Pain, Diarrhea, Constipation, Melena, Hematochezia, Other Genitourinary: No Dysuria, No Frequency, No Incontinence, No Hematuria, No Retention, No Other Musculoskeletal: No: other, neck pain, shoulder pain, arm pain, back pain, hand pain, leg pain, foot pain Skin: No: Rash, Lesions, Jaundice, Bruising, Other Neurological: No: Weakness, Numbness, Incoordination, Change in speech, Confusion, Seizures, Other Sepsis Event Evaluation Sepsis Stage: Sepsis Possible Source: Genitouriary Height, Weight, BMI Height: 0'0.00" Weight: 0lbs. 0.0oz. 0.306076fu; 24.00 BMI Method: Exam Exam Patient acknowledged, consented, and participated in this virtual visit which was conducted using real time audio/video Vital Signs Date Time Temp Pulse Resp B/P (MAP) Pulse Ox O2 Delivery O2 Flow Rate FiO2 05/14/21 11:35 76 18 99/58 97 Nasal Cannula 2.00 05/14/21 09:29 84 18 108/85 96 Nasal Cannula 2.00 05/14/21 08:25 36.7 89 18 103/64 97 Nasal Cannula 2.00 05/14/21 08:12 101 18 103/70 95 Nasal Cannula 2.00 05/14/21 06:42 38.4 05/14/21 06:15 38.4 116 93/61 (72) 95 Nasal Cannula 2.00 I & O 05/14/21 07:00 Intake Total 10 ml Balance 10 ml Height & Weight Height: 0'0.00" Weight: 0lbs. 0.0oz. 0.152977ps; 24.00 BMI Method: General Appearance: No No Apparent Distress, No WD/WN, No Anxious, No Chronically ill, No Cachetic, No Mild Distress; Moderate Distress; No Obese, No Severe Distress, No Thin; Other (Dried emesis on her right shoulder) HEENT: PERRL/EOMI, TMs Normal, Normal ENT Inspection; No Pharynx Normal, No Moist Mucous Membranes, No Pale Conjunctivae (L), No Pale Conjunctivae (R), No Pharyngeal Erythema, No Photophobia, No Scleral Icterus (L), No Scleral Icterus (R), No TM Abnormal (L), No TM Abnormal (R), No Tonsillar Exudate, No Tonsillar Enlargement, No Other Neck: Full Range of Motion, Normal Inspection, Non Tender, Supple; No Carotid Bruit, No JVD, No Limited Range of Motion, No Lymphadenopathy (L), No Lymphadenopathy (R), No Tender Lateral, No Tender Midline, No Thyromegaly, No Other Respiratory: No Chest Non Tender; Lungs Clear, Normal Breath Sounds, No Accessory Muscle Use; No No Respiratory Distress, No Accessory Muscle Use, No Crackles, No Decreased Breath Sounds, No Expiration, No Inspiration, No Pleural Rub, No Rales; Respiratory Distress (Mild to moderate with oxygen saturations 92% on room air.); No Rhonci, No Stridor, No Wheezing, No Other Cardiovascular: Regular Rate, Rhythm; No No Edema, No No Gallop, No No JVD, No No Murmur; Normal Peripheral Pulses; No Bradycardia, No Diastolic Murmur, No Systolic Murmur, No Extra Beats, No Friction Rub, No Gallop/S3, No Gallop/S4, No Irregularly Irregular, No JVD; Tachycardia; No Other Capillary Refill: Less Than 3 Seconds Peripheral Pulses: 2+ Radial Pulses (R), 2+ Radial Pulses (L) Gastrointestinal: No normal bowel sounds; non tender, soft, no organomegaly, no pulsatile mass; No abnormal bowel sounds, No distended, No guarding, No rebound; tenderness (mild epigastric tenderness); No hernia, No mass, No hepatomegaly, No spleenomegaly, No other Extremity: Normal Capillary Refill, Normal Inspection, Normal Range of Motion, Non Tender, No Calf Tenderness, No Pedal Edema; No Calf Tenderness, No Inf lammation, No Pedal Edema, No Pelvis Stable, No Slow Capillary Refill, No Swelling, No Other Neurologic/Psychiatric: Alert, Oriented x3; No No Motor/Sensory Deficits; Normal Mood/Affect; No capacitor pack press operator II-XII Norm as Tested, No Abnormal Cerebellar Tests, No Abnormal capacitor pack press operator II-XII, No Abnormal Gait, No Aphasia, No Depressed Affect, No Disoriented, No EOM Palsy, No Facial Droop, No Motor Weakness, No Sensory Deficit, No Other Skin: No Normal Color, No Warm/Dry, No Cool, No Cyanosis, No Damp, No Diaphoresis, No Ecchymosis (Pts inguinal, groin and rectal regions display significant erythematous skin breakdown. non-pruritic.); Erythema; No Jaundice, No Mottled, No Pallor, No Petechia, No Rash, No Tattoos/Piercings, No Other Results Lab Laboratory Tests 05/14/21 06:05 Diagnosis/Problems Problems/Diagonsis (1) Sepsis Status: Acute Assessment & Plan: Pt meets 2/4 SIRS criteria. WBC 13.3 and RR 20. Will continue to follow labs as she is managed with antibiotics. She is maintaining 98% O2 saturation on 2L nasal cannula PAULA SANCHES MD 05/14/21 1453: History of Present Illness History of Present Illness History of Present Illness In septic shock with initial LA 5, given 3 l IVF has come down, has large ulceration over area extending to sacrum, Started on IV Vanco and Cefepime, Looks like may have been lying in urine but family denies this. Not on pressors at this time, CXR shows enlarged heart but no CHF or PNA Allergies and Home Medications Allergies Coded Allergies: Penicillins (Verified Allergy, Unknown, 10/30/19) Home Medications Acetaminophen 325 Mg Capsule, 325-650 MG PO Q8H PRN for PAIN-MILD (1-4), (Reported) Amlodipine Besylate 5 Mg Tablet, 5 MG PO DAILY, (Reported) Apixaban 5 Mg Tablet, 5 MG PO Q12H, (Reported) Diphenhydramine HCl 25 Mg Tablet, 25-50 MG PO Q8H PRN for ALLERGY SYMPTOMS, (Reported) Fluoxetine HCl 20 Mg Capsule, 20 MG PO DAILY, (Reported) Meloxicam 7.5 Mg Tablet, 7.5 MG PO DAILY, (Reported) Spironolactone 25 Mg Tablet, 25 MG PO DAILY, (Reported) Review of Systems Time Seen by Provider: 14:00 Assessment/Plan Assessment/Plan Septic shock probably from skin/soft tissue infection, continue abx, cut down on LR IVF from 150 mL to 100 Wound care to see Critical Care: Critically Ill Patient Time spent with patient (mins): 25 Supervisory-Addendum Brief Verification & Attestation Participated in pt care: history Personally performed: history Care discussed with: Medical Student Procedures: n/a Results interpretation: Verified all documentation physical finding per medical student, I obtained Hx thru medical student and nurse KATLYN MCKEON May 14, 2021 14:10 PAULA SANCHES MD May 14, 2021 14:53
[2021-05-14] MEDS: NOREPINEPHRINE 8 MG/250 ML 250 ML IV SCH (14:30)
[2021-05-14] MEDS: VASOPRESSIN INJECTION 20 UNIT in NS (IVPB) 100 ML IV SCH ×2 (14:31→23:43)
[2021-05-14] MEDS ORDERED: SODIUM CHLORIDE 3% 500 ML IV SCH (15:00)
[2021-05-14] MEDS: CEFEPIME 1,000 MG/SWFI 10 ML IV PUSH IV SCH ×4 (15:48→19:38)
--- NOTE | 2021-05-14 17:01 | History & Physical ---
HPI History of Present Illness: 71 yo F that presented with altered mental status, N/V and abdominal pain. States that she woke up and felt like she was going to vomit. Symptoms started abruptly this AM. Denies any chest pain or shortness of breath. States that she has had a normal appetite. She has been feeling some chills this AM. She took all her medications this AM. Denies any other sick contacts. Source: patient Exam Limitations: no limitations Date seen by provider: May 14, 2021 Time Seen by Provider: 10:45 Attending Physician aTty Roberson MD PCP Taty Roberson MD Consult Date of Admission May 14, 2021 at 09:00 Home Medications Home Medications Reviewed patient Home Medication Reconciliation performed by pharmacy medication reconciliations orthodontic technician and/or nursing. Patients Allergies have been reviewed. Allergies Coded Allergies: Penicillins (Verified Allergy, Unknown, 10/30/19) ZMA-[id number]-Crrolb Hx Patient Social History Smoking Status: Current Everyday Smoker 2nd Hand Smoke Exposure: Yes Recent Hopitalizations: No Alcohol Use?: Yes Tobacco type used: Cigarettes Immunizations Up To Date Date of Pneumonia Vaccine: Oct 19, 2017 Date of Influenza Vaccine: May 21, 2019 Past Medical History Atrial Fibrillation EtOH abuse Tobacco Abuse Family Medical History Significant Family History: Heart Disease, Diabetes (brother and sister ), Stroke (mother), Other Conditions/Hx (liver failure in 2 of her brothers/. ) Review of Systems ([facility]) Constitutional: chills, malaise, weakness EENTM: no symptoms reported; No mouth pain, No nose congestion, No nose pain Respiratory: no symptoms reported; No dyspnea on exertion, No short of breath Cardiovascular: no symptoms reported; No chest pain, No edema Gastrointestinal: No constipation; diarrhea, loss of appetite, nausea Genitourinary: no symptoms reported; No dysuria, No frequency, No hematuria : No Musculoskeletal: no symptoms reported Skin: other (dependent rash on buttock, back of legs and back) Psychiatric/Neurological: Weakness Reviewed Test Results Reviewed Test Results Lab Laboratory Tests Test 05/14/21 06:05 05/14/21 06:15 05/14/21 06:18 05/14/21 06:36 Range/Units White Blood Count 13.3 H 4.3-11.0 10^3/uL Red Blood Count 4.38 3.80-5.11 10^6/uL Hemoglobin 12.8 11.5-16.0 g/dL Hematocrit 38 35-52 % Mean Corpuscular Volume 86 80-99 fL Mean Corpuscular Hemoglobin 29 25-34 pg Mean Corpuscular Hemoglobin Concent 34 32-36 g/dL Red Cell Distribution Width 13.9 10.0-14.5 % Platelet Count 241 130-400 10^3/uL Mean Platelet Volume 9.3 9.0-12.2 fL Immature Granulocyte % (Auto) 1 % Neutrophils (%) (Auto) 95 H 42-75 % Lymphocytes (%) (Auto) 2 L 12-44 % Monocytes (%) (Auto) 2 0-12 % Eosinophils (%) (Auto) 0 0-10 % Basophils (%) (Auto) 0 0-10 % Neutrophils # (Auto) 12.6 H 1.8-7.8 10^3/uL Lymphocytes # (Auto) 0.3 L 1.0-4.0 10^3/uL Monocytes # (Auto) 0.3 0.0-1.0 10^3/uL Eosinophils # (Auto) 0.0 0.0-0.3 10^3/uL Basophils # (Auto) 0.0 0.0-0.1 10^3/uL Immature Granulocyte # (Auto) 0.1 0.0-0.1 10^3/uL Neutrophils % (Manual) 76 % Lymphocytes % (Manual) 3 % Monocytes % (Manual) 3 % Band Neutrophils 18 % Toxic Granulation 1+ Prothrombin Time 16.2 H 12.2-14.7 SEC INR Comment 1.3 0.8-1.4 Activated Partial Thromboplast Time 33 24-35 SEC Sodium Level 126 L 135-145 MMOL/L Potassium Level 3.6 3.6-5.0 MMOL/L Chloride Level 93 L 98-107 MMOL/L Carbon Dioxide Level 15 L 21-32 MMOL/L Anion Gap 18 H 5-14 MMOL/L Blood Urea Nitrogen 7 7-18 MG/DL Creatinine 0.79 0.60-1.30 MG/DL Estimat Glomerular Filtration Rate 71 BUN/Creatinine Ratio 9 Glucose Level 119 H 70-105 MG/DL Calcium Level 8.5 8.5-10.1 MG/DL Corrected Calcium 9.1 8.5-10.1 MG/DL Total Bilirubin 1.3 H 0.1-1.0 MG/DL Aspartate Amino Transf (AST/SGOT) 22 5-34 U/L Alanine Aminotransferase (ALT/SGPT) 10 0-55 U/L Alkaline Phosphatase 76 40-136 U/L C-Reactive Protein High Sensitivity 3.23 H 0.00-0.50 MG/DL Total Protein 6.4 6.4-8.2 GM/DL Albumin 3.3 3.2-4.5 GM/DL Lipase 91 H 8-78 U/L Procalcitonin 1.26 H <0.10 NG/ML Lactic Acid Level 5.09 *H 0.50-2.00 MMOL/L Urine Color YELLOW Urine Clarity CLEAR Urine pH 6.0 5-9 Urine Specific [place] 1.015 L 1.016-1.022 Urine Protein NEGATIVE NEGATIVE Urine Glucose (UA) NEGATIVE NEGATIVE Urine Ketones TRACE H NEGATIVE Urine Nitrite NEGATIVE NEGATIVE Urine Bilirubin NEGATIVE NEGATIVE Urine Urobilinogen 0.2 < = 1.0 MG/DL Urine Leukocyte Esterase TRACE H NEGATIVE Urine RBC (Auto) 1+ H NEGATIVE Urine RBC 2-5 H /HPF Urine WBC 0-2 /HPF Urine Squamous Epithelial Cells 0-2 /HPF Urine Crystals NONE /LPF Urine Bacteria TRACE /HPF Urine Casts PRESENT /LPF Urine Hyaline Casts RARE /LPF Urine Mucus NEGATIVE /LPF Urine Culture Indicated NO Influenza Type A (RT-PCR) Not Detected Not Detecte Influenza Type B (RT-PCR) Not Detected Not Detecte SARS-CoV-2 RNA (RT-PCR) Not Detected Not Detecte Blood Gas Puncture Site LEFT RADIAL Blood Gas Patient Temperature 38.4 Arterial Blood pH 7.41 7.37-7.43 Arterial Blood Partial Pressure CO2 31 L 35-45 MMHG Arterial Blood Partial Pressure O2 94 H 79-93 MMHG Arterial Blood HCO3 19 L 23-27 MMOL/L Arterial Blood Total CO2 19.7 L 21.0-31.0 MMOL/L Arterial Blood Oxygen Saturation 98 94-100 % Arterial Blood Base Excess -4.7 L -2.5-2.5 MMOL/L Jeffrey Test YES-POS Blood Gas Ventilator Setting NO Blood Gas Inspired Oxygen 2 Test 05/14/21 08:41 Range/Units Lactic Acid Level 1.45 0.50-2.00 MMOL/L Physical Exam-([facility]) Physical Exam Vital Signs VS - Last 72 Hours, by Label 10/05/14/21 05/14/21 05/14/21 06:15 06:42 08:12 08:25 Temp 38.4 38.4 36.7 Pulse 116 101 89 Resp 18 18 B/P (MAP) 93/61 (72) 103/70 103/64 Pulse Ox 95 95 97 O2 Delivery Nasal Cannula Nasal Cannula Nasal Cannula O2 Flow Rate 2.00 2.00 2.00 05/14/21 05/14/21 05/14/21 05/14/21 09:29 11:00 11:35 11:50 Pulse 84 76 Resp 18 18 B/P (MAP) 108/85 103/69 (80) 99/58 Pulse Ox 96 97 O2 Delivery Nasal Cannula Nasal Cannula Nasal Cannula O2 Flow Rate 2.00 2.00 2.00 05/14/21 05/14/21 05/14/21 05/14/21 12:00 13:00 13:00 14:00 Pulse 73 73 67 Resp 21 21 14 B/P (MAP) 117/73 (88) 92/62 (72) 102/75 (84) Pulse Ox 96 99 99 O2 Delivery Nasal Cannula Nasal Cannula Nasal Cannula O2 Flow Rate 2.00 2.00 2.00 05/14/21 05/14/21 15:00 16:00 Temp 36.3 Pulse 64 Resp 21 B/P (MAP) 85/58 (67) Pulse Ox 99 O2 Delivery Nasal Cannula O2 Flow Rate 2.00 Capillary Refill : Less Than 3 Seconds General Appearance: WD/WN, no apparent distress Neck: non-tender, full range of motion, supple Respiratory: chest non-tender, lungs clear, normal breath sounds, no respiratory distress, no accessory muscle use Cardiovascular: normal peripheral pulses, no edema, irregularly irregular (controlled rate) Gastrointestinal: normal bowel sounds, non tender, soft, no organomegaly; No distended, No guarding, No rebound, No tenderness Back: no CVA tenderness, no vertebral tenderness Extremities: normal range of motion, no calf tenderness, pedal edema Neurologic/Psychiatric: director of assessment II-XII nml as tested, no motor/sensory deficits, alert, normal mood/affect, oriented x 3 Skin: rash (odell on buttock, perinium, back) Lymphatic: no adenopathy Assessment/Plan Assessment/Plan Admission Status: Inpatient Order (span 2 midnights) Reason for Inpatient Admission: hypotension that needs close monitoring, high risk of decompensation due to chronic medical conditions (1) Septic shock Status: Acute Assessment & Plan: - Repeat LA pending, continue aggressive IVF's to maintain MAP, unclear site of infection, procalcitonin elevated, continue Cefepime (2) Hyponatremia Status: Acute Assessment & Plan: - Normal sodium in clinic 01/09/21, will continue to monitor, likely 2/2 dehydration (3) Chronic atrial fibrillation Status: Chronic Assessment & Plan: - Rate controlled, continue OAC (4) DVT prophylaxis Status: Acute Assessment & Plan: - OAC Copy Copies To 1: TATY ROBERSON MD, HOLLY R MD May 14, 2021 17:01
[2021-05-14] MEDS: APIXABAN 5 MG (ELIQUIS) TABLET PO SCH (19:39)
[2021-05-14] MEDS: NYSTATIN CREAM (MYCOSTATIN) 30 GM TUBE TP SCH (19:39)
[2021-05-14] MEDS: MICONAZOLE 2% POWDER (DESENEX AF) 90 GM TOP SCH (19:39)
[2021-05-14] MEDS: ACETAMINOPHEN 325 MG TABLET PO PRN (23:44)
[2021-05-15] VITALS (24 sets, daily range): BP systolic 85–124; BP diastolic 51–91
[2021-05-15] MEDS: LACTATED RINGERS 1,000 ML IV SCH ×3 (01:21→19:34)
[2021-05-15] MEDS: CEFEPIME 1,000 MG/SWFI 10 ML IV PUSH IV SCH ×6 (03:31→19:35)
[2021-05-15 04:01] LABS: BASOPHILS % (AUTO) 0 % (0-10); EOSINOPHILS # (AUTO) 0.1 10^3/uL (0.0-0.3); EOSINOPHILS % (AUTO) 1 % (0-10); HEMATOCRIT 33 % (35-52); HEMOGLOBIN 10.7 g/dL (11.5-16.0); LYMPHOCYTES # (AUTO) 0.8 10^3/uL (1.0-4.0); LYMPHOCYTES % (AUTO) 6 % (12-44); MEAN CORPUSCULAR HEMOGLOBIN 29 pg (25-34); MEAN CORPUSCULAR HGB CONC 33 g/dL (32-36); MEAN CORPUSCULAR VOLUME 88 fL (80-99); MEAN PLATELET VOLUME 9.8 fL (9.0-12.2); MONOCYTES # (AUTO) 0.4 10^3/uL (0.0-1.0); MONOCYTES % (AUTO) 3 % (0-12); NEUTROPHILS % (AUTO) 88 % (42-75); PLATELET COUNT 174 10^3/uL (130-400); WHITE BLOOD COUNT 14.7 10^3/uL (4.3-11.0)
[2021-05-15 04:17] LABS: POTASSIUM 3.6 MMOL/L (3.6-5.0)
[2021-05-15 04:22] LABS: PHOSPHORUS 2.8 MG/DL (2.3-4.7)
[2021-05-15 04:23] LABS: CREATININE SERUM 0.62 MG/DL (0.60-1.30)
[2021-05-15 04:25] LABS: MAGNESIUM 1.3 MG/DL (1.6-2.4)
[2021-05-15] MEDS: POTASSIUM CL 10MEQ/50ML IVPB 50 ML IV SCH (04:37)
[2021-05-15] MEDS: KCL 20 MEQ TAB (K-DUR) PO SCH (04:38)
[2021-05-15] MEDS: MAGNESIUM 1 GM/100 ML IVPB 100 ML IV SCH ×5 (04:47→08:44)
--- NOTE | 2021-05-15 07:42 | Progress Note - Surgery ---
RIC ARRIAGA MED STUDENT 05/15/21 0742: Subjective Date Seen by a Provider: May 15, 2021 Time Seen by a Provider: 06:45 Subjective/Events-last exam Patient seen this morning at beside in ICU. She is alert and oriented to person, day, place. This morning she has no complaints. She states she is feeling better relative to yesterday. Her vitals were stable when seen. She is denying feeling feverish, sweating, cough, chest pain or palpations. Focused Exam Lactate Level 05/14/21 06:15: Lactic Acid Level 5.09*H 05/14/21 08:41: Lactic Acid Level 1.45 Time of Focused Exam: 07:26 Objective Exam Vital Signs Date Time Temp Pulse Resp B/P (MAP) Pulse Ox O2 Delivery O2 Flow Rate FiO2 05/15/21 06:00 63 17 85/56 (66) 97 Room Air 05/15/21 05:00 71 15 102/70 (81) 96 Room Air 05/15/21 04:00 95 Room Air 05/15/21 04:00 37.1 64 18 120/67 (84) 95 Room Air 05/15/21 03:00 59 18 118/67 (84) 97 Room Air 05/15/21 02:00 75 20 89/56 (67) 96 Room Air 05/15/21 02:00 37.4 Room Air 05/15/21 01:45 Room Air 05/15/21 01:04 69 05/15/21 01:00 66 22 86/55 (65) 95 Nasal Cannula 1.00 05/15/21 00:30 37.6 96 Nasal Cannula 1.00 05/15/21 00:14 37.7 05/15/21 00:00 83 20 87/51 (63) 98 Nasal Cannula 2.00 05/14/21 23:59 Nasal Cannula 1.00 05/14/21 23:44 38.1 05/14/21 23:43 110/73 05/14/21 23:40 38.4 05/14/21 23:00 80 20 134/77 (96) 98 Nasal Cannula 2.00 05/14/21 22:00 74 20 124/79 (94) 99 Nasal Cannula 2.00 05/14/21 21:17 Nasal Cannula 2.00 05/14/21 21:00 72 24 126/76 (93) 99 Nasal Cannula 2.00 05/14/21 20:00 78 29 113/72 (86) 98 Nasal Cannula 2.00 05/14/21 20:00 37.3 05/14/21 20:00 Nasal Cannula 2.00 05/14/21 19:06 67 05/14/21 19:00 66 27 132/86 (101) 98 Nasal Cannula 2.00 05/14/21 18:00 91 22 105/71 (82) 99 Nasal Cannula 2.00 05/14/21 17:00 88 25 107/66 (80) 99 Nasal Cannula 2.00 05/14/21 16:00 70 21 123/115 (118) 99 Nasal Cannula 2.00 05/14/21 16:00 36.3 05/14/21 15:00 64 21 85/58 (67) 99 Nasal Cannula 2.00 05/14/21 14:00 67 14 102/75 (84) 99 Nasal Cannula 2.00 05/14/21 13:00 21 92/62 (72) 99 Nasal Cannula 2.00 05/14/21 13:00 73 05/14/21 12:00 73 21 117/73 (88) 96 Nasal Cannula 2.00 05/14/21 11:50 Nasal Cannula 2.00 05/14/21 11:50 37.1 05/14/21 11:35 76 18 99/58 97 Nasal Cannula 2.00 05/14/21 11:00 103/69 (80) 05/14/21 09:29 84 18 108/85 96 Nasal Cannula 2.00 05/14/21 08:25 36.7 89 18 103/64 97 Nasal Cannula 2.00 05/14/21 08:12 101 18 103/70 95 Nasal Cannula 2.00 I & O 05/15/21 07:00 Intake Total 6470 ml Output Total 1450 ml Balance 5020 ml Capillary Refill : Less Than 3 Seconds General Appearance: No Apparent Distress HEENT: PERRL/EOMI Neck: Normal Inspection, Non Tender Respiratory: Lungs Clear, Normal Breath Sounds, No Accessory Muscle Use, Respiratory Distress (Mild to moderate with oxygen saturations 92% on room air.) Cardiovascular: Normal Peripheral Pulses, Irregularly Irregular Peripheral Pulses: 2+ Radial Pulses (R), 2+ Radial Pulses (L) Gastrointestinal: non tender, soft, no organomegaly; No distended, No guarding, No rebound, No tenderness Extremity: Normal Capillary Refill, Normal Inspection, Normal Range of Motion, Non Tender, No Calf Tenderness, No Pedal Edema Neurologic/Psychiatric: Alert, Oriented x3, Normal Mood/Affect Skin: Normal Color, Warm/Dry, Erythema Results Lab Laboratory Tests 05/14/21 08:41: Lactic Acid Level 1.45 05/15/21 03:35: White Blood Count 14.7H, Red Blood Count 3.70L, Hemoglobin 10.7L, Hematocrit 33L , Mean Corpuscular Volume 88, Mean Corpuscular Hemoglobin 29, Mean Corpuscular Hemoglobin Concent 33, Red Cell Distribution Width 14.4, Platelet Count 174, Mean Platelet Volume 9.8, Immature Granulocyte % (Auto) 2, Neutrophils (%) (Auto) 88H, Lymphocytes (%) (Auto) 6L, Monocytes (%) (Auto) 3, Eosinophils (%) (Auto) 1, Basophils (%) (Auto) 0, Neutrophils # (Auto) 13.0H, Lymphocytes # (Auto) 0.8L, Monocytes # (Auto) 0.4, Eosinophils # (Auto) 0.1, Basophils # (Auto) 0.0, Immature Granulocyte # (Auto) 0.3H, Sodium Level 130L, Potassium Level 3.6, Chloride Level 102, Carbon Dioxide Level 22, Anion Gap 6, Blood Urea Nitrogen 9, Creatinine 0.62, Estimat Glomerular Filtration Rate 94, BUN/Creatinine Ratio 15, Glucose Level 100, Calcium Level 8.0L, Phosphorus Level 2.8, Magnesium Level 1.3L Assessment/Plan Assessment/Plan Assessment/Plan Suspected sepsis r/o Abdominal source No signs of intrabdominal infection there is no surgical intervention to offer at this time will sign off, but will be available if there is an acute change. MASTER SMITH DO 05/15/212122: Subjective Time Seen by a Provider: 11:26 Subjective/Events-last exam Pt seen and examined, no new complaints. Denies abdominal pain and is tolerating diet. States she has a yeast infection in her groin. Review of Systems General: No Chills Pulmonary: No Dyspnea, No Cough Cardiovascular: No: Chest Pain, Palpitations Gastrointestinal: No: Nausea, Vomiting Objective Exam General Appearance: No Apparent Distress HEENT: PERRL/EOMI Respiratory: Lungs Clear; No Normal Breath Sounds, No No Accessory Muscle Use; Respiratory Distress (Mild to moderate with oxygen saturations 92% on room air.) Cardiovascular: No Murmur, Irregularly Irregular Gastrointestinal: non tender, soft, no organomegaly Neurologic/Psychiatric: Alert, Oriented x3 Assessment/Plan Assessment/Plan Assessment/Plan Suspected sepsis r/o Abdominal source No signs of intrabdominal infection and therefore no surgical intervention to offer at this time will sign off, but will be available if there is an acute change. Supervisory-Addendum Brief Verification & Attestation Participated in pt care: history, MDM, physical Personally performed: exam, history, MDM, supervision of care Care discussed with: Medical Student Procedures: n/a Verification and Attestation of Medical Student E/M Service A medical student performed and documented this service. I then reviewed and verified all information documented by the medical student and made modifications to such information, when appropriate. I personally performed a physical exam, medical decision making and then discussed any differences between the notes and made revisions as necessary to create one note. Master Smith , 05/15/21 , 21:23 RIC ARRIAGA MED STUDENT May 15, 2021 07:42 MASTER SMITH DO May 15, 2021 21:23
--- NOTE | 2021-05-15 08:50 | Tele-ICU Progress Note ---
Subjective Date Seen by a Provider: May 15, 2021 Time Seen by a Provider: 07:20 Subjective/Events-last exam This virtual visit was conducted using real time audio/video. Thank you for asking us to see this patient for AMS and sepsis of undetermined etiology. PE: Resting comfortably. VSS O2 sat 95% on 1 LPM. HEENT: No obvious masses, adenopathy or JVD. Chest: clear to auscultation. CV: RRR S1 S2 No murmur or added sounds. Abd: Non-tender. Bowel sounds Y. : Unremarkable. Sy N. RIBBON CUTTER/psychiatric: Alert and oriented, grossly intact. No obvious focal findings. Extremities: I+ edema. Capillary refill < 3 seconds. Buttock wounds. Skin: unremarkable. Results: Elevated WCC 14.7. Decreased Hb 10.7, Na 130. No infilts on CXR. A/P: Sppsis: Cont abx. Available chart/ vitals / labs / Images reviewed. Video assessment done using teleICU camera, rest of exam as per RN. Critical Care: critically ill patient. Cont. Eliquis, consider transfer. Discussed with DAIANA Mercedes. Asked RN to reach out to eICU if any questions or concerns later. Time spent with patient/coordination of care with other health professionals (mins): 15 Sepsis Event Evaluation Height, Weight, BMI Height: 0'0.00" Weight: 0lbs. 0.0oz. 0.500338if; 28.47 BMI Method: Focused Exam Lactate Level 05/14/21 06:15: Lactic Acid Level 5.09*H 05/14/21 08:41: Lactic Acid Level 1.45 Time of Focused Exam: 07:26 Exam Exam Patient acknowledged, consented, and participated in this virtual visit which was conducted using real time audio/video Vital Signs Date Time Temp Pulse Resp B/P (MAP) Pulse Ox O2 Delivery O2 Flow Rate FiO2 05/15/21 06:00 63 17 85/56 (66) 97 Room Air 05/15/21 05:00 71 15 102/70 (81) 96 Room Air 05/15/21 04:00 95 Room Air 05/15/21 04:00 37.1 64 18 120/67 (84) 95 Room Air 05/15/21 03:00 59 18 118/67 (84) 97 Room Air 05/15/21 02:00 75 20 89/56 (67) 96 Room Air 05/15/21 02:00 37.4 Room Air 05/15/21 01:45 Room Air 05/15/21 01:04 69 05/15/21 01:00 66 22 86/55 (65) 95 Nasal Cannula 1.00 05/15/21 00:30 37.6 96 Nasal Cannula 1.00 05/15/21 00:14 37.7 05/15/21 00:00 83 20 87/51 (63) 98 Nasal Cannula 2.00 05/14/21 23:59 Nasal Cannula 1.00 05/14/21 23:44 38.1 05/14/21 23:43 110/73 05/14/21 23:40 38.4 05/14/21 23:00 80 20 134/77 (96) 98 Nasal Cannula 2.00 05/14/21 22:00 74 20 124/79 (94) 99 Nasal Cannula 2.00 05/14/21 21:17 Nasal Cannula 2.00 05/14/21 21:00 72 24 126/76 (93) 99 Nasal Cannula 2.00 05/14/21 20:00 78 29 113/72 (86) 98 Nasal Cannula 2.00 05/14/21 20:00 37.3 05/14/21 20:00 Nasal Cannula 2.00 05/14/21 19:06 67 05/14/21 19:00 66 27 132/86 (101) 98 Nasal Cannula 2.00 05/14/21 18:00 91 22 105/71 (82) 99 Nasal Cannula 2.00 05/14/21 17:00 88 25 107/66 (80) 99 Nasal Cannula 2.00 05/14/21 16:00 70 21 123/115 (118) 99 Nasal Cannula 2.00 05/14/21 16:00 36.3 05/14/21 15:00 64 21 85/58 (67) 99 Nasal Cannula 2.00 05/14/21 14:00 67 14 102/75 (84) 99 Nasal Cannula 2.00 05/14/21 13:00 21 92/62 (72) 99 Nasal Cannula 2.00 05/14/21 13:00 73 05/14/21 12:00 73 21 117/73 (88) 96 Nasal Cannula 2.00 05/14/21 11:50 Nasal Cannula 2.00 05/14/21 11:50 37.1 05/14/21 11:35 76 18 99/58 97 Nasal Cannula 2.00 05/14/21 11:00 103/69 (80) 05/14/21 09:29 84 18 108/85 96 Nasal Cannula 2.00 I & O 05/15/21 07:00 Intake Total 6470 ml Output Total 1450 ml Balance 5020 ml Height & Weight Height: 0'0.00" Weight: 0lbs. 0.0oz. 0.887207cl; 28.47 BMI Method: General Appearance: Moderate Distress, Other (Dried emesis on her right shoulde r) HEENT: PERRL/EOMI, TMs Normal, Normal ENT Inspection; No Moist Mucous Membranes Neck: Full Range of Motion, Normal Inspection, Non Tender, Supple Respiratory: Lungs Clear, Normal Breath Sounds, No Accessory Muscle Use, Respiratory Distress (Mild to moderate with oxygen saturations 92% on room air.) Cardiovascular: Regular Rate, Rhythm, Normal Peripheral Pulses, Tachycardia Capillary Refill: Less Than 3 Seconds Peripheral Pulses: 2+ Radial Pulses (R), 2+ Radial Pulses (L) Gastrointestinal: normal bowel sounds, non tender, soft, no organomegaly; No distended, No guarding, No rebound, No tenderness Extremity: Normal Capillary Refill, Normal Inspection, Normal Range of Motion, Non Tender, No Calf Tenderness, No Pedal Edema Neurologic/Psychiatric: Alert, Oriented x3, Normal Mood/Affect Skin: No Normal Color, No Warm/Dry, No Cool, No Cyanosis, No Damp, No Diaphoresis, No Ecchymosis (Pts inguinal, groin and rectal regions display significant erythematous skin breakdown. non-pruritic.); Erythema; No Jaundice, No Mottled, No Pallor, No Petechia, No Rash, No Tattoos/Piercings, No Other Results Lab Laboratory Tests 05/14/21 06:05 05/15/21 03:35 Assessment/Plan Assessment/Plan See free text. Critical Care: Critically Ill Patient VICKY SWANSON MD May 15, 2021 08:50
[2021-05-15] MEDS: NYSTATIN CREAM (MYCOSTATIN) 30 GM TUBE TP SCH ×3 (09:02→21:00)
[2021-05-15] MEDS: APIXABAN 5 MG (ELIQUIS) TABLET PO SCH ×2 (09:02→19:34)
[2021-05-15] MEDS: MICONAZOLE 2% POWDER (DESENEX AF) 90 GM TOP SCH ×2 (09:02→19:35)
[2021-05-15] MEDS: NOREPINEPHRINE 8 MG/250 ML 250 ML IV SCH (09:37)
[2021-05-15] MEDS: VASOPRESSIN INJECTION 20 UNIT in NS (IVPB) 100 ML IV SCH ×2 (09:38→21:36)
--- NOTE | 2021-05-15 10:04 | Progress Note ---
Subjective Subjective/Events-last exam Patient states that she is feeling much better. Blood pressures overnight labile. Tolerating PO diet. Denies any chest pain, abdominal pain or shortness of breath Review of Systems General: Fatigue, Malaise Pulmonary: No Dyspnea, No Cough Cardiovascular: No: Chest Pain, Palpitations, Edema Gastrointestinal: No: Nausea, Vomiting, Abdominal Pain, Diarrhea, Constipation Genitourinary: No Dysuria Musculoskeletal: No: arm pain, back pain Focused Exam Lactate Level 05/14/21 06:15: Lactic Acid Level 5.09*H 05/14/21 08:41: Lactic Acid Level 1.45 Time of Focused Exam: 07:26 Objective Exam Last Set of Vital Signs Vital Signs Date Time Temp Pulse Resp B/P (MAP) Pulse Ox O2 Delivery O2 Flow Rate FiO2 05/15/21 08:00 94 Room Air 05/15/21 07:00 68 05/15/21 06:00 17 85/56 (66) 05/15/21 04:00 37.1 05/15/21 01:00 1.00 Capillary Refill : Less Than 3 Seconds I&O Intake and Output 05/15/21 00:00 Intake Total 5020 ml Output Total 750 ml Balance 4270 ml Intake Oral 250 ml IV Total 4770 ml Output Urine Total 750 ml # Voids 2 Daily Weight Change Unsure General: Alert, Oriented X3, Cooperative, No Acute Distress HEENT: Mucous Memb Moist/[place] Lungs: Clear to Auscultation, Normal Air Movement Heart: No Murmurs, Other (irregular irregularly rate) Abdomen: Normal Bowel Sounds, Soft, No Tenderness, No Masses Extremities: No Edema, No Tenderness/Swelling Neuro: Normal Speech, Sensation Intact, Cranial Nerves 3-12 NL Results/Procedures Lab Laboratory Tests 05/15/21 03:35: White Blood Count 14.7H, Red Blood Count 3.70L, Hemoglobin 10.7L, Hematocrit 33L , Mean Corpuscular Volume 88, Mean Corpuscular Hemoglobin 29, Mean Corpuscular Hemoglobin Concent 33, Red Cell Distribution Width 14.4, Platelet Count 174, Mean Platelet Volume 9.8, Immature Granulocyte % (Auto) 2, Neutrophils (%) (Auto) 88H, Lymphocytes (%) (Auto) 6L, Monocytes (%) (Auto) 3, Eosinophils (%) (Auto) 1, Basophils (%) (Auto) 0, Neutrophils # (Auto) 13.0H, Lymphocytes # (Auto) 0.8L, Monocytes # (Auto) 0.4, Eosinophils # (Auto) 0.1, Basophils # (Auto) 0.0, Immature Granulocyte # (Auto) 0.3H, Sodium Level 130L, Potassium Level 3.6, Chloride Level 102, Carbon Dioxide Level 22, Anion Gap 6, Blood Urea Nitrogen 9, Creatinine 0.62, Estimat Glomerular Filtration Rate 94, BUN/Creati nine Ratio 15, Glucose Level 100, Calcium Level 8.0L, Phosphorus Level 2.8, Magnesium Level 1.3L Microbiology 05/14/21 Blood Culture - Preliminary, Resulted No growth Radiology Date of Exam:05/14/21 CT ABDOMEN/PELVIS W PROCEDURE: CT abdomen and pelvis with contrast. TECHNIQUE: Multiple contiguous axial images were obtained through the abdomen and pelvis after administration of intravenous contrast. Auto Exposure Controls were utilized during the CT exam to meet ALARA standards for radiation dose reduction. All CT scans use one or more of the following dose optimizing techniques: automated exposure control, MA and/or KvP adjustment based on patient size and exam type or iterative reconstruction. INDICATION: Nausea, vomiting, diarrhea and septic shock. Comparison is made with prior CT from 10/25/2015. The heart is enlarged. No discrete liver mass is identified. Gallbladder appears to be unremarkable. No biliary duct dilatation. The pancreas and spleen are unremarkable. No adrenal mass is detected. Kidneys are unremarkable. There are extrarenal pelves bilaterally. No obstructing lesion is identified. Aorta is tortuous and calcified but nonaneurysmal. No central retroperitoneal or mesenteric lymphadenopathy is identified. Bowel loops are normal caliber. Bladder and uterus are unremarkable. No free fluid or fluid collection is identified. Mildly prominent lymph nodes in the inguinal regions bilaterally are noted. No iliac lymphadenopathy is identified. IMPRESSION: 1. Cardiomegaly. 2. No acute feature in the abdomen or pelvis is identified. Dictated by: Dictated on workstation # [id number] Dict: 05/14/21 0817 Trans: 05/14/21 1556 CV [id number] Interpreted by: FRANCISCA NORMAN MD Electronically signed by: FRANCISCA NORMAN MD 05/14/21 4031 Assessment/Plan Assessment/Plan (1) Septic shock Status: Acute Assessment & Plan: - Repeat LA pending, continue aggressive IVF's to maintain MAP, unclear site of infection, procalcitonin elevated, continue Cefepime 05/15: HDS, blood pressures improving, Continue IV antibiotics, will decrease IVFs and monitor blood pressure (2) Hyponatremia Status: Acute Assessment & Plan: - Normal sodium in clinic 01/09/21, will continue to monitor, likely 2/2 dehydration 05/15: Improving, daily CMPs (3) Chronic atrial fibrillation Status: Chronic Assessment & Plan: - Rate controlled, continue OAC (4) DVT prophylaxis Status: Acute Assessment & Plan: - OAC TATY BRUNNER MD May 15, 2021 10:04
[2021-05-15] MEDS: VANCOMYCIN INJECTION 1,000 MG in NS (IVPB) 250 ML IV SCH (13:20)
--- NOTE | 2021-05-15 14:34 | Occupational Therapy Eval ---
OT Evaluation-General/PLF Medical Diagnosis Admission Date May 14, 2021 at 09:00 Medical Diagnosis: septic shock/ascites/respiratory failure with hypoxia Onset Date: May 14, 2021 Therapy Diagnosis Therapy Diagnosis: decreased ADL status Height/Weight Height (Feet): 0 Height (Inches): 0.00 Weight (Pounds): 0 Weight (Ounces): 0.0 Precautions Precautions/Isolations: Fall Prevention, Standard Precautions Referral Physician: Da Referral Reason: Evaluation/Treatment Medical History Additional Medical History atrial Fibrillation, EtOH abuse, Tobacco Abuse Current History ED due to AMS, n/v and abdominal pain. Social History Home: Single Level Current Living Status: Spouse Entry Into Home: Stairs With Railing (bilateral) Steps Into Home: 2 Pt lives with her spouse and 4 other family members. ADL-Prior Level of Function SCALE: Activities may be completed with or without assistive devices. 8-Ldhgidjyev-loqbgfo completes the activity by him/herself with no assistance from a helper. 5-Set-up or Clean-up Assistance-helper sets up or cleans up; patient completes activity. [place] assists only prior to or following the activity. 4-Supervision or Touching Assistance-helper provides verbal cues and/or touching/steadying and/or contact guard assistance as patient completes activit y. Assistance may be provided throughout the activity or intermittently. 3-Partial/Moderate Assistance-helper does LESS THAN HALF the effort. [place] lifts, holds or supports trunk or limbs, but provides less than half the effort. 2-Substantial/Maximal Assistance-helper does MORE THAN HALF the effort. [place] lifts or holds trunk or limbs and provides more than half the effort. 8-Daifnyexi-mqpggh does ALL the effort. Patient does none of the effort to complete the activity. Or, the assistance of 2 or more helpers is required for the patient to complete the activity. If activity was not attempted, code reason: 7-Patient Refused. 9-Not Applicable-not attempted and the patient did not perform the activity before the current illness, exacerbation or injury. 10-Not Attempted due to Environmental Limitations-(lack of equipment, weather restraints, etc.). 88-Not Attempted due to Medical Conditions or Safety Concerns. ADL PLOF Comments Pt's daughter in law assists pt with medication management. Pt is independent with bathing/dressing and toileting. IND with functional mobility, no AD. Self Care: Independent Functional Cognition: Independent DME/Equipment: Bath Bench, Shower Hose Manager Rn Case, Tall Toilet, Tub/Shower OT Current Status Subjective Pt seated in recliner, daughter present. Pt agreeable to OT evaluation/tx. Mental Status/Objective Patient Orientation: Normal For Age Attachments: IV Current Dentures/Partials: No Upper Extremity ROM decreased, BUE shoulder flexion to approx 80 degrees, WFL at elbows/wrist/fingers. Upper Extremity Coordination WFL Upper Extremity Strength grossly 3/5 ADL-Treatment Eating (QC): 6 (IND with lunch per report.) Oral Hygiene (QC): 9 Other Treatments Pt seated in recliner, agreeable to OT Tx with focus on ADLs. She declined sponge bath at this time but agreeable to washing her hair with a shower cap. Pt indicates at home, she leans over the sink to wash her hair due to decreased shoulder ROM. OT placed shower cap on pt's head, then required total assist to wash her hair due to lines/attachments getting in her way and decreased shoulder ROM. OT then dependently brushed pt's hair due to decreased shoulder ROM. Pt declines further ADLs at this time, agreeable to OT POC with focus on increasing BUE strength and activity tolerance, and increasing safety and independence with ADLs and functional mobility. Post tx, pt in recliner, call light in reach and all needs met. Education OT Patient Education: Correct positioning, Energy conservation, Modified ADL techniques, Progress toward Goal/Update tx plan, Purpose of tx/functional activities, Rehab process Teaching Recipient: Patient Teaching Methods: Discussion Response to Teaching: Verbalize Understanding OT Chcf Goals Chcf Goals Time Frame: May 25, 2021 Eating (QC): 6 Oral Hygiene (QC): 6 Toileting Hygiene (QC): 6 Shower/Bathe Self (QC): 6 Upper Body Dressing (QC): 6 Lower Body Dressing (QC): 6 On/Off Footwear (QC): 6 Additional Goals: 1-Demonstrate ADL Tasks, 2-Verbalize Understanding, 3-ImproveStrength/Darrian 1=Demonstrate adherence to instructed precautions during ADL tasks. 2=Patient will verbalize/demonstrate understanding of assistive devices/modifications for ADL. 3=Patient will improve strength/tolerance for activity to enable patient to perf orm ADL's. OT Education/Plan Problem List/Assessment Assessment: Decreased Activ Tolerance, Decreased UE Strength, Impaired Funct Balance, Impaired I ADL's, Impaired Self-Care Skills Discharge Recommendations Plan/Recommendations: Continue POC Therapy Discharge Recommendati: Home & Family Treatment Plan/Plan of Care Patient would benefit from OT for education, treatment and training to promote independence in ADL's, mobility, safety and/or upper extremity function for ADL's. Plan of Care: ADL Retraining, Functional Mobility, UE Funct Exercise/Act Treatment Duration: May 25, 2021 Frequency: 5 times per week Estimated Hrs Per Day: 1.5 hours per day Agreement: Yes Rehab Potential: Good Time/GCodes Start Time: 14:20 Stop Time: 14:37 Total Time Billed (hr/min): 17 Billed Treatment Time 1, JO WEN OT May 15, 2021 14:34
--- NOTE | 2021-05-15 14:37 | Physical Therapy Evaluation ---
PT Evaluation-General Medical Diagnosis Admission Date May 14, 2021 at 09:00 Medical Diagnosis: septic shock/ascites/respiratory failure with hypoxia Onset Date: May 14, 2021 Therapy Diagnosis Therapy Diagnosis: debility/weakness Height/Weight Height (Feet): 0 Height (Inches): 0.00 Weight (Pounds): 0 Weight (Ounces): 0.0 Precautions Precautions/Isolations: Fall Prevention, Standard Precautions Referral Physician: Da Reason for Referral: Evaluation/Treatment Medical History Pertinent Medical History: Alcoholism, DM, HTN, Smoking Current History EMS secondary to inability to get OOB with AMS and weakness Reviewed History: Yes Social History Home: Single Level Current Living Status: Children Prior Prior Level of Function SCALE: Activities may be completed with or without assistive devices. 8-Tfhdxcdegy-gwuokaa completes the activity by him/herself with no assistance from a helper. 5-Set-up or Clean-up Assistance-helper sets up or cleans up; patient completes activity. [place] assists only prior to or following the activity. 4-Supervision or Touching Assistance-helper provides verbal cues and/or touching/steadying and/or contact guard assistance as patient completes activity. Assistance may be provided throughout the activity or intermittently. 3-Partial/Moderate Assistance-helper does LESS THAN HALF the effort. [place] lifts, holds or supports trunk or limbs, but provides less than half the effort. 2-Substantial/Maximal Assistance-helper does MORE THAN HALF the effort. [place] lifts or holds trunk or limbs and provides more than half the effort. 4-Ezqbfpzpd-pysqvc does ALL the effort. Patient does none of the effort to complete the activity. Or, the assistance of 2 or more helpers is required for the patient to complete the activity. If activity was not attempted, code reason: 7-Patient Refused. 9-Not Applicable-not attempted and the patient did not perform the activity before the current illness, exacerbation or injury. 10-Not Attempted due to Environmental Limitations-(lack of equipment, weather restraints, etc.). 88-Not Attempted due to Medical Conditions or Safety Concerns. Bed Mobility: 6 Transfers (B,C,W/C): 6 Gait: 6 Stairs: 6 Indoor Mobility (Ambulation): Independent Stairs: Independent Prior Devices Use: None PT Evaluation-Current Subjective Patient agrees to PT. family present Objective Patient Orientation: Person, Time, Situation Attachments: IV ROM/Strength ROM Lower Extremities bilateral LE WFL Strength Lower Extremities 3/5 grossly bilateral LE Integumentary/Posture Integumentary refer to nursing notes Bowel Incontinence: No Bladder Incontinence: Yes Posture WFL Neuromuscular (Tone, Coordination, Reflexes) grossly intact Sensory Vision: Functional Hearing: Functional Transfers Roll Left to Right (QC): 4 Sit to Lying (QC): 4 Lying to Sitting/Side of Bed(Q: 4 Sit to Stand (QC): 4 Chair/Ava-xd-Bnfub Xfer(QC): 4 Gait Does the Patient Walk?: Yes Mode of Locomotion: Walk Anticipated Mode of Locomotion: Walk Walk 10 feet (QC): 4 Walk 50 ft with 2 Turns(QC): 4 Walk 150 ft (QC): 4 Distance: 250' Gait Assistive Device: FWW Comments/Gait Description safe and functional with on deviation Balance Sitting Static: Normal Sitting Dynamic: Normal Standing Static: Good Standing Dynamic: Good Assessment/Needs 71 y.o. female, will be seen short term by skilled PT to address functional strength and mobility to improve current LOF to safely return to home at maximum LOF. Rehab Potential: Fair PT Jail Goals Jail Goals PT Hearing Aid Assistant Goals Time Frame: May 26, 2021 Roll Left & Right (QC): 6 Sit to Lying (QC): 6 Lying-Sitting on Side/Bed(QC): 6 Sit to Stand (QC): 6 Chair/Nix-ru-Hvkdp Xfer(QC): 6 Toilet Transfer (QC): 6 Walk 10 feet (QC): 6 Walk 50ft with 2 Turns (QC): 6 Walk 150 ft (QC): 6 PT Plan Problem List Problem List: Activity Tolerance, Functional Strength, Safety, Gait, Transfer, Bed Mobility Treatment/Plan Treatment Plan: Continue Plan of Care Treatment Plan: Bed Mobility, Education, Functional Activity Darrian, Functional Strength, Gait, Safety, Therapeutic Exercise, Transfers Treatment Duration: May 26, 2021 Frequency: 6 times per week Estimated Hrs Per Day: .25 hour per day Patient and/or Family Agrees t: Yes Time/GCodes Time In: 1358 Time Out: 1408 Total Billed Treatment Time: 10 Total Billed Treatment 1 visit EVModC 10 min TOI DENSON PT May 15, 2021 14:37
[2021-05-15] MEDS: ACETAMINOPHEN 325 MG TABLET PO PRN (19:34)
[2021-05-16] VITALS (10 sets, daily range): BP systolic 93–131; BP diastolic 65–85
[2021-05-16] MEDS: LACTATED RINGERS 1,000 ML IV SCH ×2 (02:54→08:52)
[2021-05-16 04:12] LABS: BASOPHILS # (AUTO) 0.1 10^3/uL (0.0-0.1); BASOPHILS % (AUTO) 0 % (0-10); EOSINOPHILS # (AUTO) 0.2 10^3/uL (0.0-0.3); EOSINOPHILS % (AUTO) 2 % (0-10); HEMATOCRIT 33 % (35-52); HEMOGLOBIN 10.4 g/dL (11.5-16.0); LYMPHOCYTES # (AUTO) 1.2 10^3/uL (1.0-4.0); LYMPHOCYTES % (AUTO) 11 % (12-44); MEAN CORPUSCULAR HEMOGLOBIN 28 pg (25-34); MEAN CORPUSCULAR HGB CONC 32 g/dL (32-36); MEAN CORPUSCULAR VOLUME 89 fL (80-99); MEAN PLATELET VOLUME 10.3 fL (9.0-12.2); MONOCYTES # (AUTO) 0.4 10^3/uL (0.0-1.0); MONOCYTES % (AUTO) 3 % (0-12); NEUTROPHILS # (AUTO) 9.4 10^3/uL (1.8-7.8); NEUTROPHILS % (AUTO) 83 % (42-75); PLATELET COUNT 169 10^3/uL (130-400); WHITE BLOOD COUNT 11.4 10^3/uL (4.3-11.0)
[2021-05-16 04:22] LABS: ALBUMIN 2.5 GM/DL (3.2-4.5)
[2021-05-16 04:23] LABS: POTASSIUM 3.8 MMOL/L (3.6-5.0)
[2021-05-16 04:24] LABS: CALCIUM 8.2 MG/DL (8.5-10.1)
[2021-05-16] MEDS: CEFEPIME 1,000 MG/SWFI 10 ML IV PUSH IV SCH ×6 (04:26→19:48)
[2021-05-16 04:27] LABS: BILIRUBIN,TOTAL 0.6 MG/DL (0.1-1.0)
[2021-05-16 04:28] LABS: PHOSPHORUS 2.6 MG/DL (2.3-4.7)
[2021-05-16 04:29] LABS: CREATININE SERUM 0.66 MG/DL (0.60-1.30)
[2021-05-16 05:10] LABS: BAND NEUTROPHILS 3 %; EOSINOPHILS % (MANUAL) 4 %; LYMPHOCYTES % (MANUAL) 6 %; MONOCYTES % (MANUAL) 3 %; NEUTROPHILS % (MANUAL) 84 %
[2021-05-16] MEDS: MAGNESIUM 1 GM/100 ML IVPB 100 ML IV SCH (05:12)
[2021-05-16] MEDS: POTASSIUM CL 10MEQ/50ML IVPB 50 ML IV SCH (05:12)
[2021-05-16] MEDS: KCL 20 MEQ TAB (K-DUR) PO SCH (05:13)
[2021-05-16] MEDS: NOREPINEPHRINE 8 MG/250 ML 250 ML IV SCH (05:13)
[2021-05-16] MEDS: VASOPRESSIN INJECTION 20 UNIT in NS (IVPB) 100 ML IV SCH (07:55)
[2021-05-16] MEDS: APIXABAN 5 MG (ELIQUIS) TABLET PO SCH ×2 (08:52→19:48)
[2021-05-16] MEDS: MICONAZOLE 2% POWDER (DESENEX AF) 90 GM TOP SCH ×2 (09:05→21:24)
[2021-05-16] MEDS: NYSTATIN CREAM (MYCOSTATIN) 30 GM TUBE TP SCH ×3 (09:05→21:00)
--- NOTE | 2021-05-16 09:11 | Tele-ICU Progress Note ---
Subjective Time Seen by a Provider: 08:45 Subjective/Events-last exam This virtual visit was conducted using real time audio/video. Thank you for asking us to see this patient for AMS and sepsis of undetermined etiology. PE: Resting comfortably. VSS O2 sat 95% on RA. HEENT: No obvious masses, adenopathy or JVD. Chest: clear to auscultation. CV: RRR S1 S2 No murmur or added sounds. Abd: Non-tender. Bowel sounds Y. : Unremarkable. Sy N. KNOT TIER/psychiatric: Alert and oriented, grossly intact. No obvious focal findings. Extremities: I+ edema. Capillary refill < 3 seconds. Buttock wounds. Skin: unremarkable. Results: Elevated WCC 11.4 decreasing. Decreased Hb 10.4, Na 132. No infilts on CXR. A/P: Sppsis: Cont abx. Available chart/ vitals / labs / Images reviewed. Video assessment done using teleICU camera, rest of exam as per RN. Critical Care: critically ill patient. Cont. Abx, Eliquis, consider transfer. Discussed with DAIANA Mercedes. Asked RN to reach out to eICU if any questions or concerns later. Time spent with patient/coordination of care with other health professionals (mins): 15 Sepsis Event Evaluation Height, Weight, BMI Height: 0'0.00" Weight: 0lbs. 0.0oz. 0.596795in; 28.47 BMI Method: Focused Exam Lactate Level 05/14/21 06:15: Lactic Acid Level 5.09*H 05/14/21 08:41: Lactic Acid Level 1.45 Time of Focused Exam: 07:26 Exam Exam Patient acknowledged, consented, and participated in this virtual visit which was conducted using real time audio/video Vital Signs Date Time Temp Pulse Resp B/P (MAP) Pulse Ox O2 Delivery O2 Flow Rate FiO2 05/16/21 07:00 77 05/16/21 06:00 62 18 102/68 (79) 94 Room Air 05/16/21 05:13 65 05/16/21 05:00 87 12 128/85 (99) 95 Room Air 05/16/21 04:00 68 14 130/85 (100) 95 Room Air 05/16/21 04:00 96 Room Air 05/16/21 03:00 64 14 93/65 (74) 95 Room Air 05/16/21 02:00 71 17 93/65 (74) 95 Room Air 05/16/21 01:00 62 15 102/65 (77) 95 Room Air 05/16/21 01:00 73 05/16/21 00:00 68 14 106/68 (81) 95 Room Air 05/15/21 23:48 96 Room Air 05/15/21 23:46 36.1 68 98 Room Air 05/15/21 23:00 65 17 92/64 (73) 95 Room Air 05/15/21 22:00 77 23 96/74 (81) 95 Room Air 05/15/21 21:36 65 05/15/21 21:00 80 21 113/75 (88) 94 Room Air 05/15/21 20:04 37.0 05/15/21 20:00 79 24 111/81 (91) 94 Room Air 05/15/21 20:00 96 Room Air 05/15/21 19:34 37.4 05/15/21 19:26 37.3 05/15/21 19:00 81 05/15/21 19:00 87 26 106/72 (83) 95 Room Air 05/15/21 18:10 100 26 124/88 (100) 94 Room Air 05/15/21 17:09 90 124/91 (102) 94 Room Air 05/15/21 16:00 81 27 103/75 (84) 93 Room Air 05/15/21 16:00 36.9 05/15/21 16:00 94 Room Air 05/15/21 15:00 73 26 104/75 (85) 93 Room Air 05/15/21 14:00 120/65 (83) 05/15/21 13:00 76 26 121/87 (98) 93 Room Air 05/15/21 13:00 83 05/15/21 12:00 94 Room Air 05/15/21 12:00 75 25 120/81 (94) 95 Room Air 05/15/21 11:25 36.4 05/15/21 11:00 69 23 113/72 (86) 95 Room Air 05/15/21 10:00 84 23 111/79 (90) 95 Room Air I & O 05/16/21 06:59 Intake Total 3895 ml Output Total 1275 ml Balance 2620 ml Height & Weight Height: 0'0.00" Weight: 0lbs. 0.0oz. 0.751072fb; 28.47 BMI Method: General Appearance: No Apparent Distress HEENT: PERRL/EOMI Neck: Normal Inspection, Non Tender Respiratory: Lungs Clear; No Normal Breath Sounds, No No Accessory Muscle Use; Respiratory Distress (Mild to moderate with oxygen saturations 92% on room air.) Cardiovascular: No Murmur, Irregularly Irregular Capillary Refill: Less Than 3 Seconds Peripheral Pulses: 2+ Radial Pulses (R), 2+ Radial Pulses (L) Gastrointestinal: non tender, soft, no organomegaly Extremity: Normal Capillary Refill, Normal Inspection, Normal Range of Motion, Non Tender, No Calf Tenderness, No Pedal Edema Neurologic/Psychiatric: Alert, Oriented x3 Skin: Normal Color, Warm/Dry, Erythema Results Lab Laboratory Tests 05/15/21 03:35 05/16/21 03:45 Assessment/Plan Assessment/Plan See free text Critical Care: Critically Ill Patient VICKY SWANSON MD May 16, 2021 09:11
--- NOTE | 2021-05-16 12:10 | Physical Therapy Daily Note ---
PT Daily Note-Current Subjective Pt in recliner w/ family in room and agrees to tx. Pt has no c/o pain Mental Status Patient Orientation: Person, Confused, Place Transfers SCALE: Activities may be completed with or without assistive devices. 8-Lvpzykjqkv-sdisgji completes the activity by him/herself with no assistance from a helper. 5-Set-up or Clean-up Assistance-helper sets up or cleans up; patient completes activity. [place] assists only prior to or following the activity. 4-Supervision or Touching Assistance-helper provides verbal cues and/or touching/steadying and/or contact guard assistance as patient completes activity. Assistance may be provided throughout the activity or intermittently. 3-Partial/Moderate Assistance-helper does LESS THAN HALF the effort. [place] li fts, holds or supports trunk or limbs, but provides less than half the effort. 2-Substantial/Maximal Assistance-helper does MORE THAN HALF the effort. [place] lifts or holds trunk or limbs and provides more than half the effort. 6-Ivgyrsxhh-lxajhx does ALL the effort. Patient does none of the effort to complete the activity. Or, the assistance of 2 or more helpers is required for the patient to complete the activity. If activity was not attempted, code reason: 7-Patient Refused. 9-Not Applicable-not attempted and the patient did not perform the activity before the current illness, exacerbation or injury. 10-Not Attempted due to Environmental Limitations-(lack of equipment, weather restraints, etc.). 88-Not Attempted due to Medical Conditions or Safety Concerns. Sit to Stand (QC): 5 Gait Training Does the Patient Walk?: Yes Distance: 250' Walk 10 feet (QC): 5 Walk 50 ft with 2 Turns(QC): 5 Walk 150 ft (QC): 5 Gait Assistive Device: FWW No gait deviations at this time. VC to avoid obstacles Treatments Pt in recliner, sit to stand and amb 250' SBA. Pt has steady, functional gait with no deviations. Pt returns to recliner with all needs met, call light in hand. Assessment Current Status: Good Progress Pt increasing endurance, gait, and mobility PT Usp Goals Usp Goals PT Usp Goals Time Frame: May 26, 2021 Roll Left & Right (QC): 6 Sit to Lying (QC): 6 Lying-Sitting on Side/Bed(QC): 6 Sit to Stand (QC): 6 Chair/Ceo-bh-Dvelt Xfer(QC): 6 Toilet Transfer (QC): 6 Walk 10 feet (QC): 6 Walk 50ft with 2 Turns (QC): 6 Walk 150 ft (QC): 6 PT Plan Treatment/Plan Treatment Plan: Continue Plan of Care Treatment Plan: Bed Mobility, Education, Functional Activity Darrian, Functional Strength, Gait, Safety, Therapeutic Exercise, Transfers Treatment Duration: May 26, 2021 Frequency: 6 times per week Estimated Hrs Per Day: .25 hour per day Patient and/or Family Agrees t: Yes Time/GCodes Time In: 1149 Time Out: 1201 Total Billed Treatment Time: 12 Total Billed Treatment 1, GT TREVON YOO TEMPLATE CHECKER May 16, 2021 12:10
[2021-05-16] MEDS: VANCOMYCIN INJECTION 1,000 MG in NS (IVPB) 250 ML IV SCH (12:22)
--- NOTE | 2021-05-16 12:45 | Occupational Ther Daily Note ---
OT Current Status-Daily Note Subjective Pt alert, lying in bed. Pt agrees to therapy. No c/o pain. Mental Status/Objective Patient Orientation: Person, Place, Time, Situation Attachments: Sy Catheter ([place]), IV, Telemetry ADL-Treatment Therapy Code Descriptions/Definitions Functional [place] Measure: 0=Not Assessed/NA 4=Minimal Assistance 1=Total Assistance 5=Supervision or Setup 2=Maximal Assistance 6=Modified [place] 3=Moderate Assistance 7=Complete IndependenceSCALE: Activities may be completed with or without assistive devices. 6-Icvqjzcfxg-jjverur completes the activity by him/herself with no assistance from a helper. 5-Set-up or Clean-up Assistance-helper sets up or cleans up; patient completes activity. [place] assists only prior to or following the activity. 4-Supervision or Touching Assistance-helper provides verbal cues and/or touching/steadying and/or contact guard assistance as patient completes activit y. Assistance may be provided throughout the activity or intermittently. 3-Partial/Moderate Assistance-helper does LESS THAN HALF the effort. [place] lifts, holds or supports trunk or limbs, but provides less than half the effort. 2-Substantial/Maximal Assistance-helper does MORE THAN HALF the effort. [place] lifts or holds trunk or limbs and provides more than half the effort. 4-Bstcitkrf-avwcal does ALL the effort. Patient does none of the effort to complete the activity. Or, the assistance of 2 or more helpers is required for the patient to complete the activity. If activity was not attempted, code reason: 7-Patient Refused. 9-Not Applicable-not attempted and the patient did not perform the activity before the current illness, exacerbation or injury. 10-Not Attempted due to Environmental Limitations-(lack of equipment, weather restraints, etc.). 88-Not Attempted due to Medical Conditions or Safety Concerns. On/Off Footwear: 3 Toileting Hygiene (QC): 4 Other Treatment Pt able to bring feet up to don socks, due to long toe nails assist given to place sock over R toes then pt could don by self then pt able to don L sock with assist only to keep toe nails from snagging sock. CGA for pt to transfer from bed to recliner using FWW. Pt stood to cleanse cecil area/buttocks with bath pack, CGA. After session, pt sitting in recliner with call light/phone in reach. All needs met in room. OT Console Attendant Goals Console Attendant Goals Time Frame: May 25, 2021 Eating (QC): 6 Oral Hygiene (QC): 6 Toileting Hygiene (QC): 6 Shower/Bathe Self (QC): 6 Upper Body Dressing (QC): 6 Lower Body Dressing (QC): 6 On/Off Footwear (QC): 6 Additional Goals: 1-Demonstrate ADL Tasks, 2-Verbalize Understanding, 3- ImproveStrength/Darrian 1=Demonstrate adherence to instructed precautions during ADL tasks. 2=Patient will verbalize/demonstrate understanding of assistive devices/modifications for ADL. 3=Patient will improve strength/tolerance for activity to enable patient to perform ADL's. OT Education/Plan Problem List/Assessment Assessment: Decreased Activ Tolerance Discharge Recommendations Plan/Recommendations: Continue POC Treatment Plan/Plan of Care Patient would benefit from OT for education, treatment and training to promote independence in ADL's, mobility, safety and/or upper extremity function for ADL's. Plan of Care: ADL Retraining, Functional Mobility, UE Funct Exercise/Act Treatment Duration: May 25, 2021 Frequency: 5 times per week Estimated Hrs Per Day: 1.5 hours per day Agreement: Yes Rehab Potential: Fair Time/GCodes Start Time: 11:25 Stop Time: 11:40 Total Time Billed (hr/min): 15 Billed Treatment Time 1 visit-FA 1 (15 min) SHAHLA BURNETT May 16, 2021 12:45
--- NOTE | 2021-05-16 13:14 | Progress Note ---
Subjective Subjective/Events-last exam Patient states that she is feeling better. Tolerating PO diet. States that she walked the halls last night and felt weak. Review of Systems Pulmonary: No Dyspnea, No Cough Cardiovascular: No: Chest Pain, Palpitations Gastrointestinal: No: Nausea, Vomiting, Abdominal Pain, Diarrhea, Constipation Neurological: Weakness, Incoordination Focused Exam Lactate Level 05/14/21 06:15: Lactic Acid Level 5.09*H 05/14/21 08:41: Lactic Acid Level 1.45 Time of Focused Exam: 07:26 Objective Exam Last Set of Vital Signs Vital Signs Date Time Temp Pulse Resp B/P (MAP) Pulse Ox O2 Delivery O2 Flow Rate FiO2 05/16/21 09:00 80 20 131/80 (97) 95 Room Air 05/15/21 23:46 36.1 05/15/21 01:00 1.00 Capillary Refill : Less Than 3 Seconds I&O Intake and Output 05/16/21 00:00 Intake Total 5205 ml Output Total 1475 ml Balance 3730 ml Intake Oral 1525 ml IV Total 3680 ml Output Urine Total 1475 ml # Voids 2 # Bowel Movements 4 General: Alert, Oriented X3, Cooperative, No Acute Distress HEENT: Mucous Memb Moist/[place] Lungs: Clear to Auscultation, Normal Air Movement Heart: Other (irregularly iregular rhthym, systolic murmur) Abdomen: Soft, No Tenderness, No Masses Extremities: Other (2+ pitting edema) Skin: No Rashes Neuro: Normal Speech, Sensation Intact, Cranial Nerves 3-12 NL Psych/Mental Status: Mental Status NL, Mood NL Results/Procedures Lab Laboratory Tests 05/16/21 03:45: White Blood Count 11.4H, Red Blood Count 3.67L, Hemoglobin 10.4L, Hematocrit 33L , Mean Corpuscular Volume 89, Mean Corpuscular Hemoglobin 28, Mean Corpuscular Hemoglobin Concent 32, Red Cell Distribution Width 14.6H, Platelet Count 169, Mean Platelet Volume 10.3, Immature Granulocyte % (Auto) 1, Neutrophils (%) (Auto) 83H, Lymphocytes (%) (Auto) 11L, Monocytes (%) (Auto) 3, Eosinophils (%) (Auto) 2, Basophils (%) (Auto) 0, Neutrophils # (Auto) 9.4H, Lymphocytes # (Auto) 1.2, Monocytes # (Auto) 0.4, Eosinophils # (Auto) 0.2, Basophils # (Auto) 0.1, Immature Granulocyte # (Auto) 0.1, Neutrophils % (Manual) 84, Lymphocytes % (Manual) 6, Monocytes % (Manual) 3, Eosinophils % (Manual) 4, Band Neutrophils 3, Sodium Level 132L, Potassium Level 3.8, Chloride Level 101, Carbon Dioxide Level 22, Anion Gap 9, Blood Urea Nitrogen 11, Creatinine 0.66, Estimat Glomerular Filtration Rate 88, BUN/Creatinine Ratio 17, Glucose Level 92, Calcium Level 8.2L, Corrected Calcium 9.4, Phosphorus Level 2.6, Magnesium Level 2.0, Total Bilirubin 0.6, Aspartate Amino Transf (AST/SGOT) 24, Alanine Aminotransferase (ALT/SGPT) 15, Alkaline Phosphatase 59, Total Protein 5.0L, Albumin 2.5L Microbiology 05/14/21 Blood Culture - Preliminary, Resulted No growth 05/14/21 Urine Culture - Final, Complete 3 or more isolates Radiology Date of Exam:05/14/21 CT ABDOMEN/PELVIS W PROCEDURE: CT abdomen and pelvis with contrast. TECHNIQUE: Multiple contiguous axial images were obtained through the abdomen and pelvis after administration of intravenous contrast. Auto Exposure Controls were utilized during the CT exam to meet ALARA standards for radiation dose reduction. All CT scans use one or more of the following dose optimizing techniques: automated exposure control, MA and/or KvP adjustment based on patient size and exam type or iterative reconstruction. INDICATION: Nausea, vomiting, diarrhea and septic shock. Comparison is made with prior CT from 10/25/2015. The heart is enlarged. No discrete liver mass is identified. Gallbladder appears to be unremarkable. No biliary duct dilatation. The pancreas and spleen are unremarkable. No adrenal mass is detected. Kidneys are unremarkable. There are extrarenal pelves bilaterally. No obstructing lesion is identified. Aorta is tortuous and calcified but nonaneurysmal. No central retroperitoneal or mesenteric lymphadenopathy is identified. Bowel loops are normal caliber. Bladder and uterus are unremarkable. No free fluid or fluid collection is identified. Mildly prominent lymph nodes in the inguinal regions bilaterally are noted. No iliac lymphadenopathy is identified. IMPRESSION: 1. Cardiomegaly. 2. No acute feature in the abdomen or pelvis is identified. Dictated by: Dictated on workstation # [id number] Dict: 05/14/21 0817 Trans: 05/14/21 1556 CVB [id number] Interpreted by: FRANCISCA NORMAN MD Electronically signed by: FRANCISCA NORMAN MD 05/14/21 1556 Assessment/Plan Assessment/Plan (1) Septic shock Status: Acute Assessment & Plan: - Repeat LA pending, continue aggressive IVF's to maintain MAP, unclear site of infection, procalcitonin elevated, continue Cefepime 05/15: HDS, blood pressures improving, Continue IV antibiotics, will decrease IVFs and monitor blood pressure 05/16: D/c IVFs, encourage PO hydration, continue cefepime (2) Hyponatremia Status: Acute Assessment & Plan: - Normal sodium in clinic 01/09/21, will continue to monitor, likely 2/2 dehydration 05/15: Improving, daily CMPs (3) Chronic atrial fibrillation Status: Chronic Assessment & Plan: - Rate controlled, continue OAC (4) DVT prophylaxis Status: Acute Assessment & Plan: - OAC TATY BRUNNER MD May 16, 2021 13:14
[2021-05-16] MEDS: CATHETER FLUSH 10 ML SYR IV SCH ×2 (14:00→19:48)
[2021-05-16] MEDS ORDERED: CATHETER FLUSH 10 ML SYR IV PRN (14:00)
--- NOTE | 2021-05-16 17:57 | Physician Query Clarification ---
Physician Query-General Query to Physician: The medical record reflects the following clinical scenario: The patient, in the setting of History/Risk factors, Tobacco abuse, Current everyday smoker, ETOH abuse Clinical Findings VS: HR 116, RR 18, BP 93/61, SpO2 92% sat on 2 L T 38.4, SOA with Exertion, Course lung sounds, Dry cough Chest X-ray "Moderate enlargement of the heart without edema or pneumonia" Treatment normal saline 3 L, ceftriaxone IV, azithromycin IV Question: Do you agree with the impression of Pneumonia per Dr. Tomas Vaca? 1. Yes; will document Pneumonia, present on admission in the Progress Notes 2. No; will continue current documentation in the Progress Notes 3. Other; will document explanation of clinical findings 4. Clinically undetermined; no explanation for clinical findings Please clarify and document your clinical opinion in the Progress Notes and Discharge Summary including the definitive and/or presumptive diagnosis, (suspected or probable), related to the above clinical findings. Please include clinical findings supporting your diagnosis. In responding to this query, please exercise your independent professional judgment. The purpose of this communication is to more accurately reflect the complexity of your patients condition. The fact that a question is asked does not imply that any particular answer is desired or expected. Please remember a lack of response to the above will prompt a phone page by CDI/coding staff Thank you for timely response to this clarification. Kristan Vega MSN, RN Clinical Track Helper [phone] [email or web address] PHYSICIAN RESPONSE: Based on the clinical findings in the record, please respond to the query above on this document as an addendum. Physician Response: Physician Response Patient's course in the hospital was not consistent with PNA If you have questions please contact: Revenue Director: Ext: Thank you for your time and cooperation. Clinical Track Helper/Revenue Director This is a permanent part of the medical record KRISTAN VEGA May 16, 2021 17:57 TATY BRUNNER MD May 17, 2021 19:23
--- NOTE | 2021-05-16 18:27 | Physician Query Clarification ---
Physician Query-General Query to Physician: The medical record reflects the following clinical evidence: Clinical Indicators: Documentation on the Nursing admission assessment of a stage 2 pressure ulcer to the buttock Risk Factor(s): Tobacco and ETOH abuse, Weakness Treatment: Turn/reposition q 2 hours, "Cindy's Butt paste", off loading with pillows, Zinc ointment, HOB <30 degrees, 1. Pressure ulcer of unspecified buttock, stage 2, present on admission 2. Other explanation of clinical findings 3. Unable to determine (no explanation for clinical findings) Please clarify and document your clinical opinion in the progress notes and discharge summary including the definitive and/or presumptive diagnosis, (suspected or probable), related to the above clinical findings. Please include clinical findings supporting your diagnosis. Kristan Vega MSN, RN Clinical Air Value Tester [phone] [email or web address] PHYSICIAN RESPONSE: Based on the clinical findings in the record, please respond to the query above on this document as an addendum. Physician Response: Physician Response 1. Wound was present on admission If you have questions please contact: Bag Builder: Ext: Thank you for your time and cooperation. Clinical Air Value Tester/Bag Builder This is a permanent part of the medical record KRISTAN VEGA May 16, 2021 18:26 TATY BRUNNER MD May 17, 2021 19:24
[2021-05-17] MEDS: CEFEPIME 1,000 MG/SWFI 10 ML IV PUSH IV SCH ×4 (04:17→13:08)
[2021-05-17] MEDS: CATHETER FLUSH 10 ML SYR IV SCH (04:18)
[2021-05-17 06:07] LABS: BASOPHILS # (AUTO) 0.1 10^3/uL (0.0-0.1); BASOPHILS % (AUTO) 1 % (0-10); EOSINOPHILS # (AUTO) 0.4 10^3/uL (0.0-0.3); EOSINOPHILS % (AUTO) 4 % (0-10); HEMATOCRIT 33 % (35-52); HEMOGLOBIN 10.9 g/dL (11.5-16.0); LYMPHOCYTES # (AUTO) 1.3 10^3/uL (1.0-4.0); LYMPHOCYTES % (AUTO) 16 % (12-44); MEAN CORPUSCULAR HEMOGLOBIN 29 pg (25-34); MEAN CORPUSCULAR HGB CONC 33 g/dL (32-36); MEAN CORPUSCULAR VOLUME 89 fL (80-99); MONOCYTES # (AUTO) 0.5 10^3/uL (0.0-1.0); MONOCYTES % (AUTO) 5 % (0-12); NEUTROPHILS # (AUTO) 6.4 10^3/uL (1.8-7.8); NEUTROPHILS % (AUTO) 74 % (42-75); PLATELET COUNT 181 10^3/uL (130-400); WHITE BLOOD COUNT 8.6 10^3/uL (4.3-11.0)
[2021-05-17 06:08] LABS: ALBUMIN 2.6 GM/DL (3.2-4.5)
[2021-05-17 06:09] LABS: POTASSIUM 3.8 MMOL/L (3.6-5.0)
[2021-05-17 06:10] LABS: CALCIUM 8.5 MG/DL (8.5-10.1)
[2021-05-17 06:11] LABS: TOTAL PROTEIN 5.3 GM/DL (6.4-8.2)
[2021-05-17 06:13] LABS: BILIRUBIN,TOTAL 0.7 MG/DL (0.1-1.0)
[2021-05-17 06:14] LABS: PHOSPHORUS 2.9 MG/DL (2.3-4.7)
[2021-05-17 06:15] LABS: CREATININE SERUM 0.57 MG/DL (0.60-1.30)
[2021-05-17 06:18] LABS: MAGNESIUM 1.5 MG/DL (1.6-2.4)
[2021-05-17 06:30] LABS: ANISOCYTOSIS SLIGHT; BAND NEUTROPHILS 1 %; BASOPHILS % (MANUAL) 0 %; EOSINOPHILS % (MANUAL) 0 %; LYMPHOCYTES % (MANUAL) 8 %; MONOCYTES % (MANUAL) 4 %; NEUTROPHILS % (MANUAL) 87 %
[2021-05-17] MEDS: APIXABAN 5 MG (ELIQUIS) TABLET PO SCH (09:00)
[2021-05-17] MEDS: NYSTATIN CREAM (MYCOSTATIN) 30 GM TUBE TP SCH (09:01)
[2021-05-17] MEDS: MICONAZOLE 2% POWDER (DESENEX AF) 90 GM TOP SCH (09:01)
--- NOTE | 2021-05-17 10:15 | Physical Therapy Daily Note ---
PT Daily Note-Current Subjective Patient states, "I hope I get to go home today." Family present. Mental Status Patient Orientation: Person, Time, Situation Transfers SCALE: Activities may be completed with or without assistive devices. 5-Ahrpeolywz-tqvayig completes the activity by him/herself with no assistance from a helper. 5-Set-up or Clean-up Assistance-helper sets up or cleans up; patient completes a ctivity. [place] assists only prior to or following the activity. 4-Supervision or Touching Assistance-helper provides verbal cues and/or touching/steadying and/or contact guard assistance as patient completes activity. Assistance may be provided throughout the activity or intermittently. 3-Partial/Moderate Assistance-helper does LESS THAN HALF the effort. [place] lifts, holds or supports trunk or limbs, but provides less than half the effort. 2-Substantial/Maximal Assistance-helper does MORE THAN HALF the effort. [place] lifts or holds trunk or limbs and provides more than half the effort. 6-Xxoctuozk-nxozft does ALL the effort. Patient does none of the effort to complete the activity. Or, the assistance of 2 or more helpers is required for the patient to complete the activity. If activity was not attempted, code reason: 7-Patient Refused. 9-Not Applicable-not attempted and the patient did not perform the activity before the current illness, exacerbation or injury. 10-Not Attempted due to Environmental Limitations-(lack of equipment, weather restraints, etc.). 88-Not Attempted due to Medical Conditions or Safety Concerns. Lying to Sitting/Side of Bed(Q: 6 Sit to Stand (QC): 6 Chair/Eeh-kd-Ipljl Xfer(QC): 6 Gait Training Does the Patient Walk?: Yes Distance: 400' Walk 10 feet (QC): 5 Walk 50 ft with 2 Turns(QC): 5 Walk 150 ft (QC): 5 Gait Assistive Device: FWW safe and functional with no deviation Assessment Current Status: Excellent Progress Patient feels she is at PLOF with mobility and continues to report she desires to return to home. PT to increase activity as tolerated by patient. PT [employer] Wireman Goals [employer] Wireman Goals PT [employer] Wireman Goals Time Frame: May 26, 2021 Roll Left & Right (QC): 6 Sit to Lying (QC): 6 Lying-Sitting on Side/Bed(QC): 6 Sit to Stand (QC): 6 Chair/Fuo-ou-Djuzs Xfer(QC): 6 Toilet Transfer (QC): 6 Walk 10 feet (QC): 6 Walk 50ft with 2 Turns (QC): 6 Walk 150 ft (QC): 6 PT Plan Treatment/Plan Treatment Plan: Continue Plan of Care Treatment Plan: Bed Mobility, Education, Functional Activity Darrian, Functional Strength, Gait, Safety, Therapeutic Exercise, Transfers Treatment Duration: May 26, 2021 Frequency: 6 times per week Estimated Hrs Per Day: .25 hour per day Patient and/or Family Agrees t: Yes Time/GCodes Time In: 838 Time Out: 848 Total Billed Treatment Time: 10 Total Billed Treatment 1 visit FA 10 min TOI DENSON PT May 17, 2021 10:15
--- NOTE | 2021-05-17 11:04 | Occupational Ther Daily Note ---
OT Current Status-Daily Note Subjective Pt was getting out of shower upon OT arrival. Pt agreed to OT tx session on this date. Mental Status/Objective Patient Orientation: Person, Place, Time, Situation ADL-Treatment Therapy Code Descriptions/Definitions Functional [place] Measure: 0=Not Assessed/NA 4=Minimal Assistance 1=Total Assistance 5=Supervision or Setup 2=Maximal Assistance 6=Modified [place] 3=Moderate Assistance 7=Complete IndependenceSCALE: Activities may be completed with or without assistive devices. 0-Kgzoedecuw-wjaivvs completes the activity by him/herself with no assistance from a helper. 5-Set-up or Clean-up Assistance-helper sets up or cleans up; patient completes activity. [place] assists only prior to or following the activity. 4-Supervision or Touching Assistance-helper provides verbal cues and/or touching/steadying and/or contact guard assistance as patient completes activity. Assistance may be provided throughout the activity or intermittently. 3-Partial/Moderate Assistance-helper does LESS THAN HALF the effort. [place] lifts, holds or supports trunk or limbs, but provides less than half the effort. 2-Substantial/Maximal Assistance-helper does MORE THAN HALF the effort. [place] lifts or holds trunk or limbs and provides more than half the effort. 4-Qfnxlwysh-xizmie does ALL the effort. Patient does none of the effort to complete the activity. Or, the assistance of 2 or more helpers is required for the patient to complete the activity. If activity was not attempted, code reason: 7-Patient Refused. 9-Not Applicable-not attempted and the patient did not perform the activity before the current illness, exacerbation or injury. 10-Not Attempted due to Environmental Limitations-(lack of equipment, weather restraints, etc.). 88-Not Attempted due to Medical Conditions or Safety Concerns. Shower/Bathe Self (QC): 5 (Pt required set up, per nursing staff. ) Upper Body Dressing (QC): 5 (Pt required set up w/ hospital gown. ) Other Treatment Pt was getting out of shower upon OT arrival. Pt agreed to OT tx session on this date. Pt performed functional mobility from SC to chair, SBA for safety without AD. Pt transferred stand to sit in chair, SBA. Pt then performed grooming task at Min assist of brushing hair while seated for energy conservation purposes. Pt answered phone call from her son, declines further OT services at this time. Post tx session, pt was seated in chair, legs elevated, call light within reach, and all needs met. Education OT Patient Education: Energy conservation, Progress toward Goal/Update tx plan, Purpose of tx/functional activities Teaching Recipient: Patient Teaching Methods: Discussion Response to Teaching: Verbalize Understanding OT Residential Goals Residential Goals Time Frame: May 25, 2021 Eating (QC): 6 Oral Hygiene (QC): 6 Toileting Hygiene (QC): 6 Shower/Bathe Self (QC): 6 Upper Body Dressing (QC): 6 Lower Body Dressing (QC): 6 On/Off Footwear (QC): 6 Additional Goals: 1-Demonstrate ADL Tasks, 2-Verbalize Understanding, 3- ImproveStrength/Darrian 1=Demonstrate adherence to instructed precautions during ADL tasks. 2=Patient will verbalize/demonstrate understanding of assistive devices/modifications for ADL. 3=Patient will improve strength/tolerance for activity to enable patient to perform ADL's. OT Education/Plan Problem List/Assessment Assessment: Decreased Activ Tolerance, Impaired I ADL's, Impaired Self-Care Skills, Restricted Funct UE ROM Discharge Recommendations Plan/Recommendations: Continue POC Treatment Plan/Plan of Care Patient would benefit from OT for education, treatment and training to promote independence in ADL's, mobility, safety and/or upper extremity function for ADL's. Plan of Care: ADL Retraining, Functional Mobility, UE Funct Exercise/Act Treatment Duration: May 25, 2021 Frequency: 5 times per week Estimated Hrs Per Day: 1.5 hours per day Agreement: Yes Rehab Potential: Fair Time/GCodes Start Time: 10:20 Stop Time: 10:33 Total Time Billed (hr/min): 13 Billed Treatment Time 1 Visit, ADL JO CHAWLA OT May 17, 2021 11:04
--- NOTE | 2021-05-17 12:23 | Discharge Summary ---
Diagnosis/Chief Complaint Date of Admission May 14, 2021 at 09:00 Date of Discharge 05/17/21 Admission Diagnosis Admission Diagnosis See problem list Discharge Diagnosis See below Problems/Diagnosis: (1) Septic shock Assessment & Plan: - Repeat LA pending, continue aggressive IVF's to maintain MAP, unclear site of infection, procalcitonin elevated, continue Cefepime 05/15: HDS, blood pressures improving, Continue IV antibiotics, will decrease IVFs and monitor blood pressure 05/16: D/c IVFs, encourage PO hydration, continue cefepime 05/17: HDS off IVFs, PO intake improved, will transition to PO antibiotics and d/c home, encouraged family to consider HH and they are declining HH at this time Status: Resolved Resolution Date/Time: 05/16/21 @ 13:36 (2) Hyponatremia Assessment & Plan: - Normal sodium in clinic 01/09/21, will continue to monitor, likely 2/2 dehydration 05/15: Improving, daily CMPs 05/17: Improved at d/c Status: Acute (3) Chronic atrial fibrillation Assessment & Plan: - Rate controlled, continue OAC Status: Chronic (4) DVT prophylaxis Assessment & Plan: - OAC Status: Acute Chief Complaint/HPI Chief Complaint/HPI 71 yo F that presented with altered mental status, N/V and abdominal pain. States that she woke up and felt like she was going to vomit. Symptoms started abruptly this AM. Denies any chest pain or shortness of breath. States that she has had a normal appetite. She has been feeling some chills this AM. She took all her medications this AM. Denies any other sick contacts. Discharge Summary-Simple/Stand Consultations Discharge Physical Examination Allergies: Coded Allergies: Penicillins (Verified Allergy, Unknown, 10/30/19) Vitals & I&Os Vital Sign - Last 12Hours Date Time Temp Pulse Resp B/P (MAP) Pulse Ox O2 Delivery O2 Flow Rate FiO2 05/17/21 08:00 36.4 74 20 170/84 94 Room Air 05/15/21 01:00 1.00 Intake and Output 05/17/21 00:00 Intake Total 2005 ml Output Total 1050 ml Balance 955 ml General Appearance: Alert, Oriented X3, Cooperative, No Acute Distress Respiratory: Clear to Auscultation, Normal Air Movement Cardiovascular: Other (irregularly irregular rate, systolic murmur) Abdominal: Normal Bowel Sounds, Soft, No Tenderness, No Masses Extremities: Other (2+ pitting edema R slightly larger the L) Skin: Other (dependent rashes on periuneium and buttock) Neuro: Normal Speech, Sensation Intact, Cranial Nerves 3-12 NL Psych/Mental Status: Mental Status NL, Mood NL Hospital Course Was the Problem List Reviewed?: Yes See final discharge diagnosis. Radiology Reviewed Date of Exam:05/14/21 CT ABDOMEN/PELVIS W PROCEDURE: CT abdomen and pelvis with contrast. TECHNIQUE: Multiple contiguous axial images were obtained through the abdomen and pelvis after administration of intravenous contrast. Auto Exposure Controls were utilized during the CT exam to meet ALARA standards for radiation dose reduction. All CT scans use one or more of the following dose optimizing techniques: automated exposure control, MA and/or KvP adjustment based on patient size and exam type or iterative reconstruction. INDICATION: Nausea, vomiting, diarrhea and septic shock. Comparison is made with prior CT from 10/25/2015. The heart is enlarged. No discrete liver mass is identified. Gallbladder appears to be unremarkable. No biliary duct dilatation. The pancreas and spleen are unremarkable. No adrenal mass is detected. Kidneys are unremarkable. There are extrarenal pelves bilaterally. No obstructing lesion is identified. Aorta is tortuous and calcified but nonaneurysmal. No central retroperitoneal or mesenteric lymphadenopathy is identified. Bowel loops are normal caliber. Bladder and uterus are unremarkable. No free fluid or fluid collection is identified. Mildly prominent lymph nodes in the inguinal regions bilaterally are noted. No iliac lymphadenopathy is identified. IMPRESSION: 1. Cardiomegaly. 2. No acute feature in the abdomen or pelvis is identified. Dictated by: Dictated on workstation # [id number] Dict: 05/14/21 0817 Trans: 05/14/21 1556 [facility] [id number] Interpreted by: FRANCISCA NORMAN MD Electronically signed by: FRANCISCA NORMAN MD 05/14/21 [id number] Discussion & Recommendations 71 yo F that presented to ER with septic shock. Patient was started on aggressive IVF protocol, broad spectrum antibiotics and monitored in the ICU. Patient continued to improve and PO intake improved. Encouraged patient and family to consider home with HH and they declined further services at this time. Will d/c home today with close f.u with PCP. Discharge Condition at discharge Stable Instructions to patient/family Please see electronic discharge instructions given to patient. Discharge Medications Reviewed and agree with Discharge Medication list on patient's Discharge Instruction sheet Copy Copies To 1: TATY BRUNNER MD, HOLLY R MD May 17, 2021 12:23
[2021-05-17] MEDS ORDERED: FLUC150T PO (12:26)
[2021-05-17] MEDS ORDERED: MICO90PO TOP (12:26)
[2021-05-17] MEDS ORDERED: CEFD300C3 PO (12:26)
--- NOTE | 2021-05-17 12:28 | Discharge Summary ---
Discharge [facility] Reconcile Patient Problems Problems Reviewed?: Yes Discharge Medications New, Converted or Re-Newed RX: Transmitted to Pharmacy New Medications: Cefdinir (Cefdinir) 300 Mg Capsule 300 MG PO BID for 3 Days, #6 CAP Fluconazole (Diflucan) 150 Mg Tablet 150 MG PO q 72 hrs, #3 TAB Miconazole Nitrate (Lotrimin AF) 90 Gm Powder 0 GM TOP BID, #100 GM Continued Medications: Acetaminophen (Tylenol) 325 Mg Capsule 325-650 MG PO Q8H PRN for PAIN-MILD (1-4), CAP Amlodipine Besylate (Amlodipine Besylate) 5 Mg Tablet 5 MG PO DAILY, TAB Apixaban (Eliquis) 5 Mg Tablet 5 MG PO Q12H, TAB Fluoxetine HCl (Fluoxetine HCl) 20 Mg Capsule 20 MG PO DAILY, CAP Spironolactone (Spironolactone) 25 Mg Tablet 25 MG PO DAILY, TAB Discontinued Medications: Diphenhydramine HCl (Benadryl Allergy) 25 Mg Tablet 25-50 MG PO Q8H PRN for ALLERGY SYMPTOMS, TAB Meloxicam (Meloxicam) 7.5 Mg Tablet 7.5 MG PO DAILY, TAB Patient Instructions Goal/Follow Up Appt: 2 weeks with Da Patient Instructions: - Discussed the importance of keeping perineum dry, Use bed side commode Activity & Diet Discharge Diet: Cardiac Diet Activity as Tolerated: Yes Copy Copies To 1: TATY BRUNNER MD, HOLLY R MD May 17, 2021 12:28
--- NOTE | 2021-05-18 14:28 | Physician Query Clarification ---
PQ-Conflicting Diagnosis Admission/Discharge Admission Date: May 14, 2021 at 09:00 Discharge Date: May 17, 2021 at 13:40 The medical record reflects the following clinical scenario: History/Risk Factors: septic shock, SOB, wheezing Clinical Findings: Respiratory Distress (Mild to moderate with oxygen saturations 92% on room air.) Treatment: Oxygen Question: Do you agree with the impression of Acute respiratory failure per ED record. Please document a response in Progress Note or Discharge Summary. 1. Yes 2. No 3. Other, with explanation of clinical findings 4. Clinically undetermined, no explanation for clinical findings. Please remember a lack of response to the above will prompt a phone page by [facility]/Coding staff. In responding to this query, please exercise your independent professional judgment. The purpose of this communication is to more accurately reflect the complexity of your patients condition. The fact that a question is asked does not imply that any particular answer is desired or expected. Thank you for your timely response to this clarification. Requestors name: Anabella THIS PHYSICIAN QUERY FORM IS A PERMANENT PART OF THE MEDICAL RECORD ANABELLA MOLINA May 18, 2021 14:28
== END 2021-05-17 13:40 | disposition home or self-care (01) | DRG 871 ==
LOC: EDUNIT# 06:00 → ER 06:06 → ICU 09:00 → 4TH 05-16 17:44
PROVIDERS: ADMIT Family Medicine; ATTEND Family Medicine
DX: A41.9 Sepsis, unspecified organism (principal); R65.21 Severe sepsis with septic shock; E87.1 Hypo-osmolality and hyponatremia; I48.20 Chronic atrial fibrillation, unspecified; L89.302 Pressure ulcer of unspecified buttock, stage 2; F17.210 Nicotine dependence, cigarettes, uncomplicated; I10 Essential (primary) hypertension; E11.9 Type 2 diabetes mellitus without complications; F41.9 Anxiety disorder, unspecified; F32.A Depression, unspecified; F17.220 Nicotine dependence, chewing tobacco, uncomplicated; Z20.822 Contact with and (suspected) exposure to COVID-19; Z79.899 Other long term (current) drug therapy; Z88.0 Allergy status to penicillin
CPT/HCPCS: 36415; 36600; 71045; 74177; 80048; 80053; 81000; 82805; 83605; 83690; 83735; 84100; 84145; 85007; 85025; 85027; 85610; 85730; 86141; 87040; 87088; 87636; 93005